=== PATIENT | male | born 1945 | race Caucasian/White ===

== ENCOUNTER 2019-02-24 14:20 | Inpatient (IN) | payer OTHER, SELFPAY ==
[2019-03-02] VITALS (19 sets, daily range): BP systolic 113–132; BP diastolic 70–78; PULSE 69–93; RESP 16–28; TEMP 36.3–36.9; O2SAT 86–96
[2019-03-02 05:30] LABS: Add RBC Morph No
[2019-03-02 05:36] LABS: Basophils % 0.1 %; Hematocrit 53.5 % (42.0-52.0); Hemoglobin 16.7 g/dL (11.7-16.6); Lymphocytes # 0.6 10^3/uL (0.8-4.8); Mean Corpuscular HGB Conc 31.2 g/dL (30.0-36.0); Mean Corpuscular Hemoglobin 28.4 pg (28.0-34.0); Mean Platelet Volume 9.8 fL (7.4-10.4); Monocytes # 0.7 10^3/uL (0.2-0.9); Monocytes % 5.8 %; Neutrophils # 10.6 10^3/uL (1.8-7.7); Neutrophils % 88.8 %; Nucleated Red Blood Cells % 0 %; Platelet Count 334 10^3/cmm (130-400); Red Blood Count 5.88 10^6/uL (4.1-5.3); Red Cell Distribution Width 14.1 % (12.1-15.1); White Blood Count 11.9 10^3/uL (4.0-10.0)
[2019-03-02 05:51] LABS: Alanine Aminotransferase 46 U/L (0-41); Albumin Level 3.6 g/dL (3.5-5.2); Alkaline Phosphatase 84 IU/L (40-130); Anion Gap 13.2 (5-19); Aspartate Amino Transferase 18 U/L (0-40); Blood Urea Nitrogen 30 mg/dL (8-23); Calcium 8.8 mg/Dl (8.8-10.2); Carbon Dioxide 37 mmol/L (22-29); Chloride 94 mmol/L (98-107); Glucose 238 mg/dL (74-106); Potassium 4.2 mmol/L (3.5-5.1); Sodium 140 mmol/L (136-145); Total Bilirubin 0.4 mg/dL (0.15-1.2); Total Protein 5.6 g/dL (6.6-8.7)
[2019-03-02] MEDS: ipratropium-albuterol 3 mL Neb INHALATION ×5 (07:30→22:56)
[2019-03-02] MEDS: FUROsemide 10 mg/mL SDV 4mL 40 MG IVP ×2 (08:32→18:40)
[2019-03-02] MEDS: clopidogrel 75 mg Tablet PO (08:39)
[2019-03-02] MEDS: atorvastatin 40 mg Tablet PO (08:39)
[2019-03-02] MEDS: levothyroxine 25 mcg Tablet PO (08:39)
[2019-03-02] MEDS: carvedilol 6.25 mg Tablet PO ×2 (08:39→17:07)
[2019-03-02] MEDS: guaiFENesin 600 mg Tablet PO ×2 (08:39→17:07)
[2019-03-02] MEDS: aspirin 81 mg EC Tablet PO (08:39)
--- NOTE | 2019-03-02 08:51 | PM.PN ---
Subjective Subjective: Interval history: Overall patient states he is feeling better. Less short of breath. No fevers or chills. He is very anxious to go home. Still requiring high flow oxygen though. He is getting up and ambulating some though. No significant sputum production. He is not wanting to use the BiPAP at night. And has not been very compliant with the incentive spirometer. Vitals/I&O/Wt Last Vital Signs Temp 98.4 F 03/02/19 06:00 Pulse 74 03/02/19 07:47 Resp 18 03/02/19 07:32 BP 132/78 03/02/19 06:00 Pulse Ox 90 03/02/19 07:32 03/01/19 03/02/19 03/02/19 22:59 06:59 14:59 Output Total 950 / 950 200 / 200 Balance -950 / -950 -200 / -200 Weight last 48 hrs Weight 82.282 kg Physical Exam Narrative: EXAM NARRATIVE: General: No acute distress. Alert. Heart: Regular rate and rhythm no new murmurs, rubs or gallops Lungs: Decreased breath sounds throughout. Some mild expiratory wheezes. No crackles. Abdomen: Positive bowel sounds. Nontender. Nondistended. No hepatosplenomegaly. No guarding. Extremities: No clubbing cyanosis or edema. Negative Homans Data Labs: Other Labs: All Labs last 24 hrs except CBC/BMP 03/01/19 03/01/19 03/01/19 03:17 03:17 14:57 RBC 5.88 H MCV 92.7 MCH 28.4 MCHC 30.6 RDW 13.9 MPV 9.9 Neut % (Auto) 91.8 Lymph % (Auto) 3.9 [place] % (Auto) 3.8 Eos % (Auto) 0.0 Baso % (Auto) 0.1 Neut # (Auto) 11.0 H Lymph # (Auto) 0.5 L [place] # (Auto) 0.5 Eos # (Auto) 0.0 Baso # (Auto) 0.0 Nucleated RBC % (a uto) 0 Nucleated RBCs # 0.0 Random Glucose 297 H Calcium 9.0 Total Bilirubin 0.4 AST 29 ALT 60 H Alkaline Phosphata se 100 C-React Prot High Sens 0.960 H Total Protein 6.4 L Albumin 3.7 Globulin 2.7 Vancomycin Trough 12.4 03/02/19 03/02/19 05:00 05:00 RBC 5.88 H MCV 91.0 MCH 28.4 MCHC 31.2 RDW 14.1 MPV 9.8 Neut % (Auto) 88.8 Lymph % (Auto) 5.0 [place] % (Auto) 5.8 Eos % (Auto) 0.0 Baso % (Auto) 0.1 Neut # (Auto) 10.6 H Lymph # (Auto) 0.6 L [place] # (Auto) 0.7 Eos # (Auto) 0.0 Baso # (Auto) 0.0 Nucleated RBC % (a uto) 0 Nucleated RBCs # 0.0 Random Glucose Calcium 8.8 Total Bilirubin 0.4 AST 18 ALT 46 H Alkaline Phosphata se 84 C-React Prot High Sens Total Protein 5.6 L Albumin 3.6 Globulin 2.0 Vancomycin Trough A&P Assessment and plan (1) Pneumonia: Overall patient feels like he is improving however is still requiring high flow oxygen. No fevers. He is very anxious to go home. We will go ahead and try to decrease him down to 5 L and see how he does. Apparently at home for a long time he has been running in the 80s. And seemed to do well with this. Status: Acute Code(s): J18.9 - Pneumonia, unspecified organism (2) COPD (chronic obstructive pulmonary disease): Continue steroids. Status: Acute Code(s): J44.9 - Chronic obstructive pulmonary disease, unspecified Attestations Medical Necessity Statement*: Patient has pneumonia and COPD requiring continued inpatient IV treatments and monitoring. 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
[2019-03-02] MEDS: cefTRIAXone 1,000 MG in sodium chloride 0.9% (plus) 50 ML 100 MG IV (08:56)
--- NOTE | 2019-03-02 13:22 | PC.CHAP ---
Pastoral Care Encounter/Spiritual Assessment Type of Contact [] Declined processing rep visit [x] Patient/Family/Request visit [] Outpatient visit [] Follow-up visit [] Physician referral [] Code/Alert [x] Routine visit [] Staff referral [] Actively dying [] Patient sleeping [x] Family support [] [] Out of room [] Palliative care [] [] Receiving care in room [] Pre-surgical visit [] Trauma [] Long length of stay [] ICU visit [] Other: Relational/Emotional Strength [] Patient feels connected with others/family/visitors/staff [] Distress [] Loneliness/isolation [] Abandonment Spirituality of Patient [x] Person of Judith [x] Attends Taoism of their Judith [x] Believes in Prayer [] Reads Bible or Synagogue materials [] There are Spiritual issues to be addressed Glaze Wiper Interventions [x] Prayer [x Active listening [xx] Non-anxious presence [] Spiritual/emotional support [] Crisis/trauma care [] Spiritual counseling [] Bereavement support [] Provided bereavement packet [] Provided Bible/devotional materials [] Provided toy/stuffed animal, coloring book to patient or family member [x] Completed spiritual assessment [] Provided Communion [] Anointing/[place] [] Salvation [] Other: Impact on Illness or Injury [] Angry [] Fearful [] Anxious [] Often cries [] Exhaustion [] Unable to work [] Unable to attend hindu [] Unable to walk/stand [] Unable to read [] Unable to drive [] Unable to eat/drink [] Unable to sleep [] Unable to be with family x Other: Summary ready to go home Time spent with patient 6 min
[2019-03-02] MEDS: enoxaparin 40 mg/0.4 mL Syringe SUBCUT (15:51)
[2019-03-02] MEDS: pantoprazole 40 mg SDV IVP (15:51)
[2019-03-03] VITALS (21 sets, daily range): BP systolic 108–148; BP diastolic 55–94; PULSE 69–114; RESP 17–26; TEMP 36.3–36.7; O2SAT 86–96
[2019-03-03] MEDS: ipratropium-albuterol 3 mL Neb INHALATION ×4 (02:55→23:07)
[2019-03-03 05:42] LABS: Hematocrit 54.9 % (42.0-52.0); Hemoglobin 16.9 g/dL (11.7-16.6); Lymphocytes # 0.4 10^3/uL (0.8-4.8); Mean Corpuscular HGB Conc 30.8 g/dL (30.0-36.0); Mean Corpuscular Hemoglobin 28.1 pg (28.0-34.0); Mean Corpuscular Volume 91.3 fL (80-94); Mean Platelet Volume 9.6 fL (7.4-10.4); Monocytes # 0.4 10^3/uL (0.2-0.9); Monocytes % 4.2 %; Neutrophils # 9.3 10^3/uL (1.8-7.7); Neutrophils % 91.4 %; Nucleated Red Blood Cells % 0 %; Platelet Count 343 10^3/cmm (130-400); Red Blood Count 6.01 10^6/uL (4.1-5.3); Red Cell Distribution Width 14.3 % (12.1-15.1); White Blood Count 10.2 10^3/uL (4.0-10.0)
[2019-03-03 05:44] LABS: Add RBC Morph No
[2019-03-03 06:02] LABS: Alanine Aminotransferase 50 U/L (0-41); Albumin Level 3.3 g/dL (3.5-5.2); Alkaline Phosphatase 78 IU/L (40-130); Anion Gap 10.3 (5-19); Aspartate Amino Transferase 20 U/L (0-40); Blood Urea Nitrogen 36 mg/dL (8-23); Calcium 9.1 mg/Dl (8.8-10.2); Chloride 92 mmol/L (98-107); Globulin 2.9 g/dL (1.3-4.6); Glucose 228 mg/dL (74-106); Potassium 4.3 mmol/L (3.5-5.1); Sodium 139 mmol/L (136-145); Total Bilirubin 0.5 mg/dL (0.15-1.2); Total Protein 6.2 g/dL (6.6-8.7)
[2019-03-03 06:05] LABS: Carbon Dioxide 41 mmol/L (22-29)
--- NOTE | 2019-03-03 06:50 | P.PN_ITS ---
Subjective Subjective: Interval history: Patient states that he still feels fine. He is still requiring BiPAP overnight though. No fevers or chills. No significant sputum. Chest x-ray is pending this morning. Vitals/I&O/Wt Last Vital Signs Temp 97.4 F L 03/03/19 05:00 Pulse 69 03/03/19 05:00 Resp 18 03/03/19 05:00 BP 148/94 03/03/19 05:00 Pulse Ox 96 03/03/19 05:00 03/02/19 03/02/19 03/03/19 14:59 22:59 06:59 Intake Total 360 / 360 610 / 970 300 / 1270 Output Total 1675 / 1675 850 / 2525 250 / 2775 Balance -1315 / -1315 -240 / -1555 50 / -1505 Weight last 48 hrs Weight 82.372 kg Weight 82.282 kg Physical Exam Const: COMMON NORMALS: no apparent distress, alert and well nourished GENERAL APPEARANCE: comfortable HENMT: COMMON NORMALS: normocephalic HEAD & SCALP: normocephalic NOSE: nares normal MOUTH: oral and palatal mucosa normal THROAT: posterior oropharynx normal Resp: COMMON NORMALS: normal respiratory effort, no retractions and clear to auscultation bilaterally AUSCULTATION: clear to auscultation bilaterally Cardio: COMMON NORMALS: regular rate, regular rhythm, no gallops, no murmurs and no rub RATE: regular rate RHYTHM: regular rhythm GI: COMMON NORMALS: normal to inspection, nondistended, normoactive bowel sounds, non-tender, no hepatosplenomegaly and no masses PALPATION: Yes no hepatosplenomegaly Extremity: COMMON NORMALS: normal to inspection, normal capillary refill, no clubbing, cyanosis or edema and no calf tenderness Neuro: SENSORIUM/ORIENTATION: Yes alert A&P Assessment and plan (1) Pneumonia: Overall patient feels like he is improving however is still requiring high flow oxygen. No fevers. He is very anxious to go home. We were unsuccessful with titrating him off the high flow yesterday. We will attempt this again today. Follow-up on chest x-ray this morning. Status: Acute Code(s): J18.9 - Pneumonia, unspecified organism (2) COPD (chronic obstructive pulmonary disease): Continue steroids. 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
--- NOTE | 2019-03-03 07:41 | XR_ITS ---
WS: [id number] CHEST XRAY TECHNIQUE: Portable chest. CLINICAL INFORMATION: pneumonia COMPARISON: FINDINGS: Heart: Cardiomegaly. Lungs: Mild pulmonary vascular congestion. Trace pleural fluid. No focal pneumonia. Bibasilar atelect asis. Bones: Normal visualized bony structures. XR/XR chest 1V portable [id number] IMPRESSION: 1. Cardiomegaly with trace pleural fluid. Mild pulmonary vascular congestion. 2. Slight bibasilar atelectasis. 3. No significant interval changes.
[2019-03-03] MEDS: FUROsemide 10 mg/mL SDV 4mL 40 MG IVP ×2 (07:45→18:30)
[2019-03-03] MEDS: cefTRIAXone 1,000 MG in sodium chloride 0.9% (plus) 50 ML 100 MG IV (07:48)
[2019-03-03] MEDS: atorvastatin 40 mg Tablet PO (08:14)
[2019-03-03] MEDS: aspirin 81 mg EC Tablet PO (08:14)
[2019-03-03] MEDS: carvedilol 6.25 mg Tablet PO ×2 (08:14→18:26)
[2019-03-03] MEDS: guaiFENesin 600 mg Tablet PO ×2 (08:14→18:26)
[2019-03-03] MEDS: levothyroxine 25 mcg Tablet PO (08:14)
[2019-03-03] MEDS: clopidogrel 75 mg Tablet PO (08:16)
--- NOTE | 2019-03-03 11:15 | PC.SOCIAL ---
IMM Updated Page 2 of IMM updated and given to patient. Initialed, dated, and timed and placed back in chart.
--- NOTE | 2019-03-03 15:37 | PC.NURSE ---
WHEN ROUNDING ON PATIENT PREVIOUSLY IN THE SHIFT, THE PATIENT BEGAN TELLING THE NURSE WAR STORIES. THE PATIENT APPEARED ANXIOUS EVIDENCED BY RAPID KNOCKING OF KNUCKLES ON BEDSIDE TABLE AND STARING OFF INTO THE DISTANCE. THE NURSE REACHED FOR THE PATIENT'S HAND TO COMFORT HIM WHILE HE SHARED HIS STORIES. THE PATIENT ASKED THE NURSE, WHY DID YOU DO THAT? THE NURSE RESPONDED, I WANTED TO COMFORT YOU. THE PATIENT STATED, IN THAT CASE, CAN I HAVE A HUG TOO? THE NURSE COMPLIED AND GAVE THE PATIENT A HUG. THE PATIENT THEN KISSED THE NURSE ON THE CHEEK. THE NURSE PATTED THE PATIENT ON THE SHOULDER AFTER THE HUG. THE PATIENT THEN PATTED THE NURSE ON HER OUTER THIGH. THE NURSE ASKED THE PATIENT, IS THERE ANYTHING ELSE I CAN DO FOR YOU TO MAKE YOU MORE COMFORTABLE AT THIS TIME? THE PATIENT THEN REACHED UP AND SQUEEZED THE NURSE'S BUTT AND RUBBED IT WITH HIS HAND. THE NURSE QUICKLY MOVED AWAY FROM THE PATIENT. THE PATIENT STATED, OH. I GUESS I SHOULDN'T HAVE DONE THAT, HUH? THE NURSE RESPONDED, NO THAT WAS INAPPROPRIATE. THE PATIENT THEN STATED, WELL AT LEAST YOU KNOW I'M STILL A MAN. THE NURSE EXITED THE ROOM. AT A LATER TIME, THE PATIENT TURNED ON HIS CALL LIGHT. THE NURSE'S AIDE ANSWERED THE CALL LIGHT THEN NOTIFIED THE NURSE THAT THE PATIENT WISHED TO SPEAK WITH, THE TALL, SKINNY NURSE FROM [place]. THE AIDE SAID THE PATIENT WOULD NOT TELL HER WHAT FOR. THE NURSE WENT TO SEE THE PATIENT. WHEN ASKED WHAT THE NURSE COULD DO FOR THE PATIENT, THE PATIENT REPLIED, I JUST WANTED TO BE SURE YOU HADN'T LEFT WITHOUT ME KNOWING ABOUT IT. ARE YOU HERE TILL 7? THE NURSE REPLIED THAT SHE WAS. THE PATIENT THEN STATED, WELL IF YOU DON'T HAVE ANYTHING ELSE TO DO WHY DON'T YOU SIT DOWN HERE FOR A WHILE AND HOLD MY HAND. THE NURSE DECLINED. THE NURSE ASKED IF THERE WAS ANYTHING SHE COULD DO FOR THE PATIENT BEFORE EXITING THE ROOM.
[2019-03-03] MEDS: enoxaparin 40 mg/0.4 mL Syringe SUBCUT (15:55)
[2019-03-03] MEDS: pantoprazole 40 mg SDV IVP (15:55)
[2019-03-03 15:58] LABS: Vancomycin Trough 16.9 ug/mL (10-15)
--- NOTE | 2019-03-03 23:13 | PC.RESP ---
Bipap #7 on standby. patient on HHFNC at this time, sats 90%
[2019-03-04] VITALS (22 sets, daily range): BP systolic 114–127; BP diastolic 64–81; PULSE 70–92; RESP 16–26; TEMP 36.4–37.2; O2SAT 81–93
[2019-03-04] MEDS: ipratropium-albuterol 3 mL Neb INHALATION ×6 (03:59→23:25)
[2019-03-04] MEDS: FUROsemide 10 mg/mL SDV 4mL 40 MG IVP ×2 (06:37→18:53)
[2019-03-04] MEDS: atorvastatin 40 mg Tablet PO (09:20)
[2019-03-04] MEDS: levothyroxine 25 mcg Tablet PO (09:20)
[2019-03-04] MEDS: carvedilol 6.25 mg Tablet PO ×2 (09:20→18:58)
[2019-03-04] MEDS: clopidogrel 75 mg Tablet PO (09:20)
[2019-03-04] MEDS: aspirin 81 mg EC Tablet PO (09:20)
[2019-03-04] MEDS: guaiFENesin 600 mg Tablet PO ×2 (09:20→18:58)
[2019-03-04 09:28] LABS: Hematocrit 55.6 % (42.0-52.0); Hemoglobin 17.3 g/dL (11.7-16.6); Lymphocytes # 0.5 10^3/uL (0.8-4.8); Lymphocytes % 4.9 %; Mean Corpuscular HGB Conc 31.1 g/dL (30.0-36.0); Mean Platelet Volume 9.6 fL (7.4-10.4); Monocytes # 0.3 10^3/uL (0.2-0.9); Monocytes % 3.5 %; Neutrophils # 8.7 10^3/uL (1.8-7.7); Neutrophils % 91.1 %; Nucleated Red Blood Cells % 0 %; Platelet Count 334 10^3/cmm (130-400); Red Blood Count 6.18 10^6/uL (4.1-5.3); Red Cell Distribution Width 14.2 % (12.1-15.1); White Blood Count 9.6 10^3/uL (4.0-10.0)
[2019-03-04 09:40] LABS: Alanine Aminotransferase 56 U/L (0-41); Albumin Level 3.8 g/dL (3.5-5.2); Alkaline Phosphatase 85 IU/L (40-130); Anion Gap 16.1 (5-19); Aspartate Amino Transferase 19 U/L (0-40); Blood Urea Nitrogen 42 mg/dL (8-23); Carbon Dioxide 36 mmol/L (22-29); Chloride 89 mmol/L (98-107); Globulin 1.9 g/dL (1.3-4.6); Glucose 298 mg/dL (74-106); Potassium 4.1 mmol/L (3.5-5.1); Sodium 137 mmol/L (136-145); Total Protein 5.7 g/dL (6.6-8.7)
[2019-03-04] MEDS: cefTRIAXone 1,000 MG in sodium chloride 0.9% (plus) 50 ML 100 MG IV (10:02)
[2019-03-04 10:34] LABS: C Reactive Protein 2.9 mg/L (0.0-4.9)
[2019-03-04] MEDS: levofloxacin-dextrose 5% 750 mg-150 mL Premix 150 MG IV (12:15)
--- NOTE | 2019-03-04 14:21 | P.PN_ITS ---
Subjective Subjective: Interval history: Patient states that he still feels fine. He is still requiring BiPAP overnight though although he has been noncompliant with it. He is still anxious to go home. We are slowly able to wean down his oxygen some. At home he typically runs in the low 80s but he is also not using his oxygen at home very often. Vitals/I&O/Wt Last Vital Signs Temp 98.8 F 03/04/19 11:15 Pulse 87 03/04/19 11:42 Resp 18 03/04/19 11:42 BP 122/70 03/04/19 11:15 Pulse Ox 85 L 03/04/19 11:42 03/03/19 03/04/19 03/04/19 22:59 06:59 14:59 Intake Total 470 / 1580 250 / 1830 680 / 680 Output Total 850 / 1150 1000 / 1000 Balance -380 / 430 250 / 680 -320 / -320 Weight last 48 hrs Weight 79.832 kg Weight 80.195 kg Weight 82.372 kg Physical Exam Narrative: EXAM NARRATIVE: General: No acute distress. Alert. Heart: Regular rate and rhythm no new murmurs, rubs or gallops Lungs: Decreased breath sounds throughout. Some mild expiratory wheezes. No crackles. Abdomen: Positive bowel sounds. Nontender. Nondistended. No hepatosplenomegaly. No guarding. Extremities: No clubbing cyanosis or edema. Negative Homans A&P Assessment and plan (1) Pneumonia: Overall patient feels like he is improving however is still requiring high flow oxygen. No fevers. He is very anxious to go home. We have been able to get him off the high flow oxygen today. He still on 8 to 9 L though. His baseline at home is 4 L but he is very noncompliant with it. Typically it sounds like he runs in the low to mid 80s at home as a baseline. Discussed with him and his that he needs probably another couple days of IV antibiotics and respiratory treatments. If we can get him down to 4 to 5 L of oxygen with O2 sats 85% or above I think we will be satisfied with discharge at that time. If he is still here on Thursday will get pulmonology consultation at that time. Status: Acute Code(s): J18.9 - Pneumonia, unspecified organism (2) COPD (chronic obstructive pulmonary disease): Continue steroids. Status: Acute Code(s): J44.9 - Chronic obstructive pulmonary disease, unspecified Attestations Medical Necessity Statement*: Patient has pneumonia and COPD exacerbation requiring inpatient IV treatments Coding Level of Care Code Acute Brand Communications Manager for [facility] Diagnoses Pneumonia J18.9 COPD (chronic obstructive pulmonary disease) J44.9
[2019-03-04] MEDS: pantoprazole DR 40 mg Tablet PO (15:20)
[2019-03-04] MEDS: enoxaparin 40 mg/0.4 mL Syringe SUBCUT (15:20)
--- NOTE | 2019-03-04 20:14 | PC.RESP ---
B7, bipap on standby
--- NOTE | 2019-03-04 23:29 | PC.RESP ---
#B7 bipap on standby
[2019-03-05] VITALS (16 sets, daily range): BP systolic 112–138; BP diastolic 64–81; PULSE 67–87; RESP 16–23; TEMP 36.3–36.6; O2SAT 86–99; BMI 26.7
[2019-03-05] MEDS: ipratropium-albuterol 3 mL Neb INHALATION ×4 (02:40→20:14)
[2019-03-05 03:22] LABS: Basophils % 0.1 %; Hematocrit 54.6 % (42.0-52.0); Hemoglobin 17.4 g/dL (11.7-16.6); Lymphocytes # 0.4 10^3/uL (0.8-4.8); Lymphocytes % 4.5 %; Mean Corpuscular HGB Conc 31.9 g/dL (30.0-36.0); Mean Corpuscular Hemoglobin 29.2 pg (28.0-34.0); Mean Corpuscular Volume 91.8 fL (80-94); Mean Platelet Volume 9.8 fL (7.4-10.4); Monocytes # 0.4 10^3/uL (0.2-0.9); Neutrophils % 90.1 %; Nucleated Red Blood Cells % 0 %; Platelet Count 319 10^3/cmm (130-400); Red Blood Count 5.95 10^6/uL (4.1-5.3); Red Cell Distribution Width 14.2 % (12.1-15.1); White Blood Count 8.9 10^3/uL (4.0-10.0)
[2019-03-05 03:54] LABS: Alanine Aminotransferase 74 U/L (0-41); Albumin Level 3.4 g/dL (3.5-5.2); Alkaline Phosphatase 95 IU/L (40-130); Anion Gap 13.6 (5-19); Aspartate Amino Transferase 30 U/L (0-40); Blood Urea Nitrogen 48 mg/dL (8-23); C Reactive Protein 2.6 mg/L (0.0-4.9); Calcium 9.3 mg/Dl (8.8-10.2); Carbon Dioxide 38 mmol/L (22-29); Chloride 88 mmol/L (98-107); Globulin 2.3 g/dL (1.3-4.6); Glucose 288 mg/dL (74-106); Potassium 4.6 mmol/L (3.5-5.1); Sodium 135 mmol/L (136-145); Total Bilirubin 0.6 mg/dL (0.15-1.2); Total Protein 5.7 g/dL (6.6-8.7)
[2019-03-05 03:55] LABS: Vancomycin Trough 16.9 ug/mL (10-15)
[2019-03-05 06:28] LABS: Glucose Point of Care 237 mg/dL (70-110)
[2019-03-05] MEDS: FUROsemide 10 mg/mL SDV 4mL 40 MG IVP (07:17)
--- NOTE | 2019-03-05 07:29 | PC.RESP ---
B7 on standby at bedside
[2019-03-05] MEDS: atorvastatin 40 mg Tablet PO (09:33)
[2019-03-05] MEDS: aspirin 81 mg EC Tablet PO (09:34)
[2019-03-05] MEDS: guaiFENesin 600 mg Tablet PO ×2 (09:34→17:54)
[2019-03-05] MEDS: carvedilol 6.25 mg Tablet PO ×2 (09:34→17:54)
[2019-03-05] MEDS: levothyroxine 25 mcg Tablet PO (09:34)
[2019-03-05] MEDS: pantoprazole DR 40 mg Tablet PO (09:34)
[2019-03-05] MEDS: clopidogrel 75 mg Tablet PO (09:34)
[2019-03-05] MEDS: cefTRIAXone 1,000 MG in sodium chloride 0.9% (plus) 50 ML 50 MG IV (09:42)
--- NOTE | 2019-03-05 10:22 | PC.SOCIAL ---
IMM Updated updated pt& on Pg 2 IMM & provided pt a copy & left on bedside table. No questions voiced. Signed, dated, & timed original in chart.
[2019-03-05] MEDS: levofloxacin-dextrose 5% 750 mg-150 mL Premix 150 MG IV (11:09)
[2019-03-05 11:24] LABS: Estmated Average Glucose 163; Hemoglobin A1C 7.3 % (4.0-6.0)
[2019-03-05 11:53] LABS: Glucose Point of Care 282 mg/dL (70-110)
--- NOTE | 2019-03-05 13:55 | P.PN_ITS ---
Subjective Subjective: Interval history: Joss reports he is feeling a little bit better. Hoping he can get to go home in the next several days. Medications: Reviewed: Yes Vitals/I&O/Wt Last Vital Signs Temp 97.6 F 03/05/19 11:35 Pulse 81 03/05/19 12:18 Resp 18 03/05/19 12:13 BP 117/73 03/05/19 11:35 Pulse Ox 91 03/05/19 12:13 03/04/19 03/05/19 03/05/19 22:59 06:59 14:59 Intake Total 420 / 1100 700 / 1800 560 / 560 Output Total 1700 / 2700 1050 / 1050 Balance -1280 / -1600 700 / -900 -490 / -490 Weight last 48 hrs Weight 79.832 kg Weight 79.832 kg Physical Exam Narrative: EXAM NARRATIVE: General exam is no apparent distress Cardiovascular regular rate and rhythm, heart sounds distant Lungs bilateral expiratory wheezes. Fair air expansion. Abdomen is soft with positive bowel sounds Extremities no cyanosis clubbing or edema A&P Assessment and plan (1) Pneumonia: Overall appears to be improving. Oxygen requirement is going down. Currently on levofloxacin. No fevers. Status: Acute Code(s): J18.9 - Pneumonia, unspecified organism (2) COPD (chronic obstructive pulmonary disease): Improving. Reduce IV steroids. Continue pulmonary toilet. Status: Acute Code(s): J44.9 - Chronic obstructive pulmonary disease, unspecified (3) CAD (coronary artery disease): Stable currently. No evidence of fluid overload Status: Acute Code(s): I25.10 - Atherosclerotic heart disease of [place] coronary artery without angina pectoris (4) Hyperlipidemia: Stable. On Lipitor Status: Acute Code(s): E78.5 - Hyperlipidemia, unspecified (5) Hypertension: Stable. Blood pressure controlled. Discontinue IV Lasix. Change to p.o. 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
[2019-03-05] MEDS: enoxaparin 40 mg/0.4 mL Syringe SUBCUT (14:23)
[2019-03-05] MEDS: FUROsemide 40 mg Tablet PO (16:52)
[2019-03-05 17:07] LABS: Glucose Point of Care 138 mg/dL (70-110)
[2019-03-05 21:28] LABS: Glucose Point of Care 248 mg/dL (70-110)
[2019-03-06] VITALS (20 sets, daily range): BP systolic 109–135; BP diastolic 62–79; PULSE 62–81; RESP 16–26; TEMP 36.4–36.6; O2SAT 88–96
[2019-03-06] MEDS: ipratropium-albuterol 3 mL Neb INHALATION ×7 (00:01→23:40)
[2019-03-06 06:55] LABS: Glucose Point of Care 171 mg/dL (70-110)
--- NOTE | 2019-03-06 07:24 | PC.RESP ---
Bipap ID: [id number] on standby at bedside
[2019-03-06] MEDS: cefTRIAXone 1,000 MG in sodium chloride 0.9% (plus) 50 ML 100 MG IV (09:50)
[2019-03-06] MEDS: FUROsemide 40 mg Tablet PO ×2 (09:54→15:37)
[2019-03-06] MEDS: clopidogrel 75 mg Tablet PO (09:55)
[2019-03-06] MEDS: levothyroxine 25 mcg Tablet PO (09:55)
[2019-03-06] MEDS: guaiFENesin 600 mg Tablet PO ×2 (09:55→18:52)
[2019-03-06] MEDS: aspirin 81 mg EC Tablet PO (09:55)
[2019-03-06] MEDS: pantoprazole DR 40 mg Tablet PO (09:55)
[2019-03-06] MEDS: carvedilol 6.25 mg Tablet PO ×2 (09:55→18:52)
[2019-03-06] MEDS: atorvastatin 40 mg Tablet PO (09:55)
--- NOTE | 2019-03-06 10:16 | P.PN_ITS ---
Subjective Subjective: Interval history: Joss reports he feels a little bit better. He has more energy. He believes he is wheezing less. Medications: Reviewed: Yes Vitals/I&O/Wt Last Vital Signs Temp 97.5 F L 03/06/19 08:22 Pulse 66 03/06/19 08:22 Resp 18 03/06/19 08:22 BP 109/70 03/06/19 08:22 Pulse Ox 91 03/06/19 08:22 03/05/19 03/06/19 03/06/19 22:59 06:59 14:59 Intake Total 650 / 1210 250 / 1460 480 / 480 Output Total 550 / 1600 Balance 100 / -390 250 / -140 480 / 480 Weight last 48 hrs Weight 79.832 kg Physical Exam Narrative: EXAM NARRATIVE: General exam is no apparent distress. Oxygen is 5 L on the wall currently. Cardiovascular regular rate and rhythm, no murmur Lungs diminished breath sounds bilaterally. Bilateral expiratory wheezes. Improved aeration from yesterday. Abdomen is soft, positive bowel sounds Extremities no cyanosis clubbing or edema A&P Assessment and plan (1) Pneumonia: Overall appears to be improving. Oxygen requirement is going down. Currently on levofloxacin. No fevers. Now oxygen requirement is decreasing. No need for laboratory tomorrow. Status: Acute Code(s): J18.9 - Pneumonia, unspecified organism (2) COPD (chronic obstructive pulmonary disease): Improving. Discontinue IV steroids. Change to oral prednisone. Continue pulmonary toilet. Status: Acute Code(s): J44.9 - Chronic obstructive pulmonary disease, unspecified (3) CAD (coronary artery disease): Stable currently. No evidence of fluid overload Status: Acute Code(s): I25.10 - Atherosclerotic heart disease of [place] coronary artery without angina pectoris (4) Hyperlipidemia: Stable. On Lipitor Status: Acute Code(s): E78.5 - Hyperlipidemia, unspecified (5) Hypertension: Stable. Blood pressure controlled. Discontinue IV Lasix. Change to p.o. Status: Acute Code(s): I10 - Essential (primary) hypertension (6) Hypothyroidism: Stable Status: Acute Code(s): E03.9 - Hypothyroidism, unspecified Additional A&P Information Additional A&P Information: Elevated glucose noted. A1c elevated. Consistent with diabetes. Sliding scale insulin started. Could consider metformin at discharge. 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
[2019-03-06 12:21] LABS: Glucose Point of Care 249 mg/dL (70-110)
[2019-03-06] MEDS: levofloxacin-dextrose 5% 750 mg-150 mL Premix 150 MG IV (12:35)
[2019-03-06] MEDS: enoxaparin 40 mg/0.4 mL Syringe SUBCUT (15:38)
[2019-03-06 16:54] LABS: Glucose Point of Care 192 mg/dL (70-110)
[2019-03-06 21:48] LABS: Glucose Point of Care 136 mg/dL (70-110)
[2019-03-07] VITALS (8 sets, daily range): BP systolic 111–131; BP diastolic 64–83; PULSE 61–77; RESP 12–23; TEMP 36.1–36.6; O2SAT 86–97
[2019-03-07] MEDS: ipratropium-albuterol 3 mL Neb INHALATION ×2 (03:15→07:33)
--- NOTE | 2019-03-07 07:34 | PC.RESP ---
bipap on stand by
[2019-03-07 07:48] LABS: Glucose Point of Care 115 mg/dL (70-110)
[2019-03-07] MEDS: cefTRIAXone 1,000 MG in sodium chloride 0.9% (plus) 50 ML 100 MG IV (08:07)
[2019-03-07] MEDS: aspirin 81 mg EC Tablet PO (08:08)
[2019-03-07] MEDS: guaiFENesin 600 mg Tablet PO (08:08)
[2019-03-07] MEDS: FUROsemide 40 mg Tablet PO (08:09)
[2019-03-07] MEDS: carvedilol 6.25 mg Tablet PO (08:09)
[2019-03-07] MEDS: pantoprazole DR 40 mg Tablet PO (08:09)
[2019-03-07] MEDS: clopidogrel 75 mg Tablet PO (08:09)
[2019-03-07] MEDS: atorvastatin 40 mg Tablet PO (08:09)
[2019-03-07] MEDS: predniSONE 20 mg Tablet 40 MG PO (08:09)
[2019-03-07] MEDS: levothyroxine 25 mcg Tablet PO (08:09)
--- NOTE | 2019-03-07 10:46 | PC.SOCIAL ---
IMM Updated Page 2 of IMM updated and given to patient. Initialed, dated, and timed a placed back in chart.
--- NOTE | 2019-03-07 11:22 | PM.DCS ---
Discharge Providers Date of Admission: 02/24/19 14:20 Date of Discharge: 03/07/19 Attending Provider at Admission: Inocente Eubanks MD Attending Provider at Discharge: Steve Vasquez MD Primary Care Provider: Steve Vasquez MD Diagnoses at Discharge Discharge Diagnosis (1) Pneumonia: Status: Acute (2) COPD (chronic obstructive pulmonary disease): Status: Acute (3) CAD (coronary artery disease): Status: Acute (4) Hyperlipidemia: Status: Acute (5) Hypertension: Status: Acute (6) Hypothyroidism: Status: Acute Reason for Visit Reason for Visit: Reason For Visit: Hypercapnia, Resp Distress, Pneumonia Hospital Course Hospital Course: Patient is a 73-year-old gentleman who was admitted to the hospital for pneumonia. He is very noncompliant with his healthcare. He has severe COPD but only takes his oxygen intermittently. He also has obstructive sleep apnea but has been noncompliant with his CPAP. Patient required BiPAP for a few days in the ICU and high flow oxygen. He gradually was able to be weaned down to 4 L at the time of discharge. At home sounds like he was maintaining O2 sats in the low 80s for the past several months. Seem to be tolerating that well. He was satting in the low 90s on 4 L at discharge. He was placed on IV antibiotics and IV steroids. Also had aggressive respiratory support with breathing treatments and chest vest. Discussed with the patient and he is agreeable to pulmonology consultation to see if we can improve his lung function. Physical Exam Narrative: EXAM NARRATIVE: General: No acute distress. Alert. Heart: Regular rate and rhythm no new murmurs, rubs or gallops Lungs: Decreased breath sounds throughout. Some mild expiratory wheezes. No crackles. Abdomen: Positive bowel sounds. Nontender. Nondistended. No hepatosplenomegaly. No guarding. Extremities: No clubbing cyanosis or edema. Negative Homans Discharge Data Data Completed and Pending: Completed Studies During Hospitalization Category Date Time Status XR chest 1V josé ble [id number] Routine Exams 03/03/19 07:41 Completed Labs from last 24 hours 03/07/19 03/06/19 03/06/19 06:57 21:14 16:36 POC Glucose 115 136 192 03/06/19 11:30 POC Glucose 249 Vitals: Last Vital Signs Temp 97.9 F 03/07/19 07:51 Pulse 75 03/07/19 07:51 Resp 18 03/07/19 07:51 BP 118/75 03/07/19 07:51 Pulse Ox 87 L 03/07/19 07:51 Discharge Plan Discharge Patient Disposition: Home, Self-Care Condition: Stable Prescriptions: New prednisone 20 mg Tablet 40 mg PO DAILY Qty: 30 RF: 0 Continued carvedilol 6.25 mg Tablet 6.25 mg PO BID RF: 0 clopidogrel 75 mg Tablet 75 mg PO DAILY RF: 0 Aspir-81 81 mg Tablet,Delayed Release (Dr/Ec) 81 mg PO DAILY RF: 0 levothyroxine 25 mcg Tablet 25 mcg PO DAILY RF: 0 Nitrostat 0.4 mg Tablet, Sublingual 0.4 mg SUBLINGUAL Q5M PRN (Reason: Chest Pain) RF: 0 furosemide 20 mg Tablet 20 mg PO DAILY RF: 0 albuterol sulfate 90 mcg/actuation Hfa Aerosol Inhaler 2 puff INHALATION 6XD RF: 0 rosuvastatin 10 mg Tablet 10 mg PO DAILY RF: 0 Spiriva with HandiHaler 18 mcg Capsule, W/Inhalation Device 1 cap INHALATION DAILY RF: 0 Symbicort 160-4.5 mcg/actuation Hfa Aerosol Inhaler 1 puff INHALATION BID RF: 0 Discharge Orders: Discharge Order (Routine); Ordered 03/07/19 Ordered By: Steve Vasquez Referrals: Natali Elizalde MD [Physician] - (Please make a new patient appointment with Dr. Elizalde in the next 1 to 2 weeks for severe COPD) Steve Vasquez MD [Primary Care Provider] - 1-3 days Discharge Diet: Diabetic Discharge Activity: Resume usual activity Patient Instructions: Pneumonia (DC) Activity Restrictions/Additional Instructions: -Continue all your home medications the same -We are adding 1 new medicine of prednisone to take 40 mg once a day for 5 days then drop down to 20 mg daily until you see me back in the clinic. We will discuss further taper at that time. -Please try to wear your oxygen all the time at 4 L. -Please try to use your CPAP nightly. -We are going to try to arrange an appointment with the bronze chaser in the next couple of weeks. -Please call if you have increasing fevers, cough, shortness of breath. -Nursing staff should make an appointment for you to follow-up with Dr. Vasquez in the next 1 to 3 days. Discharge Attestations Time Spent in Discharge Care*: greater than 30 min Quality Metrics Clinical Quality Measures During this hospital stay, did patient experience: None Coding Level of Care Code Acute Mechanical Insulator for [facility] Diagnoses Pneumonia J18.9 COPD (chronic obstructive pulmonary disease) J44.9 CAD (coronary artery disease) I25.10 Hyperlipidemia E78.5 Hypertension I10 Hypothyroidism E03.9
[2019-03-07 11:55] LABS: Glucose Point of Care 169 mg/dL (70-110)
--- NOTE | 2019-03-07 12:39 | PC.NURSE ---
PATIENT DISCHARGE PATIENT'S HERE TO TAKE PATIENT HOME. DISCHARGE INSTRUCTIONS PROVIDED TO PATIENT AND . ALL QUESTIONS ANSWERED. PATIENT AND WAS ENCOURAGED TO WEAR HIS PERSONAL OXYGEN HOME. PATIENT'S REPORTED THAT SHE DID NOT BRING THE OXYGEN WITH HER AND THAT PATIENT WOULD BE FINE FOR THE FEW MINUTES IT TAKES TO GET THERE. PATIENT AND BOTH REEDUCATED ON THE IMPORTANCE OF COMPLIANCE WITH SUPPLEMENTAL OXYGEN. BOTH VERBALIZED UNDERSTANDING. PATIENT ESCORTED TO MAIN ENTRANCE VIA WHEELCHAIR WITH THIS NURSE AND .
== END 2019-03-07 12:44 | disposition home or self-care (01) | DRG 193 ==
LOC: ICU 03-02 11:48 → MEDSURG 03-02 11:48
PROVIDERS: Internal Medicine; Admitting Provider Family Medicine; Emergency Provider Family Medicine; Family Provider Family Medicine; PCP Family Medicine; Referring Provider Family Medicine; Visit Provider Family Medicine
DX: J18.9 Pneumonia, unspecified organism (principal); J96.02 Acute respiratory failure with hypercapnia; J44.0 Chronic obstructive pulmonary disease with (acute) lower respiratory infection; J44.1 Chronic obstructive pulmonary disease with (acute) exacerbation; Z99.81 Dependence on supplemental oxygen; I25.10 Atherosclerotic heart disease of native coronary artery without angina pectoris; Z95.5 Presence of coronary angioplasty implant and graft; E03.9 Hypothyroidism, unspecified; E78.5 Hyperlipidemia, unspecified; I10 Essential (primary) hypertension; G47.33 Obstructive sleep apnea (adult) (pediatric); Z91.19 Patient's noncompliance with other medical treatment and regimen; Z87.891 Personal history of nicotine dependence; E11.9 Type 2 diabetes mellitus without complications; Z79.02 Long term (current) use of antithrombotics/antiplatelets; Z79.51 Long term (current) use of inhaled steroids
CPT/HCPCS: 36415; 36416; 36600; 71045; 71260; 80051; 80053; 80202; 82330; 82803; 82805; 82962; 83036; 83605; 83735; 83880; 84100; 84145; 84484; 85025; 86140; 86141; 86403; 86713; 87040; 87804; 93005; 94640; 94660; 94669; 94760; 94762; 96361; 96365; 96367; 96372; 96375; 97110; 97163; 97530; 99221; 99285; C9113; J0330; J0456; J0696; J1630; J1650; J1815; J1940; J1956; J2060; J2250; J2704; J2920; J2930; J3370; J3490; J7050; J7512; J7611; J7644; Q9967

== ENCOUNTER 2019-04-20 08:33 | Outpatient (CLI) | payer MEDICARE, OTHER, SELFPAY ==
[2019-04-20 09:28] VITALS: O2SAT 92
--- NOTE | 2019-04-20 13:15 | PFTS_ITS ---
Date of Study:04/20/2019 Date of Dictation: MECHANICS: Forced vital capacity (FVC) is normal. Forced expiratory volume in one second (FEV1) is reduced. FEV1/FVC is reduced. FLOW VOLUME LOOP: Reduced flow at all volumes with significant scooping. LUNG VOLUMES: Total lung capacity (TLC) is normal. Residual volume (RV) is normal. DIFFUSING CAPACITY FOR CARBON MONOXIDE: Moderately reduced. INTERPRETATION: The pulmonary function tests are consistent with moderate airflow obstruction. There is no significant postbronchodilator response. The total lung capacity and residual volume is normal. There is no hyperinflation or air trapping. Gas exchange (DLCO) is moderately reduced. The pulmonary function tests could be consistent with emphysema given the significant history of smoking. MTDD
== END 2019-04-20 08:34 | disposition home or self-care (01) ==
LOC: RT 08:38
PROVIDERS: Family Provider Family Medicine; PCP Family Medicine; Visit Provider Internal Medicine Critical Care Medicine
DX: J44.9 Chronic obstructive pulmonary disease, unspecified (principal)
CPT/HCPCS: 94060; 94726; 94729; J7611

== ENCOUNTER 2019-05-31 09:38 | Outpatient (CLI) | payer MEDICARE, OTHER, SELFPAY ==
--- NOTE | 2019-05-31 09:42 | USCV_ITS ---
Joss Meier Age: 73 Gender: M : 1945 Exam Date: 05/31/2019 09:59 Ordering Phys: Natali Elizalde MD Technologist: Lina Joyner [place] [facility] [place] HISTORY: Lower extremity edema. PROCEDURES: Venous duplex imaging was performed in bilateral lower extremities. The venous duplex Doppler examination of both lower extremities was performed in the standard fashion. The following venous structures were evaluated: common femoral vein, profunda vein, proximal portion of the greater saphenous vein, superficial femoral vein, and the popliteal vein. Bilaterally, the common femoral, superficial femoral, profunda femoral, popliteal, posterior tibial, greater saphenous veins, and the peroneal trunk were identified and interrogated in the standard fashion. FINDINGS: Normal 2-D Doppler and augmentation and compressibility throughout the lower extremity venous structures. Additional imaging through the proximal calf veins also reveals no thrombus. Limited evaluation of the greater saphenous vein is patent with no thrombus. CONCLUSIONS No DVT bilateral lower extremities. Dr. Yanet Nascimento DO (Electronically Signed) Final Date: 01 June 2019 08:40 S
== END 2019-05-31 09:39 | disposition home or self-care (01) ==
LOC: RAD 09:43 → RADWPI 09:44
PROVIDERS: Family Provider Family Medicine; PCP Family Medicine; Visit Provider Internal Medicine Critical Care Medicine
DX: R60.0 Localized edema (principal)
CPT/HCPCS: 93970

== ENCOUNTER 2020-04-16 12:56 | Outpatient (CLI) | payer MEDICARE, OTHER, SELFPAY | END 2020-04-16 12:57 | disposition home or self-care (01) | LOC: SOS 13:14 | PROVIDERS: PCP Family Medicine; Visit Provider Orthopaedic Surgery | DX: Z46.89 Encounter for fitting and adjustment of other specified devices (principal); S52.532D Colles' fracture of left radius, subsequent encounter for closed fracture with routine healing; S62.009 Unspecified fracture of navicular [scaphoid] bone of unspecified wrist; X58.XXXD Exposure to other specified factors, subsequent encounter | CPT/HCPCS: L3982 ==

== ENCOUNTER → 2020-04-24 11:12 | Outpatient (BNVA) | payer MEDICARE, SELFPAY | PROVIDERS: PCP Family Medicine; Visit Provider Orthopaedic Surgery | DX: S52.532A Colles' fracture of left radius, initial encounter for closed fracture (principal); X58.XXXA Exposure to other specified factors, initial encounter | CPT/HCPCS: 73110 ==

== ENCOUNTER → 2020-05-15 11:27 | Outpatient (BNVA) | payer MEDICARE, SELFPAY | PROVIDERS: PCP Family Medicine; Visit Provider Orthopaedic Surgery | DX: S62.009 Unspecified fracture of navicular [scaphoid] bone of unspecified wrist (principal); X58.XXXD Exposure to other specified factors, subsequent encounter | CPT/HCPCS: 73110 ==

== ENCOUNTER 2020-06-10 13:29 | Emergency (ER) | payer MEDICARE, OTHER, SELFPAY ==
[2020-06-10 13:58] VITALS: BP 128/68; PULSE 90; RESP 20; TEMP 36.8; O2SAT 84; BMI 30.5
--- NOTE | 2020-06-10 16:25 | ED_ITS ---
HPI - Extremity Problem General: Chief complaint: Extremity Problem,Nontraumatic Stated complaint: can't bend L knee Time Seen by Provider: 06/10/20 16:14 Source: patient and family () Mode of arrival: ambulatory Limitations: no limitations History of Present Illness: HPI Narrative: The patient is a 74 year old male who presents to the ED with complaints of left knee pain posteriorly that started when he woke up yesterday. He has severe pain on flexing the knee and he has pain on ambulation. He is here to be evaluated for this. MD Complaint: extremity pain Onset (ago): day(s) (1) Pain Consistency: constant Location: left and knee Quality: sharp Radiation: none Relieving factors: nothing Exacerbating factors: range of motion Associated symptoms: Deny arthralgias, chest pain, fever(s), myalgias, rash or short of breath Review of Systems General: Reports: 10 or more systems reviewed and unremarkable except in HPI and below Const: Denies: fever(s) Card: Denies: chest pain Skin/Breast: Denies: rash PFS ED PFSH: Medical History (Updated 06/10/20 @ 18:03 by Kendell Bundy MD, [facility] [place]) Abdominal aortic aneurysm (AAA) CAD (coronary artery disease) COPD (chronic obstructive pulmonary disease) CPAP (continuous positive airway pressure) dependence Hyperlipidemia Hypertension Hypothyroidism Surgical History H/O eye surgery Hx of knee surgery Status post coronary artery stent placement Family History Other CAD (coronary artery disease) Social History Smoking and tobacco status: current every day smoker cigarettes Packs smoked per day: 0.5 Years cigarettes smoked: 55 Quit status (tobacco): not considering quitting Second hand smoke exposure: No Alcohol intake: current Lives independently: Yes Household members: spouse Housing: House Marital status: service: Yes Current occupational status: retired History of recent travel: No Current gender identity: Male Physical Exam Const: COMMON NORMALS: no acute distress, average body habitus, patient oriented x3, no limitations, healthy appearing, alert and well nourished HENMT: COMMON NORMALS: normocephalic, atraumatic and moist oral mucous membranes HEAD & SCALP: normocephalic and atraumatic Neck/C-Spine: COMMON NORMALS: no meningeal signs and no JVD Resp: COMMON NORMALS: normal respiratory effort, No retractions, No use of accessory muscles, clear to auscultation bilaterally and percussion normal AUSCULTATION: clear to auscultation bilaterally PERCUSSION: percussion normal Cardio: COMMON NORMALS: no JVD, regular rate, regular rhythm, S1 normal heart sound present, S2 normal heart sound present, No gallops present (Cardio), No clicks present (Cardio), No murmurs present (Cardio), No rub (Cardio) and Peripheral pulses 2+ throughout RATE: regular rate RHYTHM: regular rhythm HEART SOUNDS: S1 normal heart sound present and S2 normal heart sound present PERIPHERAL PULSES: Peripheral pulses 2+ throughout Extremity: COMMON NORMALS: normal to inspection, full ROM, capillary refill normal, no calf tenderness and no pedal edema RIGHT LOWER EXTREMITY: Yes lower leg (erythema in lower leg) Right lower leg: Yes inspection (dry skin), Yes palpation (warm, not tender, no drainage) and Yes neurovascular exam (intact) LEFT LOWER EXTREMITY: Yes knee joint Left knee: Yes inspection (old healed surgical scar), Yes palpation (cystic lesion in the left popliteal area, about 3 cm in diameter) and Yes neurovascular exam (intact) Neuro: COMMON NORMALS: patient oriented x3 SENSORIUM/ORIENTATION: Yes alert MENINGEAL SIGNS: Yes no meningeal signs Skin: COMMON NORMALS: no rashes or lesions noted, no wounds, turgor normal, no jaundice, no petechiae and no mottling GENERAL SKIN EXAM: no rashes or lesions noted and turgor normal Course Reevaluation(s): Reevaluation #1: Discussed his imaging findings with the patient and his . No DVT, xray unremarkable. Will manage as a case of enamorado's cyst with oral steroids. Will manage the stasis dermatitis with topical steroids. They voiced understanding and all questions answered. Time: 18:01 Vital Signs: Vital signs: Vital Signs Temperature 98.3 F 06/10/20 13:58 Pulse Rate 83 06/10/20 18:19 Respiratory Rate 20 H 06/10/20 18:19 Blood Pressure 128/61 06/10/20 18:19 Pulse Oximetry 84 L 06/10/20 13:58 MDM - Extremity (Nontraumatic) MDM Narrative: Medical decision making narrative: Patient with left knee pain. Evaluation in the ED is consistent with a Enamorado's cyst that is probably inflamed. He also has stasis dermatitis and will be managed with topical steroids. Medical Records: Attestation: I reviewed the patient's medical records. Imaging Data^: US Vascular: Attestation: I personally reviewed and interpreted this imaging study as follows: Radiologist's impression: [facility] [place] [address] Ultrasound Report Signed Patient: Joss Meier #: [id number] : 6Acct#:[id number] Age/Sex: 74 / MADM Date: 06/10/20 [facility] Attending Dr: Ordering Provider/Ordering MD: Kendell Bundy MD, [facility] [place] Date of Service: 06/10/20 Procedure(s): [place] [id number] Accession Number(s): [id number] Report Number: [id number] PROCEDURE INFORMATION: Exam: US Duplex Left Lower Extremity Veins, Limited Exam date and time: 06/10/2020 4:27 PM Age: 74 years old Clinical indication: Pain; Other: Popliteal area; Patient HX: H/o both knees replaced; Additional info: Left popliteal pain/swelling TECHNIQUE: Imaging protocol: Real-time Duplex ultrasound of the Left Lower Extremity with 2-D kaye scale, color Doppler flow and spectral waveform analysis with image documentation. Limited exam focused on the left lower extremity veins. COMPARISON: No relevant prior studies available. FINDINGS: Left deep veins: The common femoral, femoral, proximal profunda femoral and popliteal veins are patent without thrombus. Normal Doppler waveforms. Normal compressibility and/or augmentation response. Left superficial veins: Saphenofemoral junction is patent without thrombus. Soft tissues: Soft tissue edema in the left calf. US/[place] [id number] IMPRESSION: No evidence of deep vein thrombosis. Dictated By:Brandon Hoang Signed By:Guillermo Hoang Date/Time:06/10/201705 DD/ 04 Xray Ortho: Attestation: I personally reviewed and interpreted this imaging study as follows: Radiologist's impression: X-ray knee negative for acute findings. Implant appears intact with no fracture or dislocation Discharge Plan Discharge Patient Disposition: Home Clinical Impression: Enamorado's cyst of knee Qualifiers: Laterality: left Qualified Code(s): M71.22 - Synovial cyst of popliteal space [Enamorado], left knee Stasis dermatitis Qualifiers: Laterality: right Qualified Code(s): I87.2 - Venous insufficiency (chronic) (peripheral) Condition: Stable Prescriptions: New prednisone 20 mg tablet 40 mg PO DAILY 5 Days Qty: 10 RF: 0 triamcinolone acetonide 0.5 % cream 1 applic topical BID Qty: 15 RF: 0 Continued (DME) FAST FORM COCK UP SPLINT See Rx Instructions .Route .MEDSUPPLY Qty: 1 RF: 0 carvedilol 6.25 mg Tablet 6.25 mg PO BID@0800,2100 RF: 0 clopidogrel 75 mg Tablet 75 mg PO DAILY@0800 RF: 0 levothyroxine 25 mcg Tablet 25 mcg PO DAILY@0700 RF: 0 nitroglycerin [Nitrostat] 0.4 mg Tablet, Sublingual 0.4 mg SUBLINGUAL Q5M PRN (Reason: Chest Pain) RF: 0 furosemide 20 mg Tablet 20 mg PO DAILY@0800 RF: 0 albuterol sulfate 90 mcg/actuation Hfa Aerosol Inhaler 2 puff INHALATION 6XD RF: 0 rosuvastatin 10 mg Tablet 10 mg PO DAILY@0800 RF: 0 Spiriva with HandiHaler 18 mcg Capsule, W/Inhalation Device 1 cap INHALATION DAILY@0800 RF: 0 budesonide-formoterol [Symbicort] 160-4.5 mcg/actuation Hfa Aerosol Inhaler 1 puff INHALATION BID@0800,2100 RF: 0 aspirin 81 mg Tablet,Delayed Release (Dr/Ec) 81 mg PO DAILY@0800 RF: 0 vitamin E 1 tab PO DAILY@0800 RF: 0 Discharge Orders: Discharge ED (Routine); Ordered 06/10/20 Ordered By: Kendell Bundy Referrals: Steve Vasquez MD [Primary Care Provider] - 1-3 days Discharge Diet: Usual diet Discharge Activity: Increase activity as tolerated Patient Instructions: Enamorado's Cyst (ED), Stasis Dermatitis (ED) Activity Restrictions/Additional Instructions: Return for any new or worsening symptoms. Follow-up with your primary care provider within 3 days. Use the steroids as prescribed, use the steroid cream to the right leg twice a day until he improves. Coding Level of Care Code ED Junior Underwriter for Frank Ahmadi
--- NOTE | 2020-06-10 16:38 | PC.NURSE ---
patient stated left knee pain when bend left leg. resting in bed now, denied any pain at this time.
--- NOTE | 2020-06-10 17:36 | XRR_ITS ---
PROCEDURE INFORMATION: Exam: XR Left Knee Exam date and time: 06/10/2020 5:40 PM Age: 74 years old Clinical indication: Pain; Knee; Left; Additional info: Knee pain TECHNIQUE: Imaging protocol: XR Left knee. Views: 3 views. COMPARISON: No relevant prior studies available. FINDINGS: Bones/joints: Status post total knee arthroplasty. The hardware is intact and aligned. No significant surrounding lucency. No acute displaced fracture or dislocation. Suspected small joint effusion. Soft tissues: The anterior soft tissues are not well evaluated. The remaining soft tissues are normal appearance. XR/XR knee LT 3V* [id number] IMPRESSION: No acute abnormalities identified.
[2020-06-10] MEDS: predniSONE 20 mg Tablet 40 MG PO (18:15)
[2020-06-10 18:19] VITALS: BP 128/61; PULSE 83; RESP 20
== END 2020-06-10 18:21 | disposition home or self-care (01) ==
PROVIDERS: Emergency Provider Family Medicine; PCP Family Medicine
DX: M71.22 Synovial cyst of popliteal space [Baker], left knee (principal); I87.2 Venous insufficiency (chronic) (peripheral); Z79.02 Long term (current) use of antithrombotics/antiplatelets; Z79.82 Long term (current) use of aspirin; I25.10 Atherosclerotic heart disease of native coronary artery without angina pectoris; J44.9 Chronic obstructive pulmonary disease, unspecified; E78.5 Hyperlipidemia, unspecified; I10 Essential (primary) hypertension; F17.210 Nicotine dependence, cigarettes, uncomplicated
CPT/HCPCS: 73562; 93971; 99283; J7512

== ENCOUNTER → 2020-06-12 10:55 | Outpatient (BNVA) | payer MEDICARE, OTHER, SELFPAY | PROVIDERS: PCP Family Medicine; Visit Provider Orthopaedic Surgery | DX: S52.532A Colles' fracture of left radius, initial encounter for closed fracture (principal); T14.8XXA Other injury of unspecified body region, initial encounter; S62.009 Unspecified fracture of navicular [scaphoid] bone of unspecified wrist; X58.XXXA Exposure to other specified factors, initial encounter | CPT/HCPCS: 73110 ==

== ENCOUNTER → 2021-05-10 10:51 | Outpatient (BNVA) | payer OTHER, SELFPAY | PROVIDERS: PCP Family Medicine; Visit Provider Internal Medicine Critical Care Medicine | DX: J44.9 Chronic obstructive pulmonary disease, unspecified (principal); G47.31 Primary central sleep apnea; F17.210 Nicotine dependence, cigarettes, uncomplicated | CPT/HCPCS: 99214 ==

== ENCOUNTER → 2021-11-07 09:47 | Outpatient (BNVA) | payer OTHER, SELFPAY | PROVIDERS: PCP Family Medicine; Visit Provider Internal Medicine Critical Care Medicine | DX: J44.9 Chronic obstructive pulmonary disease, unspecified (principal); G47.31 Primary central sleep apnea; J96.12 Chronic respiratory failure with hypercapnia; R91.1 Solitary pulmonary nodule; F17.210 Nicotine dependence, cigarettes, uncomplicated | CPT/HCPCS: 99213; 99214 ==

== ENCOUNTER 2022-01-13 06:24 | Outpatient (CLI) | payer OTHER, SELFPAY ==
--- NOTE | 2022-01-13 06:35 | CT_ITS ---
WS: [id number] LDCT LUNG CANCER SCREENING HISTORY: Smoker TECHNIQUE: Axial imaging performed from the apices to 1 cm below the costophrenic angles. Coronal and sagittal reformats are submitted with axial MIP series. All CT scans at [facility] use at least one of these dose optimization techniques: automated exposure control; mA and/or kV adjustment per patient size (includes targeted exams where dose is matched to clinical indication); or iterativ e reconstruction. DLP: 79.87 mGy.cm DIvol: Mean CTDIvol: 1.60 (mGy) COMPARISON: 05/01/2020, 02/28/2019 Diagnostic quality: Satisfactory Lung Nodules: Increasing areas of consolidation beginning in the RIGHT infrahilar location extending into the RIGHT lower lobe. Bronchovascular soft tissue thickening with increasing density and consoli dation has progressed over the prior examinations. Narrowing of the RIGHT lower lobe bronchial tree. There is an additional groundglass attenuation and interstitial thickening in the RIGHT lower lobe. T hickening along the pleura. There is additional bronchial wall thickening noted in the LEFT lower lob e but to a lesser extent. Lungs: Chronic emphysema. Heart: Mildly prominent heart. No pericardial effusion. Other findings: Small mediastinal and hilar lymph nodes. Partially calcified thoracic aorta. Normal s ize pulmonary artery. Remote healed rib fractures. CT/CT lung screening [id number] IMPRESSION: LUNG-RADS: 4B-Suspicious FOLLOW UP: Chest CT with or without contrast OTHER FINDINGS (S MODIFIER): None. Recommendation: Chest CT with IV contrast is recommended. Increasing area of co nsolidation in the RIGHT lower lobe involving the bronchovascular tree. PET/CT imaging may also be helpful and bronchoscopy.
== END 2022-01-13 06:25 | disposition home or self-care (01) ==
LOC: RAD 06:25
PROVIDERS: PCP Family Medicine; Visit Provider Internal Medicine Critical Care Medicine
DX: Z12.2 Encounter for screening for malignant neoplasm of respiratory organs (principal); F17.210 Nicotine dependence, cigarettes, uncomplicated
CPT/HCPCS: 71271

== ENCOUNTER 2022-02-14 08:54 | Outpatient (CLI) | payer OTHER, SELFPAY ==
--- NOTE | 2022-02-14 09:00 | CTR_ITS ---
PROCEDURE INFORMATION: Exam: CT Chest Without Contrast; Diagnostic Exam date and time: 02/14/2022 9:10 AM Age: 76 years old Clinical indication: Condition or disease; Lung condition and disease; Pulmonary nodule, solitary; Additional info: Ion bronch mapping lung nodule TECHNIQUE: Imaging protocol: Diagnostic computed tomography of the chest without contrast. Radiation optimization: All CT scans at this facility use at least one of these dose optimization techniques: automated exposure control; mA and/or kV adjustment per patient size (includes targeted exams where dose is matched to clinical indication); or iterative reconstruction. COMPARISON: CT lung screening [id number] 01/13/2022 6:40 AM RADIATION DOSE METRICS: Total DLP (mGy-cm): 532.02 FINDINGS: Lungs: Progressive lower lung zone airway disease more pronounced on the right with there is involvement of the right middle lobe and right lower lobe with bronchial wall thickening, soft tissue thickening along the bronchovascular interstitium, in patchy bronchiolitis and scattered linear atelectasis. There is a bandlike area of subsegmental atelectasis right middle lobe slightly progressed from previous exam. Upper lobe emphysematous changes, stable. Pleural spaces: Unremarkable. No pneumothorax. No pleural effusion. Heart: Heart is enlarged. Diffuse calcification of coronary arteries and evidence of previous coronary artery stenting. No significant pericardial effusion. Lymph nodes: Multiple small mediastinal lymph nodes relatively stable. Vasculature: Tortuosity and scattered atherosclerotic changes of the thoracic aorta. A.m. Bones/joints: Old healed fractures right ribcage. No acute abnormalities. Soft tissues: Unremarkable. CT/CT chest ION (PULM ONLY) [id number] IMPRESSION: 1. Progressive airway disease lower lung zones more pronounced on the right as discussed above and limiting assessment for underlying right infrahilar lung mass. Recommend a repeat CT examination in 6 months for continued surveillance. 2. COPD with upper lobe emphysematous changes, stable. 3. Multiple small mediastinal lymph nodes, stable and can also be reassessed on follow-up CT exam in 6 months..
== END 2022-02-14 08:55 | disposition home or self-care (01) ==
PROVIDERS: PCP Family Medicine; Visit Provider Internal Medicine Pulmonary Disease
DX: R91.8 Other nonspecific abnormal finding of lung field (principal); J44.9 Chronic obstructive pulmonary disease, unspecified; R91.1 Solitary pulmonary nodule; G47.31 Primary central sleep apnea; J96.12 Chronic respiratory failure with hypercapnia; F17.210 Nicotine dependence, cigarettes, uncomplicated
CPT/HCPCS: 71250; 99214

== ENCOUNTER 2022-02-19 09:08 | Outpatient (CLI) | payer OTHER, SELFPAY | END 2022-02-19 09:09 | disposition home or self-care (01) | LOC: RT 09:09 | PROVIDERS: PCP Family Medicine; Visit Provider Internal Medicine Pulmonary Disease | DX: R91.1 Solitary pulmonary nodule (principal); J44.9 Chronic obstructive pulmonary disease, unspecified | CPT/HCPCS: 94060; 94618; 94726; 94729; J7613 ==

== ENCOUNTER 2022-02-25 05:44 | Day surgery (SDC) | payer OTHER, SELFPAY ==
[2022-02-20 08:06] VITALS: BMI 27.2
[2022-02-25] VITALS (13 sets, daily range): BP systolic 103–124; BP diastolic 58–70; PULSE 59–70; RESP 14–21; TEMP 36.1–36.4; O2SAT 85–96
--- NOTE | 2022-02-25 | SC_ITS ---
WS: [id number] C-arm fluoroscopy for right lower lobe bronchoscopy, 02/25/2022 Clinical Data: fluoro guidance for bronchoscopy Comparison: None. Findings: The bronchoscope has been placed in the midportion of the right lower thorax. SC/C-arm FL for Bronchoscopy Impression: Bronchoscope located midportion of right lower thorax.
[2022-02-25] MEDS: sodium chloride 0.9% 1,000 ML 30 ML IV (06:50)
--- NOTE | 2022-02-25 06:57 | ANES.PREANE2 ---
Pre-Anesthetic Assessment Height/Weight: Height 1.73 m Weight 81.193 kg Temp Pulse Resp BP Pulse Ox O2 Del Method O2 Flow Rate 97.1 F L 68 18 124/70 96 2 02/25/22 06:13 02/25/22 06:13 02/25/22 06:13 02/25/22 06:13 02/25/22 06:29 02/25/22 06:29 02/25/22 06:29 Operation Date: 02/25/22 07:00 Proposed Procedures p ION Robotic Bronchoscopy 70066, 34445, 81799, 91371, 37062, 54767, 02385, 55131, 39265, 40720,R91.8,R91.8(Not Applicable) - Alan Tan MD Familial anesthetic complications: intubated for several days after his AAA surgery, took me awhile to wake up - suspect surgically related Was Beta Janice taken within 24 hours: Yes Was Clonidine taken within 24 hours: N/A Last intake: Intake Last Liquid Date 02/24/22 Last Liquid Time 23:55 Last Solid Date 02/24/22 Last Solid Time 23:55 Social No alcohol and No tobacco Exam alert, oriented x 3 and regular rate & rhythm coarse breath sounds b/l Airway Mallampati: Class III Dentition: false Pulmonary Chronic Obstructive Pulmonary Disease and Sleep Apnea CV/HEM Coronary Artery Disease and Hypertension AAA Metabolic Hyperlipidemia and Thyroid Disease Anesthetic Plan ASA status: 4 Anesthesia: General Risk of > 500 ml blood loss (7ml/kg in children): No Medications/Allergies Home Medications Medication Instructions Recorded Confirmed Last Taken Type carvedilol 6.25 mg tablet 6.25 mg PO BID@0800,2100 03/01/19 02/20/22 02/25/22 05:00 History clopidogrel 75 mg tablet 75 mg PO DAILY@0800 03/01/19 02/20/22 02/24/22 History furosemide 20 mg tablet 20 mg PO DAILY@0800 03/01/19 02/20/22 02/24/22 History levothyroxine 25 mcg tablet 25 mcg PO DAILY@0700 03/01/19 02/20/22 02/25/22 05:00 History nitroglycerin 0.4 mg sublingual 0.4 mg sublingual Q5M PRN Chest 03/01/19 02/25/22 Unknown History tablet (Nitrostat) Pain rosuvastatin 10 mg tablet 10 mg PO DAILY 03/01/19 02/20/22 02/24/22 History FAST FORM COCK UP SPLINT #1 ea 04/16/20 02/14/22 Unknown Rx aspirin 81 mg tablet,delayed 81 mg PO DAILY@0800 06/10/20 02/20/22 02/22/22 History release vitamin D 1 tab PO DAILY@0800 02/14/22 02/20/22 02/24/22 History budesonide 160 mcg-glycopyr 9 2 inh inhalation BID 02/20/22 02/20/22 02/25/22 05:00 History mcg-formot 4.8 mcg/actuation HFA inhaler (Breztri Aerosphere) Allergies Allergy/AdvReac Type Severity Reaction Status Date / Time No Known Allergies Allergy Verified 02/25/22 06:17 [facility] Anesthesia Medical History (Updated 02/14/22 @ 15:48 by Alan Tan MD) Abdominal aortic aneurysm (AAA) CAD (coronary artery disease) COPD (chronic obstructive pulmonary disease) CPAP (continuous positive airway pressure) dependence Hyperlipidemia Hypertension Hypothyroidism Surgical History H/O eye surgery Hx of knee surgery Status post coronary artery stent placement Family History Other CAD (coronary artery disease) Social History Smoking and tobacco status: current every day smoker (1ppd) cigarettes Packs smoked per day: 0.5 Years cigarettes smoked: 55 Quit status (tobacco): not considering quitting Second hand smoke exposure: No Alcohol intake: current Lives independently: Yes Household members: spouse Housing: House Marital status: service: Yes Current occupational status: retired History of recent travel: No Current gender identity: Male Data Anesthesia Cardiac Studies: No Data to Display
--- NOTE | 2022-02-25 06:59 | W.PM.OPSUD ---
Surgery/Procedure H&P Update DATE OF PROCEDURE: February 25, 2022 DATE H&P PERFORMED: 02/14/22 CHANGES TO PREVIOUS DOCUMENTATION: NONE PRIMARY INDICATION FOR PROCEDURE: Suspected malignancy; PET Positive nodular opacity in right lower lobe posteriorly demonstrating central focus of? marked increase of metabolic activity with maximal SUV 5.89 within the right infrahilar opacity measuring 5 x 2.9 x 8.3 cm. PLANNED PROCEDURE: Operation Date: 02/25/22 07:00 Proposed Procedures p ION Robotic Bronchoscopy 98963, 36182, 90443, 27339, 64838, 94125, 73375, 56764, 01989, 14095,R91.8,R91.8(Not Applicable) - Alan Eli DatarMD
[2022-02-25] MEDS: lidocaine 1% INJ 20 mL XX (07:20)
[2022-02-25 09:08] LABS: Apprearance, Bronch Wash Bloody (CLEAR); Color, Bronc Wash Red
[2022-02-25 09:10] LABS: Bronch Source RLL BAL
[2022-02-25 09:18] LABS: Cyto Order Verification Order Verified
--- NOTE | 2022-02-25 09:22 | XR_ITS ---
WS: [id number] Portable AP upright chest, 02/25/2022 Clinical Data: post bronchoscopy Comparison: Portable chest, 03/03/2019 Findings: No nodules, masses or effusions are seen. The heart is enlarged. The pulmonary vascularity is not increased. No pneumonia or pneumothorax is seen. The aortic arch and descending thoracic aorta show tortuosity. XR/XR chest 1V portable [id number] Impression: Cardiomegaly and atherosclerosis.
--- NOTE | 2022-02-25 09:52 | P.OP_ITS ---
Operative Report Date of procedure: February 25, 2022 Pre-op diagnosis: PET active right lower lobe lesion-suspicious for malignancy Post-op diagnosis: same Procedure done: 55082 Dx Bronchoscope w/Washings or airway inspection 95772 Bx Bronchoscope w/Brushings or protected brushings 55896 Dx Bronchoscope w/BAL? 31995 Bronch with computer image guided Navigational Bronchoscopy 53068 Bronchoscopy w/Transbronchial lung biopsy(s), single lobe 87041 Bronchoscopy w/Transbronchial needle aspiration biopsy(s), tracheal, main stem, and/or lobar bronchus 88254 Bronchoscopy w/ therapeutic aspiration of the tracheobronchial tree (clearance of airway secretions, removal of mucus plugs) 09347 EBUS Diag or Interven Peripheral lesion (radial EBUS) Data Manager: Alan Tan MD, [facility] Brief History: 76-year-old gentleman, [id number] smoking history, history of COPD lingered had a low-dose CT scan for lung cancer screening in April 2020.? I do not have the actual CT scan.? However based on the read it appears the patient has pulmonary nodule which are small.? Repeat low-dose CT 01/13/2022 showed increasing areas of consolidation and beginning in the right infrahilar location extending into the right lower lobe.? Bronchovascular soft tissue thickening with increasing density and consolidation has progressed over the prior examination.? Narrowing of the right lower lobe bronchial tree.? There is an additional groundglass attenuation and interstitial thickening in the right lower lobe.? Thickening along the pleura.? There is additional bronchial wall thickening noted in the left lower lobe but to a lesser extent.? Subsequently patient underwent PET/CT 02/05/2022-which showed a nodular opacity in right lower lobe posteriorly demonstrating central focus of marked increase of metabolic activity with maximal SUV 5.89 within the right infrahilar opacity measuring 5 x 2.9 x 8.3 cm. Findings consistent with resolving inflammatory process versus neoplasm within the focus of inflammatory consolidation. No evidence of local or distant metastatic involvement. Patient reported coughing whitish sputum, denied any fevers, chills, weight loss, loss of appetite, hemoptysis, unusual tiredness. I scheduled? ION robotic bronchoscope guided biopsies of right lower lobe PET active lesion. Procedure: 58132 Dx Bronchoscope w/Washings or airway inspection 85922 Bx Bronchoscope w/Brushings or protected brushings 07506 Dx Bronchoscope w/BAL? 91325 Dx Bronchoscopy w/Bronchial or Endobronchial biopsy(s), single or multiple sites 77605 Bronch with computer image guided Navigational Bronchoscopy 34859 Bronchoscopy w/Transbronchial lung biopsy(s), single lobe 58556 Bronchoscopy w/Transbronchial needle aspiration biopsy(s), tracheal, main stem, and/or lobar bronchus 33688 Bronchoscopy w/ therapeutic aspiration of the tracheobronchial tree (clearance of airway secretions, removal of mucus plugs) 81569 EBUS Diag or Interven Peripheral lesion (radial EBUS) Surgeon: Alan Tan MD, [facility] ? Indication: PET CT?right lower lobe posteriorly demonstrating central focus of marked increase of metabolic activity with maximal SUV 5.89 within the right infrahilar opacity measuring 5 x 2.9 x 8.3 cm. Findings consistent with resolving inflammatory process versus neoplasm within the focus of inflammatory consolidation. No evidence of local or distant metastatic involvement. Anesthesia: General anesthesia. Local anesthesia: The ben in the right and left mainstem bronchi were anesthetized with 1% lidocaine, 3 mL. Description of the procedure: The procedure was explained to the patient and the consent was obtained.? The patient was brought to the OR.? The patient underwent endotracheal intubation for general anesthesia.? Following induction of general anesthesia, the flexible bronchoscope used for? initial inspection (55841)?and airway clearance?(96570).? The scope was advanced through the ET tube.? The lower trachea mucosa appeared normal, no endotracheal lesion was seen.? The ben was sharp.? The ben, the right and left mainstem bronchi are anesthetized with 1% lidocaine.? In a systematic manner bilateral bronchial tree was then examined.? The bronchoscope was advanced into the left mainstem bronchus.? The mucosa appeared normal with no endobronchial lesions.? The left upper lobe, lingula and left lower lobe bronchi were examined up to the third subsegmental level and no abnormalities were identified.? Mucosa appeared normal with no endobronchial lesion, active bleeding or mucous plug.? There were significant e mucus secretions in lower lobe-which were suctioned right away.? The bronchoscope was then introduced into the right mainstem bronchus.? The right upper lobe, right middle lobe and right lower lobe bronchi were examined up to the third subsegmental level and no abnormalities were identified.? The mucosa appeared mostly normal with 1 endobronchial lesion at the entrance of right lower lobe posterior basal segment.? There were significant lower mucus secretions which were suctioned right away. After initial inspection as well as?airway clearance with flexible bronchoscope (17904),?ION robotic assisted navigational bronchoscope?(46379)?was introduced- and right middle lobe lesion was accessed.? After confirming the location with? radial EBUS (65806), under the fluoroscopy guidance??-we were able to obtain biopsies using brush, fine-needle, forceps.? Pathology reported negative for malignancy on rapid onsite evaluation. Bronchoalveolar lavage was performed from the right lower lobe, 10 mL of saline was instilled, fluid return was 6 mL.? The fluid was mixed with blood. ? ION robotic assisted navigational bronchoscope was retracted and checked with flexible bronchoscope for any overt bleeding. There was mild bleeding which was controlled with instillation of cold saline. Once the bleeding is controlled, 4 biopsies of endobronchial lesion at the entrance of right lower lobe posterior basal segment were taken. There was no overt bleeding. ? Samples: A.Right lower lobe lesion 1.2 passes with?Cytobrush?(08816 )?performed-1 pass used for touch prep - repor duglas negative;and second pass was placed in formalin and sent for pathology. 2. Targeting the same area total of 4 passes were made using?needle aspiration(37268); 1 pass used for touch prep - reported negative; remaining 3 passes?were placed in formalin for histopathology 3.Targeting the same area 4 passes were made using?forceps?(86320); 1 pass used for touch prep - reported negative; remaining 3 passes?were placed in formalin for histopathology 4. Forceps was used for endobronchial biopsies (02730)-4 passes were made-all samples placed in formalin and sent for histopathology 5.? Bronchoalveolar lavage?(97003)?from right lower lobe sent for afb, javier terial, fungal cultures as well as cytology Complications: None.The patient was extubated and brought to the PACU in stable condition. Postprocedure chest x-ray:? No evidence of pneumothorax Disposition: Patient can be discharged home in stable condition. ? Pt, and his family are aware that I am going to call them? to update final biopsy results once available. Related Problem List Diagnoses (1) Right lower lobe pulmonary nodule:
[2022-02-25 09:53] LABS: Total Cells Counted Bronch 38
--- NOTE | 2022-02-25 16:03 | ANE.PACU2 ---
Inpatient post-anesthesia follow up: Airway intact: Yes Vital signs: Temperature 97.0 F Pulse Rate 69 Respiratory Rate 18 Blood Pressure 107/64 Pulse Oximetry 93 Oxygen Delivery Me thod Nasal Cannula Oxygen Flow Rate 2 Fraction of Inspir ed Oxygen Hydration adequate: Yes Nausea and vomiting: No Pain level: 1 Mental status: Baseline
== END 2022-02-25 10:25 | disposition home or self-care (01) ==
PROVIDERS: Family Provider Family Medicine; PCP Family Medicine; Visit Provider Internal Medicine Pulmonary Disease
PROC: 0BJ08ZZ Inspection of Tracheobronchial Tree, Via Natural or Artificial Opening Endoscopic (ICD-10-PCS; CPT 31622; principal; 2022-02-25 07:00)
DX: R91.8 Other nonspecific abnormal finding of lung field (principal); R91.1 Solitary pulmonary nodule; J44.9 Chronic obstructive pulmonary disease, unspecified; G47.30 Sleep apnea, unspecified; I25.10 Atherosclerotic heart disease of native coronary artery without angina pectoris; I10 Essential (primary) hypertension; E78.5 Hyperlipidemia, unspecified; Z79.82 Long term (current) use of aspirin; E03.9 Hypothyroidism, unspecified; F17.210 Nicotine dependence, cigarettes, uncomplicated
CPT/HCPCS: 31625; 31627; 71045; 76000; 80503; 87015; 87070; 87077; 87102; 87116; 87186; 87205; 87206; 87801; 88108; 88305; 89050; 93312; 94640; J0330; J1100; J2370; J2405; J2704; J3010; J3490; J7030

== ENCOUNTER → 2022-03-10 13:27 | Outpatient (BNVA) | payer OTHER, SELFPAY | PROVIDERS: Family Provider Family Medicine; PCP Family Medicine; Visit Provider Internal Medicine Pulmonary Disease | DX: C34.31 Malignant neoplasm of lower lobe, right bronchus or lung (principal); J44.9 Chronic obstructive pulmonary disease, unspecified; G47.31 Primary central sleep apnea; F17.210 Nicotine dependence, cigarettes, uncomplicated; J96.92 Respiratory failure, unspecified with hypercapnia | CPT/HCPCS: 99214 ==

== ENCOUNTER 2022-03-25 08:03 | Oncology outpatient (recurring) (ONCR) | payer OTHER, SELFPAY | END 2022-04-01 23:59 | disposition home or self-care (01) | PROVIDERS: PCP Family Medicine; Visit Provider Internal Medicine Hematology & Oncology | DX: C34.31 Malignant neoplasm of lower lobe, right bronchus or lung (principal); F17.210 Nicotine dependence, cigarettes, uncomplicated | CPT/HCPCS: 99204 ==

== ENCOUNTER 2022-03-29 07:34 | Outpatient (CLI) | payer OTHER, SELFPAY ==
--- NOTE | 2022-03-29 07:30 | PETR_ITS ---
PROCEDURE INFORMATION: Exam: PET/CT Skull Base to Mid-thigh Exam date and time: 03/29/2022 8:43 AM Age: 76 years old Clinical indication: Abnormal findings; RT lower lobe mass noted on previous exams; Additional info: Compare to juliette peña LABS AND CLINICAL REPORTS: Glucose: 113 mg/dl Treatment strategy for malignancy (PET staging): Initial Staging (PI) TECHNIQUE: Imaging protocol: Following at least four-hour fasting and following the injection of F-18-FDG, low dose CT images were obtained. Then, PET images were obtained. Attenuation corrected images were constructed using the CT scan. Fused images of PET and CT were reviewed. The standardized uptake values (SUV) reported below are maximum values within a region of interest, expressed in gm/ml. Exam includes orbital meatal line to mid-thigh. Radiopharmaceutical: 11.11 mCi F-18 FDG (Fluorodeoxyglucose), IV. Time of imaging post radiopharmaceutical administration: 1 hour Injection site: Not provided COMPARISON: CT chest 02/14/2022, CT PET Scan 02/03/2022 10:08 AM FINDINGS: Brain: Visualized brain has normal physiologic uptake. Pharynx: No abnormal uptake. Larynx: No abnormal uptake. Lungs, pleura and trachea: Elevated uptake in the posterior right infrahilar region in the right lower lobe is noted, SUV max 7.5 on series 4, image 57 (previously 5.9). Assessment of this area on the CT images is limited by respiratory motion artifact however there are a rounded region of patchy consolidation corresponds to this area measuring approximately 2.8 cm in diameter on series 3, image 55 similar to the prior examinations. Mild dependent streaky density in the lungs is consistent with atelectasis. Heart: Normal physiologic uptake. Mediastinal space: No abnormal uptake. Liver: No abnormal uptake. Gallbladder and bile ducts: No abnormal uptake. Pancreas: No abnormal uptake. Spleen: No abnormal uptake. Adrenal glands: No abnormal uptake. Kidneys and ureters: Normal physiologic uptake. Stomach and bowel: No abnormal uptake. There are scattered colonic diverticula. Vasculature: No abnormal uptake. There are diffuse atherosclerotic changes. An infrarenal abdominal aortic stent graft is noted with limbs extending into the bilateral common iliac arteries. Lymph nodes: No abnormal uptake. No lymphadenopathy in the head, neck, chest, abdomen, pelvis, and extremities. Bones/joints: Non radiotracer avid serpiginous sclerotic density in the superior left femoral head is consistent with avascular necrosis with probable mildly depressed subcortical fracture. There are bilateral L5 pars defects. Healed posterior right 6 through 10th rib fractures are noted. No acute fracture. Soft tissues: No abnormal uptake in the visualized head, neck, chest, abdomen, pelvis, and extremities. METRICS: Mediastinal blood pool: SUV max 2.5 PET/PET [facility]i SUBSEQ [id number] IMPRESSION: 1. A similar configuration region of rounded right lower lobe inferior right perihilar consolidation is noted with elevated uptake which has increased since the prior exam (SUV max 7.5, previously 5.9) concerning for malignancy. Alternatively, an increase in infectious or inflammatory involvement in this region cannot be entirely excluded. 2. Avascular necrosis of the left femoral head with probable associated mild subcortical fracture. 3. Additional nonurgent findings as detailed above.
== END 2022-03-29 07:35 | disposition home or self-care (01) ==
LOC: RAD 03-31 05:40
PROVIDERS: PCP Family Medicine; Visit Provider Internal Medicine Hematology & Oncology
DX: C34.32 Malignant neoplasm of lower lobe, left bronchus or lung (principal)
CPT/HCPCS: 78815; A9552

== ENCOUNTER 2022-04-25 08:15 | Oncology outpatient (recurring) (ONCR) | payer OTHER, SELFPAY | END 2022-04-29 23:59 | disposition home or self-care (01) | PROVIDERS: PCP Family Medicine; Visit Provider Internal Medicine Hematology & Oncology | DX: C34.81 Malignant neoplasm of overlapping sites of right bronchus and lung (principal) | CPT/HCPCS: 99214 ==

== ENCOUNTER → 2022-05-07 08:22 | Outpatient (BNVA) | payer OTHER, SELFPAY | PROVIDERS: PCP Family Medicine; Visit Provider Internal Medicine Pulmonary Disease | DX: J44.9 Chronic obstructive pulmonary disease, unspecified (principal); G47.31 Primary central sleep apnea; R60.9 Edema, unspecified; C34.31 Malignant neoplasm of lower lobe, right bronchus or lung; F17.210 Nicotine dependence, cigarettes, uncomplicated; J96.12 Chronic respiratory failure with hypercapnia | CPT/HCPCS: 99214 ==

== ENCOUNTER 2022-08-27 08:41 | Outpatient (CLI) | payer OTHER, SELFPAY ==
--- NOTE | 2022-08-27 09:00 | CTR_ITS ---
PROCEDURE INFORMATION: Exam: CT Chest With Contrast; Diagnostic Exam date and time: 08/27/2022 9:48 AM Age: 76 years old Clinical indication: Prior oncological treatment - unknown. Condition or disease; Lung condition and disease; Cancer of the lung; Right; Unspecified; Follow-up oncological assessment; Patient HX: Follow up lung cancer; Additional info: Follow up, to be completed first week of August (prior to onc visit) TECHNIQUE: Imaging protocol: Diagnostic computed tomography of the chest with contrast. 253image(s) are provided. Radiation optimization: All CT scans at this facility use at least one of these dose optimization techniques: automated exposure control; mA and/or kV adjustment per patient size (includes targeted exams where dose is matched to clinical indication); or iterative reconstruction. Contrast material: OMNIPAQUE 350; Contrast volume: 95 ml; Contrast route: INTRAVENOUS (IV); Other technique: Axial images are available with sagittal and coronal reconstruction views. Automated dose exposure control is utilized. The DLP is 362.50. REPORTING DATA: Count of CT and Cardiac NM exams in prior 12 months: This patient has received 4 known CTs and 0 known cardiac nuclear medicine studies in the 12 months prior to the current study. COMPARISON: CT chest ION (PULM ONLY) [id number] 02/14/2022 9:10 AM. PET-CT report of 03/29/2022. RADIATION DOSE METRICS: Total DLP (mGy-cm): 362.5 FINDINGS: Trachea: The central airways are grossly patent. There is some minimal developmental diverticular related change of the posterior upper tracheal margins similar. Lungs: There is some narrowing appreciated for example at the right middle lobe and bronchus intermedius lower lobe segmental origins with some secretions of the bronchus intermedius level. There is some distal patency. There is some chronic air trapping centrilobular emphysematous appearance overall with some bleb related changes similar. There is some corresponding patchy consolidation volume loss with scarring for example including at the inferior segment of the lingula as well as right middle lobe both medial and adjacent to the fissure. There is some improved basal aeration of the lung bases. There is history of right lower lobe mass and bronchovascular thickening. The greatest thickness at this area is currently approximately 1.5 cm versus previous 2.8 cm with decreased central aeration and pneumatocele related change. There is some subpleural scarring adjacent. Pleural spaces: No interval pneumothorax or pleural effusion is appreciated. Heart: No significant effusion or cardiac decompensation is appreciated. Coronary arteries: There are some coronary arterial calcifications present. Lymph nodes: There are some borderline albeit similar overall mediastinal and hilar lymph nodes present. For example 1 of the larger of the right tracheobronchial space measures approximately 2.5 by short axis 1 cm appearing similar as well as at the right hilar space also similar measuring approximately 2.6 x 1.1 cm. Vasculature: There are advanced calcified and noncalcified atherosclerotic changes of the aorta with no interval saccular aneurysmal dilatation or intimal irregularity appreciated. No interval central pulmonary arterial filling defects are appreciated. Subsegmental evaluation is limited as well as some overall similar decreased vascular caliber for example at the superior segment of the right lower lobe. Intraperitoneal space: There is a similar interval appearance of the included intraperitoneal space, upper abdominal structures. Bones/joints: Osseous alignment is maintained.No interval displaced fracture or dislocation is appreciated.There is slightly decreased bone mineralization overall. There are some chronic appearing rib deformities. Soft tissues: No radiopaque foreign body or subcutaneous emphysema is appreciated. Other findings: There is some motion artifact present. No other significant interval changes are appreciated. CT/CT chest w con* [id number] IMPRESSION: There is similar irregular bronchovascular thickening contributing to some subsegmental airway narrowing of the origin of the right middle lobe and right lower lobe with a history of previously described mass. The overall thickness as measured with the previous PET-CT is somewhat decreased suggestive of some interval improvement. Overall no interval progressive abnormal mediastinal or hilar lymph node enlargement is appreciated. COMMENTS: In the absence of a history or active diagnosis of lung cancer, it is recommended that this patient with emphysema be evaluated for enrollment in a low dose CT lung cancer screening program.
[2022-08-27 09:48] LABS: Blood Urea Nitrogen 18 mg/dL (8-23)
[2022-08-27] MEDS: iohexol 350 mg/mL 500 mL Btl (per mL) IV (09:52)
== END 2022-08-27 08:42 | disposition home or self-care (01) ==
LOC: RAD 08:42
PROVIDERS: PCP Family Medicine; Visit Provider Internal Medicine Hematology & Oncology
DX: C34.90 Malignant neoplasm of unspecified part of unspecified bronchus or lung (principal)
CPT/HCPCS: 71260; 82565; 84520; Q9967

== ENCOUNTER 2022-09-10 09:11 | Oncology outpatient (recurring) (ONCR) | payer OTHER, SELFPAY ==
[2022-09-10 09:17] VITALS: BP 125/79; PULSE 77; RESP 18; TEMP 36.3; O2SAT 90
[2022-09-10 09:28] LABS: Basophils # 0.1 10^3/uL (0.0-0.1); Basophils % 0.6 %; Eosinophils # 0.2 10^3/uL (0.0-0.8); Eosinophils % 2.1 %; Hematocrit 52.5 % (42.0-52.0); Lymphocytes # 1.7 10^3/uL (0.8-4.8); Lymphocytes % 16.7 %; Mean Corpuscular HGB Conc 32.4 g/dL (30.0-36.0); Mean Corpuscular Hemoglobin 30.7 pg (28.0-34.0); Mean Corpuscular Volume 94.8 fl (80-94); Mean Platelet Volume 9.4 fL (7.4-10.4); Monocytes % 9.5 %; Neutrophils # 7.25 10^3/uL (1.8-7.7); Neutrophils % 70.8 %; Nucleated Red Blood Cells % 0 %; Platelet Count 215 10^3/cmm (130-400); Red Blood Count 5.54 10^6/uL (4.1-5.3); Red Cell Distribution Width 14.3 % (12.1-15.1); White Blood Count 10.2 10^3/uL (4.0-10.0)
[2022-09-10 09:50] LABS: Alanine Aminotransferase 16 U/L (0-41); Albumin Level 3.9 g/dL (3.5-5.2); Alkaline Phosphatase 82 U/L (40-130); Anion Gap 15.2 (5-19); Aspartate Amino Transferase 12 U/L (0-40); Blood Urea Nitrogen 18 mg/dL (8-23); Calcium 8.7 mg/dL (8.5-10.5); Carbon Dioxide 28 mmol/L (22-29); Chloride 103 mmol/L (98-107); Globulin 2.9 g/dL (1.3-4.6); Glucose 146 mg/dL (65-115); Osmolality Calculated 299 mOsm/kg (285-295); Potassium 4.2 mmol/L (3.5-5.1); Sodium 142 mmol/L (136-145); Total Bilirubin 0.6 mg/dL (0.15-1.2); Total Protein 6.8 g/dL (6.6-8.7)
== END 2022-09-29 23:59 | disposition home or self-care (01) ==
PROVIDERS: PCP Family Medicine; Visit Provider Internal Medicine Hematology & Oncology
DX: C34.81 Malignant neoplasm of overlapping sites of right bronchus and lung (principal); C78.02 Secondary malignant neoplasm of left lung; J43.9 Emphysema, unspecified; Z99.81 Dependence on supplemental oxygen; F17.210 Nicotine dependence, cigarettes, uncomplicated; J96.12 Chronic respiratory failure with hypercapnia; G47.39 Other sleep apnea; R22.43 Localized swelling, mass and lump, lower limb, bilateral; D75.1 Secondary polycythemia; Z79.899 Other long term (current) drug therapy
CPT/HCPCS: 36415; 80053; 85025; 99214

== ENCOUNTER → 2022-11-06 10:20 | Outpatient (BNVA) | payer OTHER, SELFPAY | PROVIDERS: PCP Family Medicine; Visit Provider Internal Medicine Pulmonary Disease | DX: J43.8 Other emphysema (principal); C34.11 Malignant neoplasm of upper lobe, right bronchus or lung; F17.210 Nicotine dependence, cigarettes, uncomplicated; G47.39 Other sleep apnea; R60.0 Localized edema | CPT/HCPCS: 99214 ==

== ENCOUNTER 2022-12-02 09:22 | Outpatient (CLI) | payer OTHER, SELFPAY ==
--- NOTE | 2022-12-02 09:30 | CT_ITS ---
WS: [id number] CT CHEST TECHNIQUE: Contrast enhanced CT of the chest with coronal and sagittal reformatted images. CLINICAL INFORMATION: follow up, lung ca COMPARISON: CT chest 08/27/2022 and PET/CT 03/29/2022 DLP: 553.[address] scans at [facility] use at least one of these dose optimization techniques: automated e xposure control; mA and/or kV adjustment per patient size (includes targeted exams where dose is matc hed to clinical indication); or iterative reconstruction. FINDINGS: Again seen is bronchovascular soft tissue thickening along the RIGHT hilum with proximal na rrowing of the RIGHT middle lobe and RIGHT lower lobe bronchi. Subsegmental atelectasis with postobst ructive consolidation in the RIGHT lower lobe. Soft tissue thickening about the RIGHT hilum appears i ncreased compared to previous suspicious for progressed disease Increased RIGHT lower lobe and RIGHT hilar postobstructive consolidation. Interstitial thickening in the RIGHT lower lobe and RIGHT middle lobe. No progressed anterior mediastinal lymphadenopathy. No axillary lymphadenopathy. LEFT lung is well ae rated. Tortuous thoracic aorta. Advanced chronic emphysematous changes. Cardiomegaly. Aortic calcification. Coronary calcification. N ormal caliber thoracic aorta. Moderate aortic atheromatous disease. Diffuse fatty filtration of the liver. Normal GE junction. Adrenal glands are normal. Mild thoracic k yphosis. IMPRESSION: 1. RIGHT hilar bronchovascular soft tissue thickening with narrowing of the RIGHT middle lobe and RI GHT lower lobe bronchi appears more prominent compared to previous suspicious for progressed disease. Recommend further evaluation with PET/CT to assess for active disease. 2. Progressed RIGHT lower lobe postobstructive pneumonia with progressive consolidation. Some of thi s may be due to treatment-related changes. Interstitial thickening in the RIGHT lower lobe. 3. No progressed anterior mediastinal lymphadenopathy. 4. Cardiomegaly. 5. Aortic calcification and coronary calcification.
[2022-12-02 09:57] LABS: Blood Urea Nitrogen 15 mg/dL (8-23)
[2022-12-02] MEDS: iohexol 350 mg/mL 500 mL Btl (per mL) IV (10:02)
== END 2022-12-02 09:23 | disposition home or self-care (01) ==
PROVIDERS: Internal Medicine Medical Oncology; PCP Family Medicine; Visit Provider Internal Medicine Hematology & Oncology
DX: C34.90 Malignant neoplasm of unspecified part of unspecified bronchus or lung (principal); J18.8 Other pneumonia, unspecified organism
CPT/HCPCS: 71260; 82565; 84520; Q9967

== ENCOUNTER 2022-12-30 14:57 | Oncology outpatient (recurring) (ONCR) | payer OTHER, SELFPAY ==
[2022-12-30 15:10] VITALS: BP 141/70; PULSE 91; RESP 18; TEMP 36.4; O2SAT 87
[2022-12-30 15:19] LABS: Basophils # 0.1 10^3/uL (0.0-0.1); Basophils % 0.7 %; Eosinophils # 0.3 10^3/uL (0.0-0.8); Eosinophils % 3.3 %; Hematocrit 52.4 % (37-53); Lymphocytes # 1.8 10^3/uL (0.8-4.8); Lymphocytes % 21.4 %; Mean Corpuscular HGB Conc 31.3 g/dL (30-55); Mean Corpuscular Hemoglobin 29.7 pg (27-33); Mean Corpuscular Volume 94.8 fl (82-101); Mean Platelet Volume 9.5 fL (7.4-10.4); Monocytes # 0.9 10^3/uL (0.2-0.9); Monocytes % 10.5 %; Neutrophils # 5.32 10^3/uL (1.8-7.7); Neutrophils % 63.7 %; Nucleated Red Blood Cells % 0 %; Platelet Count 207 10^3/cmm (157-399); Red Blood Count 5.53 10^6/uL (3.85-5.65); Red Cell Distribution Width 14.3 % (12.1-15.1); White Blood Count 8.36 10^3/uL (3.29-11.43)
[2022-12-30 15:36] LABS: Alanine Aminotransferase 17 U/L (0-41); Albumin Level 3.6 g/dL (3.5-5.2); Alkaline Phosphatase 81 U/L (40-130); Anion Gap 10.9 (5-19); Aspartate Amino Transferase 12 U/L (0-40); Blood Urea Nitrogen 18 mg/dL (8-23); Calcium 9.4 mg/dL (8.5-10.5); Carbon Dioxide 34 mmol/L (22-29); Chloride 102 mmol/L (98-107); Globulin 3.4 g/dL (1.3-4.6); Glucose 135 mg/dL (65-115); Osmolality Calculated 300 mOsm/kg (285-295); Potassium 3.9 mmol/L (3.5-5.1); Sodium 143 mmol/L (136-145); Total Bilirubin 0.4 mg/dL (0.15-1.2)
== END 2022-12-30 23:59 | disposition home or self-care (01) ==
PROVIDERS: Internal Medicine; PCP Family Medicine; Visit Provider Internal Medicine Hematology & Oncology
DX: C34.81 Malignant neoplasm of overlapping sites of right bronchus and lung (principal); C78.02 Secondary malignant neoplasm of left lung; F17.210 Nicotine dependence, cigarettes, uncomplicated; Z79.2 Long term (current) use of antibiotics; Z79.899 Other long term (current) drug therapy
CPT/HCPCS: 36415; 80053; 85025; 99214

== ENCOUNTER → 2023-01-13 15:20 | Outpatient (BNVA) | payer OTHER, SELFPAY | PROVIDERS: PCP Family Medicine; Visit Provider Internal Medicine Pulmonary Disease | DX: J44.9 Chronic obstructive pulmonary disease, unspecified (principal); G47.31 Primary central sleep apnea; C34.11 Malignant neoplasm of upper lobe, right bronchus or lung; F17.210 Nicotine dependence, cigarettes, uncomplicated; Z91.199 Patient's noncompliance with other medical treatment and regimen due to unspecified reason; R60.0 Localized edema | CPT/HCPCS: 99214 ==

== ENCOUNTER 2023-01-20 13:40 | Outpatient (CLI) | payer OTHER, SELFPAY ==
--- NOTE | 2023-01-20 09:00 | PETR_ITS ---
PROCEDURE INFORMATION: Exam: PET/CT Skull Base to Mid-thigh Exam date and time: 01/20/2023 9:52 AM Age: 77 years old Clinical indication: Condition or disease; Primary cancer: Lung cancer; Follow-up oncological assessment; Additional info: [facility] LABS AND CLINICAL REPORTS: Glucose: 127 mg/dl Treatment strategy for malignancy (PET staging): Restaging (PS) TECHNIQUE: Imaging protocol: Following at least four-hour fasting and following the injection of radiopharmaceutical, low dose CT images were obtained. Then, PET images were obtained. Attenuation corrected images were constructed using the CT scan. Fused images of PET and CT were reviewed. The standardized uptake values (SUV) reported below are maximum values within a region of interest, expressed in gm/ml. Exam includes orbital meatal line to mid-thigh. Radiopharmaceutical: 12.43 mCi F-18 FDG (Fluorodeoxyglucose), IV. Time of imaging post radiopharmaceutical administration: 1 hour Injection site: Right AC COMPARISON: PT PET [facility] SUBSEQ [id number] 03/29/2022 8:43 AM FINDINGS: Brain: Visualized brain has normal physiologic uptake. Pharynx: No abnormal uptake. Larynx: No abnormal uptake. Lungs, pleura and trachea: Increased size of right infrahilar masslike density now with solid component measuring at least 4.6 x 4.2 cm such as on series 3, image 84 as measured on soft tissue window. Maximum SUV of 5.4, previously 7.5. Heart: Normal physiologic uptake. Mediastinal space: No abnormal uptake. Liver: No abnormal uptake. Gallbladder and bile ducts: No abnormal uptake. Pancreas: No abnormal uptake. Spleen: No abnormal uptake. Adrenal glands: No abnormal uptake. Kidneys and ureters: Normal physiologic uptake. Stomach and bowel: No abnormal uptake. Colonic diverticulosis. Vasculature: No abnormal uptake. Aorto bi-iliac stent, incompletely evaluated without contrast. Lymph nodes: A right hilar 7 mm lymph node (series 3, image 77) is more conspicuous on this exam and likely associated with focal misregistered uptake on adjacent fused image 79. Bones/joints: No abnormal uptake in the visualized axial and appendicular skeleton. Soft tissues: No abnormal uptake in the visualized head, neck, chest, abdomen, pelvis, and extremities. PET/PET skullt[facility]i SUBSEQ [id number] IMPRESSION: Increased size but slightly decreased max SUV of the right infrahilar masslike density. An adjacent right hilar lymph node is more conspicuous on this exam and likely associated with focal uptake as discussed above.
== END 2023-01-20 13:41 | disposition home or self-care (01) ==
LOC: RAD 13:40
PROVIDERS: PCP Family Medicine; Visit Provider Internal Medicine
DX: C34.31 Malignant neoplasm of lower lobe, right bronchus or lung (principal)
CPT/HCPCS: 78815; A9552

== ENCOUNTER 2023-02-03 10:50 | Oncology outpatient (recurring) (ONCR) | payer OTHER, SELFPAY | END 2023-03-01 23:59 | disposition home or self-care (01) | PROVIDERS: PCP Family Medicine; Visit Provider Internal Medicine Hematology & Oncology | DX: C34.81 Malignant neoplasm of overlapping sites of right bronchus and lung (principal); C78.02 Secondary malignant neoplasm of left lung; F17.210 Nicotine dependence, cigarettes, uncomplicated; Z79.2 Long term (current) use of antibiotics; Z79.899 Other long term (current) drug therapy | CPT/HCPCS: 36415; 99204; 99214 ==

== ENCOUNTER 2023-03-20 08:13 | Outpatient (RCR) | payer OTHER, SELFPAY | END 2023-04-01 23:59 | disposition home or self-care (01) | LOC: PULRHB 08:13 | PROVIDERS: PCP Family Medicine; Visit Provider Internal Medicine Pulmonary Disease | DX: C34.90 Malignant neoplasm of unspecified part of unspecified bronchus or lung (principal) | CPT/HCPCS: G0237; G0238 ==

== ENCOUNTER 2023-04-02 06:00 | Outpatient (RCR) | payer OTHER, SELFPAY | END 2023-04-30 23:59 | disposition home or self-care (01) | LOC: PULRHB 06:00 | PROVIDERS: PCP Family Medicine; Visit Provider Internal Medicine Pulmonary Disease | DX: C34.90 Malignant neoplasm of unspecified part of unspecified bronchus or lung (principal) | CPT/HCPCS: G0237; G0238 ==

== ENCOUNTER 2023-04-28 13:07 | Outpatient (CLI) | payer OTHER, SELFPAY ==
--- NOTE | 2023-04-28 14:00 | PETR_ITS ---
PROCEDURE INFORMATION: Exam: PET/CT Skull Base to Mid-thigh Exam date and time: 04/28/2023 2:05 PM Age: 77 years old Clinical indication: Condition or disease; Primary cancer: Malignant neoplasm of unspecified bronchus or lung. Follow-up oncological assessment; Additional info: Non small cell lung cancer LABS AND CLINICAL REPORTS: Glucose: 99 mg/dl Treatment strategy for malignancy (PET staging): Restaging (PS) TECHNIQUE: Imaging protocol: Following at least four-hour fasting and following the injection of radiopharmaceutical, low dose CT images were obtained. Then, PET images were obtained. Attenuation corrected images were constructed using the CT scan. Fused images of PET and CT were reviewed. The standardized uptake values (SUV) reported below are maximum values within a region of interest, expressed in gm/ml. Exam includes orbital meatal line to mid-thigh. Radiopharmaceutical: 14.43 mCi F-18 FDG (Fluorodeoxyglucose), IV. Time of imaging post radiopharmaceutical administration: 1 hour Injection site: Right antecubital COMPARISON: PT PET [facility] SUBSEQ [id number] 01/20/2023 9:52 AM, CT chest 12/02/2022 FINDINGS: Limitations: The examination is technically suboptimal secondary to the scan to injection time outside of recommended parameters (45-75 minutes). Reported scan to injection time of 42.5 minutes. Injection to scan times outside of recommended parameters can result in decreased PET sensitivity and limit the utility of comparison of SUV values to prior or subsequent exams. Brain: Visualized brain has normal physiologic uptake. Pharynx: No abnormal uptake. Larynx: No abnormal uptake. Lungs, pleura and trachea: A right inferior lung/right perihilar radiotracer avid solid mass with surrounding consolidation is noted, SUV max 7.0 (previously 5.4). Distinguishing the size of the mass from the surrounding consolidation is limited however the region of abnormal uptake measures approximately 7.0 x 4.9 cm (previously 4.6 x 4.2 cm) in the axial plane on series 3, image 98. A small right pleural effusion is noted. [id number] bilateral centrilobular emphysematous changes are present. Heart: Normal physiologic uptake. Mediastinal space: No abnormal uptake. Liver: No abnormal uptake. Gallbladder and bile ducts: No abnormal uptake. Pancreas: No abnormal uptake. Spleen: No abnormal uptake. Adrenal glands: No abnormal uptake. Kidneys and ureters: Normal physiologic uptake. Stomach and bowel: No abnormal uptake. There are scattered colonic diverticula. Vasculature: No abnormal uptake. Diffuse atherosclerotic changes are noted. An infrarenal abdominal aortic stent graft is noted with limbs extending into the bilateral common iliac arteries. Mild aneurysmal dilatation of the [place] left internal iliac artery is noted measuring 1.8 cm in diameter on series 3, image 199. Lymph nodes: No abnormal uptake. There are similar in size mildly prominent mediastinal lymph nodes which continue to be non radiotracer avid, for example on series 3, image 85 where there is a precarinal lymph node measuring 1.7 x 1.0 cm and a subcarinal lymph node measuring 2.1 x 1.3 cm. Bones/joints: There is an ovoid region of soft tissue density in the region of the interspace between the left 2nd and 3rd costovertebral junction with elevated uptake, SUV max 7.6 within a region of soft tissue density nodularity measuring approximately 1.3 cm in diameter on series 3, image 60, new since the prior examination. This structure appears to be associated with slight destructive changes of the posteromedial left 3rd rib. Degenerative changes in the spine are present. There are bilateral L5 pars defects with grade 1 anterolisthesis of L5 on S1. Non radiotracer avid healed posterior right 6 through 10th rib fractures are noted. No acute fracture is identified. Soft tissues: No abnormal uptake in the visualized head, neck, chest, abdomen, pelvis, and extremities. METRICS: Mediastinal blood pool: SUV max 2.2 PET[facility] SUBSEQ [id number] IMPRESSION: 1. Interval increase in size within the right infrahilar mass with interval increase in uptake consistent with increasing malignant involvement. 2. There is a new radiotracer avid soft tissue density lesion at the interspace between the costovertebral junctions of the left 2nd and 3rd costovertebral junction with probable destructive changes involving the adjacent 3rd rib consistent with a metastasis. 3. No additional areas of radiotracer avid malignancy. 4. Similar mildly prominent mediastinal lymph nodes without elevated uptake. 5. Additional nonurgent findings as detailed above.
== END 2023-04-28 13:08 | disposition home or self-care (01) ==
LOC: RAD 13:08
PROVIDERS: PCP Family Medicine; Visit Provider Internal Medicine
DX: C34.90 Malignant neoplasm of unspecified part of unspecified bronchus or lung (principal); R91.1 Solitary pulmonary nodule
CPT/HCPCS: 78815; A9552

== ENCOUNTER 2023-05-01 06:00 | Outpatient (RCR) | payer OTHER, SELFPAY | END 2023-05-31 23:59 | disposition home or self-care (01) | LOC: PULRHB 06:00 | PROVIDERS: PCP Family Medicine; Visit Provider Internal Medicine Pulmonary Disease | DX: C34.90 Malignant neoplasm of unspecified part of unspecified bronchus or lung (principal) | CPT/HCPCS: G0237; G0238; G0239 ==

== ENCOUNTER → 2023-05-07 10:29 | Outpatient (BNVA) | payer OTHER, SELFPAY | PROVIDERS: PCP Family Medicine; Visit Provider Internal Medicine Pulmonary Disease | DX: J43.2 Centrilobular emphysema (principal); C34.11 Malignant neoplasm of upper lobe, right bronchus or lung; F17.210 Nicotine dependence, cigarettes, uncomplicated; G47.39 Other sleep apnea; R60.9 Edema, unspecified | CPT/HCPCS: 99214 ==

== ENCOUNTER 2023-05-14 13:37 | Oncology outpatient (recurring) (ONCR) | payer OTHER, SELFPAY ==
[2023-05-14 14:05] LABS: Basophils # 0.1 10^3/uL (0.0-0.1); Basophils % 0.7 %; Eosinophils # 0.3 10^3/uL (0.0-0.8); Eosinophils % 3.5 %; Hematocrit 48.3 % (37-53); Lymphocytes # 1.9 10^3/uL (0.8-4.8); Lymphocytes % 19.7 %; Mean Corpuscular HGB Conc 31.5 g/dL (30-55); Mean Corpuscular Hemoglobin 29.8 pg (27-33); Mean Corpuscular Volume 94.7 fl (82-101); Mean Platelet Volume 9.3 fL (7.4-10.4); Monocytes # 1.1 10^3/uL (0.2-0.9); Monocytes % 10.9 %; Neutrophils # 6.24 10^3/uL (1.8-7.7); Neutrophils % 64.9 %; Nucleated Red Blood Cells % 0 %; Platelet Count 267 10^3/cmm (157-399); Red Cell Distribution Width 14.2 % (12.1-15.1); White Blood Count 9.63 10^3/uL (3.29-11.43)
[2023-05-14 14:18] LABS: Alanine Aminotransferase 14 U/L (0-41); Albumin Level 3.5 g/dL (3.5-5.2); Alkaline Phosphatase 81 U/L (40-130); Anion Gap 14.1 (5-19); Aspartate Amino Transferase 12 U/L (0-40); Blood Urea Nitrogen 24 mg/dL (8-23); Carbon Dioxide 32 mmol/L (22-29); Chloride 101 mmol/L (98-107); Globulin 3.6 g/dL (1.3-4.6); Glucose 112 mg/dL (65-115); Osmolality Calculated 301 mOsm/kg (285-295); Potassium 4.1 mmol/L (3.5-5.1); Sodium 143 mmol/L (136-145); Total Bilirubin 0.4 mg/dL (0.15-1.2); Total Protein 7.1 g/dL (6.6-8.7)
== END 2023-05-31 23:59 | disposition home or self-care (01) ==
PROVIDERS: Internal Medicine; PCP Family Medicine; Visit Provider Internal Medicine Hematology & Oncology
DX: C34.81 Malignant neoplasm of overlapping sites of right bronchus and lung (principal); C78.02 Secondary malignant neoplasm of left lung; F17.210 Nicotine dependence, cigarettes, uncomplicated; Z79.2 Long term (current) use of antibiotics; Z79.899 Other long term (current) drug therapy
CPT/HCPCS: 36415; 80053; 85025; 99214

== ENCOUNTER → 2023-05-27 11:30 | Outpatient (BNVA) | payer OTHER, SELFPAY | PROVIDERS: PCP Family Medicine; Referring Provider Internal Medicine; Visit Provider Surgery | DX: Z95.828 Presence of other vascular implants and grafts (principal) | CPT/HCPCS: 99204 ==

== ENCOUNTER 2023-06-01 06:00 | Outpatient (RCR) | payer MEDICARE, OTHER, SELFPAY | END 2023-06-30 23:59 | disposition home or self-care (01) | LOC: PULRHB 06:00 | PROVIDERS: PCP Family Medicine; Visit Provider Internal Medicine Pulmonary Disease | DX: C34.90 Malignant neoplasm of unspecified part of unspecified bronchus or lung (principal) | CPT/HCPCS: G0239 ==

== ENCOUNTER 2023-06-02 10:36 | Day surgery (SDC) | payer OTHER, SELFPAY ==
[2023-06-02] VITALS (8 sets, daily range): BP systolic 105–133; BP diastolic 65–79; PULSE 60–78; RESP 18–21; TEMP 36.3–36.4; O2SAT 85–89; BMI 28.8
--- NOTE | 2023-06-02 10:44 | SC_ITS ---
WS: [id number] EXAMINATION: C-arm FL for CVA [id number] ORDER DATE: 06/02/2023 10:44 AM REASON FOR EXAM: For port placement COMPARISON: None available. FLUOROSCOPY TIME: 12 seconds # OF SPOT FILMS: 1 FINDINGS: Findings demonstrate placement of a right jugular Port-A-Cath. A right effusion is suspected. IMPRESSION: Please see intraoperative note for full explanation of findings and the procedure.
[2023-06-02] MEDS: sodium chloride 0.9% 1,000 ML 30 ML IV (11:55)
--- NOTE | 2023-06-02 12:00 | W.PM.OPSUD ---
Surgery/Procedure H&P Update DATE OF PROCEDURE: June 02, 2023 DATE H&P PERFORMED: 05/27/23 H&P UPDATE INFORMATION: I have reviewed H&P completed within last 30 days, I have examined patient prior to procedure, No changes to prior documentation and H&P is in [facility] EMR on date indicated PLANNED PROCEDURE: Operation Date: 06/02/23 12:10 Proposed Procedures p Portacath Placement(Not Applicable) - Cali Botello MD
--- NOTE | 2023-06-02 12:04 | ANES.PREANE2 ---
Pre-Anesthetic Assessment Height/Weight: Height 1.73 m Weight 86.183 kg Temp Pulse Resp BP Pulse Ox O2 Del Method O2 Flow Rate 97.5 F L 78 18 129/77 89 L Nasal Cannula 4 06/02/23 11:07 06/02/23 11:07 06/02/23 11:07 06/02/23 11:07 06/02/23 11:07 06/02/23 11:07 06/02/23 11:07 Operation Date: 06/02/23 12:10 Proposed Procedures p Portacath Placement(Not Applicable) - Cali Botello MD Familial anesthetic complications: NOne Was Beta Janice taken within 24 hours: Yes Was Clonidine taken within 24 hours: N/A Last intake: Intake Last Liquid Date 06/01/23 Last Liquid Time 22:30 Last Solid Date 06/01/23 Last Solid Time 18:30 Social Tobacco and No alcohol Exam alert, oriented x 3, clear to auscultation bilaterally and regular rate & rhythm Airway Mallampati: Class III Dentition: false Pulmonary Chronic Obstructive Pulmonary Disease and Sleep Apnea 3 L NC CV/HEM Coronary Artery Disease (stents) Metabolic Morbid Obesity and Thyroid Disease Anesthetic Plan ASA status: 4 Anesthesia: MAC Risk of > 500 ml blood loss (7ml/kg in children): No Medications/Allergies Home Medications Medication Instructions Recorded Confirmed Last Taken Type carvedilol 6.25 mg tablet 6.25 mg PO BID@0800,2100 03/01/19 06/02/23 06/02/23 04:00 History clopidogrel 75 mg tablet 75 mg PO DAILY@0800 03/01/19 06/01/23 05/27/23 History furosemide 20 mg tablet 20 mg PO DAILY@0800 03/01/19 06/01/23 06/01/23 History levothyroxine 25 mcg tablet 25 mcg PO DAILY@0700 03/01/19 06/02/23 06/02/23 04:00 History nitroglycerin 0.4 mg sublingual 0.4 mg sublingual Q5M PRN Chest 03/01/19 06/01/23 Unknown History tablet (Nitrostat) Pain rosuvastatin 10 mg tablet 10 mg PO DAILY 03/01/19 06/01/23 05/31/23 History aspirin 81 mg tablet,delayed 81 mg PO DAILY@0800 0406/01/23 05/27/23 History release vitamin D 1 tab PO DAILY@0800 02/14/22 06/01/23 06/01/23 History potassium chloride 10 mEq 10 meq PO DAILY #30 tabs 05/07/22 06/01/23 Unknown Rx tablet,extended release albuterol sulfate 2.5 mg/3 mL 2.5 mg (3 mL) inhalation QID PRN 11/06/22 06/01/23 Unknown Rx (0.083 %) solution for nebulization shortness of breath or wheezing #180 mL Nebulizer with supplies #1 ea 02/24/23 05/27/23 Unknown Rx budesonide 160 mcg-glycopyr 9 2 inh inhalation BID #10.7 grams 05/07/23 06/01/23 Unknown Rx mcg-formot 4.8 mcg/actuation HFA inhaler (Breztri Aerosphere) Allergies Allergy/AdvReac Type Severity Reaction Status Date / Time No Known Allergies Allergy Verified 06/02/23 11:01 Current Medications Generic Name Dose Route Start Last Admin Trade Name Freq PRN Reason Stop Dose Admin Sodium Chloride 1,000 mls @ 30 mls/hr 06/02/23 10:45 06/02/23 11:55 Sodium Chloride 0.9% IV 06/03/23 10:44 30 mls/hr .Q24H TELMA Administration PFSH Anesthesia Medical History Non-small cell lung cancer Abdominal aortic aneurysm (AAA) CPAP (continuous positive airway pressure) dependence Hypothyroidism Hypertension Hyperlipidemia CAD (coronary artery disease) COPD (chronic obstructive pulmonary disease) Surgical History Status post coronary artery stent placement Hx of knee surgery H/O eye surgery Family History Other CAD (coronary artery disease) Social History Smoking and tobacco/nicotine status: current every day tobacco/nicotine user (1ppd) cigarettes Packs smoked per day: 0.75 Years cigarettes smoked: 59 [ Other cigarette details: started at age 18] Quit status (tobacco/nicotine): not considering quitting Second hand smoke exposure: No Alcohol intake: current Substance/Drug Use: never Lives independently: Yes Household members: spouse Housing: House Marital status: service: Yes Current occupational status: retired Do you think of yourself as: Straight/Heterosexual Current gender identity: Male Data Anesthesia Cardiac Studies: No Data to Display
[2023-06-02] MEDS: ceFAZolin 2,000 MG in sodium chloride 0.9% (plus) 50 ML 100 MG IV (12:35)
[2023-06-02] MEDS: heparin, porcine 1,000 unit/mL INJ 10 mL 10000 UNIT IRRIGATION (13:16)
[2023-06-02] MEDS: lidocaine-epi 1% 20 mL INJ INJECTION (13:16)
--- NOTE | 2023-06-02 13:35 | P.OP_ITS ---
Operative Report Date of procedure: June 02, 2023 Pre-op diagnosis: Lung cancer Post-op diagnosis: Lung cancer Post-op findings: Normal vascular anatomy Procedure done: Insertion of right IJ Port-A-Cath Implants: Bard Port-A-Cath Specimens removed/disposition: None Surgeon: Cali Botello MD [employer] Mechanic: [facility] OR Staff Estimated blood loss: 5 Brief History: 77-year-old male with history of lung cancer who was referred to my clinic for evaluation for Port-A-Cath placement. After discussion we will resume benefits documented my preop note with side to proceed. Procedure: Patient was brought into the OR, he was placed in a supine position, mother anesthesia sedation was given. Timeout was conducted after the skin was prepped and draped in the usual sterile fashion. I then proceeded to identify the right IJ vein with ultrasound, I infiltrated local anesthesia on top of the vein. I then proceeded to cannulate the vein under direct ultrasound guidance using an 18-gauge needle, the needle tip was seen entering the vein and immediate return of blood was noted. A wire was advanced through the needle and the needle was removed. The position of the wire was verified with ultrasound and fluoroscopy. The wire was then fixed to the drapes. I then placed my attention to the chest, local anesthesia was infiltrated in the previously marked area on the chest and then a tract connecting the chest to the wire insertion site in the neck. I then proceeded to make a 3.5 cm incision in the right upper chest, the incision was deepened to subcutaneous tissue with electrocautery and e lectrocautery was used to create the subcutaneous pocket to house the Port-A-Cath. I then proceeded to use a hemostat to create a tunnel from the chest wound to the neck. I then proceeded to make a 0.5 cm incision at the level of the wire insertion site in the neck. Hemostasis was verified. I then placed the Port-A-Cath in the pocket and tunneled the catheter using the provided tunneler. The catheter was cut to appropriate length under fluoroscopy guidance and then flushed. I then proceeded to insert an introducer with a peel-off sheath over the wire under direct fluoroscopic guidance. I then remove the wire and the introducer leaving the peel-off sheath in place. The catheter was then advanced through the peel-off sheath and the peel-off sheath was removed leaving the catheter in place. Fluoroscopy showed evidence of Adequate catheter position. I then proceeded to access the port; the port was retrieving blood and flushing fine, I then hep-locked the catheter. Hemostasis was verified. The wound was closed in layers using #3-0 Vicryl for the subcutaneous tissue and #4 Monocryl for the skin. Dermabond was applied. At the end of the procedure all counts were correct. The patient tolerated well the procedure and was transferred to the PACU in stable condition.
--- NOTE | 2023-06-02 14:55 | ANE.PACU2 ---
Inpatient post-anesthesia follow up: Airway intact: Yes Vital signs: Temperature 97.3 F Pulse Rate 68 Respiratory Rate 20 Blood Pressure 120/78 Pulse Oximetry 89 Oxygen Delivery Me thod Nasal Cannula Oxygen Flow Rate 4 Fraction of Inspir ed Oxygen Hydration adequate: Yes Nausea and vomiting: No Pain level: 1 Mental status: Baseline
== END 2023-06-02 14:55 | disposition home or self-care (01) ==
PROVIDERS: PCP Family Medicine; Visit Provider Surgery
PROC: (CPT 36561; principal; 2023-06-02 12:00)
DX: C34.90 Malignant neoplasm of unspecified part of unspecified bronchus or lung (principal); Z99.81 Dependence on supplemental oxygen; E66.01 Morbid (severe) obesity due to excess calories; Z68.28 Body mass index [BMI] 28.0-28.9, adult; I25.10 Atherosclerotic heart disease of native coronary artery without angina pectoris; Z95.5 Presence of coronary angioplasty implant and graft; J44.9 Chronic obstructive pulmonary disease, unspecified; F17.210 Nicotine dependence, cigarettes, uncomplicated
CPT/HCPCS: 36561; 76000; 77001; C1788; J0690; J1644; J2704; J3010; J7030

== ENCOUNTER 2023-06-14 11:03 | Inpatient (IN) | payer OTHER, SELFPAY ==
[2023-06-14] VITALS (51 sets, daily range): BP systolic 94–141; BP diastolic 48–90; PULSE 56–110; RESP 14–27; TEMP 36–36.7; O2SAT 86–97; BMI 12.6
--- NOTE | 2023-06-14 11:17 | XRR_ITS ---
PROCEDURE INFORMATION: Exam: XR Chest Exam date and time: 06/14/2023 11:43 AM Age: 77 years old Clinical indication: Shortness of breath; Patient HX: SOB, low oxygen levels, PT is prescribed o2 but doesnt wear it in public, current smoker, 2 stents put in, right lung cancer TECHNIQUE: Imaging protocol: Radiologic exam of the chest. Views: 1 view. COMPARISON: CT chest w con* [id number] 08/27/2022 9:48 AM FINDINGS: Tubes, catheters and devices: There is a right IJ port with tip in the superior vena cava. Lungs: Interval increase in bibasilar consolidation is present, consistent with atelectasis, edema, or pneumonia. There is marked narrowing/abrupt cut off of the right lower lobe bronchus new since the prior exam. Pleural spaces: There is a moderate to large sized right pleural effusion. There is no evidence of pneumothorax. Heart/Mediastinum: The heart is enlarged. Bones/joints: No acute abnormality. XR/XR chest 1V [id number] IMPRESSION: Interval increase in bibasilar consolidation is present, consistent with atelectasis, edema, or pneumonia. New marked narrowing/cut off right lower lobe bronchus compared to the prior exam concerning for progression of known neoplasm.
--- NOTE | 2023-06-14 11:18 | W.ED.GENADLT ---
HPI - General Adult General: Chief complaint: General Medical Stated complaint: low O2, dizzy, weakness Time Seen by Provider: 06/14/23 11:14 History of Present Illness: 77-year-old man with a history of non-small cell lung cancer, obstructive sleep apnea on CPAP at night, coronary artery disease, hypertension, hyperlipidemia, COPD and chronic hypoxemic respiratory failure on 3 L nasal cannula at all times (however he will not wear it when he goes out). He presents today with shortness of breath and low O2 sats and generalized weakness. He presents to the emergency room and is in the low 60s on a pulse ox. He fairly quickly recovers on a nonrebreather. He says he has not been feeling well. Has had increased cough. Increased lower extremity swelling. Family states they think he may have fluid retention. No known fevers. No chest pain. No altered mental status. No nausea or vomiting. Review of Systems Narrative: Constitutional symptoms: Negative except as documented in HPI. Skin symptoms: Negative except as documented in HPI. Eye symptoms: Negative except as documented in HPI. ENMT symptoms: Negative except as documented in HPI. Respiratory symptoms: Negative except as documented in HPI. Cardiovascular symptoms: Negative except as documented in HPI. Gastrointestinal symptoms: Negative except as documented in HPI. Genitourinary symptoms: Negative except as documented in HPI. Musculoskeletal symptoms: Negative except as documented in HPI. Neurologic symptoms: Negative except as documented in HPI. Psychiatric symptoms: Negative except as documented in HPI. Endocrine symptoms: Negative except as documented in HPI. [facility] ED PFSH: Medical History Non-small cell lung cancer Abdominal aortic aneurysm (AAA) CPAP (continuous positive airway pressure) dependence Hypothyroidism Hypertension Hyperlipidemia CAD (coronary artery disease) COPD (chronic obstructive pulmonary disease) Surgical History Status post coronary artery stent placement Hx of knee surgery H/O eye surgery Family History Other CAD (coronary artery disease) Social History Smoking and tobacco/nicotine status: current every day tobacco/nicotine user (1ppd) cigarettes Packs smoked per day: 0.75 Years cigarettes smoked: 59 [ Other cigarette details: started at age 18] Quit status (tobacco/nicotine): not considering quitting Second hand smoke exposure: No Alcohol intake: current Substance/Drug Use: never Lives independently: Yes Household members: spouse Housing: House Marital status: service: Yes Current occupational status: retired Do you think of yourself as: Straight/Heterosexual Current gender identity: Male Physical Exam Narrative: EXAM NARRATIVE: General: Alert, no acute distress. Skin: Warm, dry. Head: Normocephalic, atraumatic. Neck: Supple, trachea midline. Eye: Extraocular movements are intact. Ears, nose, mouth and throat: mucosa moist. Cardiovascular: Regular, Normal peripheral perfusion. Patient has venous stasis/edema with venous stasis dermatitis. Respiratory: Lungs are coarse, scattered expiratory wheeze, mild tachypnea, mild increased work of breathing., breath sounds are equal, Symmetrical chest wall expansion. Gastrointestinal: Soft, Nontender, Non distended, Normal bowel sounds. Musculoskeletal: Normal ROM, no deformity. Neurological: Alert and oriented, No focal neurological deficit observed. Psychiatric: Cooperative, appropriate mood & affect. Course Vital Signs: Vital signs: Vital Signs Temperature 98.1 F 06/14/23 11:16 Pulse Rate 60 06/14/23 14:00 Respiratory Rate 24 H 06/14/23 11:33 Blood Pressure 107/76 06/14/23 14:00 Pulse Oximetry 90 06/14/23 14:00 Oxygen Delivery Me thod BiPAP 06/14/23 14:00 Oxygen Flow Rate 4 06/14/23 12:00 Fraction of Inspir ed Oxygen 65 06/14/23 13:43 [facility] - General Adult Medical Decision Making Differential diagnosis for patient with shortness of breath includes but is not limited to and based on the above HPI, review of systems and physical exam: Pneumonia. Bronchitis. Asthma or COPD with acute exacerbation. Acute coronary syndrome / SD. Pulmonary embolism. Anxiety. Congestive heart failure. Viral infections including influenza and Covid-19. Atrial fibrillation. Anxiety. Pleural effusion. Pneumothorax. Workup: Lab work, chest X-ray and EKG ordered to evaluate, rule in and rule out above pathologies Lab Review: Laboratory results were reviewed and interpreted by myself the emergency room physician. White count is 8. Hemoglobin is 14.9. BUN and creatinine are 21 and 0.8. Patient has a bicarb of 40. proBNP is only 480. Lactate is 1.3. AB.2 with an O2 sat of 91% on a nonrebreather Repeat ABG 7.3 with an O2 sat of 92% on a BiPAP Chest x-ray: Interval increase in bibasilar consolidation is present, consistent with atelectasis, edema, or pneumonia. New marked narrowing/cut off right lower lobe bronchus compared to the prior exam concerning for progression of known neoplasm. I reviewed the patient's medical record. Reexamination: Patient is stable on a BiPAP. Work of breathing is improved some. He is tolerating it. No altered mental status. No focal motor deficits. Patient has had no confusion. I have concern for pneumonia given that he has had a cough. Also I do not think that diuresis would be appropriate at this time. His blood pressure is a bit soft with a systolic at 111 and a heart rate initially at 101. He does not have a fever. Lab Data 06/14/23 11:28 06/14/23 11:28 Radiology Impressions Chest X-Ray 06/14/23 11:17 IMPRESSION: Interval increase in bibasilar consolidation is present, consistent with atelectasis, edema, or pneumonia. New marked narrowing/cut off right lower lobe bronchus compared to the prior exam concerning for progression of known neoplasm. Laboratory Results WBC 8.82 10^3/uL (3.29-11.43) 06/14/23 11:28 RBC 5.12 10^6/uL (3.85-5.65) 06/14/23 11:28 Hgb 14.90 g/dL (11.27-16.99) 06/14/23 11:28 Hct 49.9 % (37-53) 06/14/23 11:28 MCV 97.5 fl (82-101) 06/14/23 11:28 MCH 29.1 pg (27-33) 06/14/23 11:28 MCHC 29.9 g/dL (30-55) L 06/14/23 11:28 RDW 13.9 % (12.1-15.1) 06/14/23 11:28 Plt Count 243 10^3/cmm (157-399) 06/14/23 11:28 MPV 9.5 fL (7.4-10.4) 06/14/23 11: Neut % (Auto) 77.0 % 06/14/23 11: Lymph % (Auto) 11.5 % 06/14/23 11: [place] % (Auto) 9.5 % 06/14/23 11: Eos % (Auto) 1.2 % 06/14/23 11: Baso % (Auto) 0.5 % 06/14/23 11:28 Neut # (Auto) 6.79 10^3/uL (1.8-7.7) 06/14/23 11: Lymph # (Auto) 1.0 10^3/uL (0.8-4.8) 06/14/23 11:28 [place] # (Auto) 0.8 10^3/uL (0.2-0.9) 06/14/23 11: Eos # (Auto) 0.1 10^3/uL (0.0-0.8) 06/14/23 11:28 Baso # (Auto) 0.0 10^3/uL (0.0-0.1) 06/14/23 11: Nucleated RBC % (auto) 0 % 06/14/23 11: Nucleated RBCs # 0.0 /100WBC 06/14/23 11:28 Specimen Type Arterial 06/14/23 13:49 Sample Site Radial, left 06/14/23 13:49 ABG pH 7.32 (7.35-7.45) L 06/14/23 13:49 ABG pCO2 82.5 mmHg (35-45) H* 06/14/23 13:49 ABG pO2 91.6 mmHg (80.0-100.0) 06/14/23 13:49 ABG PO2/FiO2 Ratio 0 06/14/23 13:49 ABG HCO3 41.9 mmol/L (22-26) H 06/14/23 13:49 ABG O2 Saturation 95.8 06/14/23 13:49 ABG Base Excess 11.1 mmol/L (-2.0-2.0) H 06/14/23 13:49 Luis Alfredo Test Pos 06/14/23 13:49 A-a O2 Gradient 35.5 mmHg (5-10) H 06/14/23 13:49 Hematocrit 51.3 % (42-52) 06/14/23 13:49 Hgb O2 Saturation 92.5 % (95-100) L 06/14/23 13:49 Carboxyhemoglobin 3.2 %THgb (0.4-20.1) 06/14/23 13:49 Methemoglobin 0.2 % (0.4-1.5) L 06/14/23 13:49 Total Hemoglobin 16.7 g/dL (14-18) 06/14/23 13:49 Sodium 145.0 mmol/L (131-143) H 06/14/23 13:49 Potassium 4.0 mmol/L (3.5-5.0) 06/14/23 13:49 Glucose 138.0 mg/dL (70-115) H 06/14/23 13:49 Ionized Calcium 1.2 mmol/L (1.1-1.4) 06/14/23 13:49 O2 Delivery Device Bipap 06/14/23 13:49 O2 Liters/Min 12.0 % 06/14/23 11:17 FiO2 65.0 % 06/14/23 13:49 Jewelry Drill Operator ID glc 06/14/23 13:49 Sodium 144 mmol/L (136-145) 06/14/23 11:28 Potassium 4.0 mmol/L (3.5-5.1) 06/14/23 11:28 Chloride 97 mmol/L (98-107) L 06/14/23 11:28 Carbon Dioxide 40 mmol/L (22-29) H 06/14/23 11:28 Anion Gap 11.0 (5-19) 06/14/23 11:28 BUN 21 mg/dL (8-23) 06/14/23 11:28 Creatinine 0.8 mg/dL (0.7-1.2) 06/14/23 11:28 GFR Calculation Not Reportable 06/14/23 11:28 Glucose 167 mg/dL (65-115) H 06/14/23 11:28 Calculated Osmolality 305 mOsm/kg (285-295) H 06/14/23 11:28 Lactic Acid 1.3 mmol/L (0.5-2.2) 06/14/23 11:28 Calcium 8.8 mg/dL (8.5-10.5) 06/14/23 11:28 Total Bilirubin 0.7 mg/dL (0.15-1.2) 06/14/23 11:28 AST 16 U/L (0-40) 06/14/23 11:28 ALT 26 U/L (0-41) 06/14/23 11:28 Alkaline Phosphatase 81 U/L (40-130) 06/14/23 11:28 Troponin T Baseline 25 ng/L (0-15) H 06/14/23 11:28 NT-Pro-B Natriuret Pep 482 pg/mL (0-450) H 06/14/23 11:28 Total Protein 7.4 g/dL (6.6-8.7) 06/14/23 11:28 Albumin 3.6 g/dL (3.5-5.2) 06/14/23 11:28 Globulin 3.8 g/dL (1.3-4.6) 06/14/23 11:28 Influenza Type A Ag negative (Negative) 06/14/23 13:47 Influenza Type B Ag negative (Negative) 06/14/23 13:47 All radiology interpretation(s) finalized by discharge Other Data Assessment and plan: Acute on chronic hypercapnic respiratory failure Acute on chronic hypoxemic respiratory failure Pleural effusion Possible pneumonia -Solu-Medrol and updrafts. -IV Rocephin and azithromycin. -Placed on BiPAP and has had some mild improvement in his CO2 retention -I discussed the patient with the hospitalist on-call who is admitting the patient. - Discussed findings and plan with patient. Answered any questions. - All laboratory values were reviewed and interpreted personally by myself, the ER physician - All imaging was reviewed and interpreted personally by myself, the ER physician. - Evaluation and treatment of this problem were appropriate in the emergency setting -I spent a total of >35 minutes of critical care time managing the patient, independent of any other practitioner. -The time involved in the performance of separately reportable procedures was not counted towards critical care time. Discharge Plan Discharge Condition: Stable Prescriptions: No Action albuterol sulfate 2.5 mg /3 mL (0.083 %) solution for nebulization 2.5 mg inhalation QID PRN (Reason: shortness of breath or wheezing) Qty: 180 6RF Breztri Aerosphere 160-9-4.8 mcg/actuation HFA aerosol inhaler 2 inh INHALATION BID Qty: 10.7 5RF potassium chloride 10 mEq tablet extended release 10 meq PO DAILY Qty: 30 0RF (DME) Nebulizer with supplies See Rx Instructions .Route .MEDSUPPLY Qty: 1 0RF Rx Instructions: As directed carvedilol 6.25 mg Tablet 6.25 mg PO BID@0800,2100 clopidogrel 75 mg Tablet 75 mg PO DAILY@0800 levothyroxine 25 mcg Tablet 25 mcg PO DAILY@0700 nitroglycerin [Nitrostat] 0.4 mg Tablet, Sublingual 0.4 mg SUBLINGUAL Q5M PRN (Reason: Chest Pain) furosemide 20 mg Tablet 20 mg PO DAILY@0800 rosuvastatin 10 mg Tablet 10 mg PO DAILY aspirin 81 mg Tablet,Delayed Release (Dr/Ec) 81 mg PO DAILY@0800 vitamin D 1 tab PO DAILY@0800 oxycodone 5 mg tablet 5 mg PO Q8H PRN (Reason: pain) Qty: 14 0RF Referrals: Aminah Coffman MD [Primary Care Provider] - Coding Level of Care Code ED Reimbursement Liaison for Frank Ahmadi
--- NOTE | 2023-06-14 11:25 | ECG_ITS ---
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 Measurements Intervals [place] Rate: 90 P: 0 IN: 0 QRS: 75 QRSD: 156 T: 7 QT: 411 QTc: 505 Interpretive Statements ATRIAL FIBRILLATION WITH ABERRANT CONDUCTION OR VENTRICULAR PREMATURE COMPLEXES RIGHT BUNDLE BRANCH BLOCK [120+ ms QRS DURATION, UPRIGHT V1, 40+ ms S IN I/aVL/V4/V5/V6] Compared to ECG 02/24/2019 18:21:27 Ventricular premature complex(es) now present Aberrant conduction of supraventricular beat(s) now present Right bundle-branch block now present Sinus rhythm no longer present T-wave abnormality no longer present Possible ischemia no longer present Electronically Signed On 06-14-2023 20:50:56 CDT by Garrison Mckeon M.D. [id number]
[2023-06-14 11:38] LABS: Basophils % 0.5 %; Eosinophils # 0.1 10^3/uL (0.0-0.8); Eosinophils % 1.2 %; Hematocrit 49.9 % (37-53); Lymphocytes % 11.5 %; Mean Corpuscular HGB Conc 29.9 g/dL (30-55); Mean Corpuscular Hemoglobin 29.1 pg (27-33); Mean Corpuscular Volume 97.5 fl (82-101); Mean Platelet Volume 9.5 fL (7.4-10.4); Monocytes # 0.8 10^3/uL (0.2-0.9); Monocytes % 9.5 %; Neutrophils # 6.79 10^3/uL (1.8-7.7); Nucleated Red Blood Cells % 0 %; Platelet Count 243 10^3/cmm (157-399); Red Blood Count 5.12 10^6/uL (3.85-5.65); Red Cell Distribution Width 13.9 % (12.1-15.1); White Blood Count 8.82 10^3/uL (3.29-11.43)
[2023-06-14 11:58] LABS: ABG PH Result 7.27 (7.35-7.45); Arterial Blood Gas Hematocrit 47.5 % (42-52); Base Excess ABG 11.7 mmol/L (-2.0-2.0); Blood Gas Allen Test Pos; Blood Gas Operator Identificat glc; Blood Gas Sample Site Radial, right; Blood Gas Sample Type Arterial; Carboxyhemoglobin 3.8 %THgb (0.4-20.1); HCO3 ABG 43.6 mmol/L (22-26); HGB O2 Sat 87.5 % (95-100); Ionized Calcium Level - ABG 1.2 mmol/L (1.1-1.4); Methemoglobin 0.3 % (0.4-1.5); Oxygen Device NC; Oxygen Saturation ABG 91.2; PO2 ABG 70.3 mmHg (80.0-100.0); Total Hemoglobin 15.5 g/dL (14-18)
[2023-06-14 11:58] LABS: Lactic Sepsis W/Reflex 1.3 mmol/L (0.5-2.2); Troponin(5th) Baseline 25 ng/L (0-15)
[2023-06-14] MEDS: albuterol 2.5 mg/3 mL Neb INHALATION (12:00)
[2023-06-14] MEDS: ipratropium-albuterol 3 mL Neb INHALATION ×4 (12:00→23:34)
[2023-06-14 12:05] LABS: Alanine Aminotransferase 26 U/L (0-41); Albumin Level 3.6 g/dL (3.5-5.2); Alkaline Phosphatase 81 U/L (40-130); Aspartate Amino Transferase 16 U/L (0-40); Blood Urea Nitrogen 21 mg/dL (8-23); Calcium 8.8 mg/dL (8.5-10.5); Carbon Dioxide 40 mmol/L (22-29); Chloride 97 mmol/L (98-107); Creatinine Clr Calc Pharmacy 82.7908; Globulin 3.8 g/dL (1.3-4.6); Glucose 167 mg/dL (65-115); NT Pro B Type Natriuretic Pept 482 pg/mL (0-450); Osmolality Calculated 305 mOsm/kg (285-295); Sodium 144 mmol/L (136-145); Total Bilirubin 0.7 mg/dL (0.15-1.2); Total Protein 7.4 g/dL (6.6-8.7)
--- NOTE | 2023-06-14 12:52 | ECG_ITS ---
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 Measurements Intervals [place] Rate: 73 P: 0 AR: 0 QRS: 87 QRSD: 156 T: -31 QT: 432 QTc: 479 Interpretive Statements ATRIAL FIBRILLATION RIGHT BUNDLE BRANCH BLOCK [120+ ms QRS DURATION, UPRIGHT V1, 40+ ms S IN I/aVL/V4/V5/V6] MODERATE T-WAVE ABNORMALITY, CONSIDER LATERAL ISCHEMIA [-0.1+ mV T-WAVE IN I/aVL/V5/V6] Compared to ECG 06/14/2023 11:25:23 T-wave abnormality now present Possible ischemia now present Ventricular premature complex(es) no longer present Aberrant conduction of supraventricular beat(s) no longer present Electronically Signed On 06-14-2023 21:01:01 CDT by Garrison Mckeon M.D. [id number]
--- NOTE | 2023-06-14 13:03 | PC.PHAR ---
Addendum entered by Shirley Rodas 06/15/23 10:05: MED REC DONE FROM MED LIST FROM AND NOTES FROM [facility]. [facility] AND NO ETA ON REPAIR TODAY. WILL FOLLOW UP WHEN IT BECOMES AVAILABLE. 06/15/23 Addendum entered by Pina Hastings 06/14/23 14:19: Informed that pts couldnt verify medications and that [facility] isnt open on the s-told him the [facility] was faxed and will re-fax on Thursday and will update med list when va sends med list Original Note: pt states his takes care of his medications-pts states she sets the pts medications up but doesnt know them and states she doesnt have her list with her states the va will have the list-faxed [facility] for med list -[facility] is not open on the weekends
[2023-06-14] MEDS: methylPREDNISolone sod succ 125 mg/2 mL INJ IVP (13:43)
[2023-06-14 13:58] LABS: ABG PH Result 7.32 (7.35-7.45); Alveolar-Arterial Oxygen Gradi 35.5 mmHg (5-10); Arterial Blood Gas Hematocrit 51.3 % (42-52); Base Excess ABG 11.1 mmol/L (-2.0-2.0); Blood Gas Allen Test Pos; Blood Gas Operator Identificat glc; Blood Gas Sample Site Radial, left; Blood Gas Sample Type Arterial; Carboxyhemoglobin 3.2 %THgb (0.4-20.1); HCO3 ABG 41.9 mmol/L (22-26); HGB O2 Sat 92.5 % (95-100); Ionized Calcium Level - ABG 1.2 mmol/L (1.1-1.4); Methemoglobin 0.2 % (0.4-1.5); Oxygen Device BIPAP; Oxygen Saturation ABG 95.8; PO2 ABG 91.6 mmHg (80.0-100.0); PO2 FiO2 Ratio Arterial Blood 0; Total Hemoglobin 16.7 g/dL (14-18)
[2023-06-14 14:01] LABS: ABG PCO2 82.5 mmHg (35-45)
[2023-06-14 14:03] LABS: ABG PCO2 95.1 mmHg (35-45)
--- NOTE | 2023-06-14 14:03 | CTR_ITS ---
PROCEDURE INFORMATION: Exam: CTA Chest With Contrast Exam date and time: 06/14/2023 3:02 PM Age: 77 years old Clinical indication: Shortness of breath; Patient HX: Lung CA; Additional info: SOB TECHNIQUE: Imaging protocol: Computed tomographic angiography of the chest with contrast. Exam focused on the arteries. 3D rendering (Not supervised by radiologist): MIP and/or 3D reconstructed images were created by the technologist. Radiation optimization: All CT scans at this facility use at least one of these dose optimization techniques: automated exposure control; mA and/or kV adjustment per patient size (includes targeted exams where dose is matched to clinical indication); or iterative reconstruction. Contrast material: OMNI 350; Contrast volume: 89 ml; Contrast route: INTRAVENOUS (IV); COMPARISON: CT chest w con* [id number] 12/02/2022 10:00 AM RADIATION DOSE METRICS: Total DLP (mGy-cm): 513.39 FINDINGS: Pulmonary arteries: No evidence of pulmonary thromboembolism. Aorta: Moderate atherosclerosis without evidence of aneurysmal dilatation or dissection of the thoracic aorta. Thyroid: Grossly unremarkable. Lungs: Again seen is masslike thickening in the right infrahilar region with occlusion of the right middle lobe bronchi, bronchus intermedius and right lower lobe bronchus. There is associated right middle and lower lobar atelectasis. Moderate-large right-sided pleural effusion with passive atelectasis of the posterior segment right upper lobe. There is mild interstitial edema. Background of moderate centrilobular emphysematous changes. No pneumothorax. Heart: Borderline cardiomegaly. No pericardial effusion. Left circumflex and RCA coronary stents. Right IJ MediPort with tip terminating at the cavoatrial junction. Lymph nodes: Few prominent and borderline enlarged mediastinal nodes without gross adenopathy. For example, there is a 10 mm short axis subcarinal node. Bones/joints: No evidence of acute fracture or aggressive osseous lesion. Soft tissues: No evidence of fluid collection or hematoma in the superficial soft tissues. Other findings: No evidence of acute abnormality in the upper abdomen. CT/CT angio chest PE protcl [id number] IMPRESSION: 1. Occlusion of the right middle/lower central bronchi with lobar atelectasis. 2. Moderate-large right-sided pleural effusion. 3. No evidence of PE or acute aortic abnormality.
[2023-06-14 14:23] LABS: Influenza A by IFA negative (Negative); Influenza B by IFA negative (Negative)
--- NOTE | 2023-06-14 14:33 | P.HP_ITS ---
Providers/Chief Complaint 2 Admitting Physician: Inocente Eubanks MD Primary Care Provider: Aminah Coffman MD Chief Complaint: low O2, dizzy, weakness History of Present Illness Joss Meier is a 77 year old male copd, gold d Active smoker, centrilobular emphysema, on 2 L, history of noncompliance with oxygen therapy, history of non- small cell lung cancer, right upper lobe, status post radiation, with recent history of evidence of right infrahilar mass increased uptake, and new avid lesion in the interspace. Costovertebral junction of the left second and third costovertebral junction, with disructive changes validations third rib consistent with metastasis, CAD, history of abdominal aortic aneurysm repair, hypothyroidism hypertension hyperlipidemia who presents to [facility] due to shortness of breath, severe hypoxia, altered mental status. Currently patient is alert to person, not to place, not to time he can follow commands such as squeezing my fingers, will I really get out from him is that he is short of breath, currently he is on 65% BiPAP, his last pCO2 was 82, family members are at bedside. Patient's tells me that the patient at home is noncompliant with his oxygen therapy at times, he does not ambulate, he frequently remains off his oxygen, he continues to smoke, he does not complain much, today family was at latter-day, when patient was without oxygen, he became increasingly short of breath, more lethargic more somnolent, EMS was called, they checked his O2 sats it was apparently in the 60s, here patient was found to have acute hypoxic hypercarbic respiratory failure with pCO2 over 90, patient's family was at bedside, currently patient does awaken to sternal rub, does have suprasternal retractions does have nasal flaring, does appear to be in moderate respiratory distress, he is O2 sats at times will drop into the low 70s to titrate his oxygen up to 80%, and a detailed discussion with patient's family members at bedside including patient's , currently patient's status is critical, he is in severe acute hypoxic hypercarbic respiratory failure, secondary to COPD, there is also concerns for pneumonia, I have ordered a CT angiogram of the chest, will watch him in the ICU, he is a high risk of being intubated, over the next 24 hours, I had extensive discussion with goals of care with patient's , she tells me that she wants Joss to be a full code for now, I will watch his respiratory status very closely in the ICU, I did honestly speak to family that if patient did end up on the ventilator, there would be significant morbidity mortality during the intubation process given his underlying medical history, and there is a high likelihood that he might remain on lifelong life support for the rest of his life he might require tracheostomy, patient's family voiced understanding patient's voiced understanding, all consents are, agreed to proceed, his blood pressures are also on the softer end, lactic acid is within normal limits, EKG shows A-fib, currently he looks like he is in sinus rhythm, I spoke to ER physician, initially when pCO2 was over 90 we discussed repeating ABG to make sure the pCO2 improves before deciding if we need to intubate patient now pCO2 is down to 82 however he remains somnolent, does awaken with sternal rub, but falls back asleep, spoke to respiratory therapy, spoke to ER physician, spoke to nursing staff spoke to patient's Patient's abdomen is distended, she tells me that he does have a history of alcoholism, last alcohol drink was yesterday He had a pint of alcohol, he drinks regularly, he has been told that he has possible alcoholic liver cirrhosis,Patient also reports that patient was noncompliant with CPAP therapy last night Review of Systems 2 General: Reports: ROS unobtainable due to medical condition Medications/Allergies Home Medications Medication Instructions Recorded Confirmed Last Taken Type carvedilol 6.25 mg tablet 6.25 mg PO BID@0800,2100 03/01/19 06/02/23 06/02/23 04:00 History clopidogrel 75 mg tablet 75 mg PO DAILY@0800 03/01/19 06/01/23 05/27/23 History furosemide 20 mg tablet 20 mg PO DAILY@0800 03/01/19 06/01/23 06/01/23 History levothyroxine 25 mcg tablet 25 mcg PO DAILY@0700 03/01/19 06/02/23 06/02/23 04:00 History nitroglycerin 0.4 mg sublingual 0.4 mg sublingual Q5M PRN Chest 03/01/19 06/01/23 Unknown History tablet (Nitrostat) Pain rosuvastatin 10 mg tablet 10 mg PO DAILY 03/01/19 06/01/23 05/31/23 History aspirin 81 mg tablet,delayed 81 mg PO DAILY@0800 06/10/20 06/01/23 05/27/23 History release vitamin D 1 tab PO DAILY@0800 02/14/22 06/01/23 06/01/23 History potassium chloride 10 mEq 10 meq PO DAILY #30 tabs 05/07/22 06/01/23 Unknown Rx tablet,extended release albuterol sulfate 2.5 mg/3 mL 2.5 mg (3 mL) inhalation QID PRN 11/06/22 06/01/23 Unknown Rx (0.083 %) solution for nebulization shortness of breath or wheezing #180 mL Nebulizer with supplies #1 ea 02/24/23 05/27/23 Unknown Rx budesonide 160 mcg-glycopyr 9 2 inh inhalation BID #10.7 grams 05/07/23 06/01/23 Unknown Rx mcg-formot 4.8 mcg/actuation HFA inhaler (Breztri Aerosphere) oxycodone 5 mg tablet 5 mg PO Q8H PRN pain #14 tabs 06/02/23 Unknown Rx Allergies Allergy/AdvReac Type Severity Reaction Status Date / Time No Known Allergies Allergy Verified 06/02/23 11:01 PFSH Acute 2 PFSH: Medical History Non-small cell lung cancer Abdominal aortic aneurysm (AAA) CPAP (continuous positive airway pressure) dependence Hypothyroidism Hypertension Hyperlipidemia CAD (coronary artery disease) COPD (chronic obstructive pulmonary disease) Surgical History Status post coronary artery stent placement Hx of knee surgery H/O eye surgery Family History Other CAD (coronary artery disease) Social History Smoking and tobacco/nicotine status: current every day tobacco/nicotine user (1ppd) cigarettes Packs smoked per day: 0.75 Years cigarettes smoked: 59 [ Other cigarette details: started at age 18] Quit status (tobacco/nicotine): not considering quitting Second hand smoke exposure: No Alcohol intake: current Substance/Drug Use: never Lives independently: Yes Household members: spouse Housing: House Marital status: service: Yes Current occupational status: retired Do you think of yourself as: Straight/Heterosexual Current gender identity: Male Vitals/I&O/Wt Last Vital Signs Temp 98.1 F 06/14/23 11:16 Pulse 60 06/14/23 14:00 Resp 24 H 06/14/23 11:33 BP 107/76 06/14/23 14:00 Pulse Ox 90 06/14/23 14:00 O2 Del Method BiPAP 06/14/23 14:00 O2 Flow Rate 4 06/14/23 12:00 FiO2 65 06/14/23 13:43 Weight last 48 hrs Weight 86.636 kg Physical Exam 2 Const: COMMON NORMALS: alert EXAM LIMITATIONS: altered mental status G ENERAL APPEARANCE: ill appearing and frail appearing HENMT: COMMON NORMALS: normocephalic HEAD & SCALP: normocephalic Eye: COMMON NORMALS: Equal, round and reactive pupils present Neck/C-Spine: COMMON NORMALS: no JVD Lymph: LYMPHATIC: no lymphadenopathy noted Resp: EFFORT & INSPECTION: Yes symmetric chest movement, Yes tachypneic, Yes respiratory distress and Yes retractions AUSCULTATION: crackles and wheezes OTHER: Moderate respiratory distress, intercostal retractions, suprasternal retractions nasal flaring tachypnea Cardio: COMMON NORMALS: no JVD, regular rate, S1 normal heart sound present and S2 normal heart sound present RATE: regular rate RHYTHM: abnormal rhythm HEART SOUNDS: S1 normal heart sound present and S2 normal heart sound present GI: COMMON NORMALS: Soft to palpation and non-tender OTHER: , Abdomen soft, distended, good bowel sounds : COMMON NORMALS: Yes no CVA tenderness Extremity: NARRATIVE EXTREMITY EXAM: 1+ pitting edema Neuro: OTHER: Can follow basic neurologic testing he is able to squeeze his fingers, wiggle his toes, but becomes frequently somnolent and falls back asleep Data 06/14/23 11:28 06/14/23 11:28 CXR: My impression: Right lower lobe pleural effusion, consolidation, right lower lobe pneumonia EKG 1: My Interpretation: Atrial fibrillation, without RVR, right bundle branch block ABG Interpretation 2: 06/14/23 06/14/23 11:17 13:49 ABG pH 7.27 L 7.32 L ABG pCO2 95.1 H* 82.5 H* ABG pO2 70.3 L 91.6 ABG HCO3 43.6 H 41.9 H ABG O2 Saturation 91.2 95.8 ABG Base Excess 11.7 H 11.1 H My Interpretation: Acute hypoxic hypercarbic respiratory failure A&P Assessment and plan (1) Acute on chronic respiratory failure with hypoxia and hypercapnia: (2) Acute encephalopathy: (3) COPD exacerbation: (4) NSTEMI (non-ST elevated myocardial infarction): (5) RLL pneumonia: (6) Pleural effusion, right: (7) Hypertension: (8) CAD (coronary artery disease): (9) Hyperlipidemia: (10) Hypothyroidism: (11) Non-small cell lung cancer: (12) COPD (chronic obstructive pulmonary disease): Qualifiers: COPD type: emphysema Emphysema type: centrilobular Qualified Code(s): J43.2 - Centrilobular emphysema (13) COPD with acute exacerbation: (14) Edema: (15) Nicotine addiction: (16) Type 2 diabetes mellitus: (17) Atrial fibrillation: (18) Goals of care, counseling/discussion: (19) Alcoholism: Plan Acute hypoxic hypercarbic respiratory failure Multifactorial ? Secondary to underlying COPD, active smoker ? Noncompliance with oxygen therapy, next ?noncompliant with CPAP therapy last night -Right lower lobe pulmonary pneumonia ? Right pleural effusion ? Plan ? Monitor in the intensive care unit closely ? Patient is a low threshold for intubation ? Hypercarbia improving however patient's O2 sats continued to decline, pO2 increased to 80% on BiPAP ? Remains somnolent but does awaken, ? DuoNeb exercise budesonide ? Has received Rocephin and azithromycin continue ? Received 125 mg of Solu-Medrol continue 40 mg IV every 8 hours ? CT angiogram of the chest ? Venous ultrasound bilateral extremities ?cardiac echo ? Monitor respiratory status closely ? Sputum culture, respiratory viral panel, blood cultures COPD, active smoker ? Noncompliant with oxygen therapy History of non-small cell lung cancer ?, history of non-small cell lung cancer, right upper lobe, status post radiation, with recent history of evidence of right infrahilar mass increased uptake, and new avid lesion in the interspace. Costovertebral junction of the left second and third costovertebral junction, with distructivee changes validations third rib consistent with metastasis Atrial fibrillation -No known history ? TSH, mag ? Will continue to monitor Is consider anticoagulation based on clinical progress History of CAD, ? NSTEMI ? Serial EKGs, serial troponins, telemetry monitoring Acute encephalopathy ? Likely secondary to pneumonia, respiratory failure, hypercarbia CT head Right pleural effusion ? Could be malignant pleural effusion ? Will consider right-sided thoracocentesis based on clinical progress Goals of care discussion, patient's tells me that patient is a full code, had a detailed discussion about patient's underlying medical history, COPD non- small cell lung cancer, has a high risk of morbidity and mortality during intubation process of after being intubated, high risk of being prolonged on mechanical ventilation possibly the rest of his life Type 2 diabetes mellitus, low-dose sliding scale Lovenox for DVT prophylaxis Protonix for GI prophylaxis ? Attestations 2 Medical Necessity Statement*: Patient requires hospitalization, inpatient, greater than 2 midnights, for acute respiratory distress, acute hypoxic hypercarbic respiratory failure, right lower lobe pneumonia right pleural effusion COPD exacerbation acute encephalopathy with underlying non-small cell lung cancer, COPD, active smoker, NSTEMI Critical Care Time: Patient requires hospitalization, inpatient, greater than 2 midnights, for acute respiratory distress, acute hypoxic hypercarbic respiratory failure, right lower lobe pneumonia right pleural effusion COPD exacerbation acute encephalopathy with underlying non-small cell lung cancer, COPD, active smoker, NSTEMI Coding Level of Care Code Critical Care >/= 30 minutes Critical care time (in minutes): 60 The high probability of a clinically significant, sudden or life threatening deterioration, as referenced in this documentation, required my full and direct attention, intervention and personal management. The critical care time shown is in addition to time spent performing any reported separately billable procedures and includes the following: [x] Data and vital sign review and interpretation [x ] Patient assessment, examination and intervention [x] Medication orders and management [x] Patient/Family updates as able [x] Care Coordination and Documentation. Diagnoses Acute on chronic respiratory failure with hypoxia and hypercapnia J96.21; J96.22 Acute encephalopathy G93.40 COPD exacerbation J44.1 NSTEMI (non-ST elevated myocardial infarction) I21.4 RLL pneumonia J18.9 Pleural effusion, right J90 Hypertension I10 CAD (coronary artery disease) I25.10 Hyperlipidemia E78.5 Hypothyroidism E03.9 Non-small cell lung cancer C34.90 Centrilobular emphysema J43.2 COPD type: emphysema Emphysema type: centrilobular COPD with acute exacerbation J44.1 Edema R60.9 Nicotine addiction F17.200 Type 2 diabetes mellitus E11.9 Atrial fibrillation I48.91 Goals of care, counseling/discussion Z71.89 Alcoholism F10.20
[2023-06-14] MEDS: iohexol 350 mg/mL 500 mL Btl (per mL) IV (15:04)
--- NOTE | 2023-06-14 15:18 | USR_ITS ---
PROCEDURE INFORMATION: Exam: US Duplex Lower Extremity Veins, Bilateral Exam date and time: 06/14/2023 6:56 PM Age: 77 years old Clinical indication: Edema, localized; Lower extremity, bilateral; Additional info: Swelling TECHNIQUE: Imaging protocol: Real-time duplex ultrasound of the bilateral extremities with 2-D kaye scale, color Doppler flow and spectral waveform analysis including responses to compression and other maneuvers (when performed) with image documentation. Complete exam focused on the lower extremity veins. COMPARISON: CR XR knee LT 3V* [id number] 06/10/2020 5:41 PM FINDINGS: Right deep veins: The common femoral, femoral, proximal profunda femoral and popliteal veins are patent without evidence of thrombus and demonstrate normal waveforms. Visualized deep calf veins are patent. Left deep veins: The common femoral, femoral, proximal profunda femoral and popliteal veins are patent without evidence of thrombus and demonstrate normal waveforms. Visualized deep calf veins are patent. Superficial veins: Bilateral saphenofemoral junctions are patent without thrombus. No evidence of thrombophlebitis. Soft tissues: Sonographically unremarkable. US/CV venous duplex [facility] [id number] IMPRESSION: 1. No sonographic evidence of deep venous thrombosis in either lower extremity.
[2023-06-14 15:53] LABS: Adenovirus Not Detected (NOT DETECT); Chlamydia Pneumoniae Not Detected (NOT DETECT); Coronavirus 229E,HKU1,NL63,OC4 Not Detected (NOT DETECT); Human Metapneumovirus Not Detected (NOT DETECT); Human Rhinovirus/Enterovirus Not Detected (NOT DETECT); Influenza A Not Detected (NOT DETECT); Influenza A H1 Not Detected (NOT DETECT); Influenza A H1-2009 Not Detected (NOT DETECT); Influenza A H3 Not Detected (NOT DETECT); Influenza B Not Detected (NOT DETECT); Mycoplasma Pneumoniae Not Detected (NOT DETECT); Parainfluenza Virus Type 1 Not Detected (NOT DETECT); Parainfluenza Virus Type 2 Not Detected (NOT DETECT); Parainfluenza Virus Type 3 Not Detected (NOT DETECT); Parainfluenza Virus Type 4 Not Detected (NOT DETECT); Respiratory Syncytial Virus A Not Detected (NOT DETECT); Respiratory Syncytial Virus B Not Detected (NOT DETECT); SARS-COV-2 Not Detected (NOT DETECT)
--- NOTE | 2023-06-14 16:02 | USR_ITS ---
PROCEDURE INFORMATION: Exam: US Abdomen, Limited; Right Upper Quadrant Exam date and time: 06/14/2023 7:14 PM Age: 77 years old Clinical indication: Screening exam; Other: Liver TECHNIQUE: Imaging protocol: Real time ultrasound of the abdomen with image documentation. Limited exam focused on the right upper quadrant. COMPARISON: US gall bladder [id number] 09/17/2018 7:41 AM FINDINGS: Liver: Visualized hepatic parenchyma is echogenic. The liver contour is slightly nodular. Gallbladder: No evidence of cholelithiasis. There is nonspecific gallbladder wall thickening to 4-5 mm. The medical case worker reports a negative sonographic Feliciano's sign. Biliary ducts: The CBD is nondilated, measuring 4 mm. No sonographic evidence of intraductal stone. Pancreas: The pancreas is mostly obscured bowel gas. Visualized portions are grossly unremarkable. Right kidney: The right kidney is normal in echotexture and measures 11 cm in length. No evidence of hydronephrosis. Other: Right-sided pleural effusion noted. US/US liver [id number] IMPRESSION: 1. Nonspecific gallbladder wall thickening without evidence of cholelithiasis, possibly secondary to volume overload or hypoalbuminemia. If there is ongoing clinical concern, consider correlation with nuclear medicine hepatobiliary scan. 2. Right-sided pleural effusion. 3. Echogenic hepatic parenchyma and mild nodularity of the liver contour raising the question of early hepatic cirrhosis. Consider correlation with CT for further detail.
[2023-06-14 17:45] LABS: Estmated Average Glucose 157; Hemoglobin A1C 7.1 % (4.0-6.0)
[2023-06-14 17:49] LABS: Chol HDL Ratio 2.55 mg/dL (1.0-5.00); Cholesterol 102 mg/dL (0-200); HDL Cholesterol 40 mg/dL (60-100); LDL Cholesterol Calculated 40 mg/dL (50-129); Thyroid Stimulating Hormone 2.17 uIU/mL (0.27-4.20); Triglycerides 112 mg/dL (0-150)
--- NOTE | 2023-06-14 17:52 | ECG_ITS ---
[facility] Test Date: 2023-06-14 Pat Name: Joss Meier Department: Room: [facility] Gender: Male Door Patcher: : 1945 Requested By: Silvana Amaro Order Number: [id number] Rory MD: Garrison Mckeon M.D. Measurements Intervals [place] Rate: 76 P: 0 MS: 0 QRS: 89 QRSD: 149 T: -36 QT: 439 QTc: 496 Interpretive Statements ATRIAL FIBRILLATION RIGHT BUNDLE BRANCH BLOCK [120+ ms QRS DURATION, UPRIGHT V1, 40+ ms S IN I/aVL/V4/V5/V6] Compared to ECG 06/14/2023 12:52:41 T-wave abnormality no longer present Possible ischemia no longer present Electronically Signed On 06-14-2023 21:02:22 CDT by Garrison Mckeon M.D. [email or web address] [id number]
[2023-06-14 18:04] LABS: Glucose Point of Care 135 mg/dL (70-110)
[2023-06-14] MEDS: azithromycin 500 MG in sodium chloride 0.9% 250 ML 250 MG IV (18:35)
[2023-06-14] MEDS: pantoprazole 40 mg SDV IVP (18:35)
[2023-06-14] MEDS: enoxaparin 40 mg/0.4 mL Syringe SUBCUT (18:35)
[2023-06-14 18:50] LABS: Add Urine Microscopic? YES; Bacteria Urine 1+ /hpf; Bilirubin Urine 1+ (Negative); Blood Urine Neg (Negative); Coarse Granular Casts Urine 0-4 /lpf; Glucose Urine UA Norm (Normal); Ketones Urine 1+ (Negative); Leukocyte Esterase Urine Trace (Negative); Mucus Urine 2+ /hpf; Nitrate Urine Positive (Negative); Protein Urine 1+ (Negative); RBC Urine 0-4 /hpf (0-2); Specific Gravity, Urine 1.015 (1.005-1.030); Squamous Epithelial Cell Urine 0-4 /hpf (0-5); Urine Appearance Clear (CLEAR); Urine Color Yellow (Yellow); Urobilinogen Urine 1 mg/dL (Negative); WBC Urine 0-4 /hpf (0-5); pH Urine 5 (5-7)
[2023-06-14 19:21] LABS: INR 1.07 (0.8-1.2)
[2023-06-14 19:27] LABS: Troponin 5 6HR 21.35 ng/L (0-15)
[2023-06-14 19:31] LABS: Troponin 5 6HR Delta -3.65 ng/L (0-12)
[2023-06-14] MEDS: cefTRIAXone 1,000 MG in sodium chloride 0.9% (plus) 50 ML 100 MG IV (19:45)
[2023-06-14] MEDS: budesonide 0.5 mg/2 mL Neb INHALATION (20:14)
[2023-06-15] VITALS (103 sets, daily range): BP systolic 82–125; BP diastolic 44–90; PULSE 46–89; RESP 13–33; TEMP 36.4–36.8; O2SAT 88–98
[2023-06-15] MEDS: ipratropium-albuterol 3 mL Neb INHALATION ×6 (03:41→23:28)
[2023-06-15] MEDS: methylPREDNISolone sod succ 40 mg/mL INJ IVP ×3 (05:33→21:25)
[2023-06-15 05:34] LABS: Basophils % 0.1 %; Hematocrit 48.7 % (37-53); Lymphocytes # 0.6 10^3/uL (0.8-4.8); Lymphocytes % 8.2 %; Mean Corpuscular HGB Conc 29.4 g/dL (30-55); Mean Corpuscular Hemoglobin 29.1 pg (27-33); Mean Corpuscular Volume 99.2 fl (82-101); Mean Platelet Volume 9.5 fL (7.4-10.4); Monocytes # 0.2 10^3/uL (0.2-0.9); Monocytes % 2.4 %; Neutrophils # 6.41 10^3/uL (1.8-7.7); Neutrophils % 88.9 %; Nucleated Red Blood Cells % 0 %; Platelet Count 236 10^3/cmm (157-399); Red Blood Count 4.91 10^6/uL (3.85-5.65); White Blood Count 7.21 10^3/uL (3.29-11.43)
[2023-06-15 05:50] LABS: C Reactive Protein 41.7 mg/L (0.0-4.9)
[2023-06-15 05:51] LABS: Alanine Aminotransferase 20 U/L (0-41); Albumin Level 3.3 g/dL (3.5-5.2); Alkaline Phosphatase 70 U/L (40-130); Anion Gap 11.5 (5-19); Aspartate Amino Transferase 10 U/L (0-40); Blood Urea Nitrogen 20 mg/dL (8-23); Calcium 8.8 mg/dL (8.5-10.5); Carbon Dioxide 39 mmol/L (22-29); Chloride 97 mmol/L (98-107); Globulin 3.5 g/dL (1.3-4.6); Glucose 149 mg/dL (65-115); Magnesium 2.2 mg/dL (1.7-2.3); Osmolality Calculated 301 mOsm/kg (285-295); Phosphorus 4.4 mg/dL (2.5-4.5); Potassium 4.5 mmol/L (3.5-5.1); Sodium 143 mmol/L (136-145); Total Bilirubin 0.4 mg/dL (0.15-1.2); Total Protein 6.8 g/dL (6.6-8.7)
--- NOTE | 2023-06-15 06:00 | USCV_ITS ---
Joss Meier Age: 77 Gender: M : 1945 Exam Date: 06/15/2023 07:40 Ordering Phys: Inocente Eubanks MD Technologist: [place] [facility] [place]: chf BP: 109 / 59 HR: 52 Rhythm: Sinus Technical Quality: Adequate MEASUREMENTS (Male / Female) Normal Values 2D ECHO LV Diastolic Diameter PLAX 4.7 cm 4.2 - 5.9 / 3.9 - 5.3 cm IVS Diastolic Thickness 1.5 cm 0.6 - 1.0 / 0.6 - 0.9 cm IVS Systolic Thickness 1.9 cm LVPW Diastolic Thickness 1.4 cm 0.6 - 1.0 / 0.6 - 0.9 cm LVPW Systolic Thickness 1.8 cm LVOT Diameter 2.0 cm LV Ejection Fraction 2D Teich 47.3 % LV Ejection Fraction MOD 2C 57.3 % LV Ejection Fraction 2C AL 57.1 % LA Diameter 4.1 cm RA Systolic Volume 4C AL 40.3 ml RA Systolic Volume 4C MOD 39.3 ml Aorta at Sinotubular Diameter 2.8 cm IVC Diameter 2.3 cm M-MODE LA Ao Ratio MM 1.2 AV Cusp Separation MM 2.3 cm DOPPLER AV Peak Velocity 126.3 cm/s LVOT Peak Velocity 62.0 cm/s AV Area Cont Eq vti 2.1 cm squared AV Area Cont Eq pk 1.6 cm squared MV Peak Velocity 94.0 cm/s MV Area PHT 4.6 cm squared Mitral E to A Ratio 0.8 TR Peak Velocity 163.0 cm/s TR Peak Gradient 10.6 mmHg TV Peak E Velocity 97.0 cm/s Right Atrial Pressure 3.0 mmHg Pulmonary Artery Systolic Pressu 13.6 mmHg PV Peak Velocity 82.0 cm/s FINDINGS Left Ventricle Left ventricle is normal in size. LV systolic function is normal with EF of 55 to 60%. No regional wall motion abnormalities are seen. Right Ventricle Normal in size and function Right Atrium Normal in size Left Atrium Normal in size Mitral Valve Structurally normal mitral valve. Mild mitral regurgitation. Aortic Valve Structurally normal aortic valve. No significant stenosis or regurgitation. Tricuspid Valve Mild tricuspid regurgitation. Pulmonic Valve Not well visualized Pericardium Normal Aorta Normal in size IVC Appears to be dilated. CONCLUSIONS LV systolic function is normal with EF 55 to 60%. Mild mitral regurgitation. Mild tricuspid regurgitation. IVC appears to be dilated. No comparison studies are available Jayant Hicks MD (Electronically Signed) Final Date: 15 June 2023 08:43 S
[2023-06-15 06:02] LABS: NT Pro B Type Natriuretic Pept 297 pg/mL (0-450); Procalcitonin 0.05 ng/mL (0-0.5)
[2023-06-15] MEDS: levothyroxine 25 mcg Tablet PO (06:21)
--- NOTE | 2023-06-15 07:00 | XRR_ITS ---
PROCEDURE INFORMATION: Exam: XR Chest Exam date and time: 06/15/2023 5:08 AM Age: 77 years old Clinical indication: Shortness of breath; Prior surgery; Surgery date: 6+ months; Surgery type: Port. Coronary stents; Patient HX: HX of lung cancer; Additional info: SOB TECHNIQUE: Imaging protocol: Radiologic exam of the chest. Views: 1 view. COMPARISON: CT angio chest PE protcl [id number] 06/14/2023 3:02 PM FINDINGS: Tubes, catheters and devices: Infusion port enters from the right and terminates in the right atrium. Lungs: Congestive heart failure with vascular engorgement, interstitial, and alveolar edema with a moderate right pleural effusion superimposed. Pleural spaces: See Lungs finding. Heart/Mediastinum: See Vasculature finding. Vasculature: Mild cardiomegaly and uncoiling of the thoracic aorta. Bones/joints: Unremarkable. XR/XR chest 1V portable [id number] IMPRESSION: CHF with effusion.
[2023-06-15 07:38] LABS: Glucose Point of Care 167 mg/dL (70-110)
[2023-06-15] MEDS: budesonide 0.5 mg/2 mL Neb INHALATION ×2 (08:07→20:13)
--- NOTE | 2023-06-15 08:44 | US_ITS ---
WS: [id number] ULTRASOUND-GUIDED THORACENTESIS, RIGHT HISTORY: right pleural effusion Procedure, risks, and complications were explained to the patient. With the patient in an upright pos ition, the skin over the RIGHT posterior thorax was cleansed with ChloraPrep and anesthetized with 1% buffered lidocaine. A 5 Citizen Of [place] Yueh needle is inserted into the pleural fluid without complication. Approximately 700 cc of red pleural fluid is removed without difficulty. Pleural fluid specimen collected for analysis as requested. IMPRESSION: 1. RIGHT thoracentesis yielding 700 cc of bloody pleural fluid. Pleural fluid is slightly red in col or. 2. Chest radiograph to follow to evaluate for pneumothorax.
[2023-06-15 09:09] LABS: Glucose Point of Care 143 mg/dL (70-110)
--- NOTE | 2023-06-15 09:30 | PC.SOCIAL ---
IMM Update pg 2 of IMM updated and reviewed w/ patients . Copy provided and copy dated, initialed and placed in chart.
[2023-06-15] MEDS: FUROsemide 10 mg/mL SDV 4mL 40 MG IVP (09:41)
[2023-06-15] MEDS: insulin lispro 100 unit/1 mL SUBCUT ×3 (09:41→18:42)
[2023-06-15 09:43] LABS: Lactate Dehydrogenase 110 U/L (135-225)
[2023-06-15 11:13] LABS: Appearance, Pleural Fluid CLOUDY (CLEAR); Color, Pleural Fluid Other (Pale Yellow)
--- NOTE | 2023-06-15 11:13 | XR_ITS ---
WS: [id number] PORTABLE CHEST HISTORY: POST THORA COMPARISON: Study earlier the same day. Please note this examination was performed at 10:27 a.m. The time documentation on the radiograph is not correct. No pneumothorax status post RIGHT thoracentesis. There is moderate improvement in aeration. There is still a small amount of pleural fluid at the RIGHT lung base. No complications are evident. Improved aeration throughout the lungs suggesting improving pulmonary congestion. Cardiac size: Mildly enlarged cardiac silhouette. Mediastinum/Aorta: Mild atherosclerosis aorta. No osseous abnormality seen. Right-sided Mediport. IMPRESSION: 1. No pneumothorax status post RIGHT thoracentesis. 2. Small residual RIGHT pleural effusion. Improved aeration bilaterally and less pulmonary congestio n as compared to the prior study.
[2023-06-15 11:14] LABS: Mononuclear %, Pleural Fluid 87 %; Polynuclear Cells, Pleural % 13 %
[2023-06-15 11:16] LABS: PATH Referal YES
[2023-06-15 11:18] LABS: Cyto Order Verification Order Verified
[2023-06-15 11:36] LABS: Albumin Body Fluid 2.2 g/dL; Creatinine Body Fluid 0.62 (0.7-1.2); LDH Pleural Fluid 109 U/L; Total Protein Pleural Fluid 3.9 g/dL; Triglycerides, Pleural Fluid 16 mg/dL
[2023-06-15 13:06] LABS: Glucose Point of Care 168 mg/dL (70-110)
[2023-06-15] MEDS: cefTRIAXone 1,000 MG in sodium chloride 0.9% (plus) 50 ML 100 MG IV (13:09)
[2023-06-15] MEDS: azithromycin 500 MG in sodium chloride 0.9% 250 ML 250 MG IV (14:23)
[2023-06-15] MEDS: pantoprazole 40 mg SDV IVP (14:24)
[2023-06-15] MEDS: clopidogrel 75 mg Tablet PO (14:24)
[2023-06-15] MEDS: aspirin 81 mg EC Tablet PO (14:24)
--- NOTE | 2023-06-15 16:02 | P.PN_ITS ---
Subjective 2 Subjective: Patient was seen this morning, patient's family and is at bedside he is alert to person to place, not to time he can follow commands, he is much more alert awake, currently on 65% BiPAP, denies any shortness of breath, no abdominal pain, no nausea, no vomiting, continues to be n.p.o. Vitals/I&O/Wt Last Vital Signs Temp 97.5 F L 06/15/23 09:30 Pulse 80 06/15/23 15:56 Resp 20 H 06/15/23 15:48 BP 87/75 06/15/23 14:30 Pulse Ox 94 06/15/23 15:48 O2 Del Method BiPAP, High Flow Nasal Cannula 06/15/23 15:48 O2 Flow Rate 15 06/15/23 15:48 FiO2 65 06/15/23 12:05 06/15/23 06/15/23 06/15/23 06:59 14:59 22:59 Intake Total 50 / 50 250 / 300 Output Total 550 / 550 Balance -550 / -90 50 / 50 250 / 300 Weight last 48 hrs Weight 88 kg Weight 88 kg Weight 88 kg Weight 86.636 kg Physical Exam 2 Const: COMMON NORMALS: no acute distress ORIENTATION/CONSCIOUSNESS: Yes awake, Yes oriented to person and Yes oriented to place; not oriented to time Resp: COMMON NORMALS: normal respiratory effort, No retractions and No use of accessory muscles Cardio: COMMON NORMALS: regular rate, regular rhythm, S1 normal heart sound present and S2 normal heart sound present RATE: regular rate RHYTHM: r egular rhythm HEART SOUNDS: S1 normal heart sound present and S2 normal heart sound present GI: COMMON NORMALS: Normal to inspection, nondistended, normoactive bowel sounds present and non-tender Extremity: NARRATIVE EXTREMITY EXAM: 1+ pitting edema Neuro: SENSORIUM/ORIENTATION: Yes oriented to person, Yes oriented to place and No oriented to time Psych: COMMON NORMALS: mental status grossly normal Urinary Catheter Management: Estevez: Cath Placed During This Visit: yes Reason for Continuing Indwelling Catheter: Accurate Measurement of Urinary Output in Critically Ill Patients Urinary Catheter Date of Insertion: 06/14/23 Urinary Catheter Time of Insertion: 18:10 Data 06/15/23 05:22 06/15/23 05:22 Micro: Microbiology 06/14/23 18:53 Blood Culture - Preliminary Blood SPECIMEN COLLECTED 06/14/23 18:51 Blood Culture - Preliminary Blood SPECIMEN COLLECTED A&P Assessment and plan (1) Acute on chronic respiratory failure with hypoxia and hypercapnia: (2) Acute encephalopathy: (3) COPD exacerbation: (4) NSTEMI (non-ST elevated myocardial infarction): (5) RLL pneumonia: (6) Pleural effusion, right: (7) Hypertension: (8) CAD (coronary artery disease): (9) Hyperlipidemia: (10) Hypothyroidism: (11) Non-small cell lung cancer: (12) COPD (chronic obstructive pulmonary disease): Qualifiers: COPD type: emphysema Emphysema type: centrilobular Qualified Code(s): J43.2 - Centrilobular emphysema (13) COPD with acute exacerbation: (14) Edema: (15) Nicotine addiction: (16) Type 2 diabetes mellitus: (17) Atrial fibrillation: (18) Goals of care, counseling/discussion: (19) Alcoholism: (20) UTI (urinary tract infection): Plan Acute hypoxic hypercarbic respiratory failure Multifactorial ? Secondary to underlying COPD, active smoker ? Noncompliance with oxygen therapy, next ?noncompliant with CPAP therapy last night -Right lower lobe pulmonary pneumonia CT/CT angio chest PE protcl [id number] IMPRESSION: 1. Occlusion of the right middle/lower central bronchi with lobar atelectasis. 2. Moderate-large right-sided pleural effusion. 3. No evidence of PE or acute aortic abnormality. ? Right pleural effusion ? Plan ? Monitor in the intensive care unit closely ? Patient is a low threshold for intubation ? Mentation improving ? DuoNeb, budesonide ? Rocephin and azithromycin continue ? Received 125 mg of Solu-Medrol continue 40 mg IV every 8 hours ? Monitor respiratory status closely ? Sputum culture, respiratory viral panel, blood cultures Right pleural effusion, ? Ultrasound thoracocentesis COPD, active smoker ? Noncompliant with oxygen therapy History of non-small cell lung cancer ?, history of non-small cell lung cancer, right upper lobe, status post radiation, with recent history of evidence of right infrahilar mass increased uptake, and new avid lesion in the interspace. Costovertebral junction of the left second and third costovertebral junction, with distructivee changes validations third rib consistent with metastasis Atrial fibrillation, rate controlled -No known history ? Will continue to monitor Is consider anticoagulation based on clinical progress History of CAD, ? NSTEMI ? Serial EKGs, serial troponins, telemetry monitoring Acute encephalopathy ? Likely secondary to pneumonia, respiratory failure, hypercarbia Right pleural effusion ? Could be malignant pleural effusion ? right-sided thoracocentesis based on clinical progress Goals of care discussion, patient's tells me that patient is a full code, had a detailed discussion about patient's underlying medical history, COPD non- small cell lung cancer, has a high risk of morbidity and mortality during intubation process of after being intubated, high risk of being prolonged on mechanical ventilation possibly the rest of his life Type 2 diabetes mellitus, low-dose sliding scale Lovenox for DVT prophylaxis Protonix for GI prophylaxis Plan for today continues to have hypoxic respiratory failure requiring 65% BiPAP, will have speech therapy work with patient, wean oxygen as tolerated, continue IV antibiotics continue steroids 1 dose IV Lasix, right-sided thoracocentesis, spoke to patient, spoke to and family at bedside spoke to nursing staff Attestations 2 Medical Necessity Statement*: Patient requires hospitalization for acute hypoxic respiratory failure, with right pleural effusion with atrial fibrillation, with concerns for pneumonia, Diagnoses Acute on chronic respiratory failure with hypoxia and hypercapnia J96.21; J96.22 Acute encephalopathy G93.40 COPD exacerbation J44.1 NSTEMI (non-ST elevated myocardial infarction) I21.4 RLL pneumonia J18.9 Pleural effusion, right J90 Hypertension I10 CAD (coronary artery disease) I25.10 Hyperlipidemia E78.5 Hypothyroidism E03.9 Non-small cell lung cancer C34.90 Centrilobular emphysema J43.2 COPD type: emphysema Emphysema type: centrilobular COPD with acute exacerbation J44.1 Edema R60.9 Nicotine addiction F17.200 Type 2 diabetes mellitus E11.9 Atrial fibrillation I48.91 Goals of care, counseling/discussion Z71.89 Alcoholism F10.20 UTI (urinary tract infection) N39.0
[2023-06-15 18:25] LABS: Glucose Point of Care 271 mg/dL (70-110)
[2023-06-15 21:36] LABS: Glucose Point of Care 188 mg/dL (70-110)
[2023-06-16] VITALS (52 sets, daily range): BP systolic 99–124; BP diastolic 50–86; PULSE 56–103; RESP 3–25; TEMP 36.2–36.7; O2SAT 83–93; BMI 29.1
--- NOTE | 2023-06-16 02:05 | PC.NURSE ---
Patient had a seven beat run of v-tach, patient was asymptomatic. Dr. Guerrero notified and reviewed labs. No new orders received.
[2023-06-16] MEDS: ipratropium-albuterol 3 mL Neb INHALATION ×5 (03:01→19:56)
[2023-06-16 05:06] LABS: ABG PH Result 7.36 (7.35-7.45); Arterial Blood Gas Hematocrit 42.5 % (42-52); Blood Gas Allen Test Pos; Blood Gas Operator Identificat JB; Blood Gas Sample Site Radial, right; Blood Gas Sample Type Arterial; Oxygen Device NC; PO2 ABG 68.5 mmHg (80.0-100.0)
[2023-06-16] MEDS: methylPREDNISolone sod succ 40 mg/mL INJ IVP ×3 (05:15→22:45)
[2023-06-16 05:17] LABS: Basophils % 0.1 %; Hematocrit 46.9 % (37-53); Lymphocytes # 0.4 10^3/uL (0.8-4.8); Lymphocytes % 2.9 %; Mean Corpuscular HGB Conc 30.1 g/dL (30-55); Mean Corpuscular Volume 96.3 fl (82-101); Mean Platelet Volume 9.9 fL (7.4-10.4); Monocytes # 0.5 10^3/uL (0.2-0.9); Monocytes % 3.1 %; Neutrophils # 13.72 10^3/uL (1.8-7.7); Neutrophils % 93.5 %; Nucleated Red Blood Cells % 0 %; Platelet Count 252 10^3/cmm (157-399); Red Blood Count 4.87 10^6/uL (3.85-5.65); Red Cell Distribution Width 13.9 % (12.1-15.1); White Blood Count 14.68 10^3/uL (3.29-11.43)
[2023-06-16 05:43] LABS: Alanine Aminotransferase 16 U/L (0-41); Albumin Level 3.4 g/dL (3.5-5.2); Alkaline Phosphatase 73 U/L (40-130); Anion Gap 10.6 (5-19); Aspartate Amino Transferase 12 U/L (0-40); Blood Urea Nitrogen 23 mg/dL (8-23); Calcium 8.7 mg/dL (8.5-10.5); Carbon Dioxide 40 mmol/L (22-29); Chloride 96 mmol/L (98-107); Globulin 3.5 g/dL (1.3-4.6); Glucose 240 mg/dL (65-115); Magnesium 2.4 mg/dL (1.7-2.3); Osmolality Calculated 306 mOsm/kg (285-295); Phosphorus 2.4 mg/dL (2.5-4.5); Potassium 4.6 mmol/L (3.5-5.1); Sodium 142 mmol/L (136-145); Total Bilirubin 0.2 mg/dL (0.15-1.2); Total Protein 6.9 g/dL (6.6-8.7)
[2023-06-16 05:44] LABS: C Reactive Protein 21.9 mg/L (0.0-4.9)
[2023-06-16 05:52] LABS: Procalcitonin 0.04 ng/mL (0-0.5)
[2023-06-16] MEDS: levothyroxine 25 mcg Tablet PO (06:00)
--- NOTE | 2023-06-16 07:00 | XR_ITS ---
WS: [id number] Exam: XR chest 1V portable [id number] Date/Time of Exam: 06/16/2023 7:00 AM Reason For Exam: sob Comparison 06/15/2023. The lungs remain fully inflated. Residual RIGHT basal pleural effusion unchanged. Mild cardiomegaly u nchanged. RIGHT subclavian port ends at the cavoatrial junction. Bony structures are intact. Monitori ng leads superimpose the chest. IMPRESSION: 1. The lungs remain fully inflated. 2. Residual RIGHT basal pleural effusion. Overall no change since the latest study.
[2023-06-16 07:15] LABS: Glucose Point of Care 168 mg/dL (70-110)
[2023-06-16 07:42] LABS: ABG PCO2 73.9 mmHg (35-45)
[2023-06-16] MEDS: budesonide 0.5 mg/2 mL Neb INHALATION ×2 (07:50→19:56)
[2023-06-16] MEDS: aspirin 81 mg EC Tablet PO (08:19)
[2023-06-16] MEDS: insulin lispro 100 unit/1 mL SUBCUT ×2 (08:19→12:48)
[2023-06-16] MEDS: clopidogrel 75 mg Tablet PO (08:19)
[2023-06-16] MEDS: atorvastatin 40 mg Tablet PO (08:19)
[2023-06-16] MEDS: FUROsemide 10 mg/mL SDV 4mL 40 MG IVP (08:55)
[2023-06-16 11:00] LABS: Glucose Point of Care 269 mg/dL (70-110)
[2023-06-16] MEDS: cefTRIAXone 1,000 MG in sodium chloride 0.9% (plus) 50 ML 100 MG IV (14:17)
--- NOTE | 2023-06-16 14:35 | P.PN_ITS ---
Subjective 2 Subjective: Patient was seen this morning, family members at bedside, he is alert oriented x 3, follows all commands, does have a flat affect, but does follow commands he really wants to go home currently on 15L, will discuss continue antibiotics, diuresis, following thoracocentesis studies as it is proving to be exudative pleural effusion, had a detailed discussion with patient family about his respiratory failure, likely secondary to pneumonia, COPD exacerbation hypercarbic respiratory failure fluid overload will give him Lasix follow his pleural studies, speak to pulmonary pulmonary ? Patient's pleural studies show exudative pleural effusion pH 8, glucose 157, cultures growing gram-positive cocci, concerns for empyema versus parapneumonic effusion ? I have expanded his antibiotic coverage to Vanco and Zosyn ? Spoke to microbiology, inhibition and was found on the chocolate auger, likely because patient was on antibiotics ? But this truly is gram-positive infection of the pleural studies, does not look like a contamination ? Spoke to Dr. Ye concerns for parapneumonic versus empyema, based on pleural studies seems a lot like a parapneumonic effusion however he will come by and do an ultrasound, and discussed with family, if it is empyema patient will need a chest tube ? Spoke to Joss and his family in detail about the findings, discussed parapneumonic versus empyema, discussed treatment for each, discussed with Dr. Ye, if it is a parapneumonic effusion will continue medical management, discussed morbidity mortality associate with parapneumonic effusions, discussed if he was in pain he will need a chest tube, to drain infection, potentially will need tPA dornase, even potential transfer to tertiary level center for CT surgery evaluation possible VATS, but will see how patient is ultrasound of right chest shows, patient's mom voiced understanding, all Qs answered, Vitals/I&O/Wt Last Vital Signs Temp 98.0 F 06/16/23 11:50 Pulse 76 06/16/23 11:07 Resp 20 H 06/16/23 11:07 BP 99/74 06/16/23 02:00 Pulse Ox 90 06/16/23 11:07 O2 Del Method High Flow Nasal Cannula 06/16/23 11:07 O2 Flow Rate 15 06/16/23 11:07 FiO2 65 06/15/23 12:05 06/15/23 06/16/23 06/16/23 22:59 06:59 14:59 Intake Total 1410 / 1460 240 / 240 Output Total 1300 / 1300 700 / 2000 2250 / 2250 Balance 110 / 160 -700 / -540 -2009 / Weight last 48 hrs Weight 87.317 kg Weight 88 kg Weight 88 kg Weight 88 kg Physical Exam 2 Const: COMMON NORMALS: no acute distress and patient oriented x3 Resp: COMMON NORMALS: normal respiratory effort, No retractions and No use of accessory muscles AUSCULTATION: wheezes Cardio: COMMON NORMALS: regular rate, regular rhythm, S1 normal heart sound present and S2 normal heart sound present RATE: regular rate RHYTHM: r egular rhythm HEART SOUNDS: S1 normal heart sound present and S2 normal heart sound present GI: COMMON NORMALS: Normal to inspection, nondistended, normoactive bowel sounds present and non-tender Extremity: NARRATIVE EXTREMITY EXAM: 1+ edema Neuro: COMMON NORMALS: patient oriented x3 Psych: COMMON NORMALS: mental status grossly normal Urinary Catheter Management: Estevez: Cath Placed During This Visit: yes Reason for Continuing Indwelling Catheter: Accurate Measurement of Urinary Output in Critically Ill Patients Urinary Catheter Date of Insertion: 06/14/23 Urinary Catheter Time of Insertion: 18:10 Data 06/16/23 04:15 06/16/23 04:15 Micro: Microbiology 06/15/23 10:15 Gram Stain - Final Pleural Fluid Body Fluid Culture - Preliminary 06/14/23 18:53 Blood Culture - Preliminary Blood NEGATIVE TO DATE 06/14/23 18:51 Blood Culture - Preliminary Blood NEGATIVE TO DATE A&P Assessment and plan (1) Acute on chronic respiratory failure with hypoxia and hypercapnia: (2) Acute encephalopathy: (3) COPD exacerbation: (4) NSTEMI (non-ST elevated myocardial infarction): (5) RLL pneumonia: (6) Pleural effusion, right: (7) Hypertension: (8) CAD (coronary artery disease): (9) Hyperlipidemia: (10) Hypothyroidism: (11) Non-small cell lung cancer: (12) COPD (chronic obstructive pulmonary disease): Qualifiers: COPD type: emphysema Emphysema type: centrilobular Qualified Code(s): J43.2 - Centrilobular emphysema (13) COPD with acute exacerbation: (14) Edema: (15) Nicotine addiction: (16) Type 2 diabetes mellitus: (17) Atrial fibrillation: (18) Goals of care, counseling/discussion: (19) Alcoholism: (20) UTI (urinary tract infection): (21) Exudative pleural effusion: (22) Parapneumonic effusion: Plan Acute hypoxic hypercarbic respiratory failure Multifactorial ? Secondary to underlying COPD, active smoker ? Noncompliance with oxygen therapy, next ?noncompliant with CPAP therapy last night -Right lower lobe pulmonary pneumonia CT/CT angio chest PE protcl [id number] IMPRESSION: 1. Occlusion of the right middle/lower central bronchi with lobar atelectasis. 2. Moderate-large right-sided pleural effusion. 3. No evidence of PE or acute aortic abnormality. ? Right pleural effusion, exudative, pH 8, glucose 157, has gram-positive cocci, concerning for parapneumonic versus empyema ? Plan ? Monitor in the intensive care unit closely ? Patient is a low threshold for intubation ? Mentation improving ? DuoNeb, budesonide ? Currently on 15 L high flow nasal cannula, BiPAP during the night ?Antibiotic coverage to vancomycin, Zosyn ? Received 125 mg of Solu-Medrol continue 40 mg IV every 8 hours ? Monitor respiratory status closely ? Sputum culture, respiratory viral panel, blood cultures Right pleural effusion, as above ? Ultrasound thoracocentesis, -700ml, orange, exudative by lights criteria COPD, active smoker ? Noncompliant with oxygen therapy History of non-small cell lung cancer ?, history of non-small cell lung cancer, right upper lobe, status post radiation, with recent history of evidence of right infrahilar mass increased uptake, and new avid lesion in the interspace. Costovertebral junction of the left second and third costovertebral junction, with distructivee changes validations third rib consistent with metastasis Atrial fibrillation, rate controlled -No known history ? Will continue to monitor Is consider anticoagulation based on clinical progress History of CAD, ? NSTEMI ? Serial EKGs, serial troponins, telemetry monitoring Acute encephalopathy ? Likely secondary to pneumonia, respiratory failure, hypercarbia Right pleural effusion ? Could be malignant pleural effusion ? right-sided thoracocentesis based on clinical progress Goals of care discussion, patient's tells me that patient is a full code, had a detailed discussion about patient's underlying medical history, COPD non- small cell lung cancer, has a high risk of morbidity and mortality during intubation process of after being intubated, high risk of being prolonged on mechanical ventilation possibly the rest of his life Type 2 diabetes mellitus, low-dose sliding scale Lovenox for DVT prophylaxis Protonix for GI prophylaxis Plan for today Patient was seen this morning, family members at bedside, he is alert oriented x 3, follows all commands, does have a flat affect, but does follow commands he really wants to go home currently on 15L, will discuss continue antibiotics, diuresis, following thoracocentesis studies as it is proving to be exudative pleural effusion, had a detailed discussion with patient family about his respiratory failure, likely secondary to pneumonia, COPD exacerbation hypercarbic respiratory failure fluid overload will give him Lasix follow his pleural studies, speak to pulmonary pulmonary ? Patient's pleural studies show exudative pleural effusion pH 8, glucose 157, cultures growing gram-positive cocci, concerns for empyema versus parapneumonic effusion ? I have expanded his antibiotic coverage to Vanco and Zosyn ? Spoke to microbiology, inhibition and was found on the chocolate auger, likely because patient was on antibiotics ? But this truly is gram-positive infection of the pleural studies, does not look like a contamination ? Spoke to Dr. Ye concerns for parapneumonic versus empyema, based on pleural studies seems a lot like a parapneumonic effusion however he will come by and do an ultrasound, and discussed with family, if it is empyema patient will need a chest tube ? Spoke to Joss and his family in detail about the findings, discussed parapneumonic versus empyema, discussed treatment for each, discussed with Dr. Ye, if it is a parapneumonic effusion will continue medical management, discussed morbidity mortality associate with parapneumonic effusions, discussed if he was in pain he will need a chest tube, to drain infection, potentially will need tPA dornase, even potential transfer to tertiary level center for CT surgery evaluation possible VATS, but will see how patient is ultrasound of right chest shows, patient's mom voiced understanding, all Qs answered, Attestations 2 Medical Necessity Statement*: Patient requires hospitalization, for concerns for parapneumonic effusion versus empyema, acute hypoxic respiratory failure, 15 L, fluid overload, CHF Diagnoses Acute on chronic respiratory failure with hypoxia and hypercapnia J96.21; J96.22 Acute encephalopathy G93.40 COPD exacerbation J44.1 NSTEMI (non-ST elevated myocardial infarction) I21.4 RLL pneumonia J18.9 Pleural effusion, right J90 Hypertension I10 CAD (coronary artery disease) I25.10 Hyperlipidemia E78.5 Hypothyroidism E03.9 Non-small cell lung cancer C34.90 Centrilobular emphysema J43.2 COPD type: emphysema Emphysema type: centrilobular COPD with acute exacerbation J44.1 Edema R60.9 Nicotine addiction F17.200 Type 2 diabetes mellitus E11.9 Atrial fibrillation I48.91 Goals of care, counseling/discussion Z71.89 Alcoholism F10.20 UTI (urinary tract infection) N39.0 Exudative pleural effusion J90 Parapneumonic effusion J18.9; J91.8
[2023-06-16] MEDS: nicotine 21 mg Patch 1 PATCH TRANSDERMA (15:07)
[2023-06-16] MEDS: pantoprazole 40 mg SDV IVP (15:07)
[2023-06-16] MEDS: piperacillin-tazobactam 3.375 GM in sodium chloride 0.9% (plus) 50 ML IV ×2 (15:08→22:45)
[2023-06-16 16:57] LABS: Glucose Point of Care 130 mg/dL (70-110)
[2023-06-16] MEDS: enoxaparin 40 mg/0.4 mL Syringe SUBCUT (18:44)
[2023-06-16] MEDS: vancomycin 1,250 MG/250 ML PIGGYBACK 250 MG IV (18:45)
[2023-06-16 20:57] LABS: Glucose Point of Care 293 mg/dL (70-110)
[2023-06-17] VITALS (67 sets, daily range): BP systolic 87–134; BP diastolic 55–81; PULSE 56–108; RESP 11–27; TEMP 36.2–36.9; O2SAT 84–96
[2023-06-17] MEDS: ipratropium-albuterol 3 mL Neb INHALATION ×6 (00:19→20:43)
[2023-06-17 05:04] LABS: Basophils % 0.1 %; Hematocrit 48.9 % (37-53); Lymphocytes # 0.4 10^3/uL (0.8-4.8); Lymphocytes % 2.7 %; Mean Corpuscular HGB Conc 30.5 g/dL (30-55); Mean Corpuscular Hemoglobin 29.1 pg (27-33); Mean Corpuscular Volume 95.5 fl (82-101); Mean Platelet Volume 9.9 fL (7.4-10.4); Monocytes # 0.5 10^3/uL (0.2-0.9); Monocytes % 3.5 %; Neutrophils # 12.93 10^3/uL (1.8-7.7); Neutrophils % 93.1 %; Nucleated Red Blood Cells % 0 %; Platelet Count 241 10^3/cmm (157-399); Red Blood Count 5.12 10^6/uL (3.85-5.65); Red Cell Distribution Width 14.1 % (12.1-15.1)
[2023-06-17 05:33] LABS: Anion Gap 11.7 (5-19); Blood Urea Nitrogen 23 mg/dL (8-23); Calcium 8.7 mg/dL (8.5-10.5); Carbon Dioxide 38 mmol/L (22-29); Chloride 96 mmol/L (98-107); Creatinine Clr Calc Pharmacy 82.7313; Glucose 157 mg/dL (65-115); Osmolality Calculated 299 mOsm/kg (285-295); Potassium 4.7 mmol/L (3.5-5.1); Sodium 141 mmol/L (136-145)
[2023-06-17] MEDS: levothyroxine 25 mcg Tablet PO (06:14)
[2023-06-17] MEDS: vancomycin 1,250 MG/250 ML PIGGYBACK 250 MG IV ×2 (06:14→19:21)
[2023-06-17] MEDS: methylPREDNISolone sod succ 40 mg/mL INJ IVP (06:14)
--- NOTE | 2023-06-17 07:00 | XRR_ITS ---
PROCEDURE INFORMATION: Exam: XR Chest Exam date and time: 06/17/2023 7:01 AM Age: 77 years old Clinical indication: Shortness of breath; Prior surgery; Surgery date: 6+ months; Surgery type: Port cardiac stents; Patient HX: HX of lung cancer; Additional info: SOB TECHNIQUE: Imaging protocol: Radiologic exam of the chest. Views: 1 view. COMPARISON: CR XR chest 1V portable [id number] 06/16/2023 7:02 AM FINDINGS: Tubes, catheters and devices: Infusion port enters from the right terminates in the right atrium. Lungs: Mild bibasilar atelectasis. Pleural spaces: Trace right pleural effusion. Heart/Mediastinum: The heart mediastinum are normal. Bones/joints: Unremarkable. XR/XR chest 1V portable [id number] IMPRESSION: Mild bibasilar atelectasis.
[2023-06-17] MEDS: budesonide 0.5 mg/2 mL Neb INHALATION ×2 (07:29→20:43)
[2023-06-17 08:03] LABS: Glucose Point of Care 148 mg/dL (70-110)
[2023-06-17] MEDS: piperacillin-tazobactam 3.375 GM in sodium chloride 0.9% (plus) 50 ML IV ×3 (08:04→22:33)
[2023-06-17] MEDS: clopidogrel 75 mg Tablet PO (09:01)
[2023-06-17] MEDS: aspirin 81 mg EC Tablet PO (09:01)
[2023-06-17] MEDS: insulin lispro 100 unit/1 mL SUBCUT ×2 (09:02→13:04)
[2023-06-17] MEDS: atorvastatin 40 mg Tablet PO (09:03)
[2023-06-17] MEDS: nicotine 21 mg Patch 1 PATCH TRANSDERMA (09:03)
[2023-06-17] MEDS: FUROsemide 10 mg/mL SDV 4mL 40 MG IVP (09:50)
--- NOTE | 2023-06-17 10:46 | PC.SOCIAL ---
IMM Update pg 2 of IMM updated and reviewed w/ patient. Copy provided and copy dated, initialed and placed in chart.
[2023-06-17 12:05] LABS: Glucose Point of Care 243 mg/dL (70-110)
--- NOTE | 2023-06-17 14:01 | P.PN_ITS ---
Vitals/I&O/Wt Last Vital Signs Temp 98.1 F 06/17/23 04:00 Pulse 88 06/17/23 13:07 Resp 20 H 06/17/23 11:12 BP 118/69 06/17/23 04:00 Pulse Ox 93 06/17/23 13:07 O2 Del Method High Flow Nasal Cannula 06/17/23 11:18 O2 Flow Rate 12 06/17/23 11:18 FiO2 65 06/17/23 13:07 06/16/23 06/17/23 06/17/23 22:59 06:59 14:59 Intake Total 900 / 1190 650 / 1840 420 / 420 Output Total 750 / 3000 1300 / 4300 Balance 150 / -1810 -650 / -2460 420 / 420 Weight last 48 hrs Weight 86.5 kg Weight 87 kg Weight 87.317 kg Physical Exam 2 Const: COMMON NORMALS: no acute distress and patient oriented x3 Resp: COMMON NORMALS: normal respiratory effort, No retractions and No use of accessory muscles AUSCULTATION: crackles and wheezes Cardio: COMMON NORMALS: regular rate, regular rhythm, S1 normal heart sound present and S2 normal heart sound present RATE: regular rate RHYTHM: r egular rhythm HEART SOUNDS: S1 normal heart sound present and S2 normal heart sound present GI: COMMON NORMALS: Normal to inspection, nondistended, normoactive bowel sounds present and non-tender Extremity: NARRATIVE EXTREMITY EXAM: 1+ pitting edema Neuro: COMMON NORMALS: patient oriented x3 Psych: COMMON NORMALS: mental status grossly normal Urinary Catheter Management: Estevez: Cath Placed During This Visit: yes Reason for Continuing Indwelling Catheter: Accurate Measurement of Urinary Output in Critically Ill Patients Urinary Catheter Date of Insertion: 06/14/23 Urinary Catheter Time of Insertion: 18:10 Data 06/17/23 04:13 06/17/23 04:13 Micro: Microbiology 06/15/23 10:15 Gram Stain - Final Pleural Fluid Body Fluid Culture - Final Enterococcus faecalis A&P Assessment and plan (1) Acute on chronic respiratory failure with hypoxia and hypercapnia: (2) Acute encephalopathy: (3) COPD exacerbation: (4) NSTEMI (non-ST elevated myocardial infarction): (5) RLL pneumonia: (6) Pleural effusion, right: (7) Hypertension: (8) CAD (coronary artery disease): (9) Hyperlipidemia: (10) Hypothyroidism: (11) Non-small cell lung cancer: (12) COPD (chronic obstructive pulmonary disease): Qualifiers: COPD type: emphysema Emphysema type: centrilobular Qualified Code(s): J43.2 - Centrilobular emphysema (13) COPD with acute exacerbation: (14) Edema: (15) Nicotine addiction: (16) Type 2 diabetes mellitus: (17) Atrial fibrillation: (18) Goals of care, counseling/discussion: (19) Alcoholism: (20) UTI (urinary tract infection): (21) Exudative pleural effusion: (22) Parapneumonic effusion: Plan Acute hypoxic hypercarbic respiratory failure Multifactorial ? Secondary to underlying COPD, active smoker ? Noncompliance with oxygen therapy, next ?noncompliant with CPAP therapy last night -Right lower lobe pulmonary pneumonia CT/CT angio chest PE protcl [id number] IMPRESSION: 1. Occlusion of the right middle/lower central bronchi with lobar atelectasis. 2. Moderate-large right-sided pleural effusion. 3. No evidence of PE or acute aortic abnormality. ? Right pleural effusion, exudative, pH 8, glucose 157, has gram-positive cocci, concerning for parapneumonic versus empyema, likely parapneumonic effusion ? Fluid overload, CHF exacerbation ? Plan ? Monitor in the intensive care unit closely ? Patient is a low threshold for intubation ? Mentation improving ? DuoNeb, budesonide ? Currently on 12 L high flow nasal cannula, BiPAP during the night ?Antibiotic coverage to vancomycin, Zosyn ? Continue IV Lasix for fluid overload diuresing quite well -3 L yesterday -Continue antibiotics for parapneumonic effusion ? Received 125 mg of Solu-Medrol continue 40 mg IV every 8 hours ? Monitor respiratory status closely ? Sputum culture, respiratory viral panel, blood cultures Right pleural effusion, as above ? Ultrasound thoracocentesis, -700ml, orange, exudative by lights criteria COPD, active smoker ? Noncompliant with oxygen therapy History of non-small cell lung cancer ?, history of non-small cell lung cancer, right upper lobe, status post radiation, with recent history of evidence of right infrahilar mass increased uptake, and new avid lesion in the interspace. Costovertebral junction of the left second and third costovertebral junction, with distructivee changes validations third rib consistent with metastasis Atrial fibrillation, rate controlled -No known history ? Will continue to monitor Is consider anticoagulation based on clinical progress History of CAD, ? NSTEMI ? Serial EKGs, serial troponins, telemetry monitoring Acute encephalopathy ? Likely secondary to pneumonia, respiratory failure, hypercarbia Right pleural effusion ? Could be malignant pleural effusion ? right-sided thoracocentesis based on clinical progress Goals of care discussion, patient's tells me that patient is a full code, had a detailed discussion about patient's underlying medical history, COPD non- small cell lung cancer, has a high risk of morbidity and mortality during intubation process of after being intubated, high risk of being prolonged on mechanical ventilation possibly the rest of his life Type 2 diabetes mellitus, low-dose sliding scale Lovenox for DVT prophylaxis Protonix for GI prophylaxis Plan for today follow parapneumonic effusion studies continue broad-spectrum antibiotic therapy, up out of bed diuresed over 3 L yesterday, fluid overload continue IV diuresis today Attestations 2 Medical Necessity Statement*: Patient requires hospitalization for pneumonia, parapneumonic effusion, fluid overload CHF exacerbation requiring IV diuresis, hypoxic respiratory failure, deconditioning, A-fib Diagnoses Acute on chronic respiratory failure with hypoxia and hypercapnia J96.21; J96.22 Acute encephalopathy G93.40 COPD exacerbation J44.1 NSTEMI (non-ST elevated myocardial infarction) I21.4 RLL pneumonia J18.9 Pleural effusion, right J90 Hypertension I10 CAD (coronary artery disease) I25.10 Hyperlipidemia E78.5 Hypothyroidism E03.9 Non-small cell lung cancer C34.90 Centrilobular emphysema J43.2 COPD type: emphysema Emphysema type: centrilobular COPD with acute exacerbation J44.1 Edema R60.9 Nicotine addiction F17.200 Type 2 diabetes mellitus E11.9 Atrial fibrillation I48.91 Goals of care, counseling/discussion Z71.89 Alcoholism F10.20 UTI (urinary tract infection) N39.0 Exudative pleural effusion J90 Parapneumonic effusion J18.9; J91.8
[2023-06-17] MEDS: pantoprazole 40 mg SDV IVP (15:57)
--- NOTE | 2023-06-17 16:53 | CTR_ITS ---
PROCEDURE INFORMATION: Exam: CT Head Without Contrast Exam date and time: 06/17/2023 9:07 PM Age: 77 years old Clinical indication: Other: Confusion TECHNIQUE: Imaging protocol: Computed tomography of the head without contrast. Radiation optimization: All CT scans at this facility use at least one of these dose optimization techniques: automated exposure control; mA and/or kV adjustment per patient size (includes targeted exams where dose is matched to clinical indication); or iterative reconstruction. COMPARISON: No relevant prior studies available. RADIATION DOSE METRICS: Total DLP (mGy-cm): 1103.7 FINDINGS: Brain: Normal. No hemorrhage. Unremarkable white matter. No mass effect. Cerebral ventricles: No ventriculomegaly. Paranasal sinuses: Visualized sinuses are unremarkable. No fluid levels. Mastoid air cells: Visualized mastoid air cells are well aerated. Bones/joints: Unremarkable. No acute fracture. Soft tissues: Unremarkable. CT/CT head wo con* [id number] IMPRESSION: No acute intracranial abnormality.
[2023-06-17 18:11] LABS: Glucose Point of Care 138 mg/dL (70-110)
[2023-06-17] MEDS: predniSONE 20 mg Tablet 40 MG PO (19:20)
--- NOTE | 2023-06-17 19:33 | PC.NURSE ---
pt alert to name, . pt states [place] when asked about location. pt believes it is the year 2021
[2023-06-17 20:20] LABS: Glucose Point of Care 140 mg/dL (70-110)
[2023-06-17] MEDS: apixaban 5 mg Tablet PO (20:39)
[2023-06-18] VITALS (53 sets, daily range): BP systolic 99–129; BP diastolic 65–92; PULSE 65–168; RESP 11–33; TEMP 36.6; O2SAT 86–95; BMI 28.6
[2023-06-18] MEDS: ipratropium-albuterol 3 mL Neb INHALATION ×6 (00:32→23:06)
[2023-06-18 05:52] LABS: Anion Gap 11.5 (5-19); Blood Urea Nitrogen 26 mg/dL (8-23); Calcium 8.8 mg/dL (8.5-10.5); Carbon Dioxide 38 mmol/L (22-29); Chloride 96 mmol/L (98-107); Creatinine Clr Calc Pharmacy 82.7313; Glucose 162 mg/dL (65-115); Osmolality Calculated 300 mOsm/kg (285-295); Potassium 4.5 mmol/L (3.5-5.1); Sodium 141 mmol/L (136-145)
[2023-06-18] MEDS: levothyroxine 25 mcg Tablet PO (06:17)
[2023-06-18] MEDS: piperacillin-tazobactam 3.375 GM in sodium chloride 0.9% (plus) 50 ML IV ×2 (06:41→14:54)
[2023-06-18 06:44] LABS: Vancomycin Trough 15.6 ug/mL (10-15)
[2023-06-18 07:39] LABS: Glucose Point of Care 113 mg/dL (70-110)
[2023-06-18] MEDS: vancomycin 1,250 MG/250 ML PIGGYBACK 250 MG IV (07:43)
[2023-06-18] MEDS: budesonide 0.5 mg/2 mL Neb INHALATION ×2 (07:46→20:36)
--- NOTE | 2023-06-18 08:42 | FL_ITS ---
WS: [id number] Exam: FL barium swallow modifd [id number] Date/Time of Exam: 06/18/2023 10:44 AM Reason For Exam: Oral dysphagia Fluoroscopy time: 2min [id number] minutes # of spot films: 0 Modified barium swallow was performed in conjunction with the speech therapy service. Oropharyngeal phase of swallowing was normal. The patient tolerated all consistencies of barium mixtu re foodstuffs without aspiration or penetration. There was retention of the barium tablet into the lo wer one third of the esophagus that was propelled into the stomach with a single swallow of thin liqu id barium. IMPRESSION: 1. No aspiration or penetration observed. A separate report and recommendations will follow from the speech therapy service.
[2023-06-18] MEDS: atorvastatin 40 mg Tablet PO (08:51)
[2023-06-18] MEDS: clopidogrel 75 mg Tablet PO (08:51)
[2023-06-18] MEDS: nicotine 21 mg Patch 1 PATCH TRANSDERMA (08:51)
[2023-06-18] MEDS: predniSONE 20 mg Tablet 40 MG PO (08:51)
[2023-06-18] MEDS: apixaban 5 mg Tablet PO ×2 (08:51→20:10)
[2023-06-18] MEDS: chlordiazePOXIDE 10 mg Capsule PO ×3 (09:30→20:10)
[2023-06-18 09:55] LABS: Basophils % 0.1 %; Hematocrit 51.1 % (37-53); Lymphocytes # 0.6 10^3/uL (0.8-4.8); Lymphocytes % 4.6 %; Mean Corpuscular HGB Conc 30.9 g/dL (30-55); Mean Corpuscular Hemoglobin 29.2 pg (27-33); Mean Corpuscular Volume 94.5 fl (82-101); Mean Platelet Volume 9.9 fL (7.4-10.4); Monocytes # 0.9 10^3/uL (0.2-0.9); Monocytes % 6.5 %; Neutrophils # 12.05 10^3/uL (1.8-7.7); Neutrophils % 88.4 %; Nucleated Red Blood Cells % 0 %; Platelet Count 258 10^3/cmm (157-399); Red Blood Count 5.41 10^6/uL (3.85-5.65); Red Cell Distribution Width 14.4 % (12.1-15.1); White Blood Count 13.63 10^3/uL (3.29-11.43)
[2023-06-18 10:07] LABS: Procalcitonin 0.03 ng/mL (0-0.5)
[2023-06-18 10:21] LABS: C Reactive Protein 6.4 mg/L (0.0-4.9)
[2023-06-18] MEDS: insulin lispro 100 unit/1 mL SUBCUT ×2 (12:09→17:05)
[2023-06-18 12:10] LABS: Glucose Point of Care 167 mg/dL (70-110)
[2023-06-18] MEDS: pantoprazole 40 mg SDV IVP (14:53)
--- NOTE | 2023-06-18 15:17 | P.PN_ITS ---
Subjective 2 Subjective: Patient was seen this morning, family members at bedside currently on 12 L, no evidence of respiratory distress, no nasal flaring no intercostal retractions, he does report a cough, he had episodes of confusion yesterday afternoon, he is alert to person, to place, not to time he can follow commands, afebrile overnight, normotensive, I had a discussion with patient's , I discussed with patient's that I think some of his confusion yesterday was potentially ing and likely a component of alcohol withdrawal, she tells me that after he was diagnosed with cancer, he has been drinking alcohol regularly, advised her that we will continue to monitor here for alcohol withdrawal, CIWA protocol, will start him on scheduled Librium due to his reported anxiety, and is fidgeting in his tremors, spoke to patient's family about the need for IV antibiotics given his positive Enterococcus species on his pleural studies, Vitals/I&O/Wt Last Vital Signs Temp 98 F 06/18/23 03:58 Pulse 66 06/18/23 13:00 Resp 11 L 06/18/23 13:00 BP 110/67 06/18/23 13:00 Pulse Ox 91 06/18/23 13:00 O2 Del Method High Flow Nasal Cannula 06/18/23 11:23 O2 Flow Rate 10 06/18/23 11:23 FiO2 65 06/18/23 00:31 06/18/23 06/18/23 06/18/23 06:59 14:59 22:59 Intake Total 50 / 770 1020 / 1020 Output Total 1100 / 3850 Balance -1050 / -3080 1020 / 1020 Weight last 48 hrs Weight 85.5 kg Weight 86.5 kg Physical Exam 2 Const: COMMON NORMALS: no acute distress and patient oriented x3 Resp: COMMON NORMALS: normal respiratory effort, No retractions and No use of accessory muscles AUSCULTATION: crackles Cardio: COMMON NORMALS: regular rate, regular rhythm, S1 normal heart sound present and S2 normal heart sound present RATE: regular rate RHYTHM: r egular rhythm HEART SOUNDS: S1 normal heart sound present and S2 normal heart sound present GI: COMMON NORMALS: Normal to inspection, nondistended, normoactive bowel sounds present and non-tender Extremity: COMMON NORMALS: no pedal edema Neuro: COMMON NORMALS: patient oriented x3 Psych: COMMON NORMALS: mental status grossly normal Urinary Catheter Management: Estevez: Cath Placed During This Visit: yes Reason for Continuing Indwelling Catheter: Accurate Measurement of Urinary Output in Critically Ill Patients Urinary Catheter Date of Insertion: 06/14/23 Urinary Catheter Time of Insertion: 18:10 Data 06/18/23 04:52 06/18/23 04:52 Micro: Microbiology 06/15/23 10:15 Gram Stain - Final Pleural Fluid Body Fluid Culture - Final Enterococcus faecalis A&P Assessment and plan (1) Acute on chronic respiratory failure with hypoxia and hypercapnia: (2) Acute encephalopathy: (3) COPD exacerbation: (4) NSTEMI (non-ST elevated myocardial infarction): (5) RLL pneumonia: (6) Pleural effusion, right: (7) Hypertension: (8) CAD (coronary artery disease): (9) Hyperlipidemia: (10) Hypothyroidism: (11) Non-small cell lung cancer: (12) COPD (chronic obstructive pulmonary disease): Qualifiers: COPD type: emphysema Emphysema type: centrilobular Qualified Code(s): J43.2 - Centrilobular emphysema (13) COPD with acute exacerbation: (14) Edema: (15) Nicotine addiction: (16) Type 2 diabetes mellitus: (17) Atrial fibrillation: (18) Goals of care, counseling/discussion: (19) Alcoholism: (20) UTI (urinary tract infection): (21) Exudative pleural effusion: (22) Parapneumonic effusion: (23) Alcohol abuse with withdrawal: Plan Acute hypoxic hypercarbic respiratory failure Multifactorial ? Secondary to underlying COPD, active smoker ? Noncompliance with oxygen therapy, ?noncompliant with CPAP therapy outpatient -Right lower lobe pulmonary pneumonia CT/CT angio chest PE protcl [id number] IMPRESSION: 1. Occlusion of the right middle/lower central bronchi with lobar atelectasis. 2. Moderate-large right-sided pleural effusion. 3. No evidence of PE or acute aortic abnormality. ? Right pleural effusion, exudative, pH 8, glucose 157, has Enterococcus faecali s, concerning for parapneumonic effusion ? Fluid overload, CHF exacerbation ? Plan ? Monitor in the intensive care unit closely ? Patient is a low threshold for intubation ? Mentation improving ? DuoNeb, budesonide ? Currently on 12 L high flow nasal cannula, BiPAP during the night ?Antibiotic coverage to vancomycin, Zosyn -Will likely need ampicillin 2 g IV every 6 hours for 10 days followed by Augmentin for 2 weeks ? fluid overload diuresing quite well -7 L yesterday, dose IV Lasix today -Continue antibiotics for parapneumonic effusion ? De-escalated to prednisone ? Monitor respiratory status closely ? Sputum culture, respiratory viral panel, blood cultures Alcohol withdrawal -CIWA protocol ? Thiamine, multivitamin, ? Scheduled Librium 10 mg every 6 hours Right pleural effusion, as above ? Ultrasound thoracocentesis, -700ml, orange, exudative by lights criteria COPD, active smoker ? Noncompliant with oxygen therapy History of non-small cell lung cancer ?, history of non-small cell lung cancer, right upper lobe, status post radiation, with recent history of evidence of right infrahilar mass increased uptake, and new avid lesion in the interspace. Costovertebral junction of the left second and third costovertebral junction, with distructivee changes validations third rib consistent with metastasis Atrial fibrillation, rate controlled -No known history ? Will continue to monitor Is consider anticoagulation based on clinical progress History of CAD, ? NSTEMI ? Serial EKGs, serial troponins, telemetry monitoring Acute encephalopathy ? Likely secondary to pneumonia, respiratory failure, hypercarbia Right pleural effusion ? Could be malignant pleural effusion ? right-sided thoracocentesis based on clinical progress Goals of care discussion, patient's tells me that patient is a full code, had a detailed discussion about patient's underlying medical history, COPD non- small cell lung cancer, has a high risk of morbidity and mortality during intubation process of after being intubated, high risk of being prolonged on mechanical ventilation possibly the rest of his life Type 2 diabetes mellitus, low-dose sliding scale Lovenox for DVT prophylaxis Protonix for GI prophylaxis Plan for today follow parapneumonic effusion, de-escalate antibiotic therapy to ampicillin, CIWA protocol for alcohol withdrawal scheduled Librium, de-escalate steroids, Lasix therapy for today patient is -7 L, edema significantly improved, acute hypoxic respiratory failure still on 12 L Attestations 2 Medical Necessity Statement*: Patient requires hospitalization for parapneumonic effusion requiring IV antibiotics, hypoxic respiratory failure on 12 L, on scheduled Librium for alcohol withdrawal, requiring IV diuresis Diagnoses Acute on chronic respiratory failure with hypoxia and hypercapnia J96.21; J96.22 Acute encephalopathy G93.40 COPD exacerbation J44.1 NSTEMI (non-ST elevated myocardial infarction) I21.4 RLL pneumonia J18.9 Pleural effusion, right J90 Hypertension I10 CAD (coronary artery disease) I25.10 Hyperlipidemia E78.5 Hypothyroidism E03.9 Non-small cell lung cancer C34.90 Centrilobular emphysema J43.2 COPD type: emphysema Emphysema type: centrilobular COPD with acute exacerbation J44.1 Edema R60.9 Nicotine addiction F17.200 Type 2 diabetes mellitus E11.9 Atrial fibrillation I48.91 Goals of care, counseling/discussion Z71.89 Alcoholism F10.20 UTI (urinary tract infection) N39.0 Exudative pleural effusion J90 Parapneumonic effusion J18.9; J91.8 Alcohol abuse with withdrawal F10.139
[2023-06-18] MEDS: FUROsemide 10 mg/mL SDV 4mL 40 MG IVP (15:55)
[2023-06-18 17:02] LABS: Glucose Point of Care 300 mg/dL (70-110)
[2023-06-18] MEDS: ampicillin 2,000 MG in sodium chloride 0.9% (plus) 50 ML 100 MG IV (20:09)
[2023-06-18 20:10] LABS: Amylase, Pleural Fluid 132 U/L
[2023-06-18 22:11] LABS: Adenovirus Not Detected (NOT DETECT); Chlamydia Pneumoniae Not Detected (NOT DETECT); Coronavirus 229E,HKU1,NL63,OC4 Not Detected (NOT DETECT); Human Metapneumovirus Not Detected (NOT DETECT); Human Rhinovirus/Enterovirus Not Detected (NOT DETECT); Influenza A Not Detected (NOT DETECT); Influenza A H1 Not Detected (NOT DETECT); Influenza A H1-2009 Not Detected (NOT DETECT); Influenza A H3 Not Detected (NOT DETECT); Influenza B Not Detected (NOT DETECT); Mycoplasma Pneumoniae Not Detected (NOT DETECT); Parainfluenza Virus Type 1 Not Detected (NOT DETECT); Parainfluenza Virus Type 2 Not Detected (NOT DETECT); Parainfluenza Virus Type 3 Not Detected (NOT DETECT); Parainfluenza Virus Type 4 Not Detected (NOT DETECT); Respiratory Syncytial Virus A Not Detected (NOT DETECT); Respiratory Syncytial Virus B Not Detected (NOT DETECT); SARS-COV-2 Not Detected (NOT DETECT)
[2023-06-18 22:11] LABS: Glucose Point of Care 177 mg/dL (70-110)
[2023-06-19] VITALS (44 sets, daily range): BP systolic 106–142; BP diastolic 69–107; PULSE 64–161; RESP 14–31; TEMP 35.6–36.9; O2SAT 84–95
[2023-06-19] MEDS: chlordiazePOXIDE 10 mg Capsule PO ×3 (02:24→17:20)
[2023-06-19] MEDS: ampicillin 2,000 MG in sodium chloride 0.9% (plus) 50 ML 100 MG IV ×4 (02:26→20:19)
[2023-06-19] MEDS: ipratropium-albuterol 3 mL Neb INHALATION ×6 (03:35→23:22)
[2023-06-19 04:01] LABS: Basophils % 0.1 %; Eosinophils # 0.1 10^3/uL (0.0-0.8); Eosinophils % 0.6 %; Hematocrit 51.2 % (37-53); Lymphocytes # 1.2 10^3/uL (0.8-4.8); Lymphocytes % 8.6 %; Mean Corpuscular HGB Conc 30.7 g/dL (30-55); Mean Corpuscular Hemoglobin 28.9 pg (27-33); Mean Corpuscular Volume 94.1 fl (82-101); Mean Platelet Volume 9.7 fL (7.4-10.4); Monocytes # 1.3 10^3/uL (0.2-0.9); Monocytes % 9.5 %; Neutrophils # 10.79 10^3/uL (1.8-7.7); Neutrophils % 80.9 %; Nucleated Red Blood Cells % 0 %; Platelet Count 249 10^3/cmm (157-399); Red Blood Count 5.44 10^6/uL (3.85-5.65); Red Cell Distribution Width 14.3 % (12.1-15.1); White Blood Count 13.33 10^3/uL (3.29-11.43)
[2023-06-19 04:22] LABS: Anion Gap 9.5 (5-19); Blood Urea Nitrogen 29 mg/dL (8-23); Calcium 8.5 mg/dL (8.5-10.5); Chloride 96 mmol/L (98-107); Glucose 129 mg/dL (65-115); Osmolality Calculated 304 mOsm/kg (285-295); Potassium 4.5 mmol/L (3.5-5.1); Sodium 143 mmol/L (136-145)
[2023-06-19 04:27] LABS: Carbon Dioxide 42 mmol/L (22-29)
--- NOTE | 2023-06-19 07:00 | XR_ITS ---
WS: [id number] Exam: XR chest 1V portable [id number] Date/Time of Exam: 06/19/2023 7:00 AM Reason For Exam: sob Comparison 06/16/2020. There is infiltrate and atelectasis in the middle and lower lobes of the RIGHT lung. RIGHT basal pleu ral effusion has developed. Plaque atelectasis in the LEFT base unchanged. The heart is enlarged but unchanged in size. No pneumothorax. Right-sided Chemo-Port ends in the RIGHT atrium. Bony structures are intact. IMPRESSION: 1. Infiltrate and atelectasis in the middle and lower lobes of the RIGHT lung with development of sma ll RIGHT pleural effusion. 2. Cardiac enlargement unchanged. LEFT basal plaque atelectasis.
[2023-06-19] MEDS: budesonide 0.5 mg/2 mL Neb INHALATION ×2 (08:19→20:40)
[2023-06-19] MEDS: folic acid 1 mg Tablet PO (09:05)
[2023-06-19] MEDS: predniSONE 20 mg Tablet 40 MG PO (09:06)
[2023-06-19] MEDS: atorvastatin 40 mg Tablet PO (09:06)
[2023-06-19] MEDS: apixaban 5 mg Tablet PO ×2 (09:06→20:18)
[2023-06-19] MEDS: thiamine 100 mg Tablet PO (09:06)
[2023-06-19] MEDS: levothyroxine 25 mcg Tablet PO (09:07)
[2023-06-19] MEDS: clopidogrel 75 mg Tablet PO (09:07)
[2023-06-19] MEDS: multivitamin therapeutic Tablet 1 TAB PO (09:07)
[2023-06-19] MEDS: FUROsemide 10 mg/mL SDV 4mL 40 MG IVP (09:08)
[2023-06-19] MEDS: nicotine 21 mg Patch 1 PATCH TRANSDERMA (09:12)
[2023-06-19 09:19] LABS: Glucose Point of Care 102 mg/dL (70-110)
[2023-06-19] MEDS: polyethylene glycol 3350 Pkt 17 gm PO (09:27)
--- NOTE | 2023-06-19 11:31 | PC.SOCIAL ---
IMM Updated Updated pt on IMM. No questions voiced. Provided pt a copy. Initialed, dated, & timed copy in chart.
[2023-06-19] MEDS: insulin lispro 100 unit/1 mL SUBCUT ×2 (13:36→17:32)
--- NOTE | 2023-06-19 14:16 | P.PN_ITS ---
Subjective 2 Subjective: Patient was seen this morning, sitting up in bed, family members at bedside does report generalized weakness, continues to have a productive cough, no fevers overnight currently on 10 L, during my conversation his O2 sats do drop into the mid 80s, Vitals/I&O/Wt Last Vital Signs Temp 97.3 F L 06/19/23 09:00 Pulse 94 06/19/23 14:00 Resp 16 06/19/23 12:30 BP 112/83 06/19/23 13:30 Pulse Ox 88 L 06/19/23 13:30 O2 Del Method Nasal Cannula 06/19/23 13:30 O2 Flow Rate 8 06/19/23 13:30 FiO2 65 06/18/23 00:31 06/18/23 06/19/23 06/19/23 22:59 06:59 14:59 Intake Total 780 / 1800 150 / 1950 350 / 350 Output Total 2850 / 2850 325 / 3175 1000 / 1000 Balance -2070 / -1050 -175 / -1225 -650 / -650 Weight last 48 hrs Weight 84 kg Weight 85.5 kg Physical Exam 2 Const: COMMON NORMALS: no acute distress and patient oriented x3 Resp: COMMON NORMALS: normal respiratory effort, No retractions and No use of accessory muscles AUSCULTATION: crackles Cardio: COMMON NORMALS: regular rate, regular rhythm, S1 normal heart sound present and S2 normal heart sound present RATE: regular rate RHYTHM: r egular rhythm HEART SOUNDS: S1 normal heart sound present and S2 normal heart sound present GI: COMMON NORMALS: Normal to inspection, nondistended, normoactive bowel sounds present and non-tender Extremity: NARRATIVE EXTREMITY EXAM: 1+ edema Neuro: COMMON NORMALS: patient oriented x3 Psych: COMMON NORMALS: mental status grossly normal Urinary Catheter Management: Estevez: Cath Placed During This Visit: yes Reason for Continuing Indwelling Catheter: Accurate Measurement of Urinary Output in Critically Ill Patients Urinary Catheter Date of Insertion: 06/14/23 Urinary Catheter Time of Insertion: 18:10 Data 06/19/23 03:38 06/19/23 03:38 Micro: Microbiology 06/19/23 09:30 Gram Stain - Final Sputum - Expectorated Sputum 06/15/23 10:15 Mycobacterial Smear - Preliminary Body Fluids - Pleura A&P Assessment and plan (1) Acute on chronic respiratory failure with hypoxia and hypercapnia: (2) Acute encephalopathy: (3) COPD exacerbation: (4) NSTEMI (non-ST elevated myocardial infarction): (5) RLL pneumonia: (6) Pleural effusion, right: (7) Hypertension: (8) CAD (coronary artery disease): (9) Hyperlipidemia: (10) Hypothyroidism: (11) Non-small cell lung cancer: (12) COPD (chronic obstructive pulmonary disease): Qualifiers: COPD type: emphysema Emphysema type: centrilobular Qualified Code(s): J43.2 - Centrilobular emphysema (13) COPD with acute exacerbation: (14) Edema: (15) Nicotine addiction: (16) Type 2 diabetes mellitus: (17) Atrial fibrillation: (18) Goals of care, counseling/discussion: (19) Alcoholism: (20) UTI (urinary tract infection): (21) Exudative pleural effusion: (22) Parapneumonic effusion: (23) Alcohol abuse with withdrawal: Plan Acute hypoxic hypercarbic respiratory failure Multifactorial ? Secondary to underlying COPD, active smoker ? Noncompliance with oxygen therapy, ?noncompliant with CPAP therapy outpatient -Right lower lobe pulmonary pneumonia CT/CT angio chest PE protcl [id number] IMPRESSION: 1. Occlusion of the right middle/lower central bronchi with lobar atelectasis. 2. Moderate-large right-sided pleural effusion. 3. No evidence of PE or acute aortic abnormality. ? Right pleural effusion, exudative, pH 8, glucose 157, has Enterococcus faecali s, concerning for parapneumonic effusion ? Fluid overload, CHF exacerbation ? Plan ? Monitor in the intensive care unit closely ? Patient is a low threshold for intubation ? Mentation improving ? DuoNeb, budesonide ? Currently on 10 L high flow nasal cannula, BiPAP during the night ?Antibiotic coverage changed to ampicillin 2 g IV every 6 hours for 10 days followed by Augmentin for 2 weeks ? fluid overload diuresing quite well -8 L yesterday, dose IV Lasix today -Continue antibiotics for parapneumonic effusion ? De-escalated to prednisone ? Monitor respiratory status closely ? Sputum culture, respiratory viral panel, blood cultures Alcohol withdrawal -CIWA protocol ? Thiamine, multivitamin, ? Scheduled Librium 10 mg every 8 hours Right pleural effusion, as above ? Ultrasound thoracocentesis, -700ml, orange, exudative by lights criteria COPD, active smoker ? Noncompliant with oxygen therapy History of non-small cell lung cancer ?, history of non-small cell lung cancer, right upper lobe, status post radiation, with recent history of evidence of right infrahilar mass increased uptake, and new avid lesion in the interspace. Costovertebral junction of the left second and third costovertebral junction, with distructivee changes validations third rib consistent with metastasis Atrial fibrillation, rate controlled -No known history ? Will continue to monitor -eliquis History of CAD, ? NSTEMI ? Serial EKGs, serial troponins, telemetry monitoring Acute encephalopathy ? Likely secondary to pneumonia, respiratory failure, hypercarbia Right pleural effusion ? Could be malignant pleural effusion ? right-sided thoracocentesis based on clinical progress Goals of care discussion, patient's tells me that patient is a full code, had a detailed discussion about patient's underlying medical history, COPD non- small cell lung cancer, has a high risk of morbidity and mortality during intubation process of after being intubated, high risk of being prolonged on mechanical ventilation possibly the rest of his life Type 2 diabetes mellitus, low-dose sliding scale Lovenox for DVT prophylaxis Protonix for GI prophylaxis Plan for today follow parapneumonic effusion, currently on 10 L, de-escalate as needed, IV diuresis, continue ampicillin, O2 sats do drop in the mid 80s Attestations 2 Medical Necessity Statement*: Patient requires hospitalization for parapneumonic effusions, Enterococcus species, pneumonia, A-fib, acute hypoxic respiratory failure currently on 10 L, requiring close hours ICU monitoring Diagnoses Acute on chronic respiratory failure with hypoxia and hypercapnia J96.21; J96.22 Acute encephalopathy G93.40 COPD exacerbation J44.1 NSTEMI (non-ST elevated myocardial infarction) I21.4 RLL pneumonia J18.9 Pleural effusion, right J90 Hypertension I10 CAD (coronary artery disease) I25.10 Hyperlipidemia E78.5 Hypothyroidism E03.9 Non-small cell lung cancer C34.90 Centrilobular emphysema J43.2 COPD type: emphysema Emphysema type: centrilobular COPD with acute exacerbation J44.1 Edema R60.9 Nicotine addiction F17.200 Type 2 diabetes mellitus E11.9 Atrial fibrillation I48.91 Goals of care, counseling/discussion Z71.89 Alcoholism F10.20 UTI (urinary tract infection) N39.0 Exudative pleural effusion J90 Parapneumonic effusion J18.9; J91.8 Alcohol abuse with withdrawal F10.139
[2023-06-19] MEDS: lactulose oral liq 20 gm/30 mL UDC PO (14:32)
[2023-06-19] MEDS: pantoprazole 40 mg SDV IVP (15:15)
--- NOTE | 2023-06-19 15:19 | PC.OT ---
Pt declined OT treatment; will attempt again at later time.
[2023-06-19 17:31] LABS: Glucose Point of Care 242 mg/dL (70-110)
--- NOTE | 2023-06-19 18:23 | PC.NURSE ---
Shift SUmmary: Uneventful shift. Patient up to a chair for most of the day, worked with physical therapy. Increasingly constipated, Fleet enema ordered near end of shift.
[2023-06-19] MEDS: Fleet Enema 133 mL Enema PR ×2 (20:18→20:19)
[2023-06-19 20:38] LABS: Glucose Point of Care 185 mg/dL (70-110)
[2023-06-20] VITALS (22 sets, daily range): BP systolic 107–134; BP diastolic 72–87; PULSE 67–109; RESP 15–27; TEMP 36.4–37; O2SAT 88–95
[2023-06-20] MEDS: chlordiazePOXIDE 10 mg Capsule PO ×3 (00:04→17:28)
[2023-06-20] MEDS: ampicillin 2,000 MG in sodium chloride 0.9% (plus) 50 ML 100 MG IV ×4 (02:05→20:16)
[2023-06-20] MEDS: ipratropium-albuterol 3 mL Neb INHALATION ×6 (04:19→23:17)
[2023-06-20 06:00] LABS: Basophils % 0.2 %; Eosinophils # 0.2 10^3/uL (0.0-0.8); Eosinophils % 1.4 %; Hematocrit 52.1 % (37-53); Lymphocytes # 1.4 10^3/uL (0.8-4.8); Lymphocytes % 12.3 %; Mean Corpuscular HGB Conc 30.1 g/dL (30-55); Mean Corpuscular Hemoglobin 28.7 pg (27-33); Mean Corpuscular Volume 95.2 fl (82-101); Monocytes # 1.2 10^3/uL (0.2-0.9); Monocytes % 10.2 %; Neutrophils # 8.88 10^3/uL (1.8-7.7); Neutrophils % 75.5 %; Nucleated Red Blood Cells % 0 %; Platelet Count 228 10^3/cmm (157-399); Red Blood Count 5.47 10^6/uL (3.85-5.65); Red Cell Distribution Width 13.9 % (12.1-15.1); White Blood Count 11.75 10^3/uL (3.29-11.43)
[2023-06-20] MEDS: levothyroxine 25 mcg Tablet PO (06:14)
[2023-06-20 06:18] LABS: Blood Urea Nitrogen 29 mg/dL (8-23); Calcium 8.9 mg/dL (8.5-10.5); Carbon Dioxide 39 mmol/L (22-29); Chloride 95 mmol/L (98-107); Creatinine Clr Calc Pharmacy 81.9971; Glucose 159 mg/dL (65-115); Osmolality Calculated 297 mOsm/kg (285-295); Sodium 139 mmol/L (136-145)
[2023-06-20 06:20] LABS: Anion Gap 9.3 (5-19); Potassium 4.3 mmol/L (3.5-5.1)
[2023-06-20 06:49] LABS: Glucose Point of Care 134 mg/dL (70-110)
[2023-06-20 07:12] LABS: Glucose Point of Care 111 mg/dL (70-110)
[2023-06-20] MEDS: budesonide 0.5 mg/2 mL Neb INHALATION ×2 (07:47→20:08)
[2023-06-20] MEDS: clopidogrel 75 mg Tablet PO (09:25)
[2023-06-20] MEDS: multivitamin therapeutic Tablet 1 TAB PO (09:26)
[2023-06-20] MEDS: nicotine 21 mg Patch 1 PATCH TRANSDERMA (09:26)
[2023-06-20] MEDS: predniSONE 20 mg Tablet 40 MG PO (09:26)
[2023-06-20] MEDS: thiamine 100 mg Tablet PO (09:26)
[2023-06-20] MEDS: folic acid 1 mg Tablet PO (09:26)
[2023-06-20] MEDS: atorvastatin 40 mg Tablet PO (09:26)
[2023-06-20] MEDS: apixaban 5 mg Tablet PO ×2 (09:29→20:16)
[2023-06-20 11:26] LABS: Glucose Point of Care 151 mg/dL (70-110)
[2023-06-20] MEDS: insulin lispro 100 unit/1 mL SUBCUT ×2 (12:37→17:28)
[2023-06-20] MEDS: polyethylene glycol 3350 Pkt 17 gm PO (14:39)
--- NOTE | 2023-06-20 15:23 | P.PN_ITS ---
Subjective 2 Subjective: Patient was seen this morning, alert oriented x 3, following all commands family present bedside, no significant alcohol withdrawal symptoms, during our conversation his oxygen saturations do drop into the low 80s as low as 82, but quickly rebounded to the 90s, especially when he talks to me or he exerts himself I can see the oxygen saturations drop as low between 82-86, and sometimes they stay in that level, currently he is on 10 L, he is following all commands, denied any shortness of breath, denies any fevers, no chills Vitals/I&O/Wt Last Vital Signs Temp 97.6 F 06/20/23 12:00 Pulse 85 06/20/23 15:08 Resp 22 H 06/20/23 15:00 BP 123/83 06/20/23 12:00 Pulse Ox 91 06/20/23 15:00 O2 Del Method Nasal Cannula 06/20/23 15:00 O2 Flow Rate 8 06/20/23 15:00 FiO2 65 06/18/23 00:31 06/20/23 06/20/23 06/20/23 06:59 14:59 22:59 Intake Total 50 / 800.000 50 / 50 Output Total 300 / 1750 Balance -250 / -950.000 50 / 50 Weight last 48 hrs Weight 84.822 kg Weight 84 kg Physical Exam 2 Const: COMMON NORMALS: no acute distress and patient oriented x3 Resp: COMMON NORMALS: normal respiratory effort, No retractions, No use of accessory muscles and clear to auscultation bilaterally AUSCULTATION: clear to auscultation bilaterally Cardio: COMMON NORMALS: regular rate, regular rhythm, S1 normal heart sound present and S2 normal heart sound present RATE: regular rate RHYTHM: r egular rhythm HEART SOUNDS: S1 normal heart sound present and S2 normal heart sound present GI: COMMON NORMALS: Normal to inspection, nondistended, normoactive bowel sounds present and non-tender Extremity: COMMON NORMALS: no calf tenderness and no pedal edema Neuro: COMMON NORMALS: patient oriented x3 Psych: COMMON NORMALS: mental status grossly normal Skin: NARRATIVE SKIN EXAM: Has evidence of mild protein calorie malnutrition physical deconditioning, muscle wasting bilateral temporal muscle wasting, muscle wasting of bilateral thighs, bilateral calves, bilateral arms, with underlying malignancy Urinary Catheter Management: Estevez: Cath Placed During This Visit: yes Reason for Continuing Indwelling Catheter: Other Urinary Catheter Date of Insertion: 06/14/23 Urinary Catheter Time of Insertion: 18:10 Data 06/20/23 04:37 06/20/23 04:37 Micro: Microbiology 06/19/23 09:30 Gram Stain - Final Sputum - Expectorated Sputum Sputum Culture - Preliminary 06/14/23 18:53 Blood Culture - Final Blood NO GROWTH AFTER 5 DAYS 06/14/23 18:51 Blood Culture - Final Blood NO GROWTH AFTER 5 DAYS A&P Assessment and plan (1) Acute on chronic respiratory failure with hypoxia and hypercapnia: (2) Acute encephalopathy: (3) COPD exacerbation: (4) NSTEMI (non-ST elevated myocardial infarction): (5) RLL pneumonia: (6) Pleural effusion, right: (7) Hypertension: (8) CAD (coronary artery disease): (9) Hyperlipidemia: (10) Hypothyroidism: (11) Non-small cell lung cancer: (12) COPD (chronic obstructive pulmonary disease): Qualifiers: COPD type: emphysema Emphysema type: centrilobular Qualified Code(s): J43.2 - Centrilobular emphysema (13) COPD with acute exacerbation: (14) Edema: (15) Nicotine addiction: (16) Type 2 diabetes mellitus: (17) Atrial fibrillation: (18) Goals of care, counseling/discussion: (19) Alcoholism: (20) UTI (urinary tract infection): (21) Exudative pleural effusion: (22) Parapneumonic effusion: (23) Alcohol abuse with withdrawal: (24) Physical deconditioning: (25) Protein calorie malnutrition: (26) Muscle wasting: Plan Acute hypoxic hypercarbic respiratory failure Multifactorial ? Secondary to underlying COPD, active smoker ? Noncompliance with oxygen therapy, ?noncompliant with CPAP therapy outpatient -Right lower lobe pulmonary pneumonia CT/CT angio chest PE protcl [id number] IMPRESSION: 1. Occlusion of the right middle/lower central bronchi with lobar atelectasis. 2. Moderate-large right-sided pleural effusion. 3. No evidence of PE or acute aortic abnormality. ? Right pleural effusion, exudative, pH 8, glucose 157, has Enterococcus faecali s, concerning for parapneumonic effusion ? Fluid overload, CHF exacerbation ? Plan ? Monitor in the intensive care unit closely ? Patient is a low threshold for intubation ? Mentation improving ? DuoNeb, budesonide -During conversation exertion his O2 sats dropped into the mid 80s ? Currently on 10 L high flow nasal cannula, BiPAP during the night ?Antibiotic coverage changed to ampicillin 2 g IV every 6 hours for 10 days followed by Augmentin for 2 weeks ? fluid overload diuresing quite well -8 L yesterday -Continue antibiotics for parapneumonic effusion ? De-escalated to prednisone ? Monitor respiratory status closely ? Sputum culture, respiratory viral panel, blood cultures Alcohol withdrawal -[facility] protocol ? Thiamine, multivitamin, ? Scheduled Librium 10 mg every 8 hours Right pleural effusion, as above ? Ultrasound thoracocentesis, -700ml, orange, exudative by lights criteria COPD, active smoker ? Noncompliant with oxygen therapy History of non-small cell lung cancer ?, history of non-small cell lung cancer, right upper lobe, status post radiation, with recent history of evidence of right infrahilar mass increased uptake, and new avid lesion in the interspace. Costovertebral junction of the left second and third costovertebral junction, with distructivee changes validations third rib consistent with metastasis Atrial fibrillation, rate controlled -No known history ? Will continue to monitor -eliquis History of CAD, ? NSTEMI ? Serial EKGs, serial troponins, telemetry monitoring Acute encephalopathy, resolved ? Likely secondary to pneumonia, respiratory failure, hypercarbia Right pleural effusion, parapneumonic effusion ? Could be malignant pleural effusion, however pathology was negative for malignancy Has evidence of mild to moderate protein calorie malnutrition, physical deconditioning, muscle wasting likely secondary to advanced COPD, underlying malignancy, neck ?with exertion in a couple of words, his O2 sats do drop in the mid 80s ? PT OT ? Dietary eval?Ensure drinks, ? Increased risk of falls Goals of care discussion, patient's tells me that patient is a full code, had a detailed discussion about patient's underlying medical history, COPD non- small cell lung cancer, has a high risk of morbidity and mortality during intubation process of after being intubated, high risk of being prolonged on mechanical ventilation possibly the rest of his life Type 2 diabetes mellitus, low-dose sliding scale Lovenox for DVT prophylaxis Protonix for GI prophylaxis Plan for today follow PT OT, monitor respiratory status de-escalate oxygen hold off on diuresis, continue to monitor cultures Attestations 2 Medical Necessity Statement*: Patient requires hospitalization for pneumonia, parapneumonic effusion, acute on chronic hypoxic respiratory failure deconditioning, Diagnoses Acute on chronic respiratory failure with hypoxia and hypercapnia J96.21; J96.22 Acute encephalopathy G93.40 COPD exacerbation J44.1 NSTEMI (non-ST elevated myocardial infarction) I21.4 RLL pneumonia J18.9 Pleural effusion, right J90 Hypertension I10 CAD (coronary artery disease) I25.10 Hyperlipidemia E78.5 Hypothyroidism E03.9 Non-small cell lung cancer C34.90 Centrilobular emphysema J43.2 COPD type: emphysema Emphysema type: centrilobular COPD with acute exacerbation J44.1 Edema R60.9 Nicotine addiction F17.200 Type 2 diabetes mellitus E11.9 Atrial fibrillation I48.91 Goals of care, counseling/discussion Z71.89 Alcoholism F10.20 UTI (urinary tract infection) N39.0 Exudative pleural effusion J90 Parapneumonic effusion J18.9; J91.8 Alcohol abuse with withdrawal F10.139 Physical deconditioning R53.81 Protein calorie malnutrition E46 Muscle wasting M62.50
[2023-06-20] MEDS: pantoprazole 40 mg SDV IVP (15:45)
[2023-06-20 17:06] LABS: Glucose Point of Care 281 mg/dL (70-110)
[2023-06-20] MEDS: lactulose oral liq 20 gm/30 mL UDC PO (17:28)
[2023-06-20 20:17] LABS: Glucose Point of Care 284 mg/dL (70-110)
[2023-06-21] VITALS (22 sets, daily range): BP systolic 111–153; BP diastolic 60–98; PULSE 66–103; RESP 15–29; TEMP 36.3–36.8; O2SAT 83–93
[2023-06-21] MEDS: chlordiazePOXIDE 10 mg Capsule PO ×3 (00:45→21:09)
[2023-06-21] MEDS: ampicillin 2,000 MG in sodium chloride 0.9% (plus) 50 ML 100 MG IV ×4 (02:33→21:08)
[2023-06-21] MEDS: ipratropium-albuterol 3 mL Neb INHALATION ×6 (03:26→23:22)
[2023-06-21 05:02] LABS: Basophils % 0.1 %; Eosinophils # 0.2 10^3/uL (0.0-0.8); Eosinophils % 1.5 %; Hematocrit 50.3 % (37-53); Lymphocytes # 1.4 10^3/uL (0.8-4.8); Mean Corpuscular HGB Conc 30.4 g/dL (30-55); Mean Corpuscular Hemoglobin 29.2 pg (27-33); Mean Platelet Volume 9.7 fL (7.4-10.4); Monocytes # 1.1 10^3/uL (0.2-0.9); Monocytes % 8.4 %; Neutrophils # 9.88 10^3/uL (1.8-7.7); Neutrophils % 78.6 %; Nucleated Red Blood Cells % 0 %; Platelet Count 221 10^3/cmm (157-399); Red Blood Count 5.24 10^6/uL (3.85-5.65); Red Cell Distribution Width 13.8 % (12.1-15.1); White Blood Count 12.56 10^3/uL (3.29-11.43)
[2023-06-21 05:13] LABS: Anion Gap 6.8 (5-19); Blood Urea Nitrogen 20 mg/dL (8-23); Calcium 9.1 mg/dL (8.5-10.5); Chloride 100 mmol/L (98-107); Creatinine Clr Calc Pharmacy 81.9971; Glucose 139 mg/dL (65-115); Osmolality Calculated 301 mOsm/kg (285-295); Potassium 4.8 mmol/L (3.5-5.1); Sodium 143 mmol/L (136-145)
[2023-06-21 05:15] LABS: Carbon Dioxide 41 mmol/L (22-29)
[2023-06-21] MEDS: levothyroxine 25 mcg Tablet PO (06:25)
[2023-06-21 07:16] LABS: Glucose Point of Care 134 mg/dL (70-110)
[2023-06-21] MEDS: budesonide 0.5 mg/2 mL Neb INHALATION ×2 (08:00→19:38)
[2023-06-21] MEDS: apixaban 5 mg Tablet PO ×2 (08:39→21:09)
[2023-06-21] MEDS: predniSONE 20 mg Tablet 40 MG PO (08:39)
[2023-06-21] MEDS: clopidogrel 75 mg Tablet PO (08:40)
[2023-06-21] MEDS: atorvastatin 40 mg Tablet PO (08:40)
[2023-06-21] MEDS: thiamine 100 mg Tablet PO (08:40)
[2023-06-21] MEDS: folic acid 1 mg Tablet PO (08:40)
[2023-06-21] MEDS: multivitamin therapeutic Tablet 1 TAB PO (08:40)
[2023-06-21] MEDS: nicotine 21 mg Patch 1 PATCH TRANSDERMA (08:41)
[2023-06-21] MEDS: Fleet Enema 133 mL Enema PR (10:33)
[2023-06-21 11:23] LABS: Glucose Point of Care 168 mg/dL (70-110)
[2023-06-21] MEDS: insulin lispro 100 unit/1 mL SUBCUT ×2 (12:20→17:47)
[2023-06-21] MEDS: pantoprazole 40 mg SDV IVP (15:17)
--- NOTE | 2023-06-21 15:54 | PM.PN ---
Subjective Subjective: Patient was seen this morning, he is alert oriented x 4, following all commands, during our conversation his O2 saturations dropped into the low 80s, lips are blue, however he denies any shortness of breath, currently on 9 L, does report shortness of breath with exertion, -9 L so far, does report generalized weakness Vitals/I&O/Wt Last Vital Signs Temp 98.2 F 06/21/23 12:00 Pulse 93 06/21/23 14:00 Resp 23 H 06/21/23 13:00 BP 115/74 06/21/23 13:00 Pulse Ox 86 L 06/21/23 13:00 O2 Del Method High Flow Nasal Cannula 06/21/23 13:00 O2 Flow Rate 9 06/21/23 13:00 FiO2 65 06/18/23 00:31 06/21/23 06/21/23 06/21/23 06:59 14:59 22:59 Intake Total 250 / 980 170 / 170 50 / 220 Output Total 600 / 2300 Balance -350 / -1320 170 / 170 50 / 220 Weight last 48 hrs Weight 85.275 kg Weight 84.822 kg Physical Exam Const: COMMON NORMALS: no acute distress and patient oriented x3 Resp: COMMON NORMALS: normal respiratory effort, No retractions, No use of accessory muscles and clear to auscultation bilaterally AUSCULTATION: clear to auscultation bilaterally Cardio: COMMON NORMALS: regular rate, regular rhythm, S1 normal heart sound present and S2 normal heart sound present RATE: regular rate RHYTHM: regular rhythm HEART SOUNDS: S1 normal heart sound present and S2 normal heart sound present GI: COMMON NORMALS: Normal to inspection, nondistended, normoactive bowel sounds present and non-tender Extremity: COMMON NORMALS: no pedal edema Neuro: COMMON NORMALS: patient oriented x3 Psych: COMMON NORMALS: mental status grossly normal Urinary Catheter Management: Estevez: Cath Placed During This Visit: yes, but has since been removed by the nurse Reason for Continuing Indwelling Catheter: Decision to DC Catheter Urinary Catheter Date of Insertion: 06/14/23 Urinary Catheter Time of Insertion: 18:10 Date Urinary Catheter Removed: 06/20/23 Time Urinary Catheter Discontinued: 17:56 Data 06/21/23 04:42 06/21/23 04:42 Micro: Microbiology 06/19/23 09:30 Gram Stain - Final Sputum - Expectorated Sputum Sputum Culture - Final A&P Assessment and plan (1) Acute on chronic respiratory failure with hypoxia and hypercapnia: (2) Acute encephalopathy: (3) COPD exacerbation: (4) NSTEMI (non-ST elevated myocardial infarction): (5) RLL pneumonia: (6) Pleural effusion, right: (7) Hypertension: (8) CAD (coronary artery disease): (9) Hyperlipidemia: (10) Hypothyroidism: (11) Non-small cell lung cancer: (12) COPD (chronic obstructive pulmonary disease): Qualifiers: COPD type: emphysema Emphysema type: centrilobular Qualified Code(s): J43.2 - Centrilobular emphysema (13) COPD with acute exacerbation: (14) Edema: (15) Nicotine addiction: (16) Type 2 diabetes mellitus: (17) Atrial fibrillation: (18) Goals of care, counseling/discussion: (19) Alcoholism: (20) UTI (urinary tract infection): (21) Exudative pleural effusion: (22) Parapneumonic effusion: (23) Alcohol abuse with withdrawal: (24) Physical deconditioning: (25) Protein calorie malnutrition: (26) Muscle wasting: Plan Acute hypoxic hypercarbic respiratory failure Multifactorial ? Secondary to underlying COPD, active smoker ? Noncompliance with oxygen therapy, ?noncompliant with CPAP therapy outpatient -Right lower lobe pulmonary pneumonia CT/CT angio chest PE protcl [id number] IMPRESSION: 1. Occlusion of the right middle/lower central bronchi with lobar atelectasis. 2. Moderate-large right-sided pleural effusion. 3. No evidence of PE or acute aortic abnormality. ? Right pleural effusion, exudative, pH 8, glucose 157, has Enterococcus faecalis, concerning for parapneumonic effusion ? Fluid overload, CHF exacerbation ? Plan ? Monitor in the intensive care unit closely ? Patient is a low threshold for intubation ? Mentation improving ? DuoNeb, budesonide -During conversation exertion his O2 sats dropped into the mid 80s ? Currently on 10 L high flow nasal cannula, patient has his home trilogy at bedside ?Antibiotic coverage changed to ampicillin 2 g IV every 6 hours for 10 days followed by Augmentin for 2 weeks ? fluid overload diuresing quite well -9 L yesterday -Continue antibiotics for parapneumonic effusion ? De-escalated to prednisone ? Monitor respiratory status closely ? Sputum culture, respiratory viral panel, blood cultures Alcohol withdrawal -[facility] protocol ? Thiamine, multivitamin, ? Scheduled Librium 10 mg every 12 hours Right pleural effusion, as above ? Ultrasound thoracocentesis, -700ml, orange, exudative by lights criteria COPD, active smoker ? Noncompliant with oxygen therapy History of non-small cell lung cancer ?, history of non-small cell lung cancer, right upper lobe, status post radiation, with recent history of evidence of right infrahilar mass increased uptake, and new avid lesion in the interspace. Costovertebral junction of the left second and third costovertebral junction, with distructivee changes validations third rib consistent with metastasis Atrial fibrillation, rate controlled -No known history ? Will continue to monitor -eliquis History of CAD, ? NSTEMI ? Serial EKGs, serial troponins, telemetry monitoring Acute encephalopathy, resolved ? Likely secondary to pneumonia, respiratory failure, hypercarbia Right pleural effusion, parapneumonic effusion ? Could be malignant pleural effusion, however pathology was negative for malignancy Has evidence of mild to moderate protein calorie malnutrition, physical deconditioning, muscle wasting likely secondary to advanced COPD, underlying malignancy, history of alcoholism ?with exertion in a couple of words, his O2 sats do drop in the mid 80s ? PT OT ? Dietary eval?Ensure drinks, ? Increased risk of falls Goals of care discussion, patient's tells me that patient is a full code, had a detailed discussion about patient's underlying medical history, COPD non-small cell lung cancer, has a high risk of morbidity and mortality during intubation process of after being intubated, high risk of being prolonged on mechanical ventilation possibly the rest of his life Type 2 diabetes mellitus, low-dose sliding scale Lovenox for DVT prophylaxis Protonix for GI prophylaxis Plan for today follow PT OT, monitor respiratory status de-escalate oxygen hold off on diuresis, continue to monitor cultures, monitor in the ICU as patient is on high flow nasal cannula requiring 9 to 10 L, -9 L so far, continue IV antibiotics ampicillin, continue to monitor respiratory status closely, continuing Librium taper Attestations Medical Necessity Statement*: Patient requires hospitalization for pneumonia, parapneumonic effusion, requiring IV antibiotics, respiratory failure 9 L at baseline currently, trilogy dependent at night, as needed during the day, severe respiratory failure, alcohol withdrawal Diagnoses Acute on chronic respiratory failure with hypoxia and hypercapnia J96.21; J96.22 Acute encephalopathy G93.40 COPD exacerbation J44.1 NSTEMI (non-ST elevated myocardial infarction) I21.4 RLL pneumonia J18.9 Pleural effusion, right J90 Hypertension I10 CAD (coronary artery disease) I25.10 Hyperlipidemia E78.5 Hypothyroidism E03.9 Non-small cell lung cancer C34.90 Centrilobular emphysema J43.2 COPD type: emphysema Emphysema type: centrilobular COPD with acute exacerbation J44.1 Edema R60.9 Nicotine addiction F17.200 Type 2 diabetes mellitus E11.9 Atrial fibrillation I48.91 Goals of care, counseling/discussion Z71.89 Alcoholism F10.20 UTI (urinary tract infection) N39.0 Exudative pleural effusion J90 Parapneumonic effusion J18.9; J91.8 Alcohol abuse with withdrawal F10.139 Physical deconditioning R53.81 Protein calorie malnutrition E46 Muscle wasting M62.50
[2023-06-21 17:52] LABS: Glucose Point of Care 168 mg/dL (70-110)
[2023-06-22] VITALS (24 sets, daily range): BP systolic 102–145; BP diastolic 56–91; PULSE 60–128; RESP 17–29; TEMP 36.5–36.9; O2SAT 80–92; BMI 28.7
[2023-06-22] MEDS: ampicillin 2,000 MG in sodium chloride 0.9% (plus) 50 ML 100 MG IV ×2 (03:18→08:56)
[2023-06-22] MEDS: ipratropium-albuterol 3 mL Neb INHALATION ×4 (03:20→15:12)
[2023-06-22 05:58] LABS: Blood Urea Nitrogen 22 mg/dL (8-23); Calcium 9.1 mg/dL (8.5-10.5); Carbon Dioxide 32 mmol/L (22-29); Chloride 97 mmol/L (98-107); Creatinine Clr Calc Pharmacy 82.1953; Glucose 161 mg/dL (65-115); Osmolality Calculated 289 mOsm/kg (285-295); Sodium 136 mmol/L (136-145)
[2023-06-22 06:01] LABS: Anion Gap 12.9 (5-19); Potassium 5.9 mmol/L (3.5-5.1)
[2023-06-22 07:48] LABS: Glucose Point of Care 132 mg/dL (70-110)
[2023-06-22] MEDS: budesonide 0.5 mg/2 mL Neb INHALATION (07:51)
[2023-06-22] MEDS: FUROsemide 10 mg/mL SDV 2mL 20 MG IVP (08:56)
[2023-06-22] MEDS: nicotine 21 mg Patch 1 PATCH TRANSDERMA (08:56)
[2023-06-22] MEDS: sodium polystyrene sulfonate 15 gm/60 mL Btl PO (08:56)
[2023-06-22] MEDS: thiamine 100 mg Tablet PO (08:57)
[2023-06-22] MEDS: apixaban 5 mg Tablet PO (08:57)
[2023-06-22] MEDS: chlordiazePOXIDE 10 mg Capsule PO (08:57)
[2023-06-22] MEDS: folic acid 1 mg Tablet PO (08:57)
[2023-06-22] MEDS: predniSONE 20 mg Tablet 40 MG PO (08:57)
[2023-06-22] MEDS: levothyroxine 25 mcg Tablet PO (08:58)
[2023-06-22] MEDS: multivitamin therapeutic Tablet 1 TAB PO (08:58)
[2023-06-22] MEDS: atorvastatin 40 mg Tablet PO (08:58)
[2023-06-22] MEDS: clopidogrel 75 mg Tablet PO (08:58)
--- NOTE | 2023-06-22 10:46 | P.DS_ITS ---
Discharge Providers Date of Admission: 06/14/23 14:06 Date of Discharge: June 22, 2023 Attending Provider at Admission: Inocente Eubanks MD Attending Provider at Discharge: Inocente Eubanks MD Primary Care Provider: Aminah Coffman MD Diagnoses at Discharge Discharge Diagnosis (1) Acute on chronic respiratory failure with hypoxia and hypercapnia: Status: Acute (2) Acute encephalopathy: Status: Acute (3) COPD exacerbation: Status: Acute (4) NSTEMI (non-ST elevated myocardial infarction): Status: Acute (5) RLL pneumonia: Status: Acute (6) Pleural effusion, right: Status: Acute (7) Hypertension: Status: Acute (8) CAD (coronary artery disease): Status: Acute (9) Hyperlipidemia: Status: Acute (10) Hypothyroidism: Status: Acute (11) Non-small cell lung cancer: Status: Acute (12) COPD (chronic obstructive pulmonary disease): Status: Acute Qualifiers: COPD type: emphysema Emphysema type: centrilobular Qualified Code(s): J43.2 - Centrilobular emphysema (13) COPD with acute exacerbation: Status: Acute (14) Edema: Status: Acute (15) Nicotine addiction: Status: Acute (16) Type 2 diabetes mellitus: Status: Acute (17) Atrial fibrillation: Status: Acute (18) Goals of care, counseling/discussion: Status: Acute (19) Alcoholism: Status: Acute (20) UTI (urinary tract infection): Status: Acute (21) Exudative pleural effusion: Status: Acute (22) Parapneumonic effusion: Status: Acute (23) Alcohol abuse with withdrawal: Status: Acute (24) Physical deconditioning: Status: Acute (25) Protein calorie malnutrition: Status: Acute (26) Muscle wasting: Status: Acute (27) Encounter for smoking cessation counseling: Status: Acute (28) Encounter for alcohol cessation counseling: Status: Acute Reason for Visit Reason for Visit: low O2, dizzy, weakness Hospital Course Hospital Course jose martin Meier is a 77 year old male copd, gold d Active smoker, centrilobular emphysema, on 2 L, history of noncompliance with oxygen therapy, history of non- small cell lung cancer, right upper lobe, status post radiation, with recent history of evidence of right infrahilar mass increased uptake, and new avid lesion in the interspace. Costovertebral junction of the left second and third costovertebral junction, with disructive changes validations third rib consistent with metastasis, CAD, history of abdominal aortic aneurysm repair, hypothyroidism hypertension hyperlipidemia who presents to [facility] due to shortness of breath, severe hypoxia, altered mental status. Currently patient is alert to person, not to place, not to time he can follow commands such as squeezing my fingers, will I really get out from him is that he is short of breath, currently he is on 65% BiPAP, his last pCO2 was 82, family members are at bedside. Patient's tells me that the patient at home is noncompliant with his oxygen therapy at times, he does not ambulate, he frequently remains off his oxygen, he continues to smoke, he does not complain much, today [facility], when patient was without oxygen, he became increasingly short of breath, more lethargic more somnolent, EMS was called, they checked his O2 sats it was apparently in the 60s, here patient was found to have acute hypoxic hypercarbic respiratory failure with pCO2 over 90, patient's family was at bedside, currently patient does awaken to sternal rub, does have suprasternal retractions does have nasal flaring, does appear to be in moderate respiratory distress, he is O2 sats at times will drop into the low 70s to titrate his oxygen up to 80%, and a detailed discussion with patient's family members at bedside including patient's , currently patient's status is critical, he is in severe acute hypoxic hypercarbic respiratory failure, secondary to COPD, there is also concerns for pneumonia, I have ordered a CT angiogram of the chest, will watch him in the ICU, he is a high risk of being intubated, over the next 24 hours, I had extensive discussion with goals of care with patient's , she tells me that she wants Joss to be a full code for now, I will watch his respiratory status very closely in the ICU, I did honestly speak to family that if patient did end up on the ventilator, there would be significant morbidity mortality during the intubation process given his underlying medical history, and there is a high likelihood that he might remain on lifelong life support for the rest of his life he might require tracheostomy, patient's family voiced understanding patient's voiced understanding, all consents are, agreed to proceed, his blood pressures are also on the softer end, lactic acid is within normal limits, EKG shows A-fib, currently he looks like he is in sinus rhythm, I spoke to ER physician, initially when pCO2 was over 90 we discussed repeating ABG to make sure the pCO2 improves before deciding if we need to intubate patient now pCO2 is down to 82 however he remains somnolent, does awaken with sternal rub, but falls back asleep, spoke to respiratory therapy, spoke to ER physician, spoke to nursing staff spoke to patient's Patient's abdomen is distended, she tells me that he does have a history of alcoholism, last alcohol drink was yesterday He had a pint of alcohol, he drinks regularly, he has been told that he has possible alcoholic liver cirrhosis,Patient also reports that patient was noncompliant with CPAP therapy last night Patient was admitted to [facility] for acute hypoxic hypercarbic respiratory failure multifactorial for secondary to COPD, active smoker, noncompliance with oxygen therapy, right lower lobe pneumonia with parapneumonic effusion with systolic CHF exacerbation fluid overload. Patient required prolonged hospitalization and ICU admission requiring IV diuresis, diuresed over 10 L, broad-spectrum antibiotic therapy parapneumonic effusion was tapped, 700 mL, lights criteria exudative pleural effusion, sensitive to ampicillin, discharged on ampicillin 2 g IV every 6 hours for 7 more days, followed by ampicillin for 14 days. Patient's hospitalization was complicated with alcohol withdrawal requiring CIWA protocol discharged on Librium taper. It was complicated with atrial fibrillation rate controlled, discharged on Coreg and Eliquis. Patient had a prolonged hospitalization due to persistent hypoxic respiratory failure, eventually on discharge he had stabilized to 5 6 L, discharged on his home trilogy. On discharge I have a had a lengthy discussion with him about smoking cessation counseling, morbidity mortality associated with persistent smoking, worsening of his COPD, recurrent hospitalizations COPD exacerbations, the possibility of intubation, mechanical ventilation, deconditioning he voiced understanding, all questions answered. I also had lengthy discussion with him about alcohol cessation counseling, morbidity and mortality discussed, risk of alcohol withdrawal, complications associated with alcoholism. He voiced understanding, all questions answered Physical Exam Const: COMMON NORMALS: no acute distress and patient oriented x3 Resp: COMMON NORMALS: normal respiratory effort, No retractions, No use of accessory muscles and clear to auscultation bilaterally AUSCULTATION: clear to auscultation bilaterally Cardio: COMMON NORMALS: regular rate, regular rhythm, S1 normal heart sound present and S2 normal heart sound present RATE: regular rate RHYTHM: regular rhythm HEART SOUNDS: S1 normal heart sound present and S2 normal heart sound present GI: COMMON NORMALS: Normal to inspection, nondistended, normoactive bowel sounds present and non-tender Extremity: COMMON NORMALS: no pedal edema Neuro: COMMON NORMALS: patient oriented x3 Psych: COMMON NORMALS: mental status grossly normal Urinary Catheter Management: Estevez: Cath Placed During This Visit: yes, but has since been removed by the nurse Reason for Continuing Indwelling Catheter: Decision to DC Catheter Urinary Catheter Date of Insertion: 06/14/23 Urinary Catheter Time of Insertion: 18:10 Date Urinary Catheter Removed: 06/20/23 Time Urinary Catheter Discontinued: 17:56 Discharge Data Studies Completed and Pending Completed Studies During Hospitalization Category Date Time Status CT angio chest PE protcl [id number] Stat Cat Scan 06/14/23 14:[address] head wo con* [id number] Urgent Cat Scan 06/17/23 16:53 Completed Modified barium swallow [FL barium swallow modifd [id number] Exams 06/18/23 08:42 Completed ] Routine XR chest 1V [id number] Stat Exams 06/14/23 11:17 Completed XR chest 1V portable [id number] Routine Exams 06/15/23 07:00 Completed XR chest 1V portable [id number] Routine Exams 06/15/23 11:13 Completed XR chest 1V portable [id number] Routine Exams 06/16/23 07:00 Completed XR chest 1V portable [id number] Routine Exams 06/17/23 07:00 Completed XR chest 1V portable [id number] Routine Exams 06/19/23 07:00 Completed Cytology [PTH] Routine Pth 06/15/23 08:44 [place] [id number] Routine Ultrasound 06/14/23 15:18 Completed CV. echo complete* [id number] Routine Ultrasound 06/15/23 06:00 Completed US liver [id number] Routine Ultrasound 06/14/23 16:02 Completed US thoracentesis [id number] Routine Ultrasound 06/15/23 08:44 Completed Pending at discharge Category Date Time Status BMP [Basic Metabolic Panel] Stat Lab 06/22/23 12:00 Ordered Mycobacteria, Culture w/Fluor Routine Lab 06/15/23 10:15 Results Radiology Impressions Chest CTA 06/14/23 14:03 IMPRESSION: 1. Occlusion of the right middle/lower central bronchi with lobar atelectasis. 2. Moderate-large right-sided pleural effusion. 3. No evidence of PE or acute aortic abnormality. Venous Duplex 06/14/23 15:18 IMPRESSION: 1. No sonographic evidence of deep venous thrombosis in either lower extremity. Liver Ultrasound 06/14/23 16:02 IMPRESSION: 1. Nonspecific gallbladder wall thickening without evidence of cholelithiasis, possibly secondary to volume overload or hypoalbuminemia. If there is ongoing clinical concern, consider correlation with nuclear medicine hepatobiliary scan. 2. Right-sided pleural effusion. 3. Echogenic hepatic parenchyma and mild nodularity of the liver contour raising the question of early hepatic cirrhosis. Consider correlation with CT for further detail. Head CT 06/17/23 16:53 IMPRESSION: No acute intracranial abnormality. Laboratory Results WBC 12.56 10^3/uL (3.29-11.43) H 06/21/23 04:42 RBC 5.24 10^6/uL (3.85-5.65) 06/21/23 04:42 Hgb 15.30 g/dL (11.27-16.99) 06/21/23 04:42 Hct 50.3 % (37-53) 06/21/23 04:42 MCV 96.0 fl (82-101) 06/21/23 04:42 MCH 29.2 pg (27-33) 06/21/23 04:42 MCHC 30.4 g/dL (30-55) 06/21/23 04:42 RDW 13.8 % (12.1-15.1) 06/21/23 04:42 Plt Count 221 10^3/cmm (157-399) 06/21/23 04:42 MPV 9.7 fL (7.4-10.4) 06/21/23 04:42 Neut % (Auto) 78.6 % 06/21/23 04:42 Lymph % (Auto) 11.0 % 06/21/23 04:42 [place] % (Auto) 8.4 % 06/21/23 04:42 Eos % (Auto) 1.5 % 06/21/23 04:42 Baso % (Auto) 0.1 % 06/21/23 04:42 Neut # (Auto) 9.88 10^3/uL (1.8-7.7) H 06/21/23 04:42 Lymph # (Auto) 1.4 10^3/uL (0.8-4.8) 06/21/23 04:42 [place] # (Auto) 1.1 10^3/uL (0.2-0.9) H 06/21/23 04:42 Eos # (Auto) 0.2 10^3/uL (0.0-0.8) 06/21/23 04:42 Baso # (Auto) 0.0 10^3/uL (0.0-0.1) 06/21/23 04:42 Nucleated RBC % (auto) 0 % 06/21/23 04:42 Total Counted Not Reportable 06/15/23 10:15 Nucleated RBCs # 0.0 /100WBC 06/21/23 04:42 Differential Comment Cancelled 06/15/23 10:15 PT 14.30 SECONDS (12.1-14.9) 06/14/23 18:51 INR 1.07 (0.8-1.2) 06/14/23 18:51 Specimen Type Arterial 06/16/23 04:00 Sample Site Radial, right 06/16/23 04:00 ABG pH 7.36 (7.35-7.45) 06/16/23 04:00 ABG pCO2 73.9 mmHg (35-45) H* 06/16/23 04:00 ABG pO2 68.5 mmHg (80.0-100.0) L 06/16/23 04:00 ABG PO2/FiO2 Ratio 0 06/14/23 13:49 ABG HCO3 42.0 mmol/L (22-26) H 06/16/23 04:00 ABG O2 Saturation 95.8 06/14/23 13:49 ABG Base Excess 13.0 mmol/L (-2.0-2.0) H 06/16/23 04:00 Luis Alfredo Test Pos 06/16/23 04:00 A-a O2 Gradient 35.5 mmHg (5-10) H 06/14/23 13:49 Hematocrit 42.5 % (42-52) 06/16/23 04:00 Hgb O2 Saturation 92.5 % (95-100) L 06/14/23 13:49 Carboxyhemoglobin 3.2 %THgb (0.4-20.1) 06/14/23 13:49 Methemoglobin 0.2 % (0.4-1.5) L 06/14/23 13:49 Total Hemoglobin 16.7 g/dL (14-18) 06/14/23 13:49 Sodium 145.0 mmol/L (131-143) H 06/14/23 13:49 Potassium 4.0 mmol/L (3.5-5.0) 06/14/23 13:49 Glucose 138.0 mg/dL (70-115) H 06/14/23 13:49 Ionized Calcium 1.2 mmol/L (1.1-1.4) 06/14/23 13:49 O2 Delivery Device Nc 06/16/23 04:00 O2 Liters/Min 15.0 % 06/16/23 04:00 FiO2 65.0 % 06/14/23 13:49 Handle And Vent Machine Operator ID Christopher 06/16/23 04:00 Sodium 136 mmol/L (136-145) 06/22/23 04:49 Potassium 5.9 mmol/L (3.5-5.1) H 06/22/23 04:49 Chloride 97 mmol/L (98-107) L 06/22/23 04:49 Carbon Dioxide 32 mmol/L (22-29) H 06/22/23 04:49 Anion Gap 12.9 (5-19) 06/22/23 04:49 BUN 22 mg/dL (8-23) 06/22/23 04:49 Creatinine 0.6 mg/dL (0.7-1.2) L 06/22/23 04:49 GFR Calculation Not Reportable 06/22/23 04:49 Glucose 161 mg/dL (65-115) H 06/22/23 04:49 POC Glucose 132 mg/dL (70-110) H 06/22/23 07:41 Estimat Average Glucose 157 06/14/23 11:28 Hemoglobin A1c 7.1 % (4.0-6.0) H 06/14/23 11:28 Calculated Osmolality 289 mOsm/kg (285-295) 06/22/23 04:49 Lactic Acid 1.3 mmol/L (0.5-2.2) 06/14/23 11:28 Calcium 9.1 mg/dL (8.5-10.5) 06/22/23 04:49 Phosphorus 2.4 mg/dL (2.5-4.5) L 06/16/23 04:15 Magnesium 2.4 mg/dL (1.7-2.3) H 06/16/23 04:15 Total Bilirubin 0.2 mg/dL (0.15-1.2) 06/16/23 04:15 AST 12 U/L (0-40) 06/16/23 04:15 ALT 16 U/L (0-41) 06/16/23 04:15 Alkaline Phosphatase 73 U/L (40-130) 06/16/23 04:15 Lactate Dehydrogenase 110 U/L (135-225) L 06/15/23 05:52 Troponin T Baseline 25 ng/L (0-15) H 06/14/23 11:28 Troponin T 120 Minute 22.80 ng/L (0-15) H 06/14/23 13:24 Delta Troponin T -2.20 ABS# (0-10) L 06/14/23 13:24 Troponin T Hi Sens 6Hr 21.35 ng/L (0-15) H 06/14/23 18:51 Troponin T Hi Sens 6Hr Delta -3.65 ng/L (0-12) L 06/14/23 18:51 C-Reactive Protein 6.4 mg/L (0.0-4.9) H 06/18/23 04:52 NT-Pro-B Natriuret Pep 297 pg/mL (0-450) 06/15/23 05:22 Total Protein 6.9 g/dL (6.6-8.7) 06/16/23 04:15 Albumin 3.4 g/dL (3.5-5.2) L 06/16/23 04:15 Globulin 3.5 g/dL (1.3-4.6) 06/16/23 04:15 Triglycerides 112 mg/dL (0-150) 06/14/23 13:24 Cholesterol 102 mg/dL (0-200) 06/14/23 13:24 LDL Cholesterol, Calc 40 mg/dL (50-129) L 06/14/23 13:24 HDL Cholesterol 40 mg/dL (60-100) L 06/14/23 13:24 LDL/HDL Ratio 1.00 RATIO (0.00-3.22) 06/14/23 13:24 Cholesterol/HDL Ratio 2.55 mg/dL (1.0-5.00) 06/14/23 13:24 Procalcitonin 0.03 ng/mL (0-0.5) 06/18/23 04:52 TSH 2.17 uIU/mL (0.27-4.20) 06/14/23 13:24 Urine Color Yellow (Yellow) 06/14/23 18:10 Urine Appearance Clear (CLEAR) 06/14/23 18:10 Urine pH 5 (5-7) 06/14/23 18:10 Ur Specific [place] 1.015 (1.005-1.030) 06/14/23 18:10 Urine Protein 1+ (Negative) H 06/14/23 18:10 Urine Glucose (UA) Norm (Normal) 06/14/23 18:10 Urine Ketones 1+ (Negative) H 06/14/23 18:10 Urine Blood Neg (Negative) 06/14/23 18:10 Urine Nitrate Positive (Negative) H 06/14/23 18:10 Urine Bilirubin 1+ (Negative) H 06/14/23 18:10 Urine Urobilinogen 1 mg/dL (Negative) H 06/14/23 18:10 Ur Leukocyte Esterase Trace (Negative) H 06/14/23 18:10 Urine RBC 0-4 /hpf (0-2) H 06/14/23 18:10 Urine WBC 0-4 /hpf (0-5) H 06/14/23 18:10 Ur Squamous Epith Cells 0-4 /hpf (0-5) H 06/14/23 18:10 Amorphous Sediment Not Reportable 06/14/23 18:10 Urine Bacteria 1+ /hpf (NONE) H 06/14/23 18:10 Hyaline Casts 5-10 /lpf H 06/14/23 18:10 Coarse Granular Casts 0-4 /lpf H 06/14/23 18:10 Urine Mucus 2+ /hpf 06/14/23 18:10 Fluid Color Cancelled 06/15/23 10:15 Fluid Appearance Cancelled 06/15/23 10:15 Fluid WBC Cancelled 06/15/23 10:15 Fluid RBC Cancelled 06/15/23 10:15 Fluid Hematocrit Not Reportable 06/15/23 10:15 Fluid Tot Cell Count Cancelled 06/15/23 10:15 Fld Polynuclear WBCs # Cancelled 06/15/23 10:15 Fld Polynuclear WBCs % Cancelled 06/15/23 10:15 Fl Mononucl WBCs #(Auto) Cancelled 06/15/23 10:15 Fl Mononuclear % Auto Cancelled 06/15/23 10:15 Fld Crystal Laterality Cancelled 06/15/23 10:15 Fluid Albumin 2.2 g/dL 06/15/23 10:15 Fluid Creatinine 0.62 (0.7-1.2) L 06/15/23 10:15 Pleural Color Other (Pale Yellow) H 06/15/23 10:15 Pleural Appearance Cloudy (CLEAR) 06/15/23 10:15 Pleural pH 8.00 (6.5-7.5) H 06/15/23 10:15 Pleural WBC 1329.000 /uL (0-1000) H 06/15/23 10:15 Pleural RBC 27.000 10^3/uL 06/15/23 10:15 Pleural Other Cells Not Reportable 06/15/23 10:15 Pleural Polynuclear % 13 % 06/15/23 10:15 Pleural Mononuclear % 87 % 06/15/23 10:15 Pleural Total Protein 3.9 g/dL 06/15/23 10:15 Pleural LDH 109 U/L 06/15/23 10:15 Pleural Glucose 157.0 mg/dL 06/15/23 10:15 Pleural Amylase 132 U/L 06/15/23 10:15 Pleural Triglycerides 16 mg/dL 06/15/23 10:15 Vancomycin Trough 15.6 ug/mL (10-15) H 06/18/23 04:52 Adenovirus (PCR) Not detected (NOT DETECT) 06/18/23 20:15 C. pneumoniae DNA (PCR) Not detected (NOT DETECT) 06/18/23 20:15 Coronavirus 229E (PCR) Not detected (NOT DETECT) 06/18/23 20:15 Human Metapneumovir PCR Not detected (NOT DETECT) 06/18/23 20:15 Influenza A (H1) PCR Not detected (NOT DETECT) 06/18/23 20:15 Influ A (H1/09) PCR Not detected (NOT DETECT) 06/18/23 20:15 Influenza A (H3) PCR Not detected (NOT DETECT) 06/18/23 20:15 Influenza Type A Ag negative (Negative) 06/14/23 13:47 Influenza Type A (PCR) Not detected (NOT DETECT) 06/18/23 20:15 Influenza Type B Ag negative (Negative) 06/14/23 13:47 Influenza Type B (PCR) Not detected (NOT DETECT) 06/18/23 20:15 M. pneumoniae (PCR) Not detected (NOT DETECT) 06/18/23 20:15 Parainfluenza 1 (PCR) Not detected (NOT DETECT) 06/18/23 20:15 Parainfluenza 2 (PCR) Not detected (NOT DETECT) 06/18/23 20:15 Parainfluenza 3 (PCR) Not detected (NOT DETECT) 06/18/23 20:15 Parainfluenza 4 (PCR) Not detected (NOT DETECT) 06/18/23 20:15 RSV Type A (PCR) Not detected (NOT DETECT) 06/18/23 20:15 RSV Type B (PCR) Not detected (NOT DETECT) 06/18/23 20:15 Entero/Rhino (PCR) Not detected (NOT DETECT) 06/18/23 20:15 SARS-CoV-2 (PCR) Not detected (NOT DETECT) 06/18/23 20:15 Path Cons w/Slide Yes 06/15/23 10:15 Vitals Last Vital Signs Temp 97.7 F 06/22/23 04:06 Pulse 100 06/22/23 10:00 Resp 17 06/22/23 10:00 BP 122/57 06/22/23 10:00 Pulse Ox 90 06/22/23 09:00 O2 Del Method BiPAP 06/22/23 07:35 O2 Flow Rate 9 06/22/23 07:35 FiO2 65 06/18/23 00:31 Discharge Plan Discharge Patient Disposition: Home Health Service Condition: Stable Prescriptions: New nicotine 21 mg/24 hr Patch 24 Hour 1 patch transdermal DAILY 28 Days Qty: 28 0RF chlordiazepoxide HCl 10 mg Capsule See Rx Instructions .ROUTE .COMPLEX Qty: 9 0RF Rx Instructions: 1 tab bid for 3 days, 1 tab daily for 3 days, then stop Vitamin B-1 (mononitrate) 100 mg Tablet 100 mg PO DAILY 30 Days Qty: 30 0RF Thera 400 mcg Tablet 1 tab PO DAILY 30 Days Qty: 30 0RF Eliquis 5 mg Tablet 5 mg PO BID@0900,2100 30 Days Qty: 60 0RF ampicillin 500 mg capsule 500 mg PO BID 14 Days Qty: 28 0RF Rx Instructions: start after IV ABX have finished ampicillin sodium 2 gram recon soln 2 g IV Q6H 7 Days Continued albuterol sulfate 2.5 mg /3 mL (0.083 %) solution for nebulization 2.5 mg inhalation QID PRN (Reason: shortness of breath or wheezing) Qty: 180 6RF Breztri Aerosphere 160-9-4.8 mcg/actuation HFA aerosol inhaler 2 inh INHALATION BID Qty: 10.7 5RF potassium chloride 10 mEq tablet extended release 10 meq PO DAILY Qty: 30 0RF (DME) Nebulizer with supplies See Rx Instructions .Route .MEDSUPPLY Qty: 1 0RF Rx Instructions: As directed clopidogrel 75 mg Tablet 75 mg PO DAILY@0800 levothyroxine 25 mcg Tablet 25 mcg PO DAILY@0700 nitroglycerin [Nitrostat] 0.4 mg Tablet, Sublingual 0.4 mg SUBLINGUAL Q5M PRN (Reason: Chest Pain) furosemide 20 mg Tablet 20 mg PO DAILY@0800 PRN (Reason: Edema) rosuvastatin 10 mg Tablet 10 mg PO BEDTIME aspirin 81 mg Tablet,Delayed Release (Dr/Ec) 81 mg PO DAILY@0800 oxycodone 5 mg tablet 5 mg PO Q8H PRN (Reason: pain) Qty: 14 0RF CoQ-10 100 mg Capsule 100 mg PO DAILY Vitamin D3 50 mcg (2,000 unit) Capsule 50 mcg PO DAILY Changed carvedilol 6.25 mg Tablet 3.125 mg PO BID@0800,2100 30 Days Qty: 30 0RF Discharge Orders: Discharge Order (Routine); Ordered 06/22/23 Ordered By: Inocente Eubanks Other Ambulatory Orders: DME: [facility] (Order) Location: None Selected Ordered By: Inocente Eubanks Referrals: [facility] [Other] Datar,Alan Eli MD [Physician] - 1-3 days Aminah Coffman MD [Primary Care Provider] - 1-3 days Billy Pan MD [Hospitalist] - 2 weeks Discharge Diet: Cardiac Discharge Activity: Resume usual activity Patient Instructions: Opioid Safety Activity Restrictions/Additional Instructions: - Please use oxygen as prescribed ? Do not smoke around oxygen, ? Please quit smoking, high risk of morbidity and mortality, risk of worsening COPD, risk of readmission ? Please stop drinking alcohol ? Ampicillin 2 g every 6 hours IV for 7 more days, last day 06/28/2023 thereafter start ampicillin p.o. ? Follow-up with primary care provider ? Follow-up with Dr. Hendrix, ? Follow-up with oncology ? I am discharging you on a blood thinner Eliquis for A-fib, please monitor for bloody or black stools if so over the emergency room Discharge Attestations Time Spent in Discharge Care*: greater than 30 min Time Spent in Smoking Cessation: more than 10 minutes Quality Metrics Clinical Quality Measures [ No reported AMI, CVA or VTE this stay] Coding Level of Care Code 95391 Total time (in minutes) for Discharge: 55 Diagnoses Acute on chronic respiratory failure with hypoxia and hypercapnia J96.21; J96.22 Acute encephalopathy G93.40 COPD exacerbation J44.1 NSTEMI (non-ST elevated myocardial infarction) I21.4 RLL pneumonia J18.9 Pleural effusion, right J90 Hypertension I10 CAD (coronary artery disease) I25.10 Hyperlipidemia E78.5 Hypothyroidism E03.9 Non-small cell lung cancer C34.90 Centrilobular emphysema J43.2 COPD type: emphysema Emphysema type: centrilobular COPD with acute exacerbation J44.1 Edema R60.9 Nicotine addiction F17.200 Type 2 diabetes mellitus E11.9 Atrial fibrillation I48.91 Goals of care, counseling/discussion Z71.89 Alcoholism F10.20 UTI (urinary tract infection) N39.0 Exudative pleural effusion J90 Parapneumonic effusion J18.9; J91.8 Alcohol abuse with withdrawal F10.139 Physical deconditioning R53.81 Protein calorie malnutrition E46 Muscle wasting M62.50 Encounter for smoking cessation counseling Z71.6 Encounter for alcohol cessation counseling Z71.41
[2023-06-22 11:48] LABS: Anion Gap 11.8 (5-19); Blood Urea Nitrogen 27 mg/dL (8-23); Calcium 9.4 mg/dL (8.5-10.5); Carbon Dioxide 40 mmol/L (22-29); Chloride 91 mmol/L (98-107); Creatinine Clr Calc Pharmacy 82.4062; Glucose 186 mg/dL (65-115); Osmolality Calculated 296 mOsm/kg (285-295); Potassium 4.8 mmol/L (3.5-5.1); Sodium 138 mmol/L (136-145)
[2023-06-22 12:23] LABS: Glucose Point of Care 253 mg/dL (70-110)
[2023-06-22] MEDS: insulin lispro 100 unit/1 mL SUBCUT (12:35)
--- NOTE | 2023-06-22 15:06 | PC.SOCIAL ---
IMM Updated Updated pt & on IMM. No questions voiced. Provided pt a copy. Initialed, dated, & timed copy & placed in chart.
[2023-06-22] MEDS: pantoprazole 40 mg SDV IVP (15:30)
[2023-06-22] MEDS: piperacillin-tazobactam 4.5 GM in sodium chloride 0.9% (plus) 50 ML IV (15:31)
--- NOTE | 2023-06-22 17:56 | PC.NURSE ---
Discharge Note Patient discharged to [home] via [w/c to POV] accompanied by [his ]. Discharge instructions reviewed with patient and/or compliance representative dealer. Mobile pharmacy medications and/or prescriptions provided. Belongings/home medications returned. Pt's understands to come back to the hospital pharmacy for 2 medications which they were unable to fill at this time. Also, pt's Right chest implanted port was left accessed with dressing in place for his home IV antibiotics which he is to get for another 7 days. It is my understanding that Home Health are to manage the IV infusion and educate the pt's .
== END 2023-06-22 17:26 | disposition home health service (06) | DRG 193 ==
LOC: ER 11:25 → ICU 14:23
PROVIDERS: Admitting Provider Family Medicine; Emergency Provider Emergency Medicine; PCP Family Medicine; Visit Provider Family Medicine
DX: J18.9 Pneumonia, unspecified organism (principal); G93.41 Metabolic encephalopathy; I50.21 Acute systolic (congestive) heart failure; J96.21 Acute and chronic respiratory failure with hypoxia; J96.22 Acute and chronic respiratory failure with hypercapnia; I21.4 Non-ST elevation (NSTEMI) myocardial infarction; J44.1 Chronic obstructive pulmonary disease with (acute) exacerbation; C34.11 Malignant neoplasm of upper lobe, right bronchus or lung; C79.51 Secondary malignant neoplasm of bone; F10.139 Alcohol abuse with withdrawal, unspecified; E46 Unspecified protein-calorie malnutrition; J91.8 Pleural effusion in other conditions classified elsewhere; N39.0 Urinary tract infection, site not specified; F17.210 Nicotine dependence, cigarettes, uncomplicated; J43.2 Centrilobular emphysema; I25.10 Atherosclerotic heart disease of native coronary artery without angina pectoris; E03.9 Hypothyroidism, unspecified; I11.0 Hypertensive heart disease with heart failure; E78.5 Hyperlipidemia, unspecified; F41.9 Anxiety disorder, unspecified; I71.40 Abdominal aortic aneurysm, without rupture, unspecified; B95.2 Enterococcus as the cause of diseases classified elsewhere; I48.91 Unspecified atrial fibrillation; E11.9 Type 2 diabetes mellitus without complications; Z79.82 Long term (current) use of aspirin; Z79.02 Long term (current) use of antithrombotics/antiplatelets; Z11.52 Encounter for screening for COVID-19; Z99.81 Dependence on supplemental oxygen; Z91.199 Patient's noncompliance with other medical treatment and regimen due to unspecified reason; Z92.3 Personal history of irradiation; Z95.5 Presence of coronary angioplasty implant and graft; Z68.28 Body mass index [BMI] 28.0-28.9, adult
CPT/HCPCS: 32555; 36415; 36416; 36591; 36600; 51702; 70450; 71045; 71275; 74230; 76705; 80048; 80051; 80053; 80061; 80202; 80503; 81001; 82042; 82150; 82330; 82570; 82803; 82805; 82945; 82962; 83036; 83605; 83615; 83735; 83880; 83986; 84100; 84145; 84157; 84443; 84478; 84484; 85014; 85025; 85610; 86140; 87015; 87040; 87070; 87075; 87077; 87116; 87186; 87205; 87206; 87486; 87581; 87633; 87635; 87801; 87804; 88305; 89050; 92523; 92526; 92610; 92611; 93005; 93306; 93970; 94640; 94660; 94664; 94760; 96372; 96374; 96376; 97110; 97116; 97161; 97165; 97530; 99291; C9113; J0290; J0456; J0696; J1650; J1815; J1940; J2543; J2919; J2920; J3370; J3411; J7050; J7512; J7613; J7626; Q9967

== ENCOUNTER → 2023-06-24 10:49 | Outpatient (BNVA) | payer OTHER, SELFPAY | PROVIDERS: PCP Family Medicine; Visit Provider Surgery | DX: C34.91 Malignant neoplasm of unspecified part of right bronchus or lung (principal); F17.210 Nicotine dependence, cigarettes, uncomplicated | CPT/HCPCS: 99213 ==

== ENCOUNTER → 2023-06-26 09:17 | Outpatient (BNVA) | payer OTHER, SELFPAY | PROVIDERS: PCP Family Medicine; Visit Provider Internal Medicine Pulmonary Disease | DX: J90 Pleural effusion, not elsewhere classified (principal); Z09 Encounter for follow-up examination after completed treatment for conditions other than malignant neoplasm; J43.2 Centrilobular emphysema; C34.90 Malignant neoplasm of unspecified part of unspecified bronchus or lung; F17.200 Nicotine dependence, unspecified, uncomplicated; G47.31 Primary central sleep apnea; R60.9 Edema, unspecified | CPT/HCPCS: 71046; 99214 ==

== ENCOUNTER → 2023-07-07 11:04 | Outpatient (BNVA) | payer MEDICARE, OTHER, SELFPAY | PROVIDERS: PCP Family Medicine; Visit Provider Family Medicine | DX: I50.9 Heart failure, unspecified (principal); I10 Essential (primary) hypertension | CPT/HCPCS: 80048; 83880; 85025 ==

== ENCOUNTER 2023-07-23 11:50 | Oncology outpatient (recurring) (ONCR) | payer OTHER, SELFPAY ==
[2023-07-23 12:21] LABS: Basophils # 0.1 10^3/uL (0.0-0.1); Basophils % 0.6 %; Eosinophils # 0.2 10^3/uL (0.0-0.8); Eosinophils % 1.5 %; Hematocrit 41.4 % (37-53); Lymphocytes # 1.9 10^3/uL (0.8-4.8); Lymphocytes % 16.4 %; Mean Corpuscular HGB Conc 31.6 g/dL (30-55); Mean Corpuscular Volume 91.8 fl (82-101); Mean Platelet Volume 9.1 fL (7.4-10.4); Monocytes # 1.5 10^3/uL (0.2-0.9); Monocytes % 12.4 %; Neutrophils # 8.04 10^3/uL (1.8-7.7); Neutrophils % 68.5 %; Nucleated Red Blood Cells % 0 %; Platelet Count 324 10^3/cmm (157-399); Red Blood Count 4.51 10^6/uL (3.85-5.65); Red Cell Distribution Width 13.9 % (12.1-15.1); White Blood Count 11.72 10^3/uL (3.29-11.43)
[2023-07-23 12:47] LABS: Alanine Aminotransferase 68 U/L (0-41); Albumin Level 3.4 g/dL (3.5-5.2); Alkaline Phosphatase 106 U/L (40-130); Anion Gap 13.4 (5-19); Aspartate Amino Transferase 45 U/L (0-40); Blood Urea Nitrogen 22 mg/dL (8-23); Calcium 8.6 mg/dL (8.5-10.5); Carbon Dioxide 31 mmol/L (22-29); Chloride 96 mmol/L (98-107); Glucose 161 mg/dL (65-115); Osmolality Calculated 289 mOsm/kg (285-295); Potassium 4.4 mmol/L (3.5-5.1); Sodium 136 mmol/L (136-145); Thyroid Stimulating Hormone 4.12 uIU/mL (0.27-4.20); Total Bilirubin 0.4 mg/dL (0.15-1.2); Total Protein 7.4 g/dL (6.6-8.7)
== END 2023-07-31 23:59 | disposition home or self-care (01) ==
PROVIDERS: Internal Medicine Hematology & Oncology; PCP Family Medicine; Visit Provider Internal Medicine Hematology & Oncology
DX: C34.81 Malignant neoplasm of overlapping sites of right bronchus and lung (principal); Z79.899 Other long term (current) drug therapy; F17.210 Nicotine dependence, cigarettes, uncomplicated; Z92.3 Personal history of irradiation; J43.2 Centrilobular emphysema
CPT/HCPCS: 36591; 80053; 84443; 85025; 99214

== ENCOUNTER 2023-08-04 09:41 | Outpatient (CLI) | payer MEDICARE, OTHER, SELFPAY ==
--- NOTE | 2023-08-04 10:00 | PETR_ITS ---
PROCEDURE INFORMATION: Exam: PET/CT Skull Base to Mid-thigh Exam date and time: 08/04/2023 10:17 AM Age: 77 years old Clinical indication: Condition or disease; Primary cancer: Lung cancer; Prior surgery; Surgery date: 6+ months; Surgery type: Eye, stent, port; Additional info: [facility]age LABS AND CLINICAL REPORTS: Glucose: 144 mg/dl Treatment strategy for malignancy (PET staging): Restaging (PS) TECHNIQUE: Imaging protocol: Following at least four-hour fasting and following the injection of radiopharmaceutical, low dose CT images were obtained. Then, PET images were obtained. Attenuation corrected images were constructed using the CT scan. Fused images of PET and CT were reviewed. The standardized uptake values (SUV) reported below are maximum values within a region of interest, expressed in gm/ml. Exam includes orbital meatal line to mid-thigh. Radiopharmaceutical: 14.7 mCi F-18 FDG (Fluorodeoxyglucose), IV. Time of imaging post radiopharmaceutical administration: 1 hour Injection site: Right antecubital COMPARISON: CT head 06/17/2023, abdominal ultrasound 06/14/2023, CTA chest 06/14/2023, [facility] [id number] 04/28/2023 2:05 PM FINDINGS: Tubes, catheters and devices: A right internal jugular central venous port catheter terminates in the right atrium. Brain: Visualized brain has normal physiologic uptake. Pharynx: No abnormal uptake. Larynx: No abnormal uptake. Lungs, pleura and trachea: There is a large right pleural effusion. A large region soft tissue density masslike consolidation in the posterior right lower lobe extending to the right perihilar region is noted with elevated uptake in a region measuring approximately 9.0 x 6.8 cm (previously 7.0 x 4.9 cm) in the axial plane on series 3, image 90, SUV max 11.5 (previously 7.0). Non radiotracer avid patchy consolidation in the right middle lobe is also noted. Obstruction of the right middle lobe and right lower lobe bronchi. Heart: Normal physiologic uptake. Mediastinal space: No abnormal uptake. Liver: No abnormal uptake. Gallbladder and bile ducts: No abnormal uptake. Pancreas: No abnormal uptake. Spleen: No abnormal uptake. Adrenal glands: No abnormal uptake. Kidneys and ureters: Normal physiologic uptake. Stomach and bowel: No abnormal uptake. Vasculature: No abnormal uptake. There are diffuse atherosclerotic changes. An infrarenal abdominal aortic stent graft is noted with limbs extending into the bilateral common iliac arteries. Lymph nodes: No abnormal uptake. A mildly prominent precarinal lymph node is not radiotracer avid measuring 1.7 x 1.0 cm on series 3, image 78. Skeleton: Elevated uptake is identified in a region of ovoid soft tissue density in the posteromedial aspect of the superior left hemithorax on series 3, image 54 measuring 4.6 x 2.8 cm (previously measuring 2.9 x 1.9 cm on the CTA chest 06/14/2023 and measuring 1.3 cm in diameter on the prior PET-CT), SUV max 10.1 (previously 7.6) with adjacent increased osseous destructive changes since the prior PET-CT involving the posteromedial left 3rd rib and portions of the T2 and T3 vertebral bodies on the left with extension into the region of the pedicle and transverse process of T2. Healed posterior right 6 through 10th and anterior and posterior left 6th rib fractures are noted without elevated uptake. Non radiotracer avid serpiginous sclerotic density in the superior left femoral head is consistent with avascular necrosis. Degenerative changes in the spine are present. Bilateral L5 pars defects are present. Soft tissues: No abnormal uptake in the visualized head, neck, chest, abdomen, pelvis, and extremities. METRICS: Mediastinal blood pool: SUV max 2.0 PET/PET [facility] SUBSEQ [id number] IMPRESSION: 1. Elevated uptake is identified within a region of masslike consolidation in the right lower lobe/right perihilar region (SUV max 11.5, previously 7.0) consistent with increased malignant involvement. 2. Large right pleural effusion with extensive consolidation versus atelectasis in the right middle lobe and right lower lobe associated with obstruction of the right middle lobe and right lower lobe bronchi. 3. Interval increase in size and interval increase in abnormal uptake within a region of a soft tissue density mass consistent with a metastasis in the posteromedial left hemithorax since the prior PET-CT with increased osseous destructive changes involving portions of the medial left 3rd rib and the T2 and T3 vertebral bodies and T2 pedicle and transverse process. 4. Additional nonurgent findings as detailed above.
== END 2023-08-04 09:42 | disposition home or self-care (01) ==
LOC: RAD 09:42
PROVIDERS: PCP Family Medicine; Visit Provider Internal Medicine Hematology & Oncology
DX: C34.31 Malignant neoplasm of lower lobe, right bronchus or lung (principal)
CPT/HCPCS: 78815; A9552

== ENCOUNTER 2023-08-19 13:08 | Inpatient (IN) | payer OTHER, MEDICARE, SELFPAY ==
[2023-08-19] VITALS (12 sets, daily range): BP systolic 110–137; BP diastolic 71–92; PULSE 84–109; RESP 16–24; TEMP 36.6–36.7; O2SAT 88–99
--- NOTE | 2023-08-19 13:17 | XRR_ITS ---
PROCEDURE INFORMATION: Exam: XR Chest Exam date and time: 08/19/2023 1:27 PM Age: 77 years old Clinical indication: Shortness of breath; Additional info: SOB TECHNIQUE: Imaging protocol: Radiologic exam of the chest. Views: 1 view. COMPARISON: CT chest con [id number] 08/07/2023 9:50 AM FINDINGS: Tubes, catheters and devices: Infusion port terminates near the atrial caval junction. Lungs: Mild opacity at the left lung base slightly increasing. Pleural spaces: Large right pleural effusion with abutting atelectasis or infiltrate. The degree of opacification has increased since the prior study, the lower 2/3 of the right hemithorax is now opacified. Heart/Mediastinum: Unremarkable. No cardiomegaly. Bones/joints: Unremarkable. XR/XR chest 1V portable [id number] IMPRESSION: Increasing opacity on the right.
--- NOTE | 2023-08-19 13:22 | ECG_ITS ---
[facility] Test Date: 2023-08-19 Pat Name: Joss Meier Department: Room: Gender: Male Turning Sander Tender: : 1945 Requested By: Alejandro Melo Order Number: [id number] Rory MD: Rodolfo Collier M.D. Measurements Intervals Lima Rate: 85 P: 0 AR: 0 QRS: 61 QRSD: 146 T: 26 QT: 365 QTc: 436 Interpretive Statements ATRIAL FIBRILLATION WITH ABERRANT CONDUCTION OR VENTRICULAR PREMATURE COMPLEXES RIGHT BUNDLE BRANCH BLOCK [120+ ms QRS DURATION, UPRIGHT V1, 40+ ms S IN I/aVL/V4/V5/V6] MODERATE T-WAVE ABNORMALITY, CONSIDER LATERAL ISCHEMIA [-0.1+ mV T-WAVE IN I/aVL/V5/V6] Compared to ECG 06/14/2023 17:52:58 Ventricular premature complex(es) now present Aberrant conduction of supraventricular beat(s) now present T-wave abnormality now present Possible ischemia now present Electronically Signed On 08-21-2023 13:33:25 CDT by Rodolfo Collier M.D. [id number]
[2023-08-19] MEDS: methylPREDNISolone sod succ 125 mg/2 mL INJ IVP (13:52)
--- NOTE | 2023-08-19 13:53 | ED_ITS ---
HPI - Altered Mental Status 2 General: Chief Complaint: Altered Mental Status Stated Complaint: sob, congested Time Seen by Provider: 08/19/23 13:41 Source: patient Mode of arrival: ambulatory Limitations: no limitations History of Present Illness: 77-year-old male history of COPD has had a pleural effusion and COPD patient had been admitted recently here he is on 6 L at home. And had a pleural effusion noted last time specimen drained on Thursday states she is concerned his CO2 was getting increased has been having increasing confusion. He has had increasing dyspnea as well he is 90% here on the 6 L. Slight cough denies any fever denies any chest pain patient is actually most of my questions appropriate here but does have some confusion Review of Systems 2 Const: Denies: fever(s), chills, body aches or change in appetite ENMT: Denies: throat pain or dental pain Card: Denies: chest pain Resp: Reports: dyspnea GI: Denies: abdominal pain, nausea, vomiting or diarrhea : Denies: dysuria Musc: Denies: neck pain or back pain Skin/Breast: Denies: rash Neuro: Reports: confusion; Denies: headache(s) PFSH ED 2 PFSH: Medical History Non-small cell lung cancer metastatic to bone Non-small cell lung cancer Abdominal aortic aneurysm (AAA) CPAP (continuous positive airway pressure) dependence Hypothyroidism Hypertension Hyperlipidemia CAD (coronary artery disease) COPD (chronic obstructive pulmonary disease) Surgical History Status post coronary artery stent placement Hx of knee surgery H/O eye surgery Family History Other CAD (coronary artery disease) Social History Smoking and tobacco/nicotine status: never used tobacco/nicotine Quit status (tobacco/nicotine): has quit using Year quit tobacco: 2023 Former quit date comment: 60 years total tobacco use Second hand smoke exposure: No Alcohol intake: current Substance/Drug Use: never Lives independently: Yes Household members: spouse Housing: House Marital status: service: Yes Current occupational status: retired Do you think of yourself as: Straight/Heterosexual Current gender identity: Male Physical Exam 2 Const: COMMON NORMALS: patient oriented x3 GENERAL APPEARANCE: ill appearing HENMT: COMMON NORMALS: normocephalic and atraumatic HEAD & SCALP: n ormocephalic and atraumatic Eye: COMMON NORMALS: Equal, round and reactive pupils present and EOMs intact bilaterally PUPIL: Yes Equal, round and reactive pupils present Neck/C-Spine: COMMON NORMALS: full ROM and supple Chest: COMMONS NORMALS: normal inspection of the chest Resp: COMMON NORMALS: No retractions EFFORT & INSPECTION: Yes respiratory distress OTHER: decreased breath sounds on right Cardio: COMMON NORMALS: regular rate, regular rhythm and No murmurs present (Cardio) RATE: regular rate RHYTHM: regular rhythm GI: COMMON NORMALS: Normal to inspection, nondistended, normoactive bowel sounds present, Soft to palpation, non-tender and no masses PALPATION: Yes Soft to palpation Extremity: COMMON NORMALS: normal to inspection and full ROM Neuro: COMMON NORMALS: patient oriented x3, moves all extremities and no focal motor deficits Psych: COMMON NORMALS: mental status grossly normal, Normal thought process present and cooperative THOUGHT PROCESS: Normal thought process present Skin: COMMON NORMALS: no rashes or lesions noted and no wounds GENERAL SKIN EXAM: no rashes or lesions noted Course 2 Vital Signs: Vital signs: Vital Signs Temperature 98.0 F 08/19/23 13:15 Pulse Rate 87 08/19/23 15:12 Respiratory Rate 22 H 08/19/23 14:42 Blood Pressure 137/75 08/19/23 15:00 Pulse Oximetry 88 L 08/19/23 15:12 Oxygen Delivery Me thod BiPAP 08/19/23 15:00 Oxygen Flow Rate 6 08/19/23 14:42 Fraction of Inspir ed Oxygen 40 08/19/23 15:14 MDM - Altered Mental Status Medical Decision Making Patient presents here with right-sided pleural effusion while COPD is aspiration and hypercapnia I did speak to patient he does not want to be a DNI agrees did speak to the hospitalist will admit to stepdown at this time he is on BiPAP tolerating BiPAP well. Medical Records I reviewed the patient's medical records. Lab Data I reviewed the patient's lab results. 08/19/23 13:40 08/19/23 13:40 Radiology Impressions Chest X-Ray 08/19/23 13:17 IMPRESSION: Increasing opacity on the right. Laboratory Results WBC 8.35 10^3/uL (3.29-11.43) 08/19/23 13:40 RBC 4.54 10^6/uL (3.85-5.65) 08/19/23 13:40 Hgb 12.50 g/dL (11.27-16.99) 08/19/23 13:40 Hct 42.6 % (37-53) 08/19/23 13:40 MCV 93.8 fl (82-101) 08/19/23 13:40 MCH 27.5 pg (27-33) 08/19/23 13:40 MCHC 29.3 g/dL (30-55) L 08/19/23 13:40 RDW 14.5 % (12.1-15.1) 08/19/23 13:40 Plt Count 333 10^3/cmm (157-399) 08/19/23 13:40 MPV 9.6 fL (7.4-10.4) 08/19/23 13:40 Neut % (Auto) 72.7 % 08/19/23 13:40 Lymph % (Auto) 16.2 % 08/19/23 13:40 Kidder % (Auto) 8.4 % 08/19/23 13:40 Eos % (Auto) 1.8 % 08/19/23 13:40 Baso % (Auto) 0.5 % 08/19/23 13:40 Neut # (Auto) 6.08 10^3/uL (1.8-7.7) 08/19/23 13:40 Lymph # (Auto) 1.4 10^3/uL (0.8-4.8) 08/19/23 13:40 Kidder # (Auto) 0.7 10^3/uL (0.2-0.9) 08/19/23 13:40 Eos # (Auto) 0.2 10^3/uL (0.0-0.8) 08/19/23 13:40 Baso # (Auto) 0.0 10^3/uL (0.0-0.1) 08/19/23 13:40 Nucleated RBC % (auto) 0 % 08/19/23 13:40 Nucleated RBCs # 0.0 /100WBC 08/19/23 13:40 Specimen Type Arterial 08/19/23 14:49 Sample Site Radial, right 08/19/23 14:49 ABG pH 7.26 (7.35-7.45) L 08/19/23 14:49 ABG pCO2 98.8 mmHg (35-45) H* 08/19/23 14:49 ABG pO2 107.0 mmHg (80.0-100.0) H 08/19/23 14:49 ABG HCO3 44.4 mmol/L (22-26) H 08/19/23 14:49 ABG Base Excess 12.5 mmol/L (-2.0-2.0) H 08/19/23 14:49 Luis Alfredo Test Pos 08/19/23 14:49 Hematocrit 44.1 % (42-52) 08/19/23 14:49 O2 Delivery Device Nc 08/19/23 14:49 Brand Ambassador Promotional Model ID glc 08/19/23 14:49 Blood Gas Notified Time 1504 08/19/23 14:49 Sodium 143 mmol/L (136-145) 08/19/23 13:40 Potassium 4.3 mmol/L (3.5-5.1) 08/19/23 13:40 Chloride 93 mmol/L (98-107) L 08/19/23 13:40 Carbon Dioxide 40 mmol/L (22-29) H 08/19/23 13:40 Anion Gap 14.3 (5-19) 08/19/23 13:40 BUN 17 mg/dL (8-23) 08/19/23 13:40 Creatinine 0.6 mg/dL (0.7-1.2) L 08/19/23 13:40 GFR Calculation Not Reportable 08/19/23 13:40 Glucose 263 mg/dL (65-115) H 08/19/23 13:40 Calculated Osmolality 307 mOsm/kg (285-295) H 08/19/23 13:40 Calcium 9.3 mg/dL (8.5-10.5) 08/19/23 13:40 Total Bilirubin 0.4 mg/dL (0.15-1.2) 08/19/23 13:40 AST 11 U/L (0-40) 08/19/23 13:40 ALT 17 U/L (0-41) 08/19/23 13:40 Alkaline Phosphatase 89 U/L (40-130) 08/19/23 13:40 NT-Pro-B Natriuret Pep 665 pg/mL (0-450) H 08/19/23 13:40 Total Protein 7.5 g/dL (6.6-8.7) 08/19/23 13:40 Albumin 3.4 g/dL (3.5-5.2) L 08/19/23 13:40 Globulin 4.1 g/dL (1.3-4.6) 08/19/23 13:40 All radiology interpretation(s) finalized by discharge Critical Care Time 2 Critical Care Time: Critical Care Time: Yes Total Critical Care Time: 45 Attestation: The high probability of a clinically significant, sudden or life threatening deterioration of the patient's resp system(s) required my full and direct attention, intervention and personal management. The critical care time is as shown. This time is in addition to time spent performing any reported procedures but includes the following: [x] Data and vital sign review and interpretation [x] Patient assessment, examination and intervention [x] Documentation [x] Medication orders and management Discharge Plan Discharge Patient Disposition: Admitted As Inpatient Clinical Impression: Pleural effusion, right, Acute and chronic respiratory failure with hypercapnia COPD (chronic obstructive pulmonary disease) Qualifiers: COPD type: emphysema Emphysema type: centrilobular Qualified Code(s): J43.2 - Centrilobular emphysema Condition: Stable Coding Level of Care Code ED [facility] Psych[facility] for Frank Ahmadi
[2023-08-19 14:06] LABS: Basophils % 0.5 %; Eosinophils # 0.2 10^3/uL (0.0-0.8); Eosinophils % 1.8 %; Hematocrit 42.6 % (37-53); Lymphocytes # 1.4 10^3/uL (0.8-4.8); Lymphocytes % 16.2 %; Mean Corpuscular HGB Conc 29.3 g/dL (30-55); Mean Corpuscular Hemoglobin 27.5 pg (27-33); Mean Corpuscular Volume 93.8 fl (82-101); Mean Platelet Volume 9.6 fL (7.4-10.4); Monocytes # 0.7 10^3/uL (0.2-0.9); Monocytes % 8.4 %; Neutrophils # 6.08 10^3/uL (1.8-7.7); Neutrophils % 72.7 %; Nucleated Red Blood Cells % 0 %; Platelet Count 333 10^3/cmm (157-399); Red Blood Count 4.54 10^6/uL (3.85-5.65); Red Cell Distribution Width 14.5 % (12.1-15.1); White Blood Count 8.35 10^3/uL (3.29-11.43)
[2023-08-19 14:37] LABS: Alanine Aminotransferase 17 U/L (0-41); Albumin Level 3.4 g/dL (3.5-5.2); Alkaline Phosphatase 89 U/L (40-130); Anion Gap 14.3 (5-19); Aspartate Amino Transferase 11 U/L (0-40); Blood Urea Nitrogen 17 mg/dL (8-23); Calcium 9.3 mg/dL (8.5-10.5); Carbon Dioxide 40 mmol/L (22-29); Chloride 93 mmol/L (98-107); Creatinine Clr Calc Pharmacy 82.5926; Globulin 4.1 g/dL (1.3-4.6); Glucose 263 mg/dL (65-115); NT Pro B Type Natriuretic Pept 665 pg/mL (0-450); Osmolality Calculated 307 mOsm/kg (285-295); Potassium 4.3 mmol/L (3.5-5.1); Sodium 143 mmol/L (136-145); Total Bilirubin 0.4 mg/dL (0.15-1.2); Total Protein 7.5 g/dL (6.6-8.7)
[2023-08-19] MEDS: ipratropium-albuterol 3 mL Neb INHALATION (14:40)
[2023-08-19 15:01] LABS: ABG PH Result 7.26 (7.35-7.45); Arterial Blood Gas Hematocrit 44.1 % (42-52); Base Excess ABG 12.5 mmol/L (-2.0-2.0); Blood Gas Allen Test Pos; Blood Gas Operator Identificat glc; Blood Gas Sample Site Radial, right; Blood Gas Sample Type Arterial; HCO3 ABG 44.4 mmol/L (22-26); Oxygen Device NC
[2023-08-19 15:02] LABS: ABG PCO2 98.8 mmHg (35-45); Blood Gas CCRB Time 1504
--- NOTE | 2023-08-19 15:58 | P.HP_ITS ---
Providers/Chief Complaint 2 Primary Care Provider: Steve Vasquez MD Chief Complaint: sob, congested History of Present Illness Joss Meier is a 77 year old male with history of lung cancer recent PET scan showed involvement of ribs and spine area with metastatic lesions, recurrent pleural effusion was discharged from the hospital a few weeks ago, patient has trilogy at home, he has been compliant with his medications and trilogy despite that he has gotten short of breath, in the ER he has been diagnosed with significant pleural effusion last dose of Plavix was yesterday Patient has not taken Plavix today, he has stopped taking Eliquis a month ago because they thought it was only supposed to be for a month and there were no refills he is he was put on Eliquis for A-fib. In the ER patient is hypoxic with hypercapnia currently on BiPAP, patient does not want CPR or intubation or defibrillation, he is DNR/DNI, in case of further worsening patient and family both agreeable for discharge prison with hospice Patient was supposed to get thoracentesis on Thursday his last dose of Plavix was on 08/17 Review of Systems 2 Const: Denies: fever(s) Eyes: Denies: change in vision ENMT: Denies: throat pain Card: Reports: swelling of feet/ankles; Denies: chest pain Resp: Reports: dyspnea GI: Reports: nausea; Denies: abdominal pain : Denies: flank pain Medications/Allergies Home Medications Medication Instructions Recorded Confirmed Last Taken Type clopidogrel 75 mg tablet 75 mg PO DAILY@0800 03/01/19 08/17/23 08/17/23 History levothyroxine 25 mcg tablet 25 mcg PO DAILY@0700 03/01/19 08/17/23 08/17/23 History nitroglycerin 0.4 mg sublingual 0.4 mg sublingual Q5M PRN Chest 03/01/19 08/17/23 Unknown History tablet (Nitrostat) Pain rosuvastatin 10 mg tablet 10 mg PO BEDTIME 03/01/19 08/17/23 08/17/23 History aspirin 81 mg tablet,delayed 81 mg PO DAILY@0800 06/10/20 08/17/23 08/17/23 History release potassium chloride 10 mEq 10 meq PO DAILY #30 tabs 05/07/22 08/17/23 08/14/23 Rx tablet,extended release albuterol sulfate 2.5 mg/3 mL 2.5 mg (3 mL) inhalation QID PRN 11/06/22 08/17/23 08/17/23 Rx (0.083 %) solution for nebulization shortness of breath or wheezing #180 mL Nebulizer with supplies #1 ea 02/24/23 08/17/23 08/17/23 Rx budesonide 160 mcg-glycopyr 9 2 inh inhalation BID #10.7 grams 05/07/23 08/17/23 08/17/23 Rx mcg-formot 4.8 mcg/actuation HFA inhaler (Breztri Aerosphere) cholecalciferol (vitamin D3) 50 50 mcg PO DAILY 06/15/23 08/17/23 08/17/23 History mcg (2,000 unit) capsule (Vitamin D3) carvedilol 6.25 mg tablet 3.125 mg (1/2 x 6.25 mg) PO 06/22/23 08/17/23 08/17/23 Rx BID@0800,2100 30 days #30 tabs nicotine 21 mg/24 hr daily 1 patch transdermal DAILY 07/23/23 08/17/23 08/17/23 History transdermal patch furosemide 20 mg tablet 20 mg PO BID 08/17/23 08/17/23 08/17/23 History Allergies Allergy/AdvReac Type Severity Reaction Status Date / Time No Known Allergies Allergy Verified 08/11/23 13:18 PFSH Acute 2 PFSH: Medical History Non-small cell lung cancer metastatic to bone Non-small cell lung cancer Abdominal aortic aneurysm (AAA) CPAP (continuous positive airway pressure) dependence Hypothyroidism Hypertension Hyperlipidemia CAD (coronary artery disease) COPD (chronic obstructive pulmonary disease) Surgical History Status post coronary artery stent placement Hx of knee surgery H/O eye surgery Family History Other CAD (coronary artery disease) Social History Smoking and tobacco/nicotine status: never used tobacco/nicotine Quit status (tobacco/nicotine): has quit using Year quit tobacco: 2023 Former quit date comment: 60 years total tobacco use Second hand smoke exposure: No Alcohol intake: current Substance/Drug Use: never Lives independently: Yes Household members: spouse Housing: House Marital status: service: Yes Current occupational status: retired Do you think of yourself as: Straight/Heterosexual Current gender identity: Male Vitals/I&O/Wt Last Vital Signs Temp 98.0 F 08/19/23 13:15 Pulse 87 08/19/23 15:12 Resp 22 H 08/19/23 14:42 BP 137/75 08/19/23 15:00 Pulse Ox 88 L 08/19/23 15:12 O2 Del Method BiPAP 08/19/23 15:00 O2 Flow Rate 6 08/19/23 14:42 FiO2 40 08/19/23 15:14 Weight last 48 hrs Weight 86.183 kg Physical Exam 2 Narrative: Signs of fluid overload present Nontender abdominal distention Currently awake and alert Currently on BiPAP at the bedside Able to comprehend Goals of care discussed S1, S2 variable Mild rhonchi with diminished breath sounds right greater than left Lower extremity swelling patient is wearing compression stockings Data 08/19/23 13:40 08/19/23 13:40 A&P Assessment and plan (1) Hypertension: (2) CHF (congestive heart failure), NYHA class III: (3) Atrial fibrillation: (4) Type 2 diabetes mellitus: (5) Squamous cell carcinoma of lung, stage I: (6) Non-small cell lung cancer: (7) COPD (chronic obstructive pulmonary disease): Qualifiers: COPD type: emphysema Emphysema type: centrilobular Qualified Code(s): J43.2 - Centrilobular emphysema (8) Pleural effusion: (9) Pleural effusion, right: (10) Acute and chronic respiratory failure with hypercapnia: (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: Plan Acute on chronic hypoxic hypercapnic respite failure Multifactorial Secondary to mucous plug, bronchial lesion Cancer Patient currently on BiPAP My concern is related to getting dependent on BiPAP which will make him very dehydrated and worse Patient does not want intubation chest compressions or defibrillation in case further worsening he may consider nursing placement to hospice at the bedside is in agreement He is DNR/DNI Recurrent pleural effusion Likely malignant last dose of Plavix 08/17 A-fib RVR Continue Coreg Hold off on Eliquis Hold off on Plavix I will keep patient on antibiotics, Lasix, hold off on Plavix and Eliquis Admit to CSU DNR/DNI Cardiac diet Stage IV lung cancer with mets to ribs and spine Mucous plug Bronchial lesion Will request Mucomyst and chest vest therapy Attestations 2 Medical Necessity Statement*: More than 2 midnights anticipated Diagnoses Hypertension I10 CHF (congestive heart failure), NYHA class III I50.9 Atrial fibrillation I48.91 Type 2 diabetes mellitus E11.9 Squamous cell carcinoma of lung, stage I C34.90 Non-small cell lung cancer C34.90 Centrilobular emphysema J43.2 COPD type: emphysema Emphysema type: centrilobular Pleural effusion J90 Pleural effusion, right J90 Acute and chronic respiratory failure with hypercapnia J96.22 Complex sleep apnea syndrome G47.31
[2023-08-19] MEDS: bumetanide 0.25 mg/mL SDV 4 mL 1 MG IVP (17:53)
[2023-08-19] MEDS: cefepime 2,000 MG in sodium chloride 0.9% (plus) 50 ML 100 MG IV (17:54)
[2023-08-19] MEDS: vancomycin 1,250 MG/250 ML PIGGYBACK 250 MG IV (17:59)
--- NOTE | 2023-08-19 20:43 | XRR_ITS ---
PROCEDURE INFORMATION: Exam: XR Chest Exam date and time: 08/19/2023 9:35 PM Age: 77 years old Clinical indication: Dyspnea; Additional info: Pain TECHNIQUE: Imaging protocol: Radiologic exam of the chest. Views: 1 view. COMPARISON: CR XR chest 1V portable [id number] 08/19/2023 1:27 PM FINDINGS: Tubes, catheters and devices: Right-sided Port-A-Cath. Lungs: Irregular opacities in the lung bases. Pleural spaces: Unremarkable. No pleural effusion. No pneumothorax. Heart/Mediastinum: Unremarkable. No cardiomegaly. Bones/joints: Unremarkable. XR/XR chest 1V portable [id number] IMPRESSION: Irregular opacities in the lung bases.
--- NOTE | 2023-08-19 20:50 | PM.CONSULT ---
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 Patient is a known clinic patient to me for COPD as well as lung malignancy. I have biopsied his right lower lobe lesion initially in January 2024-showed 50-100 cluster of non-squamous cell cancer and do not have enough tissue for diagnosis. However he underwent radiation in May 2022 and followed up with oncology since then. His repeat PET/CT in April 2023 worsening right hilar mass as well as new left rib lesion. oncology at that point recommended for CT-guided biopsy of rib lesion to help with staging as well as get tissue diagnosis. Last pulmonary clinic visit 06/26/2023. It appears patient underwent CT-guided right lung biopsy in [place] suggestive of squamous cell cancer. His recent CT chest 08/07/2023 showed multiple metastatic lesions in bilateral lungs with significant right pleural effusion. He follows up with oncology and scheduled to get thoracentesis next Thursday followed by initiation of chemotherapy. ABG showed significant hypercapnia and patient was placed on BiPAP. He was alert and oriented. Today comes to emergency room for worsening shortness of breath.Patient reported using [employer] at nighttime. Chest x-ray showed significant right pleural effusion. Patient is on Plavix only and held yesterday in anticipation for outpatient thoracentesis on 08/24/2023. Pulmonary consult requested for thoracentesis/Pleurx catheter insertion for recurrent right pleural effusion. Upon review of the chart-patient was admitted to hospital in May for hypoxic/hypercarbic respiratory failure secondary to COPD/CHF exacerbation/pleural effusion. He was diuresed 10 L, treated with broad-spectrum antibiotics. He even underwent right-sided thoracentesis 700 mL exudative on lights criteria. Cytology negative for malignancy. Patient reported difficulty breathing. Is lying in bed and currently requiring 10 L of high flow nasal cannula and saturations fluctuating between 75-89. and patient kids are at bedside. Review of Systems General: Reports: 10 or more systems reviewed and unremarkable except in HPI and below Medications/Allergies Home Medications Medication Instructions Recorded Confirmed Last Taken Type clopidogrel 75 mg tablet 75 mg PO DAILY@0800 03/01/19 08/19/23 08/18/23 History levothyroxine 25 mcg tablet 25 mcg PO DAILY@0700 03/01/19 08/19/23 08/19/23 History nitroglycerin 0.4 mg sublingual 0.4 mg sublingual Q5M PRN Chest 03/01/19 08/19/23 Unknown History tablet (Nitrostat) Pain rosuvastatin 10 mg tablet 10 mg PO BEDTIME 03/01/19 08/19/23 08/18/23 History aspirin 81 mg tablet,delayed 81 mg PO DAILY@0800 06/10/20 08/19/23 08/19/23 History release potassium chloride 10 mEq 10 meq PO DAILY #30 tabs 05/07/22 08/19/23 08/19/23 Rx tablet,extended release albuterol sulfate 2.5 mg/3 mL 2.5 mg (3 mL) inhalation QID PRN 11/06/22 08/19/23 08/19/23 Rx (0.083 %) solution for nebulization shortness of breath or wheezing #180 mL Nebulizer with supplies #1 ea 02/24/23 08/19/23 08/17/23 Rx budesonide 160 mcg-glycopyr 9 2 inh inhalation BID #10.7 grams 05/07/23 08/19/23 08/19/23 Rx mcg-formot 4.8 mcg/actuation HFA inhaler (Breztri Aerosphere) cholecalciferol (vitamin D3) 50 50 mcg PO DAILY 06/15/23 08/19/23 08/19/23 History mcg (2,000 unit) capsule (Vitamin D3) carvedilol 6.25 mg tablet 3.125 mg (1/2 x 6.25 mg) PO 06/22/23 08/19/23 08/19/23 Rx BID@0800,2100 30 days #30 tabs furosemide 20 mg tablet 20 mg PO BID 08/17/23 08/19/23 08/19/23 History Allergies Allergy/AdvReac Type Severity Reaction Status Date / Time No Known Allergies Allergy Verified 08/11/23 13:18 Current Medications Generic Name Dose Route Start Last Admin Trade Name Shanthi PRN Reason Stop Dose Admin Bumetanide 1 mg 08/19/23 17:20 08/19/23 17:53 Bumetanide 0.25 Mg/Ml Sdv 4 Ml IVP 1 mg Q12H TELMA Administration Cefepime HCl 2,000 mg/ Sodium 50 mls @ 100 mls/hr 08/19/23 17:20 08/19/23 18:30 Chloride IV Infused Q12H TELMA Infusion Protocol Vancomycin/PEG/NADA/Lysine/Water 1,250 mg in 250 mls @ 250 mls/hr 08/19/23 18:00 08/19/23 18:30 Vancocin IV 250 mls/hr Q12H TELMA Infusion Senna/Docusate Sodium 2 tab 08/19/23 18:00 08/19/23 17:59 Sennosides-Docusate Tablet PO Not Given BID TELMA PFSH Acute PFSH: Medical History (Updated 08/19/23 @ 22:38 by Alan Tan MD) Non-small cell lung cancer metastatic to bone Non-small cell lung cancer Abdominal aortic aneurysm (AAA) CPAP (continuous positive airway pressure) dependence Hypothyroidism Hypertension Hyperlipidemia CAD (coronary artery disease) COPD (chronic obstructive pulmonary disease) Surgical History Status post coronary artery stent placement Hx of knee surgery H/O eye surgery Family History Other CAD (coronary artery disease) Social History Smoking and tobacco/nicotine status: never used tobacco/nicotine Quit status (tobacco/nicotine): has quit using Year quit tobacco: 2023 Former quit date comment: 60 years total tobacco use Second hand smoke exposure: No Alcohol intake: current Substance/Drug Use: never Lives independently: Yes Household members: spouse Housing: House Marital status: service: Yes Current occupational status: retired Do you think of yourself as: Straight/Heterosexual Current gender identity: Male Vitals/I&O/Wt Last Vital Signs Temp 97.9 F 06/19/24 17:28 Pulse 90 08/19/23 17:39 Resp 17 08/19/23 17:28 BP 120/73 08/19/23 17:28 Pulse Ox 93 08/19/23 17:28 O2 Del Method BiPAP 08/19/23 17:29 O2 Flow Rate 6 08/19/23 14:42 FiO2 40 08/19/23 15:14 08/19/23 08/19/23 08/19/23 06:59 14:59 22:59 Intake Total 54.167 / 54.167 Balance 54.167 / 54.167 Weight last 48 hrs Weight 192 lb 4.8 oz Weight 190 lb Physical Exam Narrative: General: alert, in moderate respiratory distress HEENT: conj clear, EOMI, PERRL, mmm, Neck: supple, no meningismus Heme: no cervical LAP Respiratory: Inspection: No visible deformity of the chest wall Palpation: Trachea is mildly deviated to the right, bilateral symmetric expansion Percussion: Increased dullness on right lower lung zone Auscultation: Reduced breath sounds right lower lung zone Cardiovascular: rrr, nl s1s2, no mrg Abdomen: soft, nt, nd, no r/g, bs+ Extremities: pulses +, no edema, no c/c : no CVA tenderness Skin: intact, no rash MSK: no back or neck pain Neurologic: grossly intact Urinary Catheter Management: Estevez: Cath Placed During This Visit: yes Urinary Catheter Date of Insertion: 08/19/23 Urinary Catheter Time of Insertion: 17:06 Data 08/19/23 13:40 08/19/23 13:40 Other Labs: Radiology Impressions Chest X-Ray 08/19/23 13:17 IMPRESSION: Increasing opacity on the right. Laboratory Results WBC 8.35 10^3/uL (3.29-11.43) 08/19/23 13:40 RBC 4.54 10^6/uL (3.85-5.65) 08/19/23 13:40 Hgb 12.50 g/dL (11.27-16.99) 08/19/23 13:40 Hct 42.6 % (37-53) 08/19/23 13:40 MCV 93.8 fl (82-101) 08/19/23 13:40 MCH 27.5 pg (27-33) 08/19/23 13:40 MCHC 29.3 g/dL (30-55) L 08/19/23 13:40 RDW 14.5 % (12.1-15.1) 08/19/23 13:40 Plt Count 333 10^3/cmm (157-399) 08/19/23 13:40 MPV 9.6 fL (7.4-10.4) 08/19/23 13:40 Neut % (Auto) 72.7 % 08/19/23 13:40 Lymph % (Auto) 16.2 % 08/19/23 13:40 Ralls % (Auto) 8.4 % 08/19/23 13:40 Eos % (Auto) 1.8 % 08/19/23 13:40 Baso % (Auto) 0.5 % 08/19/23 13:40 Neut # (Auto) 6.08 10^3/uL (1.8-7.7) 08/19/23 13:40 Lymph # (Auto) 1.4 10^3/uL (0.8-4.8) 08/19/23 13:40 Ralls # (Auto) 0.7 10^3/uL (0.2-0.9) 08/19/23 13:40 Eos # (Auto) 0.2 10^3/uL (0.0-0.8) 08/19/23 13:40 Baso # (Auto) 0.0 10^3/uL (0.0-0.1) 08/19/23 13:40 Nucleated RBC % (auto) 0 % 08/19/23 13:40 Total Counted Cancelled 08/19/23 20:47 Nucleated RBCs # 0.0 /100WBC 08/19/23 13:40 Differential Comment Yes 08/19/23 20:47 Specimen Type Arterial 08/19/23 14:49 Sample Site Radial, right 08/19/23 14:49 ABG pH 7.26 (7.35-7.45) L 08/19/23 14:49 ABG pCO2 98.8 mmHg (35-45) H* 08/19/23 14:49 ABG pO2 107.0 mmHg (80.0-100.0) H 08/19/23 14:49 ABG HCO3 44.4 mmol/L (22-26) H 08/19/23 14:49 ABG Base Excess 12.5 mmol/L (-2.0-2.0) H 08/19/23 14:49 Luis Alfredo Test Pos 08/19/23 14:49 Hematocrit 44.1 % (42-52) 08/19/23 14:49 O2 Delivery Device Nc 08/19/23 14:49 High Frequency Mill Operator ID glc 08/19/23 14:49 Blood Gas Notified Time 1504 08/19/23 14:49 Sodium 143 mmol/L (136-145) 08/19/23 13:40 Potassium 4.3 mmol/L (3.5-5.1) 08/19/23 13:40 Chloride 93 mmol/L (98-107) L 08/19/23 13:40 Carbon Dioxide 40 mmol/L (22-29) H 08/19/23 13:40 Anion Gap 14.3 (5-19) 08/19/23 13:40 BUN 17 mg/dL (8-23) 08/19/23 13:40 Creatinine 0.6 mg/dL (0.7-1.2) L 08/19/23 13:40 GFR Calculation Not Reportable 08/19/23 13:40 Glucose 263 mg/dL (65-115) H 08/19/23 13:40 Calculated Osmolality 307 mOsm/kg (285-295) H 08/19/23 13:40 Calcium 9.3 mg/dL (8.5-10.5) 08/19/23 13:40 Total Bilirubin 0.4 mg/dL (0.15-1.2) 08/19/23 13:40 AST 11 U/L (0-40) 08/19/23 13:40 ALT 17 U/L (0-41) 08/19/23 13:40 Alkaline Phosphatase 89 U/L (40-130) 08/19/23 13:40 NT-Pro-B Natriuret Pep 665 pg/mL (0-450) H 08/19/23 13:40 Total Protein 7.5 g/dL (6.6-8.7) 08/19/23 13:40 Albumin 3.4 g/dL (3.5-5.2) L 08/19/23 13:40 Globulin 4.1 g/dL (1.3-4.6) 08/19/23 13:40 Fluid Color Red 08/19/23 20:47 Fluid Appearance Cloudy 08/19/23 20:47 Fluid Specific Grav 1.010 08/19/23 20:47 Fluid pH 8.0 08/19/23 20:47 Fluid WBC 913 /uL 08/19/23 20:47 Fluid RBC 17.000 10^3/uL 08/19/23 20:47 Fld Polynuclear WBCs # 0.157 08/19/23 20:47 Fld Polynuclear WBCs % 17.200 % 08/19/23 20:47 Fl Mononucl WBCs #(Auto) 0.756 08/19/23 20:47 Fl Mononuclear % Auto 82.800 % 08/19/23 20:47 Fld Crystal Laterality Cancelled 08/19/23 20:47 Fld Crystal Laterality Right 08/19/23 20:47 Pleural Color Cancelled 08/19/23 20:47 Pleural Appearance Cancelled 08/19/23 20:47 Pleural pH Cancelled 08/19/23 20:47 Pleural WBC Cancelled 08/19/23 20:47 Pleural RBC Cancelled 08/19/23 20:47 Pleural Mononuc # Auto Cancelled 08/19/23 20:47 Pleural Other Cells Cancelled 08/19/23 20:47 Pleural Polynuclear % Cancelled 08/19/23 20:47 Pleural Polynuclear # Cancelled 08/19/23 20:47 Pleural Mononuclear % Cancelled 08/19/23 20:47 Pleural Other Cells Rt Cancelled 08/19/23 20:47 Pleural Total Protein Cancelled 08/19/23 20:47 Pleural LDH Cancelled 08/19/23 20:47 Pleural Glucose Cancelled 08/19/23 20:47 Path Cons w/Slide Cancelled 08/19/23 20:47 Pathology Message Cancelled 08/19/23 20:47 A&P Assessment and plan (1) Recurrent right pleural effusion: Patient underwent thoracentesis in June 2023-drained 700 cc fluid-exudative by lights criteria-cytology negative for malignancy CT chest 08/01/2023-large right pleural effusion compressing right lower lobe and middle lobe Currently patient is requiring 15 L high flow oxygen and saturating between 75 to 88% Discussed about various options like repeat thoracentesis versus Jefferson drain placement however he held Plavix 1 day ago and his last thoracentesis was more than 2 months ago. Hence I will defer placing Jefferson drain for now and proceed with diagnostic as well as therapeutic thoracentesis.Will resend for cytology, cultures and fluid analysis. I have educated patient's family-we should consider Jefferson drain placement if he needs repeat thoracentesis in 1 to 2 weeks. They agreed with the plan. (2) Hypercapnic respiratory failure: Hypercapnic respiratory failure likely secondary to underlying COPD/right pleural effusion/CHF/lung malignancy Initial ABG showed pH 7.26/pCO2 98/pO2 107 on nasal cannula He was placed on BiPAP-he is alert and oriented We are going to place him on AVAPS during nighttime (3) COPD (chronic obstructive pulmonary disease): Patient is significant history of smoking-he was using Breztri inhaler at home Currently not in exacerbation; continue DuoNeb nebulizations while in hospital Qualifiers: COPD type: emphysema Emphysema type: centrilobular Qualified Code(s): J43.2 - Centrilobular emphysema (4) Complex sleep apnea syndrome: Will place him on AVAPS at nighttime (5) Metastatic non-small cell lung cancer: Currently following with oncology as outpatient and yet to start chemotherapy Most recent CT chest 08/07/2023-showed multiple metastatic lesions in bilateral lungs and vertebrae (6) Encounter for smoking cessation counseling: Strongly counseled to quit smoking (7) CHF (congestive heart failure), NYHA class III: Currently is on Bumex 1 Mg every 12 hours Most recent echocardiogram June 2023 showed EF 55 to 60% mild mitral regurgitation (8) Goals of care, counseling/discussion: Given his overall comorbidities, advanced lung malignancy, noncompliant with smoking cessation, had eric discussion with patient and family. They all wanted DNR/DNI. Consult Attestations Medical Necessity Statement: . Still Requiring high flow oxygen-will spend in the hospital for at least 2 nights. Time Spent in Patient Care: Greater than 35 minutes (>than 50% of time spent in counselling and/or direct pt care on unit). Critical Care Time: The high probability of a clinically significant, sudden or life threatening deterioration of the patient's [pulmonary, cardiac] system(s) required my full and direct attention, intervention and personal management. The critical care time is as shown. This time is in addition to time spent performing any reported procedures but includes the following: [x] Data and vital sign review and interpretation [x] Patient assessment, examination and intervention [x] Documentation [x] Medication orders and management Critical Care Time (min): 79 Coding Level of Care Code Acute Code for Chg Fwd Diagnoses Recurrent right pleural effusion J90 Hypercapnic respiratory failure J96.92 Centrilobular emphysema J43.2 COPD type: emphysema Emphysema type: centrilobular Complex sleep apnea syndrome G47.31 Metastatic non-small cell lung cancer C34.90 Encounter for smoking cessation counseling Z71.6 CHF (congestive heart failure), NYHA class III I50.9 Goals of care, counseling/discussion Z71.89 Time Spent (min) 79
--- NOTE | 2023-08-19 20:50 | PM.ACPR ---
Procedure/Consent Time out: Time Out Performed: Yes Consent: Consent for Procedure: Consent obtained from patient, Risks & Benefits reviewed and Agrees to proceed with procedure Procedure Narrative: Pulmonary & Critical Care Medicine Procedure - Ultrasound guided Thoracentesis Procedure: CPT code 99229 thoracentesis, needle or catheter, aspiration of the pleural space; with imaging guidance Indication: Worsening right pleural effusion. C56.2 Operations Trainer(s): Alan Tan MD [facility] Clinical history: 77-year-old male with past medical history of recurrent metastatic squamous cell lung cancer-comes to emergency room with shortness of breath. CT chest showed large right pleural effusion and patient requiring 15 L supplemental oxygen. We will proceed with thoracentesis for diagnostic as well as therapeutic benefits. Technique: The study was performed in an ACR accredited facility. Medication reconciliation form reviewed and any changes related this procedure resolved. Report: The procedure for thoracentesis was explained to the patient including the risks, benefits and possible complications. The patient was given the opportunity to ask questions, wished to proceed, and signed the written informed consent form. Using ultrasound guidance, a safe route of access was identified into the right pleural space. The site was then prepped and draped using maximal sterile barrier technique. The 1% lidocaine was used for local anesthetic. With sonographic guidance, a 6 [place] thoracentesis catheter was placed with return of 5 cc hemorrhagic pleural fluid. The catheter was slipped into the pleural cavity and approximately 2 L of sanguinous pleural fluid was removed. The patient tolerated the procedure well without any immediate complications. Impression: 1. Successful ultrasound-guided right thoracentesis with removal of approximately 2 L of sanguinous pleural fluid. ICD-10 code-J90 pleural effusion, not elsewhere classified Ultrasound image prior to thoracentesis: Ultrasound image postthoracentesis: Acute Procedures Epistaxis Control: Time out performed: Yes
[2023-08-19 21:35] LABS: Body Fluid Polynuclear #Cells 0.157; Body Fluid WBC 913 /uL; Monocytes # Body Fluid 0.756
[2023-08-19 21:36] LABS: Apprearance, Body Fluid CLOUDY; Color, Body Fluid RED; PATH Referral YES
[2023-08-19 22:13] LABS: Cyto Order Verification Order Verified; Fluid Laterality RIGHT
[2023-08-19 22:44] LABS: Fluid Alkaline Phos. 30 IU/L
[2023-08-19 22:45] LABS: Albumin Body Fluid 2.3 g/dL; Cholesterol Body Fluid 50 mg/dL (0-200); LDH Body Fluid 130 U/L; Total Protein Pleural Fluid 4.2 g/dL; Triglycerides Body Fluid 22 mg/dL (0-150); Uric Acid Body Fluid 4 mg/dL
[2023-08-19] MEDS: LORazepam 2 mg/mL INJ 10 mL MDV 1 MG IVP (23:38)
--- NOTE | 2023-08-19 23:59 | PC.NURSE ---
Addendum entered by Casie Hwang RN 08/20/23 03:48: Nurse went to give patient coreg medication and patient became aggressive and combative. Hospitalist gave verbal orders to hold this dose of medication. Original Note: This nurse woke patient up to give medication. Patient was flailing arms and becoming aggressive. This nurse called for help and 2nd nurse cmae in to help. while 2nd nurse stayed with patient I called hospitalist to come look at patient. Hospitalist came into room, patient was becoming aggressive with nurses in room, hitting and flailing arms. New orders put in per Dr. Walsh. Medication administered and patient is calm/resting in bed. After episode, 3 rails were placed up, bed alarm on, call light in reach.
[2023-08-20] VITALS (14 sets, daily range): BP systolic 94–128; BP diastolic 59–70; PULSE 64–109; RESP 14–29; TEMP 36.3–37; O2SAT 87–97; BMI 28.2
[2023-08-20] MEDS: acetylcysteine 200 mg/mL SDV 4 mL INHALATION ×6 (00:17→20:09)
[2023-08-20] MEDS: ipratropium-albuterol 3 mL Neb INHALATION ×4 (00:18→20:10)
[2023-08-20] MEDS: LORazepam 2 mg/mL INJ 10 mL MDV 0.5 MG IVP (04:18)
[2023-08-20 04:37] LABS: ABG PH Result 7.38 (7.35-7.45); Arterial Blood Gas Hematocrit 34.5 % (42-52); Base Excess ABG 14.3 mmol/L (-2.0-2.0); Blood Gas Allen Test Pos; Blood Gas Operator Identificat CL; Blood Gas Sample Site Radial, left; Blood Gas Sample Type Arterial; HCO3 ABG 42.1 mmol/L (22-26); Oxygen Device BIPAP; PO2 ABG 76.8 mmHg (80.0-100.0); PO2 FiO2 Ratio Arterial Blood 0
[2023-08-20 04:39] LABS: ABG PH Result 7.27 (7.35-7.45); Arterial Blood Gas Hematocrit 37.6 % (42-52); Blood Gas Allen Test Pos; Blood Gas Operator Identificat Anonymous; Blood Gas Sample Site Radial, right; Blood Gas Sample Type Arterial; Carboxyhemoglobin 1.5 %THgb (0.4-20.1); HCO3 ABG 37.8 mmol/L (22-26); HGB O2 Sat 96.3 % (95-100); Ionized Calcium Level - ABG 1.2 mmol/L (1.1-1.4); Methemoglobin 0.5 % (0.4-1.5); Oxygen Device BIPAP; Oxygen Saturation ABG 98.3; Potassium Level - ABG 4.2 mmol/L (3.5-5.0); Total Hemoglobin 12.3 g/dL (14-18)
[2023-08-20] MEDS: cefepime 2,000 MG in sodium chloride 0.9% (plus) 50 ML 100 MG IV ×2 (04:59→17:01)
[2023-08-20] MEDS: bumetanide 0.25 mg/mL SDV 4 mL 1 MG IVP ×2 (04:59→17:01)
--- NOTE | 2023-08-20 05:12 | PC.NURSE ---
Patient became agitated and restless, trying to pull off bipap and catheter. 0.5 ativan was administered per hospitalist order.
[2023-08-20 05:24] LABS: ABG PCO2 70.8 mmHg (35-45)
[2023-08-20 05:32] LABS: Basophils % 0.1 %; Hematocrit 36.3 % (37-53); Lymphocytes # 0.8 10^3/uL (0.8-4.8); Lymphocytes % 7.8 %; Mean Corpuscular HGB Conc 29.5 g/dL (30-55); Mean Corpuscular Hemoglobin 27.6 pg (27-33); Mean Corpuscular Volume 93.8 fl (82-101); Mean Platelet Volume 9.6 fL (7.4-10.4); Monocytes # 0.7 10^3/uL (0.2-0.9); Monocytes % 6.4 %; Neutrophils # 9.18 10^3/uL (1.8-7.7); Neutrophils % 85.3 %; Nucleated Red Blood Cells % 0 %; Platelet Count 299 10^3/cmm (157-399); Red Blood Count 3.87 10^6/uL (3.85-5.65); Red Cell Distribution Width 14.4 % (12.1-15.1); White Blood Count 10.76 10^3/uL (3.29-11.43)
[2023-08-20] MEDS: vancomycin 1,250 MG/250 ML PIGGYBACK 250 MG IV ×2 (05:45→17:06)
[2023-08-20 05:58] LABS: Anion Gap 11.4 (5-19); Blood Urea Nitrogen 20 mg/dL (8-23); C Reactive Protein 66.5 mg/L (0.0-4.9); Calcium 8.9 mg/dL (8.5-10.5); Carbon Dioxide 39 mmol/L (22-29); Chloride 98 mmol/L (98-107); Glucose 216 mg/dL (65-115); Magnesium 2.1 mg/dL (1.7-2.3); Osmolality Calculated 307 mOsm/kg (285-295); Phosphorus 2.9 mg/dL (2.5-4.5); Potassium 4.4 mmol/L (3.5-5.1); Sodium 144 mmol/L (136-145)
[2023-08-20 06:00] LABS: Creatinine Clr Calc Pharmacy 81.6869
[2023-08-20] MEDS: levothyroxine 25 mcg Tablet PO (08:57)
[2023-08-20] MEDS: potassium chloride ER 10 mEq Tablet PO (08:57)
[2023-08-20] MEDS: carvedilol 3.125 mg Tablet PO ×2 (08:57→20:35)
[2023-08-20] MEDS: sennosides-docusate Tablet 2 TAB PO ×2 (08:57→17:05)
--- NOTE | 2023-08-20 11:23 | P.PN_ITS ---
Subjective 2 Subjective: This morning patient is on 11 L nasal cannula pH is compensated 2 L removed with thoracentesis Patient is wanting to go home I have asked him to stay 1 more day because his ox requirement is still in liters He is willing Continue diuresis Vitals/I&O/Wt Last Vital Signs Temp 97.9 F 08/20/23 07:32 Pulse 79 08/20/23 07:45 Resp 21 H 08/20/23 07:45 BP 106/61 08/20/23 07:32 Pulse Ox 97 08/20/23 07:45 O2 Del Method BiPAP 08/20/23 07:45 O2 Flow Rate 6 08/19/23 14:42 FiO2 55 08/20/23 07:45 08/19/23 08/20/23 08/20/23 22:59 06:59 14:59 Intake Total 300.000 / 300.000 50 / 350.000 610 / 610 Output Total 1700 / 1700 350 / 2050 Balance -1400.000 / -1400.000 -300 / -1700.000 610 / 610 Weight last 48 hrs Weight 84.113 kg Weight 87.226 kg Weight 86.183 kg Physical Exam 2 Narrative: Awake and alert Currently on level liters nasal cannula S1, S2 variable no RVR Abdomen soft Bilateral breath sounds with mild rhonchi Awake and alert Nonfocal neuroexam Family is at the bedside Mild signs of edema on lower extremities Urinary Catheter Management: Estevez: Cath Placed During This Visit: yes Urinary Catheter Date of Insertion: 08/19/23 Urinary Catheter Time of Insertion: 17:06 Data 08/20/23 04:40 08/20/23 04:40 A&P Assessment and plan (1) Hypertension: (2) CHF (congestive heart failure), NYHA class III: (3) Atrial fibrillation: (4) Metastatic non-small cell lung cancer: (5) Non-small cell lung cancer metastatic to bone: (6) Squamous cell carcinoma of lung, stage I: (7) Type 2 diabetes mellitus: (8) Acute and chronic respiratory failure with hypercapnia: (9) Hypercapnic respiratory failure: (10) Recurrent right pleural effusion: (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: Plan Acute on chronic hypoxic respiratory failure Hypercapnia is improved Off BiPAP Eating breakfast Plan to wean him down to his home requirement of 6 L Continue diuresis Recurrent pleural effusion thoracentesis done by Dr. Hendrix yesterday It made a big difference in his symptoms A-fib without RVR I will resume patient on Plavix and Eliquis Continue antibiotics Disposition: Home once we are able to wean his oxygen down to 6 L DNR/DNI Cardiac diet Stage IV lung cancer with mets to ribs and spine Continue Mucomyst for mucous plug along chest vest therapy Attestations 2 Medical Necessity Statement*: Continue medical management Diagnoses Hypertension I10 CHF (congestive heart failure), NYHA class III I50.9 Atrial fibrillation I48.91 Metastatic non-small cell lung cancer C34.90 Non-small cell lung cancer metastatic to bone C34.90; C79.51 Squamous cell carcinoma of lung, stage I C34.90 Type 2 diabetes mellitus E11.9 Acute and chronic respiratory failure with hypercapnia J96.22 Hypercapnic respiratory failure J96.92 Recurrent right pleural effusion J90 Complex sleep apnea syndrome G47.31
[2023-08-21] VITALS (9 sets, daily range): BP systolic 92–121; BP diastolic 53–69; PULSE 84–93; RESP 17–26; TEMP 36.6–36.9; O2SAT 83–95; BMI 28.4
[2023-08-21] MEDS: ipratropium-albuterol 3 mL Neb INHALATION ×2 (01:31→07:40)
[2023-08-21] MEDS: acetylcysteine 200 mg/mL SDV 4 mL INHALATION ×2 (01:31→07:40)
[2023-08-21 04:16] LABS: ABG PH Result 7.39 (7.35-7.45); Arterial Blood Gas Hematocrit 35.8 % (42-52); Base Excess ABG 15.2 mmol/L (-2.0-2.0); Blood Gas Allen Test Pos; Blood Gas Operator Identificat CL; Blood Gas Sample Site Radial, right; Blood Gas Sample Type Arterial; HCO3 ABG 43.2 mmol/L (22-26); PO2 ABG 71.8 mmHg (80.0-100.0)
[2023-08-21 04:17] LABS: Oxygen Device BIPAP; PO2 FiO2 Ratio Arterial Blood 0
[2023-08-21 04:46] LABS: ABG PCO2 70.9 mmHg (35-45)
[2023-08-21 05:03] LABS: Basophils # 0.1 10^3/uL (0.0-0.1); Basophils % 0.5 %; Eosinophils # 0.2 10^3/uL (0.0-0.8); Lymphocytes # 1.5 10^3/uL (0.8-4.8); Lymphocytes % 13.7 %; Mean Corpuscular HGB Conc 29.5 g/dL (30-55); Mean Corpuscular Hemoglobin 27.9 pg (27-33); Mean Corpuscular Volume 94.5 fl (82-101); Mean Platelet Volume 8.9 fL (7.4-10.4); Monocytes # 1.2 10^3/uL (0.2-0.9); Monocytes % 10.4 %; Neutrophils # 8.08 10^3/uL (1.8-7.7); Neutrophils % 73.2 %; Nucleated Red Blood Cells % 0 %; Platelet Count 283 10^3/cmm (157-399); Red Blood Count 4.02 10^6/uL (3.85-5.65); Red Cell Distribution Width 14.5 % (12.1-15.1); White Blood Count 11.04 10^3/uL (3.29-11.43)
[2023-08-21] MEDS: bumetanide 0.25 mg/mL SDV 4 mL 1 MG IVP (05:20)
[2023-08-21] MEDS: cefepime 2,000 MG in sodium chloride 0.9% (plus) 50 ML 100 MG IV (05:20)
[2023-08-21 05:31] LABS: Anion Gap 10.7 (5-19); Blood Urea Nitrogen 21 mg/dL (8-23); Calcium 8.6 mg/dL (8.5-10.5); Carbon Dioxide 40 mmol/L (22-29); Chloride 97 mmol/L (98-107); Creatinine Clr Calc Pharmacy 82.0466; Glucose 127 mg/dL (65-115); Osmolality Calculated 301 mOsm/kg (285-295); Potassium 4.7 mmol/L (3.5-5.1); Sodium 143 mmol/L (136-145)
[2023-08-21] MEDS: levothyroxine 25 mcg Tablet PO (06:15)
[2023-08-21] MEDS: vancomycin 1,250 MG/250 ML PIGGYBACK 250 MG IV (06:16)
[2023-08-21] MEDS: potassium chloride ER 10 mEq Tablet PO (08:05)
[2023-08-21] MEDS: carvedilol 3.125 mg Tablet PO (08:05)
[2023-08-21] MEDS: sennosides-docusate Tablet 2 TAB PO (08:05)
--- NOTE | 2023-08-21 09:22 | PM.DCS ---
Discharge Providers Date of Admission: 08/19/23 16:49 Date of Discharge: August 21, 2023 Attending Provider at Admission: Laurent Caputo MD Attending Provider at Discharge: Laurent Caputo MD Primary Care Provider: Steve Vasquez MD Diagnoses at Discharge Discharge Diagnosis (1) Hypertension: Status: Acute (2) CHF (congestive heart failure), NYHA class III: Status: Acute (3) Atrial fibrillation: Status: Acute (4) Metastatic non-small cell lung cancer: Status: Acute (5) Non-small cell lung cancer metastatic to bone: Status: Acute (6) Squamous cell carcinoma of lung, stage I: Status: Acute (7) Type 2 diabetes mellitus: Status: Acute (8) Acute and chronic respiratory failure with hypercapnia: Status: Acute (9) Hypercapnic respiratory failure: Status: Acute (10) Recurrent right pleural effusion: Status: Acute (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: Status: Acute Reason for Visit Reason for Visit: sob, congested Hospital Course Hospital Course 77-year-old male with history of smoking, lung cancer, non-small cell, s/p radiation now with recurrent squamous cell cancer right lower lobe with metastatic lesion to rib, has trilogy at home, uses 6 L of oxygen at baseline presented to hospital worsening shortness of breath. Patient was scheduled for thoracentesis on Thursday however came to the ER before that for worsening of his symptoms, Dr. Hendrix was consulted who removed 2 L of pleural fluid in the ER patient was significantly hypercapnic he was put on BiPAP which improved his symptoms, after thoracentesis his symptoms resolved significantly, he is able to eat on his own off BiPAP, his goals of care were discussed patient is wanting to stay DNR/DNI and in case he gets BiPAP dependent then he will consider skilled nursing placement on hospice. We have sent cytology culture and fluid analysis. Pleural fluid analysis is consistent with exudative changes, cytology report is pending, patient has been afebrile, will add levofloxacin at the time of discharge I am anticipating patient may get recurrent pleural effusion for which he will require Pleurx catheter and Dr. Hendrix is leaving, in case he comes back in the ER he will probably need to be transferred to [facility] for Pleurx catheter placement for recurrent pleural effusion. Physical Exam Narrative: Patient is getting breathing treatment On 6 L nasal cannula Awake and alert Pleasant cough No significant wheezing Nonfocal neuroexam Urinary Catheter Management: Estevez: Cath Placed During This Visit: yes Urinary Catheter Date of Insertion: 08/19/23 Urinary Catheter Time of Insertion: 17:06 Discharge Data Studies Completed and Pending Completed Studies During Hospitalization Category Date Time Status XR chest 1V portable [id number] Stat Exams 08/19/23 13:17 Completed XR chest 1V portable [id number] Stat Exams 08/19/23 20:43 Completed Pending at discharge Category Date Time Status Amylase, Pleural Fluid Routine Lab 08/19/23 20:47 Received Anaerobic Culture Routine Lab 08/19/23 20:47 Results Body Fluid Culture & GS Routine Lab 08/19/23 20:47 Results Sputum Culture and Gram Stain Routine Lab 08/19/23 17:20 Uncollected Cytology [PTH] Routine Pth 08/19/23 20:50 Received Radiology Impressions Chest X-Ray 08/19/23 20:43 IMPRESSION: Irregular opacities in the lung bases. Laboratory Results WBC 11.04 10^3/uL (3.29-11.43) 08/21/23 04:53 RBC 4.02 10^6/uL (3.85-5.65) 08/21/23 04:53 Hgb 11.20 g/dL (11.27-16.99) L 08/21/23 04:53 Hct 38.0 % (37-53) 08/21/23 04:53 MCV 94.5 fl (82-101) 08/21/23 04:53 MCH 27.9 pg (27-33) 08/21/23 04:53 MCHC 29.5 g/dL (30-55) L 08/21/23 04:53 RDW 14.5 % (12.1-15.1) 08/21/23 04:53 Plt Count 283 10^3/cmm (157-399) 08/21/23 04:53 MPV 8.9 fL (7.4-10.4) 08/21/23 04:53 Neut % (Auto) 73.2 % 08/21/23 04:53 Lymph % (Auto) 13.7 % 08/21/23 04:53 Alcorn % (Auto) 10.4 % 08/21/23 04:53 Eos % (Auto) 2.0 % 08/21/23 04:53 Baso % (Auto) 0.5 % 08/21/23 04:53 Neut # (Auto) 8.08 10^3/uL (1.8-7.7) H 08/21/23 04:53 Lymph # (Auto) 1.5 10^3/uL (0.8-4.8) 08/21/23 04:53 Alcorn # (Auto) 1.2 10^3/uL (0.2-0.9) H 08/21/23 04:53 Eos # (Auto) 0.2 10^3/uL (0.0-0.8) 08/21/23 04:53 Baso # (Auto) 0.1 10^3/uL (0.0-0.1) 08/21/23 04:53 Nucleated RBC % (auto) 0 % 08/21/23 04:53 Total Counted Cancelled 08/19/23 20:47 Nucleated RBCs # 0.0 /100WBC 08/21/23 04:53 Differential Comment Yes 08/19/23 20:47 Specimen Type Arterial 08/21/23 04:05 Sample Site Radial, right 08/21/23 04:05 ABG pH 7.39 (7.35-7.45) 08/21/23 04:05 ABG pCO2 70.9 mmHg (35-45) H* 08/21/23 04:05 ABG pO2 71.8 mmHg (80.0-100.0) L 08/21/23 04:05 ABG PO2/FiO2 Ratio 0 08/21/23 04:05 ABG HCO3 43.2 mmol/L (22-26) H 08/21/23 04:05 ABG O2 Saturation 98.3 08/19/23 23:45 ABG Base Excess 15.2 mmol/L (-2.0-2.0) H 08/21/23 04:05 Luis Alfredo Test Pos 08/21/23 04:05 A-a O2 Gradient Not Reportable 08/19/23 23:45 Hematocrit 35.8 % (42-52) L 08/21/23 04:05 Hgb O2 Saturation 96.3 % (95-100) 08/19/23 23:45 Carboxyhemoglobin 1.5 %THgb (0.4-20.1) 08/19/23 23:45 Methemoglobin 0.5 % (0.4-1.5) 08/19/23 23:45 Total Hemoglobin 12.3 g/dL (14-18) L 08/19/23 23:45 Sodium 145.0 mmol/L (131-143) H 08/19/23 23:45 Potassium 4.2 mmol/L (3.5-5.0) 08/19/23 23:45 Glucose 332.0 mg/dL (70-115) H 08/19/23 23:45 Ionized Calcium 1.2 mmol/L (1.1-1.4) 08/19/23 23:45 O2 Delivery Device Bipap 08/21/23 04:05 FiO2 55.0 % 08/21/23 04:05 Senior [employer] Et[employer] Developer ID Cl 08/21/23 04:05 Blood Gas Notified Time 1504 08/19/23 14:49 Sodium 143 mmol/L (136-145) 08/21/23 04:53 Potassium 4.7 mmol/L (3.5-5.1) 08/21/23 04:53 Chloride 97 mmol/L (98-107) L 08/21/23 04:53 Carbon Dioxide 40 mmol/L (22-29) H 08/21/23 04:53 Anion Gap 10.7 (5-19) 08/21/23 04:53 BUN 21 mg/dL (8-23) 08/21/23 04:53 Creatinine 0.7 mg/dL (0.7-1.2) 08/21/23 04:53 GFR Calculation Not Reportable 08/21/23 04:53 Glucose 127 mg/dL (65-115) H 08/21/23 04:53 Calculated Osmolality 301 mOsm/kg (285-295) H 08/21/23 04:53 Calcium 8.6 mg/dL (8.5-10.5) 08/21/23 04:53 Phosphorus 2.9 mg/dL (2.5-4.5) 08/20/23 04:40 Magnesium 2.1 mg/dL (1.7-2.3) 08/20/23 04:40 Total Bilirubin 0.4 mg/dL (0.15-1.2) 08/19/23 13:40 AST 11 U/L (0-40) 08/19/23 13:40 ALT 17 U/L (0-41) 08/19/23 13:40 Alkaline Phosphatase 89 U/L (40-130) 08/19/23 13:40 C-Reactive Protein 66.5 mg/L (0.0-4.9) H 08/20/23 04:40 NT-Pro-B Natriuret Pep 665 pg/mL (0-450) H 08/19/23 13:40 Total Protein 7.5 g/dL (6.6-8.7) 08/19/23 13:40 Albumin 3.4 g/dL (3.5-5.2) L 08/19/23 13:40 Globulin 4.1 g/dL (1.3-4.6) 08/19/23 13:40 Fluid Color Red 08/19/23 20:47 Fluid Appearance Cloudy 08/19/23 20:47 Fluid Specific Grav 1.010 08/19/23 20:47 Fluid pH 8.0 08/19/23 20:47 Fluid WBC 913 /uL 08/19/23 20:47 Fluid RBC 17.000 10^3/uL 08/19/23 20:47 Fld Polynuclear WBCs # 0.157 08/19/23 20:47 Fld Polynuclear WBCs % 17.200 % 08/19/23 20:47 Fl Mononucl WBCs #(Auto) 0.756 08/19/23 20:47 Fl Mononuclear % Auto 82.800 % 08/19/23 20:47 Fld Crystal Laterality Cancelled 08/19/23 20:47 Fld Crystal Laterality Right 08/19/23 20:47 Fluid Glucose 236.0 mg/dL 08/19/23 20:47 Fluid Albumin 2.3 g/dL 08/19/23 20:47 Fluid LDH 130 U/L 08/19/23 20:47 Fluid Alk Phosphatase 30 IU/L 08/19/23 20:47 Fluid Cholesterol 50 mg/dL (0-200) 08/19/23 20:47 Fluid Triglycerides 22 mg/dL (0-150) 08/19/23 20:47 Fluid Uric Acid 4 mg/dL 08/19/23 20:47 Peritoneal Amylase Cancelled 08/19/23 20:47 Pleural Color Cancelled 08/19/23 20:47 Pleural Appearance Cancelled 08/19/23 20:47 Pleural pH Cancelled 08/19/23 20:47 Pleural WBC Cancelled 08/19/23 20:47 Pleural RBC Cancelled 08/19/23 20:47 Pleural Mononuc # Auto Cancelled 08/19/23 20:47 Pleural Other Cells Cancelled 08/19/23 20:47 Pleural Polynuclear % Cancelled 08/19/23 20:47 Pleural Polynuclear # Cancelled 08/19/23 20:47 Pleural Mononuclear % Cancelled 08/19/23 20:47 Pleural Other Cells Rt Cancelled 08/19/23 20:47 Pleural Total Protein 4.2 g/dL 08/19/23 20:47 Pleural Total Protein Cancelled 08/19/23 20:47 Pleural LDH Cancelled 08/19/23 20:47 Pleural Glucose Cancelled 08/19/23 20:47 Vancomycin Trough 15.0 ug/mL (10-15) 08/21/23 04:53 Path Cons w/Slide Cancelled 08/19/23 20:47 Pathology Message Cancelled 08/19/23 20:47 Vitals Last Vital Signs Temp 97.8 F 08/21/23 08:00 Pulse 91 08/21/23 08:00 Resp 26 H 08/21/23 08:00 BP 103/64 08/21/23 08:00 Pulse Ox 83 L 08/21/23 09:04 O2 Del Method High Flow Nasal Cannula 08/21/23 07:42 O2 Flow Rate 8 08/21/23 09:04 FiO2 55 08/20/23 07:45 Discharge Plan Discharge Patient Disposition: Home Condition: Stable Prescriptions: New levofloxacin 750 mg tablet 750 mg PO DAILY 7 Days Qty: 7 0RF Continued albuterol sulfate 2.5 mg /3 mL (0.083 %) solution for nebulization 2.5 mg inhalation QID PRN (Reason: shortness of breath or wheezing) Qty: 180 6RF Breztri Aerosphere 160-9-4.8 mcg/actuation HFA aerosol inhaler 2 inh INHALATION BID Qty: 10.7 5RF potassium chloride 10 mEq tablet extended release 10 meq PO DAILY Qty: 30 0RF (DME) Nebulizer with supplies See Rx Instructions .Route .MEDSUPPLY Qty: 1 0RF Rx Instructions: As directed levothyroxine 25 mcg Tablet 25 mcg PO DAILY@0700 nitroglycerin [Nitrostat] 0.4 mg Tablet, Sublingual 0.4 mg SUBLINGUAL Q5M PRN (Reason: Chest Pain) rosuvastatin 10 mg Tablet 10 mg PO BEDTIME aspirin 81 mg Tablet,Delayed Release (Dr/Ec) 81 mg PO DAILY@0800 furosemide 20 mg Tablet 20 mg PO BID cholecalciferol (vitamin D3) [Vitamin D3] 50 mcg (2,000 unit) Capsule 50 mcg PO DAILY carvedilol 6.25 mg Tablet 3.125 mg PO BID@0800,2100 30 Days Qty: 30 0RF Held clopidogrel 75 mg Tablet 75 mg PO DAILY@0800 Hold Instructions: Resume on 09/04/23. Discharge Orders: Discharge Order (Routine); Ordered 08/21/23 Ordered By: Laurent Caputo Referrals: Steve Vasquez MD [Primary Care Provider] - 08/27/23 2:20 pm Patient Instructions: Levofloxacin (By mouth) (Levaquin, Levaquin Leva-curtis), Heart Failure (DC), Altered Mental Status (ED), CHF Stoplight, Opioid Safety Discharge Attestations Time Spent in Discharge Care*: greater than 30 min Quality Metrics Clinical Quality Measures [ No reported AMI, CVA or VTE this stay] Coding Level of Care Code Acute Code for g Fwd Diagnoses Hypertension I10 CHF (congestive heart failure), NYHA class III I50.9 Atrial fibrillation I48.91 Metastatic non-small cell lung cancer C34.90 Non-small cell lung cancer metastatic to bone C34.90; C79.51 Squamous cell carcinoma of lung, stage I C34.90 Type 2 diabetes mellitus E11.9 Acute and chronic respiratory failure with hypercapnia J96.22 Hypercapnic respiratory failure J96.92 Recurrent right pleural effusion J90 Complex sleep apnea syndrome G47.31
--- NOTE | 2023-08-21 11:27 | PC.NURSE ---
Patient discharged to home. Instruction provided to spouse and patient regarding follow up needs, new and changed medications and breathing/lung exercises. Both verbalized complete understanding. IV and nuno catheter removed prior to discharge. Patient taken by wheelchair to private vehicle. Patient as portable concentrator at bedside.
--- NOTE | 2023-08-21 11:52 | PC.SOCIAL ---
IMM Updated Updated pt & on IMM. No questions voiced. Provided pt a copy. Initialed, dated, & timed copy in chart.
[2023-08-25 13:04] LABS: Amylase, Pleural Fluid 167 U/L
== END 2023-08-21 11:29 | disposition home health service (06) | DRG 186 ==
LOC: ER 15:10 → CSU 16:49
PROVIDERS: Internal Medicine Pulmonary Disease; Student in an Organized Health Care Education/Training Program; Admitting Provider Internal Medicine; Emergency Provider Emergency Medicine; PCP Family Medicine; Visit Provider Internal Medicine
DX: J90 Pleural effusion, not elsewhere classified (principal); J96.21 Acute and chronic respiratory failure with hypoxia; J96.22 Acute and chronic respiratory failure with hypercapnia; C34.11 Malignant neoplasm of upper lobe, right bronchus or lung; C79.51 Secondary malignant neoplasm of bone; I48.20 Chronic atrial fibrillation, unspecified; Z99.81 Dependence on supplemental oxygen; Z87.891 Personal history of nicotine dependence; Z99.89 Dependence on other enabling machines and devices; J43.2 Centrilobular emphysema; E03.9 Hypothyroidism, unspecified; I11.0 Hypertensive heart disease with heart failure; I50.9 Heart failure, unspecified; E78.5 Hyperlipidemia, unspecified; I25.10 Atherosclerotic heart disease of native coronary artery without angina pectoris; Z95.5 Presence of coronary angioplasty implant and graft; Z79.01 Long term (current) use of anticoagulants; Z79.02 Long term (current) use of antithrombotics/antiplatelets; Z66 Do not resuscitate; G47.39 Other sleep apnea; E11.9 Type 2 diabetes mellitus without complications
CPT/HCPCS: 36415; 36600; 51702; 71045; 80048; 80051; 80053; 80202; 80503; 82042; 82150; 82330; 82465; 82803; 82805; 82945; 83615; 83735; 83880; 83986; 84075; 84100; 84157; 84315; 84478; 84560; 85025; 86140; 87070; 87075; 87205; 88112; 88305; 89050; 93005; 94640; 94660; 94760; 96374; 96376; 97162; 97530; 99285; J0692; J2060; J2919; J3370; J3490; J7608

== ENCOUNTER 2023-08-26 08:15 | Oncology outpatient (recurring) (ONCR) | payer OTHER, SELFPAY ==
--- NOTE | 2023-08-07 09:30 | CT_ITS ---
WS: [id number] CT chest wo con [id number] HISTORY: PULMONARY NODULE TECHNIQUE: Axial imaging performed through the thorax. Coronal and sagittal reformats are submitted. All CT scans at [facility] use at least one of these dose optimization techniques: automated exposure control; mA and/or kV adjustment per patient size (includes targeted exams where dose is mat ched to clinical indication); or iterative reconstruction. CONTRAST: None DLP: 552.61 mGy.cm COMPARISON: 06/14/2023, PET/CT 08/04/2023 Lungs and central airway: Since the prior CT reidentified is a large RIGHT pleural effusion. There is a masslike area of consolidation beginning at the RIGHT hilum and extending inferiorly into the RIGH T lower lobe. Without IV contrast enhancing mass is difficult to define. This consolidation in the RI GHT lower lobe was positive on recent PET/CT. There is additional opacification in the RIGHT upper lo be which may be edema or tumor extension. RIGHT middle and RIGHT lower lobe bronchi are obstructed. Pleura: Pleural-based mass in the medial LEFT upper lobe with osseous destruction measures 3.0 x 4.8 cm. Destruction of the second and third ribs. The LEFT lateral T2 and T3 vertebral bodies are being d estroyed by tumor. Heart and pericardium: Moderate cardiomegaly. Advanced coronary artery calcifications. No pericardial effusion. Mediastinum and marybel: Prominent soft tissue at the RIGHT hilum was positive on PET/CT. There is soft tissue filling the proximal RIGHT lower lobe and RIGHT middle lobe bronchi with postobstructive atele ctasis and probable tumor. Vessels: Mild atherosclerosis aorta. No aneurysm. Normal size pulmonary artery. Chest wall and lower neck: RIGHT subclavian Port-A-Cath. Upper abdomen: No adrenal mass. CT/CT chest wo con [id number] IMPRESSION: 1. Large RIGHT pleural effusion. 2. Dense masslike consolidation centered at the RIGHT hilum extending into the RIGHT lower lobe was positive on recent PET/CT. Difficult to quantify without IV contrast beyond this. 3. Obstruction of the RIGHT middle lobe and RIGHT lower lobe bronchi. Obstruct ion is probably due to tumor and/or mucous plugging. 4. Destructive pleural-based lesion in the medial LEFT upper lobe. Mass measur es 3.0 x 4.8 cm. There is adjacent osseous destruction involving the LEFT later al second and third vertebral bodies and also probably the second and third ass ociated ribs. Soft tissue mass is enlarging the LEFT T2-3 foramina. May be tumo r contacting the LEFT lateral thecal sac.
[2023-08-11 12:21] LABS: Basophils # 0.1 10^3/uL (0.0-0.1); Basophils % 0.6 %; Eosinophils # 0.2 10^3/uL (0.0-0.8); Eosinophils % 2.2 %; Hematocrit 39.9 % (37-53); Lymphocytes # 1.7 10^3/uL (0.8-4.8); Lymphocytes % 19.6 %; Mean Corpuscular HGB Conc 30.1 g/dL (30-55); Mean Corpuscular Hemoglobin 28.2 pg (27-33); Mean Corpuscular Volume 93.7 fl (82-101); Mean Platelet Volume 8.9 fL (7.4-10.4); Monocytes # 0.8 10^3/uL (0.2-0.9); Monocytes % 9.8 %; Neutrophils # 5.82 10^3/uL (1.8-7.7); Neutrophils % 67.6 %; Nucleated Red Blood Cells % 0 %; Platelet Count 330 10^3/cmm (157-399); Red Blood Count 4.26 10^6/uL (3.85-5.65); Red Cell Distribution Width 14.2 % (12.1-15.1); White Blood Count 8.61 10^3/uL (3.29-11.43)
[2023-08-11 12:50] LABS: Alanine Aminotransferase 26 U/L (0-41); Albumin Level 3.2 g/dL (3.5-5.2); Alkaline Phosphatase 99 U/L (40-130); Aspartate Amino Transferase 15 U/L (0-40); Blood Urea Nitrogen 16 mg/dL (8-23); Calcium 8.8 mg/dL (8.5-10.5); Carbon Dioxide 33 mmol/L (22-29); Chloride 98 mmol/L (98-107); Free T4 Free Thyroxine 1.11 ng/dL (0.82-1.77); Globulin 3.7 g/dL (1.3-4.6); Glucose 147 mg/dL (65-115); Osmolality Calculated 294 mOsm/kg (285-295); Sodium 140 mmol/L (136-145); Thyroid Stimulating Hormone 2.43 uIU/mL (0.27-4.20); Total Bilirubin 0.4 mg/dL (0.15-1.2); Total Protein 6.9 g/dL (6.6-8.7)
--- NOTE | 2023-08-25 13:23 | N.ONRAD NP_ITS ---
Radiation Oncology New Patient Visit Patient: Joss Meier MR#: [id number] : 1945> Age: 77> Sex: Male> Dictated by: Dr. Pamela Davis Date of Service: 08/25/2023 Referring Physician(s) : jon Diagnosis: Stage IV kidney cancer Radiotherapy to date: Summary > prior radiation in [place] at [facility]. He received 12 treatments to the right lung. Records have been called for Chief Complaint / History of Present Illness: Patient is a 77-year-old gentleman with significant severe COPD who had a history of a stage I lung mass which was in non-small cell carcinoma of the lung which was found to be in the right upper lobe in April 2020. This was followed until December 2021 when it had increased in size and he subsequently had a PET scan in January 2022. At that point after biopsy he was sent to [facility] in [place] for SBRT. He apparently got 12 treatments instead of SBRT. Reported dose to 60 Bui but records are currently pending. Since that time he had done well until the last 3 to 4 months when he began to have increasing respiratory issues and has been hospitalized several times and most recently had 2 L of pleural effusion drained just last week. He also complained of neck pain and he had a CT of the chest which showed a destructive mass which looks like it originated in a rib and had eroded into the vertebrae at the T1, T2 level. He also has had recurrence of the primary lesion in the right lung with hilar involvement as well. He is scheduled to begin immune and chemotherapy and is here today to discuss treatment to the lesion in the thoracic spine on the left. He says that it does not hurt but his says that he will occasionally do stretching of his arm on that side and will have massage done on that side as well. So there is definitely something that is causing him some discomfort but he just will call if pain. He is not taking any medication for this. His main complaints have to do with his respiratory status. Current Medications: lbuterol sulfate 2.5 mg (3 mL) inhalation QID PRN apixaban 5 mg PO DAILY aspirin 81 mg PO DAILY@0800 snlkhaxkes-lzeutyiu-nkdcizomnz 160-9-4.8 mcg/actuation ([employer]ztri Aerosphere) 2 inhalations inhalation BID carvedilol 3.125 mg (1/2 x 6.25 mg) PO BID@0800,2100 30 days cholecalciferol (vitamin D3) (Vitamin D3) 50 mcg PO DAILY clopidogrel 75 mg PO DAILY@0800 coenzyme Q10 (CoQ-10) 100 mg PO DAILY furosemide 40 mg PO BID lactulose 10 grams (15 mL) PO TID levothyroxine 25 mcg PO DAILY@0700 [Nebulizer with supplies As directed] nicotine 1 patch transdermal DAILY nitroglycerin (Nitrostat) 0.4 mg sublingual Q5M PRN oxycodone 5 mg PO Q8H PRN potassium chloride ER 10 mEq PO DAILY rosuvastatin 10 mg PO BEDTIME Allergies: Medical History: Non-small cell lung cancer metastatic to bone Non-small cell lung cancer Abdominal aortic aneurysm (AAA) CPAP (continuous positive airway pressure) dependence Hypothyroidism Hypertension Hyperlipidemia CAD (coronary artery disease) COPD (chronic obstructive pulmonary disease) Surgical History: Status post coronary artery stent placement Hx of knee surgery H/O eye surgery Family History: Social History: Smoking and tobacco/nicotine status: never used tobacco/nicotine Quit status (tobacco/nicotine): has quit using Year quit tobacco: 2023 Former quit date comment: 60 years total tobacco use Second hand smoke exposure: No Alcohol intake: current Substance/Drug Use: never Lives independently: Yes Household members: spouse Housing: House Marital status: service: Yes Current occupational status: retired Do you think of yourself as: Straight/Heterosexual Current gender identity: Male Current Complaints / Review of Systems: . Vital Signs: Performed on 08/25/2023 11:02 AM BMI - 28.585 kg/m2 (high), Height - 68 in, Weight - 188 lbs, Temperature - 96.9 f, Pulse - 109 /min (high), Respiration - 18 /min, O2 Sat - 89 % (low), Pain - 0, Fatigue - 0 and BP - 113/ 71 mm(hg). Physical Exam: General patient is a pleasant 77-year-old gentleman. His oxygen is in place. He is companied by his daughter and his . HEENT: Normocephalic atraumatic. Pupils are equal, sclera injected, extraocular muscles intact Cardiovascular: Regular rate and rhythm Pulmonary: Respiratory rate is regular nonlabored. He is able to talk without any shortness of breath. His oxygen is in place and working Abdomen: Mildly protuberant and android pattern Neurological: Alert and orient x 3. He is mildly hard of hearing. Gait and speech within normal limits psych: Affect appropriate for current situation Performance Status: 70 Pathology: Non-small cell carcinoma of the lung Imaging: See HPI Impression: Stage IV renal cancer Plan: We talked about his current symptoms. He is not really having any neurological compromise from the lesion in the rib nor is he having any significant pain. He is however having significant respiratory issues. He has already been approved for his chemo and immunotherapy. We have to get the records from [facility] to see where his treatment was previously delivered. After some discussion we have decided that it would be best to start his immune and chemotherapy this week which she can do tomorrow. That we will give us a few days to get his records and we will have him undergo simulation next week and get his 2 weeks of treatment done between his 2 immune cycles. We reviewed the simulation process. We talked about the daily treatment regiment. We discussed the risks and side effects both acute and long-term. He and his family were happy with the above plan and he will return tomorrow to start his immune and chemotherapy. Signed by: 08/25/2023 1:22:35 PM <<Signature on File>> Time spent with patient:45 CPT Code: CPT Code:
[2023-08-26 08:30] LABS: Basophils % 0.1 %; Hematocrit 39.1 % (37-53); Lymphocytes # 0.6 10^3/uL (0.8-4.8); Mean Corpuscular HGB Conc 29.7 g/dL (30-55); Mean Corpuscular Hemoglobin 27.4 pg (27-33); Mean Corpuscular Volume 92.4 fl (82-101); Mean Platelet Volume 9.8 fL (7.4-10.4); Monocytes % 0.6 %; Neutrophils # 6.11 10^3/uL (1.8-7.7); Nucleated Red Blood Cells % 0 %; Platelet Count 289 10^3/cmm (157-399); Red Blood Count 4.23 10^6/uL (3.85-5.65); Red Cell Distribution Width 14.7 % (12.1-15.1); White Blood Count 6.79 10^3/uL (3.29-11.43)
[2023-08-26 08:52] LABS: Alanine Aminotransferase 61 U/L (0-41); Albumin Level 3.2 g/dL (3.5-5.2); Alkaline Phosphatase 109 U/L (40-130); Anion Gap 16.9 (5-19); Aspartate Amino Transferase 35 U/L (0-40); Blood Urea Nitrogen 19 mg/dL (8-23); Calcium 9.3 mg/dL (8.5-10.5); Carbon Dioxide 28 mmol/L (22-29); Chloride 95 mmol/L (98-107); Creatinine Clr Calc Pharmacy 81.9971; Glucose 329 mg/dL (65-115); Osmolality Calculated 295 mOsm/kg (285-295); Potassium 4.9 mmol/L (3.5-5.1); Sodium 135 mmol/L (136-145); Thyroid Stimulating Hormone 1.75 uIU/mL (0.27-4.20); Total Bilirubin 0.3 mg/dL (0.15-1.2); Total Protein 7.2 g/dL (6.6-8.7)
[2023-08-26] MEDS: sodium chloride 0.9% 250 ML 75 ML IV (11:03)
[2023-08-26] MEDS: OLANZapine 5 mg TABLET PO (11:06)
[2023-08-26] MEDS: famotidine 20 mg/2 mL INJ IVP (11:07)
[2023-08-26] MEDS: diphenhydrAMINE 50 mg/mL SDV 1mL 25 MG IVP (11:08)
[2023-08-26] MEDS: palonosetron 0.25 mg/5 mL SDV IVP (11:10)
[2023-08-26] MEDS: dexamethasone 4 mg/mL INJ 5 mL 12 MG IVP (11:12)
[2023-08-26] MEDS: fosaprepitant 150 MG in sodium chloride 0.9% 150 ML 300 MG IV (11:17)
[2023-08-26] MEDS: pembrolizumab 200 MG in sodium chloride 0.9% 250 ML 516 MG IV (11:53)
[2023-08-26 12:00] VITALS: BP 104/69; PULSE 98; RESP 16; TEMP 36.3; O2SAT 91
[2023-08-26] MEDS: [UNRECOGNIZED DRUG - REMARK] 188.889999999999986 MG IV (12:28)
[2023-08-26] MEDS: CARBOPLATIN IV (15:46)
[2023-08-26] MEDS: SODIUM CHLORIDE 0.9% IV (15:46)
[2023-08-26 16:50] VITALS: BP 108/63; PULSE 92; RESP 16; TEMP 36.4; O2SAT 91
== END 2023-08-26 23:59 | disposition home or self-care (01) ==
PROVIDERS: Internal Medicine; PCP Family Medicine; Visit Provider Internal Medicine Medical Oncology
DX: Z53.9 Procedure and treatment not carried out, unspecified reason (principal); Z51.11 Encounter for antineoplastic chemotherapy; C34.90 Malignant neoplasm of unspecified part of unspecified bronchus or lung; C79.51 Secondary malignant neoplasm of bone; Z79.52 Long term (current) use of systemic steroids; Z79.899 Other long term (current) drug therapy; Z51.12 Encounter for antineoplastic immunotherapy
CPT/HCPCS: 36591; 71250; 80053; 84439; 84443; 85025; 96367; 96375; 96413; 96415; 96417; 99205; 99213; 99215; A4222; J1100; J1200; J1453; J2469; J3490; J7030; J7040; J7050; J9045; J9267; J9271

== ENCOUNTER 2023-09-03 15:54 | Emergency (ER) | payer OTHER, SELFPAY ==
[2023-09-03] VITALS (20 sets, daily range): BP systolic 89–143; BP diastolic 51–86; PULSE 82–130; RESP 14–38; TEMP 37.4; O2SAT 86–95
--- NOTE | 2023-09-03 16:20 | XRR_ITS ---
PROCEDURE INFORMATION: Exam: XR Chest Exam date and time: 09/03/2023 5:03 PM Age: 77 years old Clinical indication: Fever; Prior surgery; Surgery date: 1-6 months; Surgery type: Port placement 06/23; Additional info: Possible sepsis, high fever, weakness TECHNIQUE: Imaging protocol: Radiologic exam of the chest. Views: 1 view. COMPARISON: CR (CHEST, ) 08/19/2023 9:35 PM FINDINGS: Tubes, catheters and devices: A right-sided VAD is in good position with the catheter tip in the lower SVC. Lungs: There is patchy infiltrate involving both lung bases. Pleural spaces: A large right-sided pleural effusion is noted. Heart/Mediastinum: Moderate cardiomegaly is noted. Bones/joints: Unremarkable. XR/XR chest 1V portable [id number] IMPRESSION: Cardiomegaly with large right pleural effusion and bibasilar infiltrates. The effusion has increased dramatically in size over the past 2 weeks
--- NOTE | 2023-09-03 16:25 | ED_ITS ---
HPI - Fever 2 General: Chief Complaint: Fever Stated Complaint: High fever, weakness Time Seen by Provider: 09/03/23 16:13 History of Present Illness: Patient comes in with fever. Patient has a history of lung cancer for which she is on chemotherapy. His last dose being a little over a week ago. He received radiation therapy yesterday. Today he started running a fever of 101.2 at home. His family was advised to bring him to the emergency department. The patient states he does not feel any different than normal except that his lungs sound a little wetter. 2 weeks ago he had to have fluid drained off his lungs. Review of Systems 2 General: Reports: 10 or more systems reviewed and unremarkable except in HPI and below PFSH ED 2 PFSH: Medical History CHF (congestive heart failure), NYHA class III Port-A-Cath in place 06/02/23 Dr Botello Recurrent right pleural effusion Acute and chronic respiratory failure with hypercapnia Encounter for smoking cessation counseling Atrial fibrillation Type 2 diabetes mellitus Complex sleep apnea syndrome Non-small cell lung cancer Abdominal aortic aneurysm (AAA) CPAP (continuous positive airway pressure) dependence Hypothyroidism Hypertension Hyperlipidemia CAD (coronary artery disease) COPD (chronic obstructive pulmonary disease) Surgical History History of lung biopsy Status post coronary artery stent placement Hx of knee surgery H/O eye surgery Family History Other CAD (coronary artery disease) Social History Smoking and tobacco/nicotine status: unknown if used tobacco/nicotine Quit status (tobacco/nicotine): has quit using Year quit tobacco: 2023 Former quit date comment: 60 years total tobacco use Second hand smoke exposure: No Alcohol intake: current Substance/Drug Use: never Lives independently: Yes Household members: spouse Housing: House Marital status: service: Yes Current occupational status: retired Do you think of yourself as: Straight/Heterosexual Current gender identity: Male Physical Exam 2 Const: COMMON NORMALS: patient oriented x3 and alert HENMT: COMMON NORMALS: normocephalic and atraumatic HEAD & SCALP: n ormocephalic and atraumatic Eye: COMMON NORMALS: Equal, round and reactive pupils present PUPIL: Yes Equal, round and reactive pupils present Neck/C-Spine: COMMON NORMALS: full ROM and supple Resp: COMMON NORMALS: No retractions and No use of accessory muscles OTHER: Tachypnea, crackles in bilateral bases Cardio: COMMON NORMALS: regular rhythm RHYTHM: regular rhythm OTHER: Tachycardia GI: COMMON NORMALS: Normal to inspection, nondistended, normoactive bowel sounds present, Soft to palpation and non-tender PALPATION: Yes Soft to palpation Extremity: COMMON NORMALS: normal to inspection and full ROM Neuro: COMMON NORMALS: patient oriented x3 SENSORIUM/ORIENTATION: Yes alert Psych: COMMON NORMALS: mental status grossly normal and cooperative Skin: COMMON NORMALS: no rashes or lesions noted and no wounds GENERAL SKIN EXAM: no rashes or lesions noted Course 2 Vital Signs: Vital signs: Vital Signs Temperature 99.3 F 09/03/23 15:57 Pulse Rate 102 H 09/03/23 19:20 Respiratory Rate 23 H 09/03/23 19:20 Blood Pressure 115/66 09/03/23 19:20 Pulse Oximetry 91 09/03/23 19:20 Oxygen Delivery Me thod BiPAP 09/03/23 19:20 Oxygen Flow Rate 6 09/03/23 17:30 Fraction of Inspir ed Oxygen 50 09/03/23 18:05 MDM - Fever Medical Decision Making Patient comes in with fever. Patient has a history of lung cancer for which she is on chemotherapy. His last dose being a little over a week ago. He received radiation therapy yesterday. Today he started running a fever of 101.2 at home. His family was advised to bring him to the emergency department. The patient states he does not feel any different than normal except that his lungs sound a little wetter. 2 weeks ago he had to have fluid drained off his lungs. Upon arrival I am concern for sepsis versus severe sepsis. He is not febrile here, however he is tachypneic, tachycardic, and he is hypoxic on his normal 6 L. He has crackles in bilateral bases of his lungs. Will initiate sepsis protocol with labs, blood cultures, broad-spectrum antibiotics. Will check x-ray. Will hold on IV fluids at this time secondary to possible fluid overload. Will reassess that later. On reassessment the patient's oxygen saturations continue to worsen. I talked with him and his family about the test results. His white blood cell count is low at 1. His absolute neutrophil count was 0.03. His chest x-ray shows a large right pleural effusion. Radiologist is concerned for possible bilateral infiltrates. He continues to be in A-fib at times and rapid ventricular response, at times in the 90s with this heart rate. Will hold on diltiazem at this time. His blood gas shows a pO2 of 58. Will place him on BiPAP. On BiPAP the patient is doing much better. I discussed the case with Dr. Ventura and there is nobody here till next week that can drain his pleural effusion. Will transfer the patient. I spoke with the transfer center at [facility]. I spoke to Dr. Christiansen at [facility] who accepts the patient in transfer. Lab Data 09/03/23 16:17 09/03/23 16:17 Radiology Impressions Chest X-Ray 09/03/23 16:20 IMPRESSION: Cardiomegaly with large right pleural effusion and bibasilar infiltrates. The effusion has increased dramatically in size over the past 2 weeks Laboratory Results WBC 1.02 10^3/uL (3.29-11.43) L 09/03/23 16:17 RBC 4.10 10^6/uL (3.85-5.65) 09/03/23 16:17 Hgb 11.10 g/dL (11.27-16.99) L 09/03/23 16:17 Hct 36.1 % (37-53) L 09/03/23 16:17 MCV 88.0 fl (82-101) 09/03/23 16:17 MCH 27.1 pg (27-33) 09/03/23 16:17 MCHC 30.7 g/dL (30-55) 09/03/23 16:17 RDW 14.6 % (12.1-15.1) 09/03/23 16:17 Plt Count 192 10^3/cmm (157-399) 09/03/23 16:17 MPV 10.6 fL (7.4-10.4) H 09/03/23 16:17 Neut % (Auto) 2.9 % 09/03/23 16:17 Lymph % (Auto) 75.5 % 09/03/23 16:17 Shannon % (Auto) 20.6 % 09/03/23 16:17 Eos % (Auto) 1.0 % 09/03/23 16:17 Baso % (Auto) 0.0 % 09/03/23 16:17 Neut # (Auto) 0.03 10^3/uL (1.8-7.7) L* 09/03/23 16:17 Lymph # (Auto) 0.8 10^3/uL (0.8-4.8) 09/03/23 16:17 Shannon # (Auto) 0.2 10^3/uL (0.2-0.9) 09/03/23 16:17 Eos # (Auto) 0.0 10^3/uL (0.0-0.8) 09/03/23 16:17 Baso # (Auto) 0.0 10^3/uL (0.0-0.1) 09/03/23 16:17 Nucleated RBC % (auto) 0 % 09/03/23 16:17 Nucleated RBCs # 0.0 /100WBC 09/03/23 16:17 Specimen Type Arterial 09/03/23 16:36 Sample Site Radial, right 09/03/23 16:36 ABG pH 7.49 (7.35-7.45) H 09/03/23 16:36 ABG pCO2 53.2 mmHg (35-45) H 09/03/23 16:36 ABG pO2 58.0 mmHg (80.0-100.0) L 09/03/23 16:36 ABG PO2/FiO2 Ratio 131 09/03/23 16:36 ABG HCO3 40.5 mmol/L (22-26) H 09/03/23 16:36 ABG O2 Saturation 91.4 09/03/23 16:36 ABG Base Excess 15.0 mmol/L (-2.0-2.0) H 09/03/23 16:36 Luis Alfredo Test Pos 09/03/23 16:36 A-a O2 Gradient 24.7 mmHg (5-10) H 09/03/23 16:36 Hematocrit 33.3 % (42-52) L 09/03/23 16:36 Hgb O2 Saturation 89.5 % (95-100) L 09/03/23 16:36 Carboxyhemoglobin 1.8 %THgb (0.4-20.1) 09/03/23 16:36 Methemoglobin 0.3 % (0.4-1.5) L 09/03/23 16:36 Total Hemoglobin 10.9 g/dL (14-18) L 09/03/23 16:36 Sodium 129.0 mmol/L (131-143) L 09/03/23 16:36 Potassium 3.8 mmol/L (3.5-5.0) 09/03/23 16:36 Glucose 138.0 mg/dL (70-115) H 09/03/23 16:36 Ionized Calcium 1.1 mmol/L (1.1-1.4) 09/03/23 16:36 O2 Delivery Device Nc 09/03/23 16:36 O2 Liters/Min 6.0 % 09/03/23 16:36 FiO2 44.0 % 09/03/23 16:36 Charging Machine Operator ID glc 09/03/23 16:36 Sodium 130 mmol/L (136-145) L 09/03/23 16:17 Potassium 4.4 mmol/L (3.5-5.1) 09/03/23 16:17 Chloride 81 mmol/L (98-107) L 09/03/23 16:17 Carbon Dioxide 37 mmol/L (22-29) H 09/03/23 16:17 Anion Gap 16.4 (5-19) 09/03/23 16:17 BUN 29 mg/dL (8-23) H 09/03/23 16:17 Creatinine 0.8 mg/dL (0.7-1.2) 09/03/23 16:17 GFR Calculation Not Reportable 09/03/23 16:17 Glucose 136 mg/dL (65-115) H 09/03/23 16:17 Calculated Osmolality 278 mOsm/kg (285-295) L 09/03/23 16:17 Lactic Acid 2.4 mmol/L (0.5-2.2) H 09/03/23 16:17 Calcium 9.0 mg/dL (8.5-10.5) 09/03/23 16:17 Magnesium 1.6 mg/dL (1.7-2.3) L 09/03/23 16:17 Total Bilirubin 1.0 mg/dL (0.15-1.2) 09/03/23 16:17 AST 16 U/L (0-40) 09/03/23 16:17 ALT 25 U/L (0-41) 09/03/23 16:17 Alkaline Phosphatase 95 U/L (40-130) 09/03/23 16:17 Total Protein 7.5 g/dL (6.6-8.7) 09/03/23 16:17 Albumin 3.4 g/dL (3.5-5.2) L 09/03/23 16:17 Globulin 4.1 g/dL (1.3-4.6) 09/03/23 16:17 Procalcitonin 0.29 ng/mL (0-0.5) 09/03/23 16:17 Urine Color Yellow (Yellow) 09/03/23 18:44 Urine Appearance Clear (CLEAR) 09/03/23 18:44 Urine pH 7 (5-7) 09/03/23 18:44 Ur Specific [place] 1.005 (1.005-1.030) 09/03/23 18:44 Urine Protein Trace (Negative) 09/03/23 18:44 Urine Glucose (UA) Norm (Normal) 09/03/23 18:44 Urine Ketones 1+ (Negative) H 09/03/23 18:44 Urine Blood Neg (Negative) 09/03/23 18:44 Urine Nitrate Negative (Negative) 09/03/23 18:44 Urine Bilirubin Neg (Negative) 09/03/23 18:44 Urine Urobilinogen 4 mg/dL (Negative) H 09/03/23 18:44 Ur Leukocyte Esterase Negative (Negative) 09/03/23 18:44 Urine RBC 0-4 /hpf (0-2) H 09/03/23 18:44 Urine WBC 0-4 /hpf (0-5) H 09/03/23 18:44 Ur Squamous Epith Cells 0-4 /hpf (0-5) H 09/03/23 18:44 Amorphous Sediment Not Reportable 09/03/23 18:44 Urine Bacteria Trace /hpf (NONE) 09/03/23 18:44 All radiology interpretation(s) finalized by discharge EKG Data EKG 1: Interpretation: ECG done September 03, 2023 at 4:37 PM and interpreted by me at 4:38 PM shows A-fib with RVR, ventricular to 120 beats per minute, right bundle branch block, no ST segment elevation EKG 2: Interpretation: ECG done September 03, 2023 at 5:44 PM and interpreted by me at 5:45 PM shows atrial fibrillation with rapid ventricular response, ventricular to 112 bpm, right bundle branch block, no ST segment elevation Critical Care Time 2 Critical Care Time: Attestation: This case had a high probability of a clinically significant, sudden, or life threatening deterioration of this patient's condition which required my full and direct attention, intervention and personal management. Critical care time total 75 minutes Discharge Plan Discharge Patient Disposition: Xfer Short-Term Hosp Clinical Impression: Fever and neutropenia, Pleural effusion, Acute respiratory distress Condition: Stable Prescriptions: No Action albuterol sulfate 2.5 mg /3 mL (0.083 %) solution for nebulization 2.5 mg inhalation QID PRN (Reason: shortness of breath or wheezing) Qty: 180 6RF Breztri Aerosphere 160-9-4.8 mcg/actuation HFA aerosol inhaler 2 inh INHALATION BID Qty: 10.7 5RF bumetanide 2 mg tablet 2 mg PO BID 15 Days Qty: 30 0RF potassium chloride 10 mEq tablet extended release 10 meq PO DAILY Qty: 30 0RF lorazepam 1 mg tablet 0.5 - 1 mg PO Q6H PRN (Reason: Severe Nausea) Qty: 30 3RF fluconazole 200 mg tablet 200 mg PO DAILY 7 Days Qty: 7 0RF acyclovir 400 mg tablet 400 mg PO DAILY 7 Days Qty: 7 0RF levofloxacin 500 mg tablet 500 mg PO DAILY 7 Days Qty: 7 0RF (DME) Nebulizer with supplies See Rx Instructions .Route .MEDSUPPLY Qty: 1 0RF Rx Instructions: As directed clopidogrel 75 mg Tablet 75 mg PO DAILY@0800 levothyroxine 25 mcg Tablet 25 mcg PO DAILY@0700 nitroglycerin [Nitrostat] 0.4 mg Tablet, Sublingual 0.4 mg SUBLINGUAL Q5M PRN (Reason: Chest Pain) rosuvastatin 10 mg Tablet 10 mg PO BEDTIME furosemide 20 mg Tablet 20 mg PO BID cholecalciferol (vitamin D3) [Vitamin D3] 50 mcg (2,000 unit) Capsule 50 mcg PO DAILY carvedilol 6.25 mg Tablet 3.125 mg PO BID@0800,2100 30 Days Qty: 30 0RF prochlorperazine maleate [Compazine] 10 mg tablet 10 mg PO Q4H PRN (Reason: Mild Nausea) Qty: 30 3RF dexamethasone 4 mg tablet 20 mg PO DIRECTED Qty: 40 3RF Rx Instructions: Take 5 tablets (20mg) 12 hours and 6 hours prior to Taxol Treatment Eliquis 5 mg tablet 5 mg PO BID Qty: 60 5RF omeprazole 20 mg tablet,delayed release (DR/EC) 20 mg PO DAILY Qty: 90 0RF Discharge Orders: Transfer Out of Facility (Order); Ordered 09/03/23 Ordered By: Titus Dejesus Referrals: Steve Vasquez MD [Primary Care Provider] - Coding Level of Care Code ED [employer] Worker for Frank Ahmadi
--- NOTE | 2023-09-03 16:30 | ECG_ITS ---
[facility] Test Date: 2023-09-03 Pat Name: Joss Meier Department: Room: Gender: Male Customer Service Professional: : 1945 Requested By: Titus Dejesus Order Number: [id number] Rory MD: Jayant Hicks M.D. Measurements Intervals Shorter Rate: 120 P: 0 IA: 0 QRS: 40 QRSD: 141 T: -13 QT: 298 QTc: 421 Interpretive Statements ATRIAL FIBRILLATION WITH RAPID VENTRICULAR RESPONSE WITH ABERRANT CONDUCTION OR VENTRICULAR PREMATURE COMPLEXES RIGHT BUNDLE BRANCH BLOCK [120+ ms QRS DURATION, UPRIGHT V1, 40+ ms S IN I/aVL/V4/V5/V6] Compared to ECG 08/19/2023 13:22:30 T-wave abnormality no longer present Possible ischemia no longer present Electronically Signed On 09-03-2023 20:22:18 CDT by Jayant Hicks M.D. [id number]
[2023-09-03 16:36] LABS: Hematocrit 36.1 % (37-53); Lymphocytes # 0.8 10^3/uL (0.8-4.8); Lymphocytes % 75.5 %; Mean Corpuscular HGB Conc 30.7 g/dL (30-55); Mean Corpuscular Hemoglobin 27.1 pg (27-33); Mean Platelet Volume 10.6 fL (7.4-10.4); Monocytes # 0.2 10^3/uL (0.2-0.9); Monocytes % 20.6 %; Neutrophils % 2.9 %; Nucleated Red Blood Cells % 0 %; Platelet Count 192 10^3/cmm (157-399); Red Cell Distribution Width 14.6 % (12.1-15.1); White Blood Count 1.02 10^3/uL (3.29-11.43)
[2023-09-03 16:48] LABS: ABG PCO2 53.2 mmHg (35-45); ABG PH Result 7.49 (7.35-7.45); Alveolar-Arterial Oxygen Gradi 24.7 mmHg (5-10); Arterial Blood Gas Hematocrit 33.3 % (42-52); Blood Gas Allen Test Pos; Blood Gas Operator Identificat glc; Blood Gas Sample Site Radial, right; Blood Gas Sample Type Arterial; Carboxyhemoglobin 1.8 %THgb (0.4-20.1); HCO3 ABG 40.5 mmol/L (22-26); HGB O2 Sat 89.5 % (95-100); Ionized Calcium Level - ABG 1.1 mmol/L (1.1-1.4); Methemoglobin 0.3 % (0.4-1.5); Oxygen Device NC; Oxygen Saturation ABG 91.4; PO2 FiO2 Ratio Arterial Blood 131; Potassium Level - ABG 3.8 mmol/L (3.5-5.0); Total Hemoglobin 10.9 g/dL (14-18)
[2023-09-03] MEDS: piperacillin-tazobactam 4.5 GM in sodium chloride 0.9% (plus) 50 ML IV (16:53)
[2023-09-03 16:54] LABS: Lactic Sepsis W/Reflex 2.4 mmol/L (0.5-2.2)
[2023-09-03 16:56] LABS: Alanine Aminotransferase 25 U/L (0-41); Albumin Level 3.4 g/dL (3.5-5.2); Alkaline Phosphatase 95 U/L (40-130); Anion Gap 16.4 (5-19); Aspartate Amino Transferase 16 U/L (0-40); Blood Urea Nitrogen 29 mg/dL (8-23); Carbon Dioxide 37 mmol/L (22-29); Chloride 81 mmol/L (98-107); Creatinine Clr Calc Pharmacy 81.6003; Globulin 4.1 g/dL (1.3-4.6); Glucose 136 mg/dL (65-115); Magnesium 1.6 mg/dL (1.7-2.3); Osmolality Calculated 278 mOsm/kg (285-295); Potassium 4.4 mmol/L (3.5-5.1); Sodium 130 mmol/L (136-145); Total Protein 7.5 g/dL (6.6-8.7)
[2023-09-03 17:03] LABS: Procalcitonin 0.29 ng/mL (0-0.5)
[2023-09-03 17:07] LABS: Neutrophils # 0.03 10^3/uL (1.8-7.7)
--- NOTE | 2023-09-03 17:44 | ECG_ITS ---
[facility] Test Date: 2023-09-03 Pat Name: Joss Meier Department: Room: Gender: Male Agricultural Services Director: : 1945 Requested By: Titus Dejesus Order Number: [id number] Rory MD: Jayant Hicks M.D. Measurements Intervals [place] Rate: 112 P: 0 NV: 0 QRS: 69 QRSD: 155 T: 9 QT: 375 QTc: 513 Interpretive Statements ATRIAL FIBRILLATION WITH RAPID VENTRICULAR RESPONSE WITH ABERRANT CONDUCTION OR VENTRICULAR PREMATURE COMPLEXES RIGHT BUNDLE BRANCH BLOCK [120+ ms QRS DURATION, UPRIGHT V1, 40+ ms S IN I/aVL/V4/V5/V6] Compared to ECG 09/03/2023 16:37:11 No significant changes Electronically Signed On 09-03-2023 20:18:54 CDT by Jayant Hicks M.D. [id number]
[2023-09-03 18:21] LABS: Reflex Lactate Order REFLEX LACTIC ORDERD
--- NOTE | 2023-09-03 18:55 | PC.NURSE ---
Catheter placed by Gamal Sharma.
[2023-09-03 19:13] LABS: Add Urine Microscopic? YES; Bacteria Urine TRACE /hpf; Bilirubin Urine Neg (Negative); Blood Urine Neg (Negative); Glucose Urine UA Norm (Normal); Ketones Urine 1+ (Negative); Leukocyte Esterase Urine Negative (Negative); Nitrate Urine Negative (Negative); Protein Urine Trace (Negative); RBC Urine 0-4 /hpf (0-2); Specific Gravity, Urine 1.005 (1.005-1.030); Squamous Epithelial Cell Urine 0-4 /hpf (0-5); Urine Appearance Clear (CLEAR); Urine Color Yellow (Yellow); Urobilinogen Urine 4 mg/dL (Negative); WBC Urine 0-4 /hpf (0-5); pH Urine 7 (5-7)
[2023-09-03 19:44] LABS: Lactic Acid level (Lactate) 1.1 mmol/L (0.5-2.2)
--- NOTE | 2023-09-03 22:49 | PC.NURSE ---
pt repositioned pt positioned to the left side at this time.
[2023-09-04] VITALS: BP 93/77; PULSE 107; PULSE 110; RESP 24; RESP 26; O2SAT 91; O2SAT 92
[2023-09-04 00:04] VITALS: RESP 20; O2SAT 93
[2023-09-04 00:30] VITALS: BP 95/62; PULSE 96; O2SAT 91
--- NOTE | 2023-09-04 00:48 | PC.NURSE ---
notified of [facility] coming to take her to [facility], due to delay in transfer from [facility]
[2023-09-04 01:00] VITALS: BP 103/60; PULSE 91; O2SAT 91
[2023-09-04 04:21] VITALS: BP 91/67; PULSE 89; O2SAT 93
== END 2023-09-04 02:30 | disposition short-term general hospital (02) ==
PROVIDERS: Emergency Provider Emergency Medicine; PCP Family Medicine
DX: R50.9 Fever, unspecified (principal); D70.9 Neutropenia, unspecified; J90 Pleural effusion, not elsewhere classified; R06.03 Acute respiratory distress; C34.90 Malignant neoplasm of unspecified part of unspecified bronchus or lung; I11.0 Hypertensive heart disease with heart failure; I50.9 Heart failure, unspecified; E11.9 Type 2 diabetes mellitus without complications; I48.91 Unspecified atrial fibrillation; E78.5 Hyperlipidemia, unspecified; I25.10 Atherosclerotic heart disease of native coronary artery without angina pectoris; J44.9 Chronic obstructive pulmonary disease, unspecified; I45.10 Unspecified right bundle-branch block; Z79.899 Other long term (current) drug therapy; Z79.01 Long term (current) use of anticoagulants; Z87.891 Personal history of nicotine dependence; Z92.3 Personal history of irradiation; Z92.21 Personal history of antineoplastic chemotherapy; Z95.5 Presence of coronary angioplasty implant and graft; Z82.49 Family history of ischemic heart disease and other diseases of the circulatory system
CPT/HCPCS: 36415; 36600; 51702; 71045; 80051; 80053; 81001; 82330; 82805; 83605; 83735; 84145; 85025; 87040; 93005; 94660; 96365; 96375; 99285; J2543; J3370; J7050

== ENCOUNTER 2023-09-16 08:00 | Oncology outpatient (recurring) (ONCR) | payer OTHER, SELFPAY ==
[2023-08-31 11:47] LABS: Basophils % 0.3 %; Eosinophils # 0.1 10^3/uL (0.0-0.8); Eosinophils % 1.6 %; Hematocrit 35.6 % (37-53); Lymphocytes # 0.9 10^3/uL (0.8-4.8); Lymphocytes % 12.5 %; Mean Corpuscular HGB Conc 30.1 g/dL (30-55); Mean Corpuscular Hemoglobin 27.2 pg (27-33); Mean Corpuscular Volume 90.6 fl (82-101); Mean Platelet Volume 10.6 fL (7.4-10.4); Monocytes # 0.1 10^3/uL (0.2-0.9); Monocytes % 1.3 %; Neutrophils # 5.69 10^3/uL (1.8-7.7); Neutrophils % 83.9 %; Nucleated Red Blood Cells % 0 %; Platelet Count 212 10^3/cmm (157-399); Red Blood Count 3.93 10^6/uL (3.85-5.65); Red Cell Distribution Width 14.7 % (12.1-15.1); White Blood Count 6.79 10^3/uL (3.29-11.43)
[2023-08-31 12:03] LABS: Alanine Aminotransferase 28 U/L (0-41); Albumin Level 3.1 g/dL (3.5-5.2); Alkaline Phosphatase 82 U/L (40-130); Anion Gap 12.6 (5-19); Aspartate Amino Transferase 17 U/L (0-40); Blood Urea Nitrogen 26 mg/dL (8-23); Calcium 8.4 mg/dL (8.5-10.5); Carbon Dioxide 35 mmol/L (22-29); Chloride 91 mmol/L (98-107); Globulin 3.2 g/dL (1.3-4.6); Glucose 190 mg/dL (65-115); Osmolality Calculated 288 mOsm/kg (285-295); Potassium 4.6 mmol/L (3.5-5.1); Sodium 134 mmol/L (136-145); Total Bilirubin 0.9 mg/dL (0.15-1.2); Total Protein 6.3 g/dL (6.6-8.7)
[2023-09-02 11:57] LABS: Basophils % 0.9 %; Eosinophils # 0.1 10^3/uL (0.0-0.8); Eosinophils % 5.7 %; Hematocrit 33.7 % (37-53); Lymphocytes # 0.7 10^3/uL (0.8-4.8); Lymphocytes % 67.9 %; Mean Corpuscular HGB Conc 31.5 g/dL (30-55); Mean Corpuscular Hemoglobin 27.7 pg (27-33); Mean Platelet Volume 10.2 fL (7.4-10.4); Monocytes # 0.1 10^3/uL (0.2-0.9); Monocytes % 9.4 %; Neutrophils % 15.2 %; Nucleated Red Blood Cells % 0 %; Platelet Count 174 10^3/cmm (157-399); Red Blood Count 3.83 10^6/uL (3.85-5.65); Red Cell Distribution Width 14.5 % (12.1-15.1); White Blood Count 1.06 10^3/uL (3.29-11.43)
[2023-09-02 12:12] LABS: Neutrophils # 0.16 10^3/uL (1.8-7.7)
[2023-09-02 12:17] LABS: Alanine Aminotransferase 21 U/L (0-41); Albumin Level 3.2 g/dL (3.5-5.2); Alkaline Phosphatase 81 U/L (40-130); Aspartate Amino Transferase 13 U/L (0-40); Blood Urea Nitrogen 28 mg/dL (8-23); Calcium 8.6 mg/dL (8.5-10.5); Carbon Dioxide 38 mmol/L (22-29); Chloride 86 mmol/L (98-107); Creatinine Clr Calc Pharmacy 83.1876; Globulin 3.5 g/dL (1.3-4.6); Glucose 194 mg/dL (65-115); Osmolality Calculated 287 mOsm/kg (285-295); Sodium 133 mmol/L (136-145); Total Bilirubin 0.9 mg/dL (0.15-1.2); Total Protein 6.7 g/dL (6.6-8.7)
[2023-09-14 10:04] LABS: Basophils # 0.1 10^3/uL (0.0-0.1); Basophils % 0.5 %; Eosinophils # 0.1 10^3/uL (0.0-0.8); Eosinophils % 0.5 %; Hematocrit 29.9 % (37-53); Lymphocytes % 8.9 %; Mean Corpuscular HGB Conc 30.4 g/dL (30-55); Mean Platelet Volume 10.4 fL (7.4-10.4); Monocytes # 0.8 10^3/uL (0.2-0.9); Monocytes % 7.7 %; Neutrophils # 8.95 10^3/uL (1.8-7.7); Neutrophils % 81.6 %; Nucleated Red Blood Cells % 0 %; Platelet Count 310 10^3/cmm (157-399); Red Blood Count 3.25 10^6/uL (3.85-5.65); Red Cell Distribution Width 16.6 % (12.1-15.1); White Blood Count 10.96 10^3/uL (3.29-11.43)
[2023-09-14 10:17] LABS: Alanine Aminotransferase 35 U/L (0-41); Alkaline Phosphatase 125 U/L (40-130); Anion Gap 16.8 (5-19); Aspartate Amino Transferase 30 U/L (0-40); Blood Urea Nitrogen 29 mg/dL (8-23); Calcium 8.1 mg/dL (8.5-10.5); Carbon Dioxide 35 mmol/L (22-29); Chloride 92 mmol/L (98-107); Creatinine Clr Calc Pharmacy 79.1331; Globulin 3.5 g/dL (1.3-4.6); Glucose 298 mg/dL (65-115); Osmolality Calculated 307 mOsm/kg (285-295); Potassium 3.8 mmol/L (3.5-5.1); Sodium 140 mmol/L (136-145); Total Bilirubin 0.4 mg/dL (0.15-1.2); Total Protein 6.5 g/dL (6.6-8.7)
[2023-09-16 08:16] VITALS: BP 106/59; PULSE 63; RESP 18; TEMP 36.8; O2SAT 93
[2023-09-16] MEDS: pembrolizumab 200 MG in sodium chloride 0.9% 250 ML 516 MG IV (09:35)
[2023-09-16 10:16] VITALS: BP 105/68; PULSE 78; RESP 18; TEMP 36.9; O2SAT 91
--- NOTE | 2023-09-21 10:53 | N.ONRD TS_ITS ---
Radiation Oncology Treatment Summary Patient: Renea>Yancy MR#: [id number] : 1945> Age: 78> Sex: Male Dictated by: Dr. Pamela Davis Date of Service: 09/14/2023 Referring Physician(s) : Diagnosis: C34.91 - Malignant neoplasm of unspecified part of right bronchus or lung, Diagnosed 08/26/2023 (Active) C79.51 - Secondary malignant neoplasm of bone, Diagnosed 08/26/2023 (Active) Radiotherapy to Date: Course: T1-T3, Treatment Site: T SPINE 30Gy, Ref. ID: [id number], Energy: 15X, Dose/Fx (cGy): 300, #Fx: , Dose Correction (cGy): 0, Total Dose Delivered (cGy): 300, Start Date: 09/02/2023, End Date: 09/02/2023, Elapsed Days: 0 Clinical Summary: Plan: Patient advised to stop treatment per Dr. Pan, not having any pain at this time. Signed by: Dr. Pamela Davis>09/21/2023 10:51:42 AM <<Signature on File>>
== END 2023-09-16 23:59 | disposition home or self-care (01) ==
PROVIDERS: Internal Medicine; Nurse Practitioner Family; PCP Family Medicine; Visit Provider Internal Medicine Medical Oncology
DX: Z51.12 Encounter for antineoplastic immunotherapy (principal); Z53.9 Procedure and treatment not carried out, unspecified reason; Z79.899 Other long term (current) drug therapy; C34.90 Malignant neoplasm of unspecified part of unspecified bronchus or lung; C79.51 Secondary malignant neoplasm of bone
CPT/HCPCS: 36591; 77290; 77295; 77300; 77334; 77387; 77412; 77470; 80053; 85025; 96413; 99213; 99214; A4222; J7050; J9271

== ENCOUNTER → 2023-09-25 10:14 | Outpatient (BNVA) | payer OTHER, SELFPAY | PROVIDERS: PCP Family Medicine; Visit Provider Internal Medicine Critical Care Medicine | DX: C34.31 Malignant neoplasm of lower lobe, right bronchus or lung (principal); C79.9 Secondary malignant neoplasm of unspecified site; C34.90 Malignant neoplasm of unspecified part of unspecified bronchus or lung; J90 Pleural effusion, not elsewhere classified; J96.21 Acute and chronic respiratory failure with hypoxia; C79.51 Secondary malignant neoplasm of bone; C34.91 Malignant neoplasm of unspecified part of right bronchus or lung | CPT/HCPCS: 99214 ==